=== PATIENT | male | born 1940 | race Caucasian/White ===

== ENCOUNTER 2016-11-04 01:34 | Inpatient (IN) | payer OTHER, MEDICARE ==
[~2016-11-04] VITALS: Ht 172.7 cm; Wt 110.6 kg
[2016-11-04] VITALS (39 sets, daily range): BP systolic 74–107; BP diastolic 52–71; PULSE 90–103; TEMP 36.4–37.1; O2SAT 92–97; Ht 172.7 cm; Wt 110.6 kg
[2016-11-04] MEDS ORDERED: ONDANSETRON INJ 2 MG/ML 2 ML VIAL IV STA (01:52)
[2016-11-04] MEDS ORDERED: MoRPHine SULFATE 4 MG/ML 1 ML CARP\\VIAL IV STA (01:52)
[2016-11-04] MEDS ORDERED: SODIUM CHLORIDE 0.9% 1000ML 1,000 ML IV STA ×2 (01:52→02:45)
--- NOTE | 2016-11-04 01:54 | EMERGENCY ROOM VISIT NOTE ---
History Report prepared by Rubensibvan: Av Grossman Under the Supervision of: Dr. Abdulaziz Darden D.O. First contact with patient: 01:46 Chief Complaint: FLANK PAIN Stated Complaint: VOMITING,CHILLS,FLANK PAIN History of Present Illness The patient is a 76 year old male who presents to the Emergency Room with complaints of persistent left flank pain since 1430 yesterday. The patient is also having pain in his middle lower back. His pain is severe. The patient also started to experience chills, nausea, and vomiting after he went to bed. He denies chest pain, abdominal pain, diarrhea, or urinary symptoms. The patient feels the urge to urinate but has not been able to go tonight. The patient only has one kidney. He has a history of lymphoma, pyelonephritis, and kidney stones. He and his recently moved here from [place]. He has yet to see a local Oncologist. Source of History: patient Onset: 0 yesterday Position: back (lower, left) Symptom Intensity: severe Timing: other (persistent) Associated Symptoms: + chills, + nausea, + vomiting, No abdominal pain, No chest pain, No diarrhea, No urinary symptoms Review of Systems See HPI for pertinent positives and negatives. A total of ten systems were reviewed and were otherwise negative. Past Medical & Surgical Medical Problems: (1) Kidney stone (2) Lymphoma (3) Pyelonephritis Family History No pertinent family history Social History Smoking Status: Former Smoker Marital Status: Current/Historical Medications Scheduled Glipizide (Glipizide Er), Unknown Dose PO DAILY Lisinopril (Zestril), Unknown Dose PO DAILY [Unknown Cholest Med], PO DAILY Allergies Coded Allergies: No Known Allergies (Unverified , 11/04/16) Physical Exam Vital Signs Date Time Temp Pulse Resp B/P Pulse Ox O2 Delivery O2 Flow Rate FiO2 11/04/16 04:15 140 31 128/91 98 Non-Rebreather 10.0 11/04/16 03:30 133 35 123/76 97 Non-Rebreather 12.0 11/04/16 02:56 39.5 153 40 116/60 97 Non-Rebreather 13.0 11/04/16 01:58 150 11/04/16 01:39 36.7 108 22 145/78 100 Room Air Physical Exam GENERAL: Diaphoretic, mottled, anxious appearing. HENT: Normocephalic, atraumatic. Oropharynx unremarkable. EYES: Normal conjunctiva. Sclera non-icteric. NECK: Supple. No nuchal rigidity. FROM. No JVD. RESPIRATORY: Clear to auscultation. CARDIAC: Tachycardic, normal rhythm. Extremities warm and well perfused. Pulses equal. ABDOMEN: Soft, non-distended. No tenderness to palpation. No rebound or guarding. No masses. RECTAL: Deferred. MUSCULOSKELETAL: Chest examination reveals no tenderness. The back is symmetrical on inspection without obvious abnormality. There is no CVA tenderness to palpation. No joint edema. LOWER EXTREMITIES: Calves are equal size bilaterally and non-tender. No edema. No discoloration. NEURO: Normal sensorium. No sensory or motor deficits noted. SKIN: No rash or jaundice noted. Diaphoretic. Medical Decision & Procedures ER Provider Diagnostic Interpretation: X ray results as stated below per my interpretation. Other radiology results as stated below per my review and radiologist interpretation Chest One View Portable: Slight cardiomegaly. Questionable left lower lobe infiltrate. CT ABDOMEN & PELVIS: There is moderate to severe left sided hydroureteronephrosis secondary to an obstructing 7 x 3 mm stone in the distal left ureter approximately 1.5 cm proximal to the left UVJ. There is moderate perinephric and periureteric stranding. There is hepatomegaly and steatosis. Splenomegaly measures 14.2 cm. The gallbladder and pancreas are unremarkable. There is thickening of the left adrenal gland suggesting hyperplasia. The right adrenal gland and right kidney are not visualized. No evidence of bowel obstruction. Normal visualized appendix. Left hemicolon diverticulosis without evidence of acute diverticulitis. Aortoiliac atherosclerosis without aneurysm. There are enlarged paraesophageal and mesenteric lymph nodes. Bilateral fat containing inguinal hernias with evidence of prior bilateral inguinal hernia repair. No evidence of acute osseous abnormality. 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 Radiologist: Susan Sahu MD. Laboratory Results 11/04/16 01:58 Red Blood Count 5.42, Mean Corpuscular Volume 82.5, Mean Corpuscular Hemoglobin 27.5, Mean Corpuscular Hemoglobin Concent 33.3, Mean Platelet Volume 9.3, Neutrophils (%) (Auto) 54.6, Lymphocytes (%) (Auto) 42.1, Monocytes (%) (Auto) 1.3, Eosinophils (%) (Auto) 1.3, Basophils (%) (Auto) 0.0, Neutrophils # (Auto) 0.83, Lymphocytes # (Auto) 0.64, Monocytes # (Auto) 0.02, Eosinophils # (Auto) 0.02, Basophils # (Auto) 0.00 11/04/16 01:58 Test 11/04/16 01:58 11/04/16 02:41 11/04/16 02:48 White Blood Count 1.52 K/uL (4.8-10.8) Red Blood Count 5.42 M/uL (4.7-6.1) Hemoglobin 14.9 g/dL (14.0-18.0) Hematocrit 44.7 % (42-52) Mean Corpuscular Volume 82.5 fL (80-100) Mean Corpuscular Hemoglobin 27.5 pg (25-34) Mean Corpuscular Hemoglobin Concent 33.3 g/dl (32-36) Platelet Count 119 K/uL (130-400) Mean Platelet Volume 9.3 fL (7.4-10.4) Neutrophils (%) (Auto) 54.6 % Lymphocytes (%) (Auto) 42.1 % Monocytes (%) (Auto) 1.3 % Eosinophils (%) (Auto) 1.3 % Basophils (%) (Auto) 0.0 % Neutrophils # (Auto) 0.83 K/uL (1.4-6.5) Lymphocytes # (Auto) 0.64 K/uL (1.2-3.4) Monocytes # (Auto) 0.02 K/uL (0.11-0.59) Eosinophils # (Auto) 0.02 K/uL (0-0.5) Basophils # (Auto) 0.00 K/uL (0-0.2) RDW Standard Deviation 46.8 fL (36.4-46.3) RDW Coefficient of Variation 15.5 % (11.5-14.5) Immature Granulocyte % (Auto) 0.7 % Immature Granulocyte # (Auto) 0.01 K/uL (0.00-0.02) Nucleated RBC Absolute Count (auto) 0.02 K/uL (0-0) Nucleated Red Blood Cells % 1.1 % Toxic Vacuolation 1+ Large Platelets 1+ Polychromasia 1+ Ovalocytes 2+ Anion Gap 12.0 mmol/L (3-11) Est Creatinine Clear Calc Drug Dose 30.2 ml/min Estimated GFR () 28.9 Estimated GFR (Non- 24.9 BUN/Creatinine Ratio 9.9 (10-20) Calcium Level 9.0 mg/dl (8.5-10.1) Total Bilirubin 0.8 mg/dl (0.2-1) Direct Bilirubin 0.2 mg/dl (0-0.2) Aspartate Amino Transf (AST/SGOT) 20 U/L (15-37) Alanine Aminotransferase (ALT/SGPT) 39 U/L (12-78) Alkaline Phosphatase 110 U/L (45-117) Total Protein 7.0 gm/dl (6.4-8.2) Albumin 3.8 gm/dl (3.4-5.0) Lipase 323 U/L (73-393) Bedside Lactic Acid Venous 6.51 mmol/L (0.90-1.70) Urine Color YELLOW Urine Appearance ERROR (CLEAR) Urine pH 5.5 (4.5-7.5) Urine Specific [place] 1.011 (1.000-1.030) Urine Protein TRACE (NEG) Urine Glucose (UA) NEG (NEG) Urine Ketones NEG (NEG) Urine Occult Blood 3+ (NEG) Urine Nitrite POS (NEG) Urine Bilirubin NEG (NEG) Urine Urobilinogen NEG (NEG) Urine Leukocyte Esterase LARGE (NEG) Urine WBC (Auto) >30 /hpf (0-5) Urine RBC (Auto) >30 /hpf (0-4) Urine Hyaline Casts (Auto) 1-5 /lpf (0-5) Urine Epithelial Cells (Auto) 5-10 /lpf (0-5) Urine Bacteria (Auto) 4+ (NEG) Urine Pathogenic Casts /lpf (0) Urine Mucus PRESENT (NONE PRSENT) Laboratory results reviewed by me Medications Administered Medications (Trade) Dose Ordered Sig/Ashvin Route Start Time Stop Time Status Last Admin Dose Admin Sodium Chloride (Nss 1000ml) 1,000 ml @ 999 mls/hr Q1H1M STAT IV 11/04/16 01:52 11/04/16 02:52 DC 11/04/16 01:58 999 MLS/HR Ondansetron HCl (Zofran Inj) 4 mg NOW STAT IV 11/04/16 01:52 11/04/16 01:54 DC 11/04/16 01:57 4 MG Morphine Sulfate (MoRPHine SULFATE INJ) 4 mg NOW STAT IV 11/04/16 01:52 11/04/16 01:54 DC 11/04/16 01:57 4 MG Hydromorphone HCl (Dilaudid Inj) 1 mg NOW STAT IV 11/04/16 02:12 11/04/16 02:13 DC 11/04/16 02:15 1 MG Piperacillin Sod/ Tazobactam Sod (Zosyn Iv) 4.5 gm NOW STAT IV 11/04/16 02:45 11/04/16 02:46 DC 11/04/16 03:06 4.5 GM Levofloxacin (Levaquin / D5W) 750 mg NOW STAT IV 11/04/16 02:45 11/04/16 02:46 DC 11/04/16 03:41 750 MG Acetaminophen 1000 mg 1,000 mg NOW STAT PO 11/04/16 02:45 11/04/16 02:46 DC 11/04/16 03:06 1,000 MG Sodium Chloride (Nss 1000ml) 1,000 ml @ 999 mls/hr Q1H1M STAT IV 11/04/16 02:45 11/04/16 03:45 DC 11/04/16 02:45 999 MLS/HR Hydromorphone HCl (Dilaudid Inj) 1 mg NOW STAT IV 11/04/16 03:33 11/04/16 03:34 DC 11/04/16 03:39 1 MG Miscellaneous Information 1 ea 1 ea ONE ONCE N/A 11/04/16 04:00 11/04/16 04:01 DC 11/04/16 03:53 1 EA Sodium Chloride (Nss 1000ml) 1,000 ml @ 999 mls/hr Q1H1M ONCE IV 11/04/16 04:00 11/04/16 05:00 11/04/16 04:00 999 MLS/HR ECG Indication: back/shoulder pain Rate (beats per minute): 146 Rhythm: sinus tachycardia Findings: nonspecific-ST abn, left axis deviation, other (left anterior hemiblock. poor baseline.) ED Course 0147: The patient was evaluated in room A10. A complete history and physical exam was performed. 0152: Morphine Sulfate 4 mg IV, Zofran 4 mg IV, NSS 1000 ml @ 999 mls/hr. 0212: Dilaudid 1 mg IV. 0234: Updated the patient and his . The patient vomited at CT scan. The patient was tachycardic, hypoxic, tachypneic and ill-appearing on reevaluation. 0245: NSS 1000 ml @ 999 mls/hr, Tylenol 1000 mg PO, Levofloxacin 750 mg IV, Zosyn 4.5 gm IV. 0300: Spoke with the patient and his . They state that he had cancer 25 years ago and was treated at [facility] in [place]. 0333: Dilaudid 1 mg IV. 0345: Daptomycin 642 mg / NSS 62.84 ml @ 100 mls/hr IV. 0352: Discussed the case with Dr. Bear, Urologist. The patient will eventually be seen in the OR. 0400: Discussed the case with Dr. Alonso, [facility]. The patient will be evaluated. 0420: Discussed the case with Dr. Schneider, [employer]. He is aware. 0430: The patient is being seen by the ICU's PA. Medical Decision Differential diagnosis includes sepsis, pyelonephritis, ureterolithiasis, UTI, AAA, pneumonia, SVT. Spoke with patient's family at bedside. Patient started on IV fluids patient given Tylenol patient given empiric triple antibiotic therapy. Patient appears to be septic however is not in septic shock at 4:14 AM patient has a neutropenic fever with lactic acidosis a urinary tract infection complicated by a ureteral stone on CT and potentially left lower lobe pneumonia. This case was discussed with Dr. Bear from urology will take the patient the operating room. This case was discussed with Dr. Alonso for admit at 400am Consults Time Called: 0340 Consulting Physician: Dr. Bear, Urologist. Returned Call: 0352 The patient will eventually be seen in the OR. Additional Consults: Time Called: 0353 Consulted Physician: Dr. Alonso, [facility] Returned Call: 0400 Additional Comments: The patient will be evaluated. Time Called: 0405 Consulted Physician: Dr. Schneider, [employer]. Returned Call: 0420 Additional Comments: He is aware. Impression Primary Impression: Left flank pain Additional Impressions: Urinary tract infection Pyelonephritis Sepsis Renal insufficiency Ureterolithiasis Critical Care I have personally spent greater than 45 minutes of critical care time in the direct management of this patient. This includes bedside care, interpretation of diagnostic studies, and testing, discussion with consultants, patient, and family members, and other required patient management activities. This 45 minutes is in excess of all separately billable procedures. Scribe Attestation The scribe's documentation has been prepared under my direction and personally reviewed by me in its entirety. I confirm that the note above accurately reflects all work, treatment, procedures, and medical decision making performed by me. Departure Information Dispostion Being Evaluated By Hospitalist Referrals Nicola Hannon MD (PCP) Patient Instructions My [facility] Problem Qualifiers Additional Impressions: Urinary tract infection Urinary tract infection type: site unspecified Sepsis Sepsis type: sepsis due to unspecified organism Qualified Codes: A41.9 - Sepsis, unspecified organism
[2016-11-04] MEDS ORDERED: HYDROmorphone INJ 1 MG/ML SYR IV STA (02:12)
[2016-11-04 02:28] LABS: HEMATOCRIT 44.7 % (42-52); MEAN CELL VOLUME 82.5 fL (80-100); MEAN CORPUSCULAR HEMOGLOBIN 27.5 pg (25-34); MEAN CORPUSCULAR HGB CONC 33.3 g/dl (32-36); MEAN PLATELET VOLUME 9.3 fL (7.4-10.4); PLATELET COUNT 119 K/uL (130-400); RED BLOOD COUNT 5.42 M/uL (4.7-6.1); WHITE BLOOD COUNT 1.52 K/uL (4.8-10.8)
[2016-11-04 02:37] LABS: BUN/CREATININE RATIO 9.9 (10-20); CREATININE 2.4 mg/dl (0.60-1.40); POTASSIUM 4.3 mmol/L (3.5-5.1)
[2016-11-04] MEDS ORDERED: LEVAQUIN 750MG / 150ML D5W IV STA (02:45)
[2016-11-04] MEDS ORDERED: ACETAMINOPHEN 500 MG TAB PO STA (02:45)
[2016-11-04] MEDS ORDERED: PIPERACILLIN/TAZOBACTAM 4.5 GM/100ML D5W IV STA (02:45)
[2016-11-04 03:03] LABS: URINE BILIRUBIN NEG (NEG); URINE COLOR YELLOW; URINE NITRITE POS (NEG); URINE PH 5.5 (4.5-7.5); URINE SPECIFIC GRAVITY 1.011 (1.000-1.030); UROBILINOGEN NEG (NEG); ZZURINE CULT IF INDIC CATH YES
[2016-11-04 03:04] LABS: MANUAL MICROSCOPIC REQUIRED? NO; REVIEW REQ? YES
[2016-11-04 03:13] LABS: COMPLETE YES; EOS % 1.3 %; IG% 0.7 %; LARGE PLATELETS 1+; LYMPH % 42.1 %; LYMPH ABS # 0.64 K/uL (1.2-3.4); MONO % 1.3 %; NEUT % 54.6 %; OVALOCYTES 2+; POLYCHROMASIA 1+; VACUOLIZATION 1+
[2016-11-04 03:17] LABS: URINE MUCUS PRESENT (NONE PRSENT)
[2016-11-04] MEDS ORDERED: HYDROmorphone INJ 0.5 MG/0.5 ML SYR IV STA (03:33)
[2016-11-04] MEDS ORDERED: LISI-461 PO (03:39)
[2016-11-04] MEDS ORDERED: GLIP2.5T11 PO (03:40)
[2016-11-04] MEDS ORDERED: [UNRECOGNIZED DRUG - REMARK] PO (03:41)
[2016-11-04] MEDS ORDERED: DAPTOMYCIN IV SCH (03:45)
[2016-11-04] MEDS ORDERED: SODIUM CHLORIDE 0.9% IV SCH (03:45)
[2016-11-04] MEDS ORDERED: SODIUM CHLORIDE 0.9% 1000ML 1,000 ML IV ONE (04:00)
[2016-11-04] MEDS ORDERED: NURSING VERBAL MED ORDER ONE ×2 (04:00→08:45)
--- NOTE | 2016-11-04 04:31 | History and Physical ---
History & Physical Date & Time of Service: Nov 04, 2016 at 04:22 Chief Complaint: Vomiting,Chills,Flank Pain Primary Care Physician: Nicola Hannon MD History of Present Illness Source: spouse 76 y/o M Hx DM 2, HTN, HPL, renal calculi, multiple Saravanan including renal CA leading to R nephrectomy. Pt had acute onset of L flank/back pain which progressed to severe, in addition to fevers following dinner on 11/03. A fever was confirmed on arrival to the ER and he was sent for an abdominal CT. This revealed severe L hydronephrosis with a 7mm obstructing calculus close to the UVJ. The urology service was contacted and the pt will be taken to the OR emergently. Initial labs are concerning for neutropenia, possible OSCAR and a markedly elevated lactic acid. The pt received multiple doses of narcotics in the ER and I was not able to obtain a history directly from him as a result. His was present and very knowledgeable regarding his past history. He recently relocated to [place] from [place] for longterm and we do not have any recent medical records or labs at the time of admission. Past Medical/Surgical History 1) Renal CA 1999 - R nephrectomy - no chemo or radiation 2) Prostate CA 2005 - prostatectomy - no chemo or radiation 3) Non Hodgkin's lymphoma 2011 - remission following 8 cycles chemotherapy 4) DM 2 5) HTN 6) HPL 7) Renal calculi - required surgical excision of a large renal calculus at age 24 Family History No pertinent family history Father at 96 - history of CVA Mother at 49 Brain CA Social History Smoking Status: Former Smoker Marital Status: Allergies Coded Allergies: No Known Allergies (Unverified , 11/04/16) Home Medications Scheduled Glipizide (Glipizide Er), Unknown Dose PO DAILY Lisinopril (Zestril), Unknown Dose PO DAILY [Unknown Cholest Med], PO DAILY Review of Systems Constitutional: + chills, + fever, + sweats Eyes: No eye pain, No worsening of vision ENT: No hearing loss, No nasal symptoms, No unusual epistaxis Respiratory: No cough, No sputum, No wheezing Cardiovascular: No PND, No chest pain, No orthopnea Abdomen: No nausea, No pain, No vomiting Musculoskeletal: + problem reported (severe L back pain), No joint pain Genitourinary - Male: + problem reported (severe L flank pain), + urinary urgency, No dysuria, No hematuria Neurologic: No memory loss, No paralysis, No weakness Psychiatric: No depression symptoms Endocrine: No fatigue Hematologic / Lymphatic: No abnormal bleeding/bruising Integumentary: No rash Allergic / Immunologic: No environmental allergies Physical Exam Vital Signs Date Time Temp Pulse Resp B/P Pulse Ox O2 Delivery O2 Flow Rate FiO2 11/04/16 03:30 133 35 123/76 97 Non-Rebreather 12.0 11/04/16 02:56 39.5 153 40 116/60 97 Non-Rebreather 13.0 11/04/16 01:58 150 11/04/16 01:39 36.7 108 22 145/78 100 Room Air General Appearance: + pertinent finding (Overweight elderly male - asleep/ snoring - tachypnic ) Head: normocephalic, atraumatic Eyes: normal inspection, EOMI ENT: normal ENT inspection Neck: supple, + pertinent finding (exam limited by habitus) Respiratory/Chest: chest non-tender, lungs clear, normal breath sounds, no respiratory distress, + pertinent finding (tachypnea) Cardiovascular: regular rate, rhythm, no edema, no gallop Abdomen/GI: normal bowel sounds, non tender, soft, + pertinent finding Genitourinary - Male: + pertinent finding (Avoided palpation of L flank in lite of diagnosis) Back: + pertinent finding (Avoided palpation of L flank in lite of diagnosis) Extremities/Musculoskelatal: normal inspection, no calf tenderness, normal capillary refill, no pedal edema Neurologic/Psych: pricing analyst II-XII nml as tested, no motor/sensory deficits, alert, oriented x 3 Skin: normal color, warm/dry, no rash Diagnostics Laboratory Results Results Past 24 Hours Test 11/04/16 01:58 11/04/16 02:41 11/04/16 02:48 Range/Units White Blood Count 1.52 4.8-10.8 K/uL Red Blood Count 5.42 4.7-6.1 M/uL Hemoglobin 14.9 14.0-18.0 g/dL Hematocrit 44.7 42-52 % Mean Corpuscular Volume 82.5 80-100 fL Mean Corpuscular Hemoglobin 27.5 25-34 pg Mean Corpuscular Hemoglobin Concent 33.3 32-36 g/dl Platelet Count 119 130-400 K/uL Mean Platelet Volume 9.3 7.4-10.4 fL Neutrophils (%) (Auto) 54.6 % Lymphocytes (%) (Auto) 42.1 % Monocytes (%) (Auto) 1.3 % Eosinophils (%) (Auto) 1.3 % Basophils (%) (Auto) 0.0 % Neutrophils # (Auto) 0.83 1.4-6.5 K/uL Lymphocytes # (Auto) 0.64 1.2-3.4 K/uL Monocytes # (Auto) 0.02 0.11-0.59 K/uL Eosinophils # (Auto) 0.02 0-0.5 K/uL Basophils # (Auto) 0.00 0-0.2 K/uL RDW Standard Deviation 46.8 36.4-46.3 fL RDW Coefficient of Variation 15.5 11.5-14.5 % Immature Granulocyte % (Auto) 0.7 % Immature Granulocyte # (Auto) 0.01 0.00-0.02 K/uL Nucleated RBC Absolute Count (auto) 0.02 0-0 K/uL Nucleated Red Blood Cells % 1.1 % Toxic Vacuolation 1+ Large Platelets 1+ Polychromasia 1+ Ovalocytes 2+ Sodium Level 141 136-145 mmol/L Potassium Level 4.3 3.5-5.1 mmol/L Chloride Level 102 98-107 mmol/L Carbon Dioxide Level 27 21-32 mmol/L Anion Gap 12.0 3-11 mmol/L Blood Urea Nitrogen 24 7-18 mg/dl Creatinine 2.40 0.60-1.40 mg/dl Est Creatinine Clear Calc Drug Dose 30.2 ml/min Estimated GFR () 28.9 Estimated GFR (Non- 24.9 BUN/Creatinine Ratio 9.9 10-20 Random Glucose 201 70-99 mg/dl Calcium Level 9.0 8.5-10.1 mg/dl Total Bilirubin 0.8 0.2-1 mg/dl Direct Bilirubin 0.2 0-0.2 mg/dl Aspartate Amino Transf (AST/SGOT) 20 15-37 U/L Alanine Aminotransferase (ALT/SGPT) 39 12-78 U/L Alkaline Phosphatase 110 45-117 U/L Total Protein 7.0 6.4-8.2 gm/dl Albumin 3.8 3.4-5.0 gm/dl Lipase 323 73-393 U/L Bedside Lactic Acid Venous 6.51 0.90-1.70 mmol/L Urine Color YELLOW Urine Appearance ERROR CLEAR Urine pH 5.5 4.5-7.5 Urine Specific [place] 1.011 1.000-1.030 Urine Protein TRACE NEG Urine Glucose (UA) NEG NEG Urine Ketones NEG NEG Urine Occult Blood 3+ NEG Urine Nitrite POS NEG Urine Bilirubin NEG NEG Urine Urobilinogen NEG NEG Urine Leukocyte Esterase LARGE NEG Urine WBC (Auto) >30 0-5 /hpf Urine RBC (Auto) >30 0-4 /hpf Urine Hyaline Casts (Auto) 1-5 0-5 /lpf Urine Epithelial Cells (Auto) 5-10 0-5 /lpf Urine Bacteria (Auto) 4+ NEG Urine Pathogenic Casts 0 /lpf Urine Mucus PRESENT NONE PRSENT Microbiology Results 11/04/16 Blood Culture, Received Pending 11/04/16 Blood Culture, Received Pending 11/04/16 Urine Culture, Received Pending Diagnostic Radiology CT abdomen: Severe L hydronephrosis with a 7mm obstructing calculus close to the UVJ. EKG Sinus tach - LAFB - no evidence of previous PR Impression Assessment and Plan 76 y/o M Hx DM 2, HTN, HPL, renal calculi, multiple Saravanan including renal CA leading to R nephrectomy. Pt had acute onset of L flank/back pain which progressed to severe, in addition to fevers following dinner on 11/03. A fever was confirmed on arrival to the ER and he was sent for an abdominal CT. This revealed severe L hydronephrosis with a 7mm obstructing calculus close to the UVJ. The urology service was contacted and the pt will be taken to the OR emergently. Initial labs are concerning for neutropenia, possible OSCAR and a markedly elevated lactic acid. The pt received multiple doses of narcotics in the ER and I was not able to obtain a history directly from him as a result. His was present and very knowledgeable regarding his past history. He recently relocated to [place] from [place] for longterm and we do not have any recent medical records or labs at the time of admission. 1) Pre-op risk - He has no history of heart disease He will require insulin treatment. His creatinine is above 2.0 and this may be acute. There is no evidence if previous PR on EKG - RCRI is 6.6% 2) Urosepsis - Pt placed on broad spectrum coverage - provided with Zosyn, Levaquin, Dapto in the ER - we have continued Zosyn and if there is no short- term improvement following surgery would consider redosing Dapto and Levaquin at 24hrs. Urology contacted and pt will proceed to OR emergently. 3) Neutropenia - may be due to acute infection however considering his history of multiple Saravanan he may require an oncology eval if his count does not recover 4) DM - placed on sliding scale 5) HTN - Lisinopril held for surgery and due to possible OSCAR 6) OSCAR - pt had a R nephrectomy in 1999 - we do not know his baseline creatinine - he is receiving aggressive IVF on route to OR and labs will be trended 7) HPL - he is likely on a Statin which should be reintroduced post-op Full code - SCDs pending surgery Total time for this admit including review of labs, meds, EKG, imaging - discussion with pts and ER attending - including critical care time 40 min Level of Care Critical Care Resuscitation Status FULL RESUSCITATION VTE Prophylaxis Given or contraindicated: SCD's
[2016-11-04] MEDS ORDERED: FLUMAZENIL 0.1 MG/1 ML 10 ML VIAL IV PRN (04:45)
[2016-11-04] MEDS ORDERED: NALOXONE HCL 0.4 MG/1 ML VIAL/CARP IV PRN (04:45)
[2016-11-04] MEDS ORDERED: FENTANYL CITRATE INJ 50 MCG/1 ML 2 ML VIAL IV PRN (04:45)
[2016-11-04] MEDS ORDERED: HYDROmorphone INJ 2 MG/ML SYR/VIAL IV PRN (04:45)
[2016-11-04] MEDS ORDERED: LABETALOL HCL IV 5 MG/ML 20ML IV PRN (04:45)
[2016-11-04] MEDS ORDERED: MEPERIDINE HCL 25 MG/ML CARP IV PRN (04:45)
[2016-11-04] MEDS ORDERED: PHENYLEPHRINE 100MCG/ML 5ML SYR IV PRN (04:45)
[2016-11-04] MEDS ORDERED: ATROPINE SULFATE 0.1 MG/ML 5ML SYR IV PRN (04:45)
[2016-11-04] MEDS ORDERED: ONDANSETRON INJ 2 MG/ML 2 ML VIAL IV PRN (04:45)
[2016-11-04] MEDS ORDERED: EpHEDrine SULFATE INJ 50 MG/ML AMP IV PRN (04:45)
[2016-11-04] MEDS ORDERED: CONRAY 30% 150ML BOTTLE ONE (04:49)
[2016-11-04] MEDS ORDERED: NovoLIN-R INSULIN PER UNIT CHARGE ONE (05:02)
--- NOTE | 2016-11-04 05:02 | Progress Note ---
Progress Note Date of Service Nov 04, 2016. Progress Note 76 yo male with L distal obstructing stone in solitary kidney, in renal failure , colic, septic and decompensating quickly. In duress. gives history. R nephrectomy for RCC RRP for CAP History of lymphoma s/p chemoRx Febrile, poorly oriented + respiratory distress L CVAT Tachycardia OR ready for stent placement Consent obtained from , patient unable to give Will proceed to OR for emergency decompression, will complete consultation after completion of case. Care d/w , anesthesia, ER and OR team.
[2016-11-04] MEDS ORDERED: FENTANYL CITRATE INJ 50 MCG/1 ML 2 ML VIAL ONE (05:12)
[2016-11-04] MEDS ORDERED: INSULIN HUMAN REGULAR IV ONE (05:15)
[2016-11-04] MEDS ORDERED: PROPOFOL IV EMULSION 10 MG/ML 20 ML VIAL IV ONE (05:36)
[2016-11-04] MEDS ORDERED: LIDOCAINE HCL 2% 2 ML VIAL (20MG/ML) ONE (05:36)
--- NOTE | 2016-11-04 05:45 | Critical Care Consultation ---
Critical Care Consultation Date of Consultation: Nov 04, 2016. Attending Physician: Dr. Wero Alonso Reason for Consultation: Post-Operative Observation and Sepsis History of Present Illness Attending: Dr. Nakul Schneider Doroteo Arteaga is a 52-bxal-lps-year-old man who presents to [facility] ED late last night for sudden onset left flank pain. Patient has a significant past medical history of multiple cancers including; prostate, kidney, lymphoma. He has received multiple rounds of chemotherapy. Is currently said to be in remission. Patient's also reports that he has had many kidney stones. History tonight is collected from the as the patient is rather sedated after multiple pain medications and is asleep in bed. She states that around 10 :30 last evening her suddenly started complaining of left flank pain. He was experiencing rigors and vomited twice. She states that she did look at the vomited and it was without blood. She states the first one was clear secretions and the second was that of food product. She states that he took a small amount of water and some Tylenol with no relief. Thus they came to the emergency department. At the emergency department the patient has received approximately 3 L of fluid, 4 mg of morphine, 4 mg Zofran, 21 mg Dilaudid doses. He is also received Tylenol and broad-spectrum antibiotics of Levaquin and Zosyn. said that the patient could not originally find a comfortable position but after the final dose of Dilaudid was able to turn to his side and fall asleep. Patient underwent a CT abdomen and pelvis that demonstrated moderate to severe left-sided hydrocele ureteral nephrosis secondary to an obstructing 7 x 3 mm stone in the distal left ureter approximately 1.5 cm of proximal to the left UVJ. There is moderate perinephritic and periureteric stranding. denies that pt complained of chest pain, trouble breathing, cough. Pt has been unable to urinate despite urge. Chery in place with concentrated urine. Pt on 13L non-breather. Past Medical/Surgical History Medical Problems: Kidney stone Lymphoma Pyelonephritis Renal Calculi Shoulder Fracture Bilateral Hernia Cataracts Diabetes Type II Renal Cell CA Prostate CA Lymphoma Surgical History: Cataract Repair Herniorrhaphy Nephrectomy Family History No pertinent family history Mother: @ 46 of Brain [place] Father: at 95, Known CVA 1 Daughter from [place] 1 Son 52 alive and well Social History Smoking Status: Former Smoker (Quit in 1984) Smokeless Tobacco Use: No Alcohol Use: occasionally ( reports once a month at most) Drug Use: none Marital Status: Housing Status: lives with significant other ([facility] 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) Allergies Coded Allergies: No Known Allergies (Unverified , 11/04/16) Home Medications Scheduled Glipizide (Glipizide Er), Unknown Dose PO DAILY Lisinopril (Zestril), Unknown Dose PO DAILY [Unknown Cholest Med], PO DAILY Current Inpatient Medications Current Inpatient Medications Medications (Trade) Dose Ordered Sig/Ashvin Route Start Time Stop Time Status Last Admin Dose Admin Daptomycin 642 mg/ Sodium Chloride 62.84 ml @ 100 mls/hr NOW IV 11/04/16 03:45 11/14/16 03:44 11/04/16 04:31 100 MLS/HR Sodium Chloride (Nss 1000ml) 1,000 ml @ 999 mls/hr Q1H1M ONCE IV 11/04/16 04:00 11/04/16 05:00 11/04/16 04:00 999 MLS/HR Insulin Aspart SLIDING SCALE G... Q6H SC 11/04/16 04:15 12/04/16 04:14 UNV Sodium Chloride 1,000 ml @ 150 mls/hr Q6H40M IV 11/04/16 04:15 12/04/16 04:14 UNV Piperacillin Sod/ Tazobactam Sod/ Dextrose (Zosyn Iv/D5 100ml) 115 ml @ 200 mls/hr Q6 IV 11/04/16 06:00 11/14/16 05:59 UNV Hydromorphone HCl (Dilaudid Inj) 1 mg Q3H PRN IV 11/04/16 04:45 11/18/16 04:44 UNV Hydromorphone HCl (Dilaudid Inj) 0.5 mg Q5M PRN IV 11/04/16 04:45 11/05/16 04:44 UNV Fentanyl Citrate (Fentanyl Inj) 25 mcg Q5M PRN IV 11/04/16 04:45 11/05/16 04:44 UNV Naloxone HCl (Narcan Inj) 0.2 mg Q2M PRN IV 11/04/16 04:45 11/05/16 04:44 UNV Meperidine HCl (Demerol Inj) 12.5 mg Q5M PRN IV 11/04/16 04:45 11/05/16 04:44 UNV Ondansetron HCl (Zofran Inj) 4 mg ONE PRN IV 11/04/16 04:45 UNV Flumazenil (Romazicon Inj) 0.2 mg Q2M PRN IV 11/04/16 04:45 11/05/16 04:44 UNV Labetalol HCl (Normodyne IV) 5 mg Q5M PRN IV 11/04/16 04:45 UNV Ephedrine Sulfate (EpHEDrine SULFATE INJ) 5 mg Q5M PRN IV 11/04/16 04:45 11/05/16 04:44 UNV Atropine Sulfate (Atropine Sulfate 0.1MG/Ml Inj) 0.5 mg Q1M PRN IV 11/04/16 04:45 11/05/16 04:44 UNV Phenylephrine HCl (Andre-Synephrine 500MCG/5ML Syr) 100 mcg Q5M PRN IV 11/04/16 04:45 11/05/16 04:44 UNV Review of Systems 12 systems reviewed and negative other than previously mentioned in the HPI. Physical Exam Date Time Temp Pulse Resp B/P Pulse Ox O2 Delivery O2 Flow Rate FiO2 11/04/16 04:34 135 34 104/59 97 Non-Rebreather 11/04/16 04:15 140 31 128/91 98 Non-Rebreather 10.0 11/04/16 03:30 133 35 123/76 97 Non-Rebreather 12.0 11/04/16 02:56 39.5 153 40 116/60 97 Non-Rebreather 13.0 11/04/16 01:58 150 11/04/16 01:39 36.7 108 22 145/78 100 Room Air Vital Signs - as noted Laboratory Data - as noted Physical Exam: General - Anxious appearing and Diaphoretic HENT: Normocephalic, atraumatic. Oropharynx unremarkable. EYES: Normal conjunctiva. Sclera non-icteric. Neck - Supple, trachea midline, no masses or lymphadenopathy, no JVD or bruits Lungs - No paradoxical chest wall movement, clear to auscultation bilaterally, increased breath sounds due to mouth breathing at times, breathing at 30bpm, no wheezes, rales, or rhonchi Heart - Sinus Tachycardia, No murmur, rubs, clicks, or gallops appreciated Abdomen - BS not noted, no bruits noted, tympanic to percussion, soft, nontender , nondistended, no organomegaly. Avoided CVA tenderness due to confirmed dx via CT scan. Extremities - No edema, pedal pulses intact Neuro - Alert & Oriented prior to pain meds/sleeping Strength extremities equal and appropriate bilaterally Reflexes: plantar reflex up going CN: No facial asymmetry Laboratory Results Last 24 Hours Test 11/04/16 01:58 11/04/16 02:41 11/04/16 02:48 11/04/16 04:35 White Blood Count 1.52 K/uL Red Blood Count 5.42 M/uL Hemoglobin 14.9 g/dL Hematocrit 44.7 % Mean Corpuscular Volume 82.5 fL Mean Corpuscular Hemoglobin 27.5 pg Mean Corpuscular Hemoglobin Concent 33.3 g/dl Platelet Count 119 K/uL Mean Platelet Volume 9.3 fL Neutrophils (%) (Auto) 54.6 % Lymphocytes (%) (Auto) 42.1 % Monocytes (%) (Auto) 1.3 % Eosinophils (%) (Auto) 1.3 % Basophils (%) (Auto) 0.0 % Neutrophils # (Auto) 0.83 K/uL Lymphocytes # (Auto) 0.64 K/uL Monocytes # (Auto) 0.02 K/uL Eosinophils # (Auto) 0.02 K/uL Basophils # (Auto) 0.00 K/uL RDW Standard Deviation 46.8 fL RDW Coefficient of Variation 15.5 % Immature Granulocyte % (Auto) 0.7 % Immature Granulocyte # (Auto) 0.01 K/uL Nucleated RBC Absolute Count (auto) 0.02 K/uL Nucleated Red Blood Cells % 1.1 % Toxic Vacuolation 1+ Large Platelets 1+ Polychromasia 1+ Ovalocytes 2+ Sodium Level 141 mmol/L Potassium Level 4.3 mmol/L Chloride Level 102 mmol/L Carbon Dioxide Level 27 mmol/L Anion Gap 12.0 mmol/L Blood Urea Nitrogen 24 mg/dl Creatinine 2.40 mg/dl Est Creatinine Clear Calc Drug Dose 30.2 ml/min Estimated GFR () 28.9 Estimated GFR (Non- 24.9 BUN/Creatinine Ratio 9.9 Random Glucose 201 mg/dl Calcium Level 9.0 mg/dl Total Bilirubin 0.8 mg/dl Direct Bilirubin 0.2 mg/dl Aspartate Amino Transf (AST/SGOT) 20 U/L Alanine Aminotransferase (ALT/SGPT) 39 U/L Alkaline Phosphatase 110 U/L Total Protein 7.0 gm/dl Albumin 3.8 gm/dl Lipase 323 U/L Bedside Lactic Acid Venous 6.51 mmol/L Urine Color YELLOW Urine Appearance ERROR Urine pH 5.5 Urine Specific [place] 1.011 Urine Protein TRACE Urine Glucose (UA) NEG Urine Ketones NEG Urine Occult Blood 3+ Urine Nitrite POS Urine Bilirubin NEG Urine Urobilinogen NEG Urine Leukocyte Esterase LARGE Urine WBC (Auto) >30 /hpf Urine RBC (Auto) >30 /hpf Urine Hyaline Casts (Auto) 1-5 /lpf Urine Epithelial Cells (Auto) 5-10 /lpf Urine Bacteria (Auto) 4+ Urine Pathogenic Casts /lpf Urine Mucus PRESENT Diagnostic Results CT abdomen and pelvis: 11/04/2016 [address] abdomen and pelvis that demonstrated moderate to severe left-sided hydrocele ureteral nephrosis secondary to an obstructing 7 x 3 mm stone in the distal left ureter approximately 1.5 cm of proximal to the left UVJ. There is moderate perinephritic and periureteric stranding. There is hepatomegaly and steatosis. Splenomegaly measures 14.2 cm. The gallbladder and pancreas are unremarkable. There is thickening of the left adrenal gland suggesting hyperplasia. The right adrenal gland and right kidney are not visualized. No evidence of bowel extraction. Normal visualized appendix. Left hemicolon diverticulosis without evidence of acute diverticulitis. Aortoiliac atherosclerosis without aneurysm. There are enlarged paraesophageal and mesenteric lymph nodes. Bilateral fat containing inguinal hernias with evidence of prior bilateral inguinal hernia repair. No evidence of acute osseous abnormality. 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 Radiologist: Susan Sahu M.D. CXR: 11/04/2016 0152 Formal read pending: Per my review: Study quality poor due to portable technique and limited inspiration. No sign of pneumothorax. Cardiomegaly. Increased vascular markings. No opacities favoring pneumonia. Assessment & Plan (1) Urinary tract infection (2) Ureterolithiasis (3) Renal insufficiency (4) Left flank pain (5) Sepsis (6) Lymphoma (7) Pyelonephritis (8) Kidney stone : * POD # 0 * Continue Fluid Resuscitation * Chery to gravity in place, Strict I&O's * Urology consulted: Post op care per recommendations * Likely OSCAR: Unknown Renal Function at this time, hx of right nephrectomy * Monitor in ICU I.D * Septic 2/2 impacted kidney stone * Pt started on broad spectrum abx * Levaquin & Zosyn * Trend Lactic Acid q6hrs: Currently 6.51 Endocrine: * SSI in place: Received Insulin pre-op for elevated glucose Cardiac: * Denies Cardiac history including hypertension * Pt SBP low 100's in ED; Continue Fluids * Monitor on telemetry Neuro: * Continue pain control with Dilaudid post-operatively Respiratory: * Currently in O.R. with plan for light sedation. * Provide additional O2 if needed * Surgery may be converted to intubation; Will plan to extubate once adequately recovered * Monitor on telemetry GI: * NPO currently; advance diet as tolerated once recovered * Monitor labs * GI Prophylaxis: Currently not indicated Heme: * Leukopenia noted * H&H stable, Plts stable * Monitor CBC * DVT Prophylaxis: held currently pending surgery. SCDs once in ICU Access: * [address]. Will examine need for central access/arterial line post- operatively CCT: 37 minutes; Not including any billable procedures. Thank you for including us in the care of this patient. Please review Dr. Nakul Schneider's addendum for further recommendations. I have personally evaluated and examined this patient. I agree with assessment and plan of Nia Maradiaga PA-C. Patient alert oriented, pleasant during my examination. Blood pressure still on the low side we will check a random cortisol as well as add vasopressin in the interim. Given leukopenia will check for influenza, continue antibiotics, discontinue Levaquin there is no role for double coverage of gram negatives and hospital and pyelogram reports ineffectiveness of Levaquin, continue daptomycin until blood cultures are urine cultures are positive given persistent hypotension, given 1 dose 100 mg hydrocortisone. I have personally spent 25 minutes of critical care time in the direct management of this patient. This is a life/limb threatening event. This includes time spent evaluating patient, direct bedside care, chart review, placing orders, interpretation of diagnostic studies, discussion with consultants, patient, and family members, as well as other required patient management activities. This time is exclusive of all separately billable procedures, and teaching time and separate from and in addition to any other critical care service time. Problem Qualifiers (1) Urinary tract infection: Urinary tract infection type: site unspecified (2) Sepsis: Sepsis type: sepsis due to unspecified organism Qualified Codes: A41.9 - Sepsis, unspecified organism
--- NOTE | 2016-11-04 05:58 | [facility] Post Operative Brief Note ---
Immediate Operative Summary Operative Date Nov 04, 2016. Pre-Operative Diagnosis Solitary Left Kidney with Ureteral Stone, Sepsis, Renal Failure Post-Operative Diagnosis Solitary Left Kidney with Ureteral Stone, Sepsis, Renal Failure Procedure(s) Performed Cystoscopy, Left Ureteral Stent Placement Surgeon Dr. Kelsey Bear Block Cutter Surgeon(s) none Estimated Blood Loss 0 cc Findings Good stent position on fluoro, purulent urine after drainage Specimens Micro #1 Urine Culture and Sensitivity Drains 6 fr multilength stent on left, 16 fr hutchins Anesthesia MAC Complication(s) None Disposition Recovery Room / PACU
--- NOTE | 2016-11-04 06:12 | Anesthesiology Progress Note ---
Anesthesia Post Op Note Date & Time Nov 04, 2016 at 06:08 Vital Signs Pain Intensity: 0 Vital Signs Past 12 Hours Date Time Temp Pulse Resp B/P Pulse Ox O2 Delivery O2 Flow Rate FiO2 11/04/16 05:55 108 18 109/69 94 Mask 5 11/04/16 05:45 38.5 110 18 109/69 93 Mask 10 11/04/16 04:34 135 34 104/59 97 Non-Rebreather 11/04/16 04:15 140 31 128/91 98 Non-Rebreather 10.0 11/04/16 03:30 133 35 123/76 97 Non-Rebreather 12.0 11/04/16 02:56 39.5 153 40 116/60 97 Non-Rebreather 13.0 11/04/16 01:58 150 11/04/16 01:39 36.7 108 22 145/78 100 Room Air Notes Mental Status: alert / awake / arousable, participated in evaluation, see Notes Pt Amnestic to Procedure: Yes Nausea / Vomiting: adequately controlled Pain: adequately controlled Airway Patency, RR, SpO2: stable & adequate, see Notes BP & HR: stable & adequate, see Notes Hydration State: stable & adequate Anesthetic Complications: no major complications apparent The patient underwent a cysto/stent under MAC. He is currently septic but appears more comfortable and relaxed compared to how he looked preoperatively. His color has improved as he no longer appears flushed. He remains tachypneic, tachycardic, and hypotensive. His BSG has improved after 3 units reg insulin preoperatively. I signed the patient out to the PA in the ICU.
--- NOTE | 2016-11-04 06:14 | Urology Consultation ---
History General Date of Service: Nov 04, 2016. Chief Complaint: L obstructing 7 mm distal ureteral stone, sepsis, solitary kidney Primary Care Physician: Nicola Hannon MD Pt seen a urologist before?: Yes If yes, why?: Numerous issues as noted below History of Present Illness 76 yo male, poor historian due to acute difficulties, brought to the ER for worsening L flank pain followed by fevers, chills and clinical evidence of sepsis. 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 He underwent a CT scan demonstrating a know left solitary kidney with obstructing distal left ureteral stone, hydro, inflammation. He was brought to the OR emergently for decompression seen the evidence of urosepsis and obstruction of a solitary kidney and has undergone successful stent placement. He is currently in ICU. He has moved to the area 8 months ago for prison and, while established with a primary care physician, has not established with his various relevant specialists as of yet. His urologic history is significant for a R renal cell CA s/p nephrectomy in 1999 at [facility], prostate cancer s/p RRP in 2005, both LAKSHMI per her report. He also has a history of lymphoma treated with chemotherapy. Urology consultation was requested for acute care as above. HPI - Stones Number: 1 Size: 7mm Location: left, ureter Pain: inguinal, left flank Patient has: + fever, + hydronephrosis ER Visits: number (1) Imaging Imaging: CT (images personally reviewed with ) Laboratory Last 24 Hours Test 11/04/16 01:58 11/04/16 02:41 11/04/16 02:48 11/04/16 04:35 White Blood Count 1.52 K/uL Red Blood Count 5.42 M/uL Hemoglobin 14.9 g/dL Hematocrit 44.7 % Mean Corpuscular Volume 82.5 fL Mean Corpuscular Hemoglobin 27.5 pg Mean Corpuscular Hemoglobin Concent 33.3 g/dl Platelet Count 119 K/uL Mean Platelet Volume 9.3 fL Neutrophils (%) (Auto) 54.6 % Lymphocytes (%) (Auto) 42.1 % Monocytes (%) (Auto) 1.3 % Eosinophils (%) (Auto) 1.3 % Basophils (%) (Auto) 0.0 % Neutrophils # (Auto) 0.83 K/uL Lymphocytes # (Auto) 0.64 K/uL Monocytes # (Auto) 0.02 K/uL Eosinophils # (Auto) 0.02 K/uL Basophils # (Auto) 0.00 K/uL RDW Standard Deviation 46.8 fL RDW Coefficient of Variation 15.5 % Immature Granulocyte % (Auto) 0.7 % Immature Granulocyte # (Auto) 0.01 K/uL Nucleated RBC Absolute Count (auto) 0.02 K/uL Nucleated Red Blood Cells % 1.1 % Toxic Vacuolation 1+ Large Platelets 1+ Polychromasia 1+ Ovalocytes 2+ Sodium Level 141 mmol/L Potassium Level 4.3 mmol/L Chloride Level 102 mmol/L Carbon Dioxide Level 27 mmol/L Anion Gap 12.0 mmol/L Blood Urea Nitrogen 24 mg/dl Creatinine 2.40 mg/dl Est Creatinine Clear Calc Drug Dose 30.2 ml/min Estimated GFR () 28.9 Estimated GFR (Non- 24.9 BUN/Creatinine Ratio 9.9 Random Glucose 201 mg/dl Calcium Level 9.0 mg/dl Total Bilirubin 0.8 mg/dl Direct Bilirubin 0.2 mg/dl Aspartate Amino Transf (AST/SGOT) 20 U/L Alanine Aminotransferase (ALT/SGPT) 39 U/L Alkaline Phosphatase 110 U/L Total Protein 7.0 gm/dl Albumin 3.8 gm/dl Lipase 323 U/L Bedside Lactic Acid Venous 6.51 mmol/L Urine Color YELLOW Urine Appearance ERROR Urine pH 5.5 Urine Specific [place] 1.011 Urine Protein TRACE Urine Glucose (UA) NEG Urine Ketones NEG Urine Occult Blood 3+ Urine Nitrite POS Urine Bilirubin NEG Urine Urobilinogen NEG Urine Leukocyte Esterase LARGE Urine WBC (Auto) >30 /hpf Urine RBC (Auto) >30 /hpf Urine Hyaline Casts (Auto) 1-5 /lpf Urine Epithelial Cells (Auto) 5-10 /lpf Urine Bacteria (Auto) 4+ Urine Pathogenic Casts /lpf Urine Mucus PRESENT Test 11/04/16 05:00 Bedside Glucose 210 mg/dl Problem List Medical Problems: (1) Left flank pain Status: Acute (2) Renal insufficiency Status: Acute (3) Sepsis Status: Acute (4) Ureterolithiasis Status: Acute (5) Urinary tract infection Status: Acute Past History cancer - prostate, diabetes, hypertension, kidney stones (in 20s), renal disease , other (renal cell CA, lymphoma, baseline incontinence 0-1 ppd) Past Surgical History: other (R nephrectomy, RRP, stone surgery ? 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) Allergies Coded Allergies: No Known Allergies (Unverified , 11/04/16) Medications Home Medications: Home Meds and Scripts Medications Dose Route/Sig Max Daily Dose Days Date Category [Unknown Cholest Med] PO DAILY 11/04/16 Reported Glipizide Er (Glipizide) Unknown Strength Tab Unknown Dose PO DAILY 11/04/16 Reported Zestril (Lisinopril) Unknown Strength Tab Unknown Dose PO DAILY 11/04/16 Reported Inpatient Medications: Current Inpatient Medications Medications (Trade) Dose Ordered Sig/Ashvin Route Start Time Stop Time Status Last Admin Dose Admin Daptomycin/Sodium Chloride (Cubicin IV/Nss 50ml) 62.84 ml @ 100 mls/hr NOW IV 11/04/16 03:45 11/14/16 03:44 11/04/16 04:31 100 MLS/HR Insulin Aspart SLIDING SCALE G... Q6H SC 11/04/16 04:15 12/04/16 04:14 UNV Sodium Chloride 1,000 ml @ 150 mls/hr Q6H40M IV 11/04/16 04:15 12/04/16 04:14 UNV Piperacillin Sod/ Tazobactam Sod/ Dextrose (Zosyn Iv/D5 100ml) 115 ml @ 200 mls/hr Q6 IV 11/04/16 06:00 11/14/16 05:59 UNV Hydromorphone HCl (Dilaudid Inj) 1 mg Q3H PRN IV 11/04/16 04:45 11/18/16 04:44 UNV Hydromorphone HCl (Dilaudid Inj) 0.5 mg Q5M PRN IV 11/04/16 04:45 11/04/16 11:00 Fentanyl Citrate (Fentanyl Inj) 25 mcg Q5M PRN IV 11/04/16 04:45 11/04/16 11:00 Naloxone HCl (Narcan Inj) 0.2 mg Q2M PRN IV 11/04/16 04:45 11/04/16 11:00 Meperidine HCl (Demerol Inj) 12.5 mg Q5M PRN IV 11/04/16 04:45 11/04/16 11:00 Flumazenil (Romazicon Inj) 0.2 mg Q2M PRN IV 11/04/16 04:45 11/04/16 11:00 Labetalol HCl (Normodyne IV) 5 mg Q5M PRN IV 11/04/16 04:45 11/04/16 11:00 Ephedrine Sulfate (EpHEDrine SULFATE INJ) 5 mg Q5M PRN IV 11/04/16 04:45 11/04/16 11:00 Atropine Sulfate (Atropine Sulfate 0.1MG/Ml Inj) 0.5 mg Q1M PRN IV 11/04/16 04:45 11/04/16 11:00 Phenylephrine HCl (Andre-Synephrine 500MCG/5ML Syr) 100 mcg Q5M PRN IV 11/04/16 04:45 11/04/16 11:00 Insulin Human Regular (novoLIN-R) 3 units ONE ONCE IV 11/04/16 05:15 11/04/16 05:16 UNV Review of Systems Review of Systems Constitutional: + chills, + fever Eyes: No blurred vision Neurological: + dizzy Endocrine: + too cold, + too hot Gastrointestinal: + abdominal pain, + nausea Cardiovascular: No irregular heartbeat Respiratory: + shortness of breath Skin: No boils, No dry skin Musculoskeletal: + back pain Blood / Lymphatic: No swollen glands Psychologic / Mental: + trouble remembering Male : + infections, + kidney stones, + leaking urine, + see HPI Physical Exam Vital Signs: Vital Signs Past 12 Hours Date Time Temp Pulse Resp B/P Pulse Ox O2 Delivery O2 Flow Rate FiO2 11/04/16 04:34 135 34 104/59 97 Non-Rebreather 11/04/16 04:15 140 31 128/91 98 Non-Rebreather 10.0 11/04/16 03:30 133 35 123/76 97 Non-Rebreather 12.0 11/04/16 02:56 39.5 153 40 116/60 97 Non-Rebreather 13.0 11/04/16 01:58 150 11/04/16 01:39 36.7 108 22 145/78 100 Room Air Physical Exam: General Appearance: + moderate distress (improved after stent placement), + obese ENT: normal ENT inspection, hearing grossly normal Neck: supple, no adenopathy Respiratory/Chest: + respiratory distress (improved) Cardiovascular: no JVD Gastrointestinal: Abdomen: normal abdomen Bladder: normal bladder Renal: normal renal (improved CVAT) Liver: normal liver Spleen: normal spleen Extremities: non-tender Neurologic/Psychiatric: + pertinent finding (somnolent, poorly oriented prior to OR) Lymphatic: no adenopathy Assessment & Plan Assessment & Plan Treatment Planned: cystoscopy w/ stent A/P 76 yo male with solitary kidney, urosepsis, obstructing stone s/p acute cysto, L stent. Currently in ICU seen condition. Broad spectrum antibiotics until cultures return. Supportive care. Will plan for definitive stone management as outpatient when he has stabilized. vocalizes good understanding of the treatment plan. Further management per medical services.
[2016-11-04 06:35] LABS: VEN BLD GAS O2 SATURATION 89.5 %; VEN BLOOD GAS BASE EXCESS -7.3 mmol/L
[2016-11-04] MEDS: INSULIN ASPART 100 UNITS/ML 3 ML PEN SC SCH ×4 (07:41→23:45)
--- NOTE | 2016-11-04 07:45 | DIAGNOSTIC IMAGING REPORT ---
ABDOMEN AND PELVIS CT WITHOUT CONTRAST CT DOSE: 1596.34 mGy.cm HISTORY: Left-sided flank pain. pain TECHNIQUE: Multiaxial CT images of the abdomen and pelvis were performed without contrast. COMPARISON STUDY: None. FINDINGS: Mild interstitial thickening seen at the base of the lower lobes. Motion artifact. Bilateral L5 spondylolysis with associated spondylolisthesis. No fractures within the visualized osseous structures. There is a 6 mm obstructing stone within the distal left ureter resulting in moderate to severe left-sided hydroureteronephrosis. There is associated left perinephric and periureteral fat stranding. A few hypodense lesions within the left kidney which are incompletely characterize on this noncontrast study. There is also focal cortical calcification within the left kidney. There is a 12 mm hypodense lesion within the liver. This is incompletely characterized on this noncontrast study. The unenhanced spleen, gallbladder, and pancreas appear unremarkable. The right kidney is absent. Thickening of the left adrenal gland. Enlarged mesenteric lymph nodes. Dominant lymph node measures 2.8 cm. There are also mildly enlarged periaortic lymph nodes adjacent to the distal thoracic aorta. These measure up to 1.3 cm. Bladder is unremarkable. The prostate gland is surgically absent. Moderate to large amount of stool within the distal colon and rectum. Colonic diverticula. Normal appendix. No evidence for bowel obstruction. IMPRESSION: 1. An obstructing 6 mm stone within the distal left ureter resulting in moderate severe left-sided hydronephrosis. There is associated left perinephric fat stranding. 2. Mesenteric and distal thoracic periaortic lymphadenopathy. This could represent a neoplastic process. 3. Absent right kidney. 4. Additional findings as described above. Electronically signed by: Skip Huber M.D. 11/04/2016 7:43 AM Dictated Date/Time: 11/04/2016 7:38 AM
--- NOTE | 2016-11-04 07:46 | DIAGNOSTIC IMAGING REPORT ---
LEFT KUB HISTORY: LEFT STENT PLACEMENT FLUOROSCOPY TIME: 33 seconds FINDINGS: 2 fluoroscopic spot images were submitted for review. Images demonstrate a left ureteral stent which appears to be in good position. Only the proximal portion was visualized. IMPRESSION: Fluoroscopy provided for left ureteral stent placement. Electronically signed by: Skip Huber M.D. 11/04/2016 7:44 AM Dictated Date/Time: 11/04/2016 7:44 AM
[2016-11-04] MEDS: PIPERACILL/TAZOBAC IV 3.375 GM in DEXTROSE 5% 100ML 100 ML IV SCH ×3 (08:37→23:39)
[2016-11-04] MEDS: SODIUM CHLORIDE 0.9% 1000ML 1,000 ML IV SCH ×2 (08:37→19:22)
--- NOTE | 2016-11-04 08:46 | DIAGNOSTIC IMAGING REPORT ---
CHEST ONE VIEW PORTABLE HISTORY: Left-sided pain COMPARISON: None. FINDINGS: The lungs are clear. Cardiac silhouette is normal in size. No pleural effusions. No pneumothorax. IMPRESSION: No acute process. Electronically signed by: Skip Huber M.D. 11/04/2016 8:45 AM Dictated Date/Time: 11/04/2016 8:44 AM
--- NOTE | 2016-11-04 09:02 | OPERATIVE REPORT ---
DATE OF OPERATION: 11/04/2016 PREOPERATIVE DIAGNOSES: Urosepsis with multisystem organ failure, solitary left kidney with obstructing 7 mm stone, renal failure. POSTOPERATIVE DIAGNOSIS: Same. PROCEDURE: Cystoscopy, left ureteral stent placement. SURGEON: Dr. Lionel Bear. ADMINISTRATIVE SERVICES DIRECTOR: None. ANESTHESIA: Monitored anesthesia care with sedation. COMPLICATIONS: None. DRAINS LEFT IN PLACE: Include a 6-Macedonian multilength left-sided ureteral stent, a 16 Macedonian catheter to gravity drainage. SPECIMENS SENT TO PATHOLOGY: Bladder urine for culture and sensitivity after drainage of kidney. ESTIMATED BLOOD LOSS: None. BRIEF HISTORY: Mr. Arteaga is a 76-year-old male who I have seen acutely in the Emergency Room for history of urinary sepsis and obstructing stone in a solitary kidney. Please see urgent consultation in the chart, full consultation to follow. History is obtained from the patient's . He is mononephric from a right-sided nephrectomy for renal cell carcinoma, has history of radical prostatectomy for prostate cancer and lymphoma as well. He has had a history of left-sided flank pain, fevers, chills, and rigors which have progressed rapidly since last evening. CT scan demonstrates an obstructing left-sided 7 mm distal stone with perirenal inflammation. He is here for urgent decompression as is suspected to be the source of his decompensation. He has been covered by the ER and medical services with numerous IV broad spectrum antibiotics including Zosyn, daptomycin and Levaquin. Consent obtained from the patient's today. SCDs used for DVT prophylaxis. PROCEDURE: The patient was properly identified and brought to the operative suite after identification and appropriate consent on the chart, monitored anesthesia care with sedation was initiated. The patient was prepped and draped in standard fashion for this procedure. motion and time study teacher-out procedure was followed. Chery catheter was removed and 22 Macedonian rigid cystoscope was passed into the bladder. A mild bladder neck contracture was appreciated, but the scope was able to bypass this without any significant dilation. Right-sided ureteral orifice was in normal anatomic location. Edematous mucosa within the bladder was appreciated without foreign bodies or tumors. Left-sided ureteral orifice was somewhat difficult to identify, but was able to be found. This was not easily able to be cannulated for any retrograde pyelography and seeing the patient's history of sepsis a angled sensor wire was able to be passed. Some J hooking of the ureter, possibly due to postsurgical changes or to the patient's impacted ureteral stone was appreciated. However, the wire was able to advance proximally to the left upper quadrant in the region of the kidney with drainage of purulent urine with slight manipulation. This was followed by a 6-Macedonian multilength ureteral stent. Hydronephrotic drip of purulent urine was present on that side. Good coil was present proximally in the stent and a full coil present within the bladder. Cystoscope was removed and a 16 Macedonian Chery catheter was placed with 10 mL of water in the balloon intraoperatively. Catheter was placed to gravity drainage and anesthesia was reversed. The patient was transferred to the intensive care unit in critical condition. FOLLOW-UP CARE: The patient will be admitted to the hospitalist service with intensive his consultation. Care is discussed with the . Will address the stone when the patient is stabilized as an outpatient. I attest to the content of the Intraoperative Record and any orders documented therein. Any exceptio ns are noted below.
[2016-11-04] MEDS ORDERED: VASOPRESSIN INJ 50 UNITS in SODIUM CHLORIDE 0.9% 500ML 500 ML IV SCH (09:15)
[2016-11-04] MEDS ORDERED: HYDROCORTISONE SOD SUCCINATE 100 MG/2 ML VIAL IV STA (09:34)
[2016-11-04] MEDS ORDERED: HYDROCORTISONE IV 100 MG in SYRINGE 0 ML IV ONE (10:00)
[2016-11-04 11:53] LABS: INFLUENZA A PCR Neg for Influ A (NEG); INFLUENZA B PCR Neg for Influ B (NEG)
[2016-11-04 13:43] LABS: INR 1.2 (0.9-1.1); PARTIAL THROMBOPLASTIN RATIO 1.2; PROTHROMBIN TIME (PATIENT) 12.7 SECONDS (9.0-12.0)
[2016-11-04] MEDS ORDERED: THIAMINE HCL INJ 200 MG in SODIUM CHLORIDE 0.9% 50ML 50 ML IV SCH (15:00)
[2016-11-04] MEDS ORDERED: PIPERACILL/TAZOBAC CONSULT ACTIVE PRN (15:45)
--- NOTE | 2016-11-04 22:30 | Progress Note ---
Progress Note Date of Service Nov 04, 2016. Progress Note Patient admitted after midnight. He was seen and examined by myself around 9: 30 this morning. I also discussed the case with Dr. Schneider, the wet trimmer. Patient feeling better now, however his systolic blood pressure is 76. He just returned from the operating room and had a left sided ureteral stent placed for 6-7 mm ureteral stone with hydronephrosis and renal failure. He is septic. He is on Zosyn, but did receive a dose of Levaquin and daptomycin in the ER. Also reviewed the findings of mesenteric and periaortic lymphadenopathy on the CT scan with the patient. He is leukopenic here, and mild thrombocytopenia, but hemoglobin is normal. He reports routine follow-up with an oncologist every year since his non-Hodgkin's lymphoma 12 years ago, but does not think he has had a CT scan in many years. Vitals reviewed Appears ill but is mentating well Regular rate and rhythm, no murmurs gallops rubs Clear to auscultation bilaterally, no wheezes crackles or rhonchi, breathing unlabored Abdomen positive bowel sounds soft, positive tenderness to palpation left lower quadrant without guarding or rebound Extremities no edema Skin no rashes 76-year-old male with a history of non-Hodgkin's lymphoma, right-sided nephrectomy for renal cell carcinoma, and prostatectomy for prostate cancer, here with left-sided ureterolithiasis and sepsis with UTI. Lactate was 7 on admission and with hypotension, he has severe sepsis. -Appreciate critical care medicine consultation -Start vasopressors likely soon and may need central line access -Continue Zosyn and daptomycin -Continue IV fluids -Appreciate urology management as well-will need definitive stone management in the future -Follow urine and blood cultures -Will need follow-up with oncology for his lymphoma and to see if old records show evidence of lymphadenopathy in the same regions to see if this is stable - DVT prophylaxis-avoid heparin for now given recent procedure, SCDs only
--- NOTE | 2016-11-04 22:47 | DIAGNOSTIC IMAGING REPORT ---
CHEST ONE VIEW PORTABLE HISTORY: Short of breath. COMPARISON: Chest 11/04/2016. FINDINGS: The heart is mildly enlarged. No pleural effusions. No pneumothorax. No evidence for pulmonary edema. No new focal lung consolidations to suggest pneumonia. IMPRESSION: Stable mild cardiomegaly. Electronically signed by: Skip Huber M.D. 11/04/2016 10:45 PM Dictated Date/Time: 11/04/2016 10:44 PM
[2016-11-04 23:53] LABS: VEN BLD GAS O2 SATURATION 72.5 %; VEN BLOOD GAS BASE EXCESS -8.3 mmol/L; VENOUS BLOOD GAS PCO2 36 mmHg (38.0-50.0); VENOUS BLOOD GAS PO2 42 mmHg
[2016-11-04 23:55] LABS: MEAN CELL VOLUME 80.8 fL (80-100); MEAN CORPUSCULAR HEMOGLOBIN 26.6 pg (25-34); RED BLOOD COUNT 4.58 M/uL (4.7-6.1); WHITE BLOOD COUNT 14.37 K/uL (4.8-10.8)
[2016-11-05] VITALS (23 sets, daily range): BP systolic 81–141; BP diastolic 53–97; PULSE 73–95; TEMP 36.4–37.3; O2SAT 92–99
[2016-11-05 00:03] LABS: MEAN PLATELET VOLUME 9.5 fL (7.4-10.4); PLATELET COUNT 75 K/uL (130-400)
[2016-11-05 00:17] LABS: CALCIUM 7.5 mg/dl (8.5-10.1); CREATININE 2.5 mg/dl (0.60-1.40); MAGNESIUM 1.2 mg/dl (1.8-2.4); POTASSIUM 4.6 mmol/L (3.5-5.1)
[2016-11-05 00:19] LABS: PHOSPHORUS 3.7 mg/dl (2.5-4.9)
[2016-11-05 00:41] LABS: BASO % 0.1 %; BASO ABS # 0.01 K/uL (0-0.2); COMPLETE YES; ECHINOCYTES 1+; EOS % 0.1 %; IG% 3.3 %; LYMPH % 3.5 %; LYMPH ABS # 0.51 K/uL (1.2-3.4); MONO % 7.7 %; NEUT % 85.3 %
[2016-11-05] MEDS: HYDROmorphone INJ 1 MG/ML SYR IV PRN ×3 (00:42→10:15)
[2016-11-05] MEDS: MAGNESIUM SULFATE 1GM / D5W 1 GM in PREMIXED IN D5W 100 ML IV SCH ×2 (01:51→02:57)
[2016-11-05] MEDS ORDERED: SODIUM CHLORIDE 0.9% IV SCH (03:00)
[2016-11-05] MEDS ORDERED: DAPTOMYCIN IV SCH (03:00)
[2016-11-05 05:50] LABS: HEMATOCRIT 36.7 % (42-52); MEAN CELL VOLUME 81.9 fL (80-100); RED BLOOD COUNT 4.48 M/uL (4.7-6.1); WHITE BLOOD COUNT 12.65 K/uL (4.8-10.8)
[2016-11-05 05:51] LABS: MEAN PLATELET VOLUME 10.6 fL (7.4-10.4); PLATELET COUNT 67 K/uL (130-400)
[2016-11-05] MEDS: INSULIN ASPART 100 UNITS/ML 3 ML PEN SC SCH ×4 (05:55→21:00)
[2016-11-05 06:12] LABS: COMPLETE YES; DOHLE BODIES 1+; ECHINOCYTES 1+; EOS % 0.1 %; IG% 6.6 %; LYMPH % 3.6 %; LYMPH ABS # 0.46 K/uL (1.2-3.4); MONO % 6.7 %
--- NOTE | 2016-11-05 06:21 | Medical Consult ---
Consultation Date of Consultation: Nov 04, 2016. Attending Physician: Bonnie Sweeney MD Reason for Consultation: empiric use of daptomycin for sepsis History of Present Illness She 76-year-old male with history of diabetes mellitus, renal cell carcinoma status post right nephrectomy, non-Hodgkin's lymphoma, as well as prostate cancer, who was admitted to the hospital with several days of progressively worsening left flank pain, ultimately rated 10/10 in intensity, associated with fever and shaking chills. He was brought to the emergency department where CT scan, read by me, showed left hydronephrosis with evidence of obstructing ureteral calculus as well as findings consistent with pyelonephritis. There was also the presence of adenopathy in the abdomen in thoracic area. He was started empirically on daptomycin and Zosyn. He has now undergone emergency left ureteral stent placement. Blood and urine cultures now growing gram- negative bacilli. patient was found to have significant neutropenia mild thrombocytopenia on admission CBC. Past Medical/Surgical History Medical Problems: (1) Left flank pain Status: Acute (2) Renal insufficiency Status: Acute (3) Sepsis Status: Acute (4) Ureterolithiasis Status: Acute (5) Urinary tract infection Status: Acute Medical Problems: (1) Kidney stone (2) Lymphoma (3) Pyelonephritis Family History No pertinent family history Social History Smoking Status: Former Smoker (Quit in 1984) Smokeless Tobacco Use: No Alcohol Use: occasionally ( reports once a month at most) Drug Use: none Marital Status: Housing Status: lives with significant other (Lives at [place] [facility]) 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 Q6 SC 11/04/16 07:00 12/04/16 06:59 11/05/16 05:55 2 UNITS Piperacillin Sod/ Tazobactam Sod/ Dextrose (Zosyn Iv/D5 100ml) 115 ml @ 28.75 mls/ hr Q8H IV 11/04/16 08:00 11/14/16 07:59 11/04/16 23:39 28.75 MLS/HR Hydromorphone HCl 1 mg 1 mg Q3H PRN IV 11/04/16 04:45 11/18/16 04:44 11/05/16 00:42 1 MG Vasopressin 50 units/Sodium Chloride 502.5 ml @ 0 mls/hr Q0M IV 11/04/16 09:15 12/04/16 09:14 11/04/16 09:38 6 MLS/HR Daptomycin/Sodium Chloride (Cubicin IV/Nss 50ml) 63.2 ml @ 100 mls/hr Q48H IV 11/05/16 03:00 11/07/16 02:59 Piperacillin Sod/ Tazobactam Sod (Consult) 1 ea UD PRN N/A 11/04/16 15:45 12/04/16 15:44 Physical Exam Date Time Temp Pulse Resp B/P Pulse Ox O2 Delivery O2 Flow Rate FiO2 11/05/16 06:00 87 25 109/67 97 11/05/16 05:53 82 21 103/70 97 11/05/16 05:29 83 18 103/70 98 11/05/16 05:00 80 19 96/64 97 11/05/16 04:10 96 Nasal Cannula 2.0 11/05/16 04:00 36.4 81 17 95/62 96 11/05/16 03:30 83 18 93/63 95 11/05/16 03:00 88 22 97/61 95 11/05/16 02:16 93 27 94/53 94 11/05/16 02:00 89 17 82/53 94 11/05/16 01:35 95 24 87/57 94 11/05/16 01:30 93 18 81/59 95 11/05/16 01:00 94 20 97/62 94 11/05/16 00:19 96 Nasal Cannula 2.0 11/05/16 00:00 37.3 95 25 96 11/04/16 23:59 100 26 104/66 95 11/04/16 23:29 95 28 97/66 97 11/04/16 23:00 101 25 94 11/04/16 22:12 100 23 91/57 94 11/04/16 22:00 98 25 94 11/04/16 21:59 101 30 87/59 95 11/04/16 21:29 102 36 105/71 93 11/04/16 21:00 100 20 95/63 92 11/04/16 20:30 95 24 106/70 95 11/04/16 20:00 36.7 102 26 107/68 96 11/04/16 20:00 96 Nasal Cannula 2.0 11/04/16 19:30 97 18 101/63 96 11/04/16 19:00 94 32 98/65 97 11/04/16 18:00 96 16 95/59 96 Nasal Cannula 2.0 11/04/16 16:00 Nasal Cannula 2.0 11/04/16 16:00 36.4 96 22 101/67 96 Nasal Cannula 2.0 11/04/16 14:00 90 20 84/58 96 Nasal Cannula 2.0 11/04/16 12:00 Nasal Cannula 2.0 11/04/16 12:00 36.4 92 20 74/52 94 Nasal Cannula 2.0 11/04/16 10:00 95 22 95 11/04/16 09:59 95 23 99/59 96 11/04/16 09:45 101 24 94 11/04/16 09:45 101 24 94 11/04/16 09:44 103 22 77/52 93 11/04/16 09:30 92 18 75/53 93 11/04/16 09:15 92 18 93 11/04/16 09:00 92 20 94 11/04/16 08:59 92 19 89/59 94 11/04/16 08:45 101 22 93 11/04/16 08:30 96 20 93 11/04/16 08:29 95 18 76/54 93 11/04/16 08:15 96 19 93 11/04/16 08:00 Nasal Cannula 2.0 11/04/16 08:00 98 18 92 11/04/16 07:59 97 17 74/54 92 11/04/16 07:45 100 18 92 11/04/16 07:43 36.6 98 20 84/62 93 Nasal Cannula 2.0 11/04/16 07:30 99 18 93 11/04/16 07:29 99 19 74/59 92 11/04/16 07:15 97 21 93 11/04/16 07:14 97 29 83/57 93 11/04/16 07:13 99 12 84/62 94 11/04/16 07:00 103 23 95/63 92 11/04/16 06:25 37.1 103 22 94/63 95 Mask 5.0 General Appearance: WD/WN, + mild distress, + pertinent finding ( Ill appearing) Head: normocephalic, atraumatic Eyes: normal inspection, sclerae normal ENT: normal ENT inspection, pharynx normal Neck: supple, no adenopathy, thyroid normal, trachea midline Respiratory/Chest: chest non-tender, lungs clear, normal breath sounds, no respiratory distress Cardiovascular: regular rate, rhythm, no gallop, no murmur Abdomen/GI: normal bowel sounds, non tender, soft, no organomegaly Back: normal inspection, + left CVA tenderness Extremities/Musculoskelatal: no calf tenderness, non-tender Neurologic/Psych: alert, oriented x 3 Skin: normal color, warm/dry, no rash Lymphatic: no adenopathy Laboratory Results RUN DATE: 11/04/16 [facility] LAB PAGE 1 RUN TIME: 1821 Specimen Inquiry PAT[id number] LOC: [facility] U # : [id number] AGE/SX: 76/M ROOM: E108 REG : 11/04/[address]: Bonnie Sweeney MD : 1940 BED: 1 DIS : STATUS: ADM IN TLOC: SPEC #: [id number] MARIBEL: 11/04/16 STATUS: RES REQ #: [id number] RECD: 11/04/[address]: Abdulaziz Darden DO SOURCE: BLOOD ENTR: 11/04/16-[address]: Nicola Hannon MD [facility]: ORDERED: BLOOD CULTURE Procedure Result Verified Site BLD CULT Preliminary 11/04/16-1821 Organism 1 GRAM NEGATIVE BACILLI SENS SENSITIVITY TO FOLLOW Phoned Positive Blood Culture Gram Stain Report to HUNTER PEREYRA on 11/04/16 At 1822 By SHERLY. Results were verbalized back to SHERLY. Last 24 Hours Test 11/04/16 06:20 11/04/16 09:40 11/04/16 09:58 11/04/16 11:29 Venous Blood pH 7.32 Venous Blood Partial Pressure CO2 35 mmHg Venous Blood Partial Pressure O2 66 mmHg Venous Blood HCO3 18 mmol/L Venous Blood Oxygen Saturation 89.5 % Venous Blood Base Excess -7.3 mmol/L Influenza Type A (RT-PCR) Neg for Influ A Influenza Type B (RT-PCR) Neg for Influ B Random Cortisol 69.76 mcg/dl Bedside Glucose 217 mg/dl Test 11/04/16 13:24 11/04/16 18:02 11/04/16 21:41 11/04/16 23:35 Absolute Reticulocyte Count 0.11 10^6/uL Percent Reticulocyte Count 2.3 % Prothrombin Time 12.7 SECONDS Prothromb Time International Ratio 1.2 Activated Partial Thromboplast Time 32.0 SECONDS Partial Thromboplastin Ratio 1.2 Lactic Acid Level 5.0 mmol/L HIV (1&2) Ab and P24 Ag, 4th Gener NEG Bedside Glucose 233 mg/dl 196 mg/dl Venous Blood pH 7.30 Venous Blood Partial Pressure CO2 36 mmHg Venous Blood Partial Pressure O2 42 mmHg Venous Blood HCO3 17 mmol/L Venous Blood Oxygen Saturation 72.5 % Venous Blood Base Excess -8.3 mmol/L Test 11/04/16 23:41 11/04/16 23:45 11/05/16 05:30 11/05/16 05:43 Bedside Glucose 173 mg/dl 235 mg/dl White Blood Count 14.37 K/uL 12.65 K/uL Red Blood Count 4.58 M/uL 4.48 M/uL Hemoglobin 12.2 g/dL 12.1 g/dL Hematocrit 37.0 % 36.7 % Mean Corpuscular Volume 80.8 fL 81.9 fL Mean Corpuscular Hemoglobin 26.6 pg 27.0 pg Mean Corpuscular Hemoglobin Concent 33.0 g/dl 33.0 g/dl Platelet Count 75 K/uL 67 K/uL Mean Platelet Volume 9.5 fL 10.6 fL Neutrophils (%) (Auto) 85.3 % Lymphocytes (%) (Auto) 3.5 % Monocytes (%) (Auto) 7.7 % Eosinophils (%) (Auto) 0.1 % Basophils (%) (Auto) 0.1 % Neutrophils # (Auto) 12.26 K/uL Lymphocytes # (Auto) 0.51 K/uL Monocytes # (Auto) 1.10 K/uL Eosinophils # (Auto) 0.01 K/uL Basophils # (Auto) 0.01 K/uL RDW Standard Deviation 46.9 fL 48.2 fL RDW Coefficient of Variation 15.8 % 16.0 % Immature Granulocyte % (Auto) 3.3 % Immature Granulocyte # (Auto) 0.48 K/uL Echinocytes 1+ Sodium Level 143 mmol/L Potassium Level 4.6 mmol/L Chloride Level 109 mmol/L Carbon Dioxide Level 20 mmol/L Anion Gap 14.0 mmol/L Blood Urea Nitrogen 35 mg/dl Creatinine 2.50 mg/dl Est Creatinine Clear Calc Drug Dose 29.3 ml/min Estimated GFR () 27.5 Estimated GFR (Non- 23.7 BUN/Creatinine Ratio 14.0 Random Glucose 192 mg/dl Lactic Acid Level 4.5 mmol/L 3.3 mmol/L Calcium Level 7.5 mg/dl Ionized Calcium 1.01 mmol/l Phosphorus Level 3.7 mg/dl Magnesium Level 1.2 mg/dl Total Bilirubin 1.0 mg/dl Aspartate Amino Transf (AST/SGOT) 22 U/L Alanine Aminotransferase (ALT/SGPT) 41 U/L Alkaline Phosphatase 43 U/L Total Protein 5.5 gm/dl Albumin 2.7 gm/dl Globulin 2.8 gm/dl Albumin/Globulin Ratio 1.0 Patient Name: DANYELL CARTER Unit Number: [id number] Dictated: 11/04/16737 Transcribed: 11/04/16737 SIRS-Lab Printed Date/Time: [~ rep prt dt]/[~ rep prt tm] [~ rep ct labl] - [~ rep ct ivnm] [facility] [place] [address] Dictated: 11/04/16737 Transcribed: 11/04/16737 Mimvi Printed Date/Time: [~ rep prt dt]/[~ rep prt tm] [~ rep ct labl] - [~ rep ct ivnm] ABDOMEN AND PELVIS CT WITHOUT CONTRAST CT DOSE: 1596.34 mGy.cm HISTORY: Left-sided flank pain. pain TECHNIQUE: Multiaxial CT images of the abdomen and pelvis were performed without contrast. COMPARISON STUDY: None. FINDINGS: Mild interstitial thickening seen at the base of the lower lobes. Motion artifact. Bilateral L5 spondylolysis with associated spondylolisthesis. No fractures within the visualized osseous structures. There is a 6 mm obstructing stone within the distal left ureter resulting in moderate to severe left-sided hydroureteronephrosis. There is associated left perinephric and periureteral fat stranding. A few hypodense lesions within the left kidney which are incompletely characterize on this noncontrast study. There is also focal cortical calcification within the left kidney. There is a 12 mm hypodense lesion within the liver. This is incompletely characterized on this noncontrast study. The unenhanced spleen, gallbladder, and pancreas appear unremarkable. The right kidney is absent. Thickening of the left adrenal gland. Enlarged mesenteric lymph nodes. Dominant lymph node measures 2.8 cm. There are also mildly enlarged periaortic lymph nodes adjacent to the distal thoracic aorta. These measure up to 1.3 cm. Bladder is unremarkable. The prostate gland is surgically absent. Moderate to large amount of stool within the distal colon and rectum. Colonic diverticula. Normal appendix. No evidence for bowel obstruction. IMPRESSION: 1. An obstructing 6 mm stone within the distal left ureter resulting in moderate severe left-sided hydronephrosis. There is associated left perinephric fat stranding. 2. Mesenteric and distal thoracic periaortic lymphadenopathy. This could represent a neoplastic process. 3. Absent right kidney. 4. Additional findings as described above. Electronically signed by: Skip Huber M.D. 11/04/2016 7:43 AM Dictated Date/Time: 11/04/2016 7:38 AM The status of this report is Signed. Draft = Not yet reviewed or approved by Radiologist. Signed = Reviewed and approved by Radiologist. <AttendingPhy>Wero Alonso MD</AttendingPhy> <FamilyPhy>Nicola Hannon MD</ FamilyPhy> <PrimaryPhy>Nicola Hannon MD</PrimaryPhy> <UnitNumber>[id number] </UnitNumber> <VisitNumber>[id number]</VisitNumber> <PatientName>DANYELL CARTER</PatientName> <DateOfBirth>1940</DateOfBirth> <Location>[facility]</ Location> <ServiceDate>11/04/16</ServiceDate> <MNE>ESINDI</MNE> <OrderingPhy> Abdulaziz Darden DO</OrderingPhy> <OrderingPhyMNE>f rep ord dr kyle</ OrderingPhyMNE> <DictatingPhyMNE>f rep dict dr kyle</DictatingPhyMNE> <CCListMNE> f rep ct mne</CCListMNE> <AdmittingPhyMNE>f pt admit dr kyle</AdmittingPhyMNE> < AttendingPhyMNE>f pt attend dr kyle</AttendingPhyMNE> <ConsultingPhyMNE>f pt consult dr kyle</ConsultingPhyMNE> <FamilyPhyMNE>f pt fam dr kyle</FamilyPhyMNE> <OtherPhyMNE>f pt other dr kyle</OtherPhyMNE> < PrimaryPhyMNE>f pt prim care dr kyle</PrimaryPhyMNE> <ReferringPhyMNE>f pt referring dr kyle</ReferringPhyMNE> Assessment & Plan 76-year-old male with gram-negative sepsis in the setting of obstructive uropathy from stone, now status post ureteral stent placement. Social should provide appropriate coverage pending final identification and sensitivities. CT scan concerning for recurrent neoplasm, and may need further intervention for diagnosis.I have discontinued daptomycin given positive blood cultures for gram-negative bacilli. We will follow.
[2016-11-05 06:26] LABS: BUN/CREATININE RATIO 16.7 (10-20); CALCIUM 7.3 mg/dl (8.5-10.1); CREATININE 2.3 mg/dl (0.60-1.40); MAGNESIUM 1.8 mg/dl (1.8-2.4); PHOSPHORUS 4.6 mg/dl (2.5-4.9); POTASSIUM 5.7 mmol/L (3.5-5.1)
[2016-11-05] MEDS ORDERED: FENTANYL CITRATE INJ 50 MCG/1 ML 2 ML VIAL ONE (07:34)
[2016-11-05] MEDS: PIPERACILL/TAZOBAC IV 3.375 GM in DEXTROSE 5% 100ML 100 ML IV SCH ×2 (07:39→15:53)
[2016-11-05] MEDS: SODIUM CHLORIDE 0.45% 1000ML 1,000 ML IV SCH ×2 (08:47→23:42)
[2016-11-05] MEDS ORDERED: CALCIUM GLUCONATE 10% 1,000 MG in SODIUM CHLORIDE 0.9% 50ML 50 ML IV ONE ×2 (09:00→18:00)
[2016-11-05] MEDS ORDERED: ONDANSETRON INJ 2 MG/ML 2 ML VIAL ONE (09:38)
[2016-11-05] MEDS ORDERED: NURSING VERBAL MED ORDER ONE ×2 (10:00→11:00)
[2016-11-05] MEDS ORDERED: HYDROmorphone INJ 0.5 MG/0.5 ML SYR ONE (11:04)
--- NOTE | 2016-11-05 11:50 | ECHOCARDIOGRAM REPORT ---
*NOTICE TO RECEIVING REPUBLICAN AGENCY This information is strictly Confidential and protected under [place] law. [place] law prohibits you from making any further disclosure of this information unless further disclosure is expressly permitted by the written consent of the person to whom it pertains or is authorized by law. A general authorization for the release of medical or other information is not sufficient for this purpose. Hospital accepts no responsibility if the information is made available to any other person, INCLUDING THE PATIENT. Interpretation Summary * Name: DANYELL CARTER Study Date: 11/05/2016 10:34 AM BP: 141/97 mmHg * Patient Location: E108 HR: 94 * : 1940 (M/d/yyyy) Gender: Male Height: 68 in * Age: 76 yrs Ethnicity: CA Weight: 243 lb * Ordering Physician: Wyatt * Referring Physician: WYATT * Performed By: Hao Hood RCS * * Reason For Study: Chest Pain * BSA: 2.2 m2 * -- Conclusions -- * Left ventricular systolic function is moderately reduced. * There is moderate global hypokinesis of the left ventricle. * Ejection Fraction = 30-35%. * There is borderline concentric left ventricular hypertrophy. * Grade I diastolic dysfunction, (abnormal relaxation pattern). * There is mild tricuspid regurgitation. Procedure Details * A complete two-dimensional transthoracic echocardiogram was performed (2D, M-mode, Doppler and color flow Doppler). * There were technical limitations due to patient'spoor positioning * A contrast injection of Definity was performed to improve assessment of LV function. * Contrast was injected into an intravenous site in the right arm. * One vial of Definity ultrasound contrast was diluted in normal saline to a total volume of 10 ml. A total of '2' ml of solution was administered during imaging. * Lot # [id number] of Definity utilized for procedure. * Expiration date 1APR18. * The attending nurse who injected the contrast agent was Stanley Suarez RN. Left Ventricle * The left ventricle is normal in size. * There is borderline concentric left ventricular hypertrophy. * Ejection Fraction = 30-35%. * Left ventricular systolic function is moderately reduced. * There is moderate global hypokinesis of the left ventricle. Right Ventricle * The right ventricle is not well visualized. * The right ventricular systolic function is normal as assessed by tricuspid annular plane systolic excursion (TAPSE) (normal >1.5 cm). Atria * The left atrium is mildly dilated. * Right atrium not well visualized. * There is no evidence of atrial septal defect, but resolution does not allow assessment for a patent foramen ovale. Mitral Valve * The mitral valve is grossly normal. * There is no mitral valve stenosis. * Significant mitral regurgitation is absent. Tricuspid Valve * The tricuspid valve is not well visualized, but is grossly normal. * There is mild tricuspid regurgitation. Aortic Valve * The aortic valve is not well visualized. * The aortic valve opens well. * Aortic valve sclerosis mild, without significant aortic valvular stenosis. * There is no significant aortic regurgitation. Pulmonic Valve * The pulmonary valve is not well seen, but the Doppler examination is normal without significant regurgitation or stenosis. Great Vessels * Mild aortic root dilatation. * Mildly dilated ascending aorta. * The pulmonary is not well visualized. Pericardium/Pleural * There is no pericardial effusion. Great Vessels * IVC not well visualized. Left Ventricular Diastolic Function * Grade I diastolic dysfunction, (abnormal relaxation pattern). MMode 2D Measurements and Calculations IVSd 1.2 cm IVSs 1.2 cm LVIDd 3.8 cm LVIDs 3.3 cm LVPWd 0.94 cm LVPWs 1.2 cm IVS/LVPW 1.2 FS 12.5 % EDV(Teich) 62.5 ml ESV(Teich) 45.4 ml EF(Teich) 27.4 % EDV(cubed) 55.5 ml ESV(cubed) 37.2 ml EF(cubed) 33.0 % % IVS thick 5.6 % % LVPW thick 25.8 % LV mass(C)d 126.4 grams LV mass(C)dI 56.9 grams/m\S\2 LV mass(C)s 127.4 grams LV mass(C)sI 57.4 grams/m\S\2 CO(Teich) 1.4 l/min CI(Teich) 0.62 l/min/m\S\2 SV(Teich) 17.1 ml SI(Teich) 7.7 ml/m\S\2 CO(cubed) 1.5 l/min CI(cubed) 0.67 l/min/m\S\2 SV(cubed) 18.3 ml SI(cubed) 8.2 ml/m\S\2 Ao root diam 4.2 cm Ao root area 14.1 cm\S\2 ACS 1.8 cm LA dimension 3.4 cm LA/Ao 0.80 LVAd ap4 42.7 cm\S\2 LVLd ap4 9.1 cm EDV(MOD-sp4) 162.0 ml LVAs ap4 31.3 cm\S\2 LVLs ap4 7.9 cm ESV(MOD-sp4) 101.0 ml EF(MOD-sp4) 37.7 % LVAd ap2 37.4 cm\S\2 LVLd ap2 8.6 cm EDV(MOD-sp2) 131.0 ml LVAs ap2 32.5 cm\S\2 LVLs ap2 8.4 cm ESV(MOD-sp2) 101.0 ml EF(MOD-sp2) 22.9 % CO(MOD-sp4) 4.9 l/min CI(MOD-sp4) 2.2 l/min/m\S\2 SV(MOD-sp4) 61.0 ml SI(MOD-sp4) 27.5 ml/m\S\2 CO(MOD-sp2) 2.4 l/min CI(MOD-sp2) 1.1 l/min/m\S\2 SV(MOD-sp2) 30.0 ml SI(MOD-sp2) 13.5 ml/m\S\2 Doppler Measurements and Calculations MV E max sriram 70.6 cm/sec MV A max sriram 101.2 cm/sec MV E/A 0.70 MV P1/2t max sriram 76.2 cm/sec MV P1/2t 84.1 msec MVA(P1/2t) 2.6 cm\S\2 MV dec slope 265.4 cm/sec\S\2 MV dec time 0.19 sec Ao V2 max 129.5 cm/sec Ao max PG 6.7 mmHg Ao max PG (full) 5.1 mmHg LV V1 max PG 1.6 mmHg LV V1 max 64.0 cm/sec PA V2 max 67.1 cm/sec PA max PG 1.8 mmHg
--- NOTE | 2016-11-05 12:53 | Progress Note ---
Subjective Date of Service: Nov 05, 2016. Subjective Pt evaluation today including: conversation w/ patient, physical exam, chart review, lab review, review of inpatient medication list Pain: Improved PO Intake: Some nausea and emesis Voiding: hutchins catheter in place (urine clear) 76 yo male POD#1 s/p acute L stent placement for solitary kidney, ureteral stone and urosepsis. His notes and findings since OR are reviewed. Mild decrease in WBC and Cr this AM, still with nausea, VSS improved. Has been afebrile. Cultures have returned showing pansensitive E. Coli in blood and urine. He is much better oriented today, does not recall the events of his admission. Problem List Medical Problems: (1) Left flank pain Status: Acute (2) Renal insufficiency Status: Acute (3) Sepsis Status: Acute (4) Ureterolithiasis Status: Acute (5) Urinary tract infection Status: Acute Review of Systems Constitutional: + sweats Eyes: No worsening of vision ENT: No hearing loss Respiratory: + shortness of breath Cardiac: No chest pain Abdomen: + nausea, + vomiting Male : + incontinence (baseline), + see HPI Neurologic: + memory loss Psychiatric: No depression symptoms Endo: + fatigue Skin: No new/changing skin lesions Objective Vital Signs Date Time Temp Pulse Resp B/P Pulse Ox O2 Delivery O2 Flow Rate FiO2 11/05/16 12:00 99 Nasal Cannula 2.0 11/05/16 12:00 36.5 82 14 91/64 94 Nasal Cannula 2.0 11/05/16 10:00 80 20 110/65 99 Nasal Cannula 2.0 11/05/16 08:00 36.6 94 18 141/97 92 Nasal Cannula 2.0 11/05/16 08:00 92 Nasal Cannula 2.0 11/05/16 06:00 87 25 109/67 97 11/05/16 05:53 82 21 103/70 97 11/05/16 05:29 83 18 103/70 98 11/05/16 05:00 80 19 96/64 97 11/05/16 04:10 96 Nasal Cannula 2.0 11/05/16 04:00 36.4 81 17 95/62 96 11/05/16 03:30 83 18 93/63 95 11/05/16 03:00 88 22 97/61 95 11/05/16 02:16 93 27 94/53 94 11/05/16 02:00 89 17 82/53 94 11/05/16 01:35 95 24 87/57 94 11/05/16 01:30 93 18 81/59 95 11/05/16 01:00 94 20 97/62 94 11/05/16 00:19 96 Nasal Cannula 2.0 11/05/16 00:00 37.3 95 25 96 11/04/16 23:59 100 26 104/66 95 11/04/16 23:29 95 28 97/66 97 11/04/16 23:00 101 25 94 11/04/16 22:12 100 23 91/57 94 11/04/16 22:00 98 25 94 11/04/16 21:59 101 30 87/59 95 11/04/16 21:29 102 36 105/71 93 11/04/16 21:00 100 20 95/63 92 11/04/16 20:30 95 24 106/70 95 11/04/16 20:00 36.7 102 26 107/68 96 11/04/16 20:00 96 Nasal Cannula 2.0 11/04/16 19:30 97 18 101/63 96 11/04/16 19:00 94 32 98/65 97 11/04/16 18:00 96 16 95/59 96 Nasal Cannula 2.0 11/04/16 16:00 Nasal Cannula 2.0 11/04/16 16:00 36.4 96 22 101/67 96 Nasal Cannula 2.0 11/04/16 14:00 90 20 84/58 96 Nasal Cannula 2.0 Physical Exam General Appearance: + mild distress, + obese ENT: hearing grossly normal Neck: supple, no adenopathy Respiratory/Chest: no respiratory distress, no accessory muscle use Cardiovascular: no JVD Abdomen: non tender, soft Extremities: non-tender Neurologic/Psychiatric: alert, oriented x 3 Laboratory Results Last 24 Hours Test 11/04/16 13:24 11/04/16 18:02 11/04/16 21:41 11/04/16 23:35 Absolute Reticulocyte Count 0.11 10^6/uL Percent Reticulocyte Count 2.3 % Prothrombin Time 12.7 SECONDS Prothromb Time International Ratio 1.2 Activated Partial Thromboplast Time 32.0 SECONDS Partial Thromboplastin Ratio 1.2 Lactic Acid Level 5.0 mmol/L HIV (1&2) Ab and P24 Ag, 4th Gener NEG Bedside Glucose 233 mg/dl 196 mg/dl Venous Blood pH 7.30 Venous Blood Partial Pressure CO2 36 mmHg Venous Blood Partial Pressure O2 42 mmHg Venous Blood HCO3 17 mmol/L Venous Blood Oxygen Saturation 72.5 % Venous Blood Base Excess -8.3 mmol/L Test 11/04/16 23:41 11/04/16 23:45 11/05/16 05:30 11/05/16 05:43 Bedside Glucose 173 mg/dl 235 mg/dl White Blood Count 14.37 K/uL 12.65 K/uL Red Blood Count 4.58 M/uL 4.48 M/uL Hemoglobin 12.2 g/dL 12.1 g/dL Hematocrit 37.0 % 36.7 % Mean Corpuscular Volume 80.8 fL 81.9 fL Mean Corpuscular Hemoglobin 26.6 pg 27.0 pg Mean Corpuscular Hemoglobin Concent 33.0 g/dl 33.0 g/dl Platelet Count 75 K/uL 67 K/uL Mean Platelet Volume 9.5 fL 10.6 fL Neutrophils (%) (Auto) 85.3 % 83.0 % Lymphocytes (%) (Auto) 3.5 % 3.6 % Monocytes (%) (Auto) 7.7 % 6.7 % Eosinophils (%) (Auto) 0.1 % 0.1 % Basophils (%) (Auto) 0.1 % 0.0 % Neutrophils # (Auto) 12.26 K/uL 10.49 K/uL Lymphocytes # (Auto) 0.51 K/uL 0.46 K/uL Monocytes # (Auto) 1.10 K/uL 0.85 K/uL Eosinophils # (Auto) 0.01 K/uL 0.01 K/uL Basophils # (Auto) 0.01 K/uL 0.00 K/uL RDW Standard Deviation 46.9 fL 48.2 fL RDW Coefficient of Variation 15.8 % 16.0 % Immature Granulocyte % (Auto) 3.3 % 6.6 % Immature Granulocyte # (Auto) 0.48 K/uL 0.84 K/uL Echinocytes 1+ 1+ Sodium Level 143 mmol/L 140 mmol/L Potassium Level 4.6 mmol/L 5.7 mmol/L Chloride Level 109 mmol/L 108 mmol/L Carbon Dioxide Level 20 mmol/L 21 mmol/L Anion Gap 14.0 mmol/L 11.0 mmol/L Blood Urea Nitrogen 35 mg/dl 38 mg/dl Creatinine 2.50 mg/dl 2.30 mg/dl Est Creatinine Clear Calc Drug Dose 29.3 ml/min 31.9 ml/min Estimated GFR () 27.5 30.4 Estimated GFR (Non- 23.7 26.2 BUN/Creatinine Ratio 14.0 16.7 Random Glucose 192 mg/dl 245 mg/dl Lactic Acid Level 4.5 mmol/L 3.3 mmol/L Calcium Level 7.5 mg/dl 7.3 mg/dl Ionized Calcium 1.01 mmol/l Phosphorus Level 3.7 mg/dl 4.6 mg/dl Magnesium Level 1.2 mg/dl 1.8 mg/dl Total Bilirubin 1.0 mg/dl Aspartate Amino Transf (AST/SGOT) 22 U/L Alanine Aminotransferase (ALT/SGPT) 41 U/L Alkaline Phosphatase 43 U/L Total Protein 5.5 gm/dl Albumin 2.7 gm/dl Globulin 2.8 gm/dl Albumin/Globulin Ratio 1.0 Dohle Bodies 1+ Test 11/05/16 07:59 11/05/16 09:17 11/05/16 11:42 Potassium Level 4.8 mmol/L Troponin I 0.818 ng/ml Pro-B-Type Natriuretic Peptide 8630 pg/ml Bedside Glucose 236 mg/dl Assessment and Plan A/P 76 yo male with urosepsis s/p acute L stent placement in solitary kidney for obstructing stone. Continue supportive care and antibiotics. Continue fluids for renal function, hutchins until Cr improved then TOV. Pansensitive E. Coli - should be amenable to outpatient oral therapy once stabilized eg. Janene. Will plan on definitive stone management once he has recovered from his septic episode. Improving from admission.
[2016-11-05] MEDS: ONDANSETRON INJ 2 MG/ML 2 ML VIAL IV PRN ×2 (13:02→17:39)
[2016-11-05] MEDS: HYDROmorphone INJ 0.5 MG/0.5 ML SYR IV PRN ×4 (14:20→23:42)
--- NOTE | 2016-11-05 14:33 | CARDIOLOGY CONSULTATION ---
DATE OF CONSULTATION: 11/05/2016 PERTINENT HISTORY: Mr. Arteaga is a 76-year-old white male admitted on the 04 of November with gram-negative sepsis from an obstructing ureteral stone and resultant pyelonephritis. The patient has been hypotensive, requiring pressors and is now complaining of scapular and low back pain and has a positive troponin level. This consultation was ordered to assist in his cardiac management. The patient was in his usual state of health until the evening of presentation. He developed severe left flank pain, fever, and mental status changes. He was brought to the Emergency Room and a CAT scan revealed severe left-sided hydronephrosis with an obstructing distal left ureteral calculus. He was taken emergently to the operating room by Dr. Bear and a left ureteral stent was placed. Pyuria was noted when the obstruction was relieved. The patient has required pressors for blood pressure support. This morning, he began complaining of significant scapular discomfort and low back pain. EKG was performed, which showed some new anterior T-wave changes and his troponin was elevated at 0.818. At no time has the patient experienced anterior chest discomfort. He explains that the scapular low back pain is a chronic finding for him. The patient has never experienced exertional angina pectoris. He has noted dyspnea when climbing several flights of stairs. He has never experienced syncope, presyncope, PND, orthopnea, palpitations, lower extremity edema, or claudication. The patient explains that he had a normal nuclear stress test performed approximately 1 year ago while living in [place]. He has relocated to this area as of January 2016. The patient has never known of a cardiac event. He has never had a cardiac catheterization. Currently, the patient is resting quietly in bed. Has some minor subscapular discomfort and low back pain but this is relatively well controlled with intravenous Dilaudid. PAST MEDICAL HISTORY: 1. Hypertension. 2. Hypercholesterolemia. 3. Non-Hodgkin lymphoma -- 2011 -- in remission. 4. Renal cell carcinoma -- 1999. 5. Right nephrectomy -- 1999. 6. History of prostate carcinoma -- 2005. 7. Prostatectomy -- 2005. 8. Diabetes mellitus. 9. History of recurrent renal calculi. MEDICATIONS: 1. Intravenous vasopressin. 2. Piperacillin and tazobactam 3.375 g IV q. 8 hours. 3. Sliding scale insulin. ALLERGIES: None. SOCIAL HISTORY: The patient is and lives with his at the [facility] [place]. 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 Stopped tobacco use in 1984. Alcohol use is occasional. FAMILY HISTORY: 1. Father at age 96 from a cerebrovascular accident. 2. Mother at age 49 from a brain cancer. He has 1 brother who is healthy. No early coronary artery disease. REVIEW OF SYSTEMS: A 10-point review of systems is negative except for that described above. PHYSICAL EXAMINATION: GENERAL: This is a mildly obese white male, seated in bed with minor complaints of scapular and low back discomfort. VITAL SIGNS: Blood pressure is 100/60 with a regular pulse of 82. Respiratory rate is 18. The patient is afebrile at 36.5 degrees Celsius. Saturation 94% on 2 liters nasal cannula. HEENT: Negative. NECK: Supple with full carotid upstrokes. There are no carotid bruits. Jugular venous pressure is flat at 90 degrees. There is no thyromegaly. CARDIOVASCULAR: Reveals a regular rhythm with a normal S1 and S2. Heart sounds are distant. No obvious murmurs. LUNGS: Clear without rales, rhonchi, or wheezes. ABDOMEN: Obese without bruits. EXTREMITIES: Reveal intact radial artery pulses bilaterally. There is no peripheral edema. DATA: CBC notes hemoglobin 12.1, hematocrit 36.7, white count 12.6, platelet count 67,000. Electrolytes note a sodium of 140, potassium 5.7, chloride 108, bicarb 21, BUN 38, creatinine 2.3, glucose 245. Magnesium level is normal at 1.8. Troponin I level is 0.818. Chest x-ray notes cardiomegaly. EKG on presentation noted sinus tachycardia with left anterior hemiblock and a nonspecific ST abnormality. EKG this morning noted sinus rhythm with an intraventricular conduction delay, left axis deviation and anterior T-wave inversion which is minor. IMPRESSION: Mr. Arteaga is currently on pressor support due to his sepsis syndrome from a gram-negative bacillus. His echocardiogram notes global hypokinesis with an ejection fraction of approximately 30%. There is no evidence of an isolated wall motion abnormality. This suggests the possibility of left ventricular dysfunction related to the sepsis syndrome. However, myocardial ischemia cannot be fully excluded. We will continue to trend his troponin, isoenzymes. He will likely require further cardiac testing, however this will be determined depending on his clinical course. PLAN: 1. Agree with pressors to support blood pressure. 2. Trend troponin I level as you are. 3. Further recommendations depending on his clinical course.
[2016-11-05] MEDS ORDERED: ACETAMINOPHEN 325 MG TAB PO PRN (17:45)
--- NOTE | 2016-11-05 18:01 | Critical Care Progress Note ---
Critical Care Progress Note Date of Service Nov 05, 2016. ICU Day ICU Day Number: [address] Schneider Current SOFA Score SOFA Score Response (Comments) Value Platelets (x10) < 100 2 Level of Hypotension MAP less than 70 1 Creatinine (mg/dL) 2.0 - 3.4 2 Total 5 Assessment & Plan (1) Urinary tract infection (2) Ureterolithiasis (3) Renal insufficiency (4) Left flank pain (5) Sepsis (6) Lymphoma (7) Pyelonephritis (8) Kidney stone Neuro: * Continue pain control with Dilaudid post-operatively Cardiac: * Mild elevation in his troponins, likely secondary to myocardial dysfunction secondary to sepsis * Elevated BNP * Continue vasopressin for now * Reviewed echocardiogram EF 30-35% * Limit fluids if possible * EKG: QTC 471 Respiratory: Oxygen via nasal cannula wean as tolerated GI: * Low-sodium diet with mild fluid restriction at 2000 mL : * POD # 1 * Chery to gravity in place, Strict I&O's * Urology consulted: Notes reviewed * Avoid nephrotoxins, not diuresing at this time I.D: Septic shock, gram-negative bacteremia * Septic 2/2 impacted kidney stone * ID notes reviewed * Repeat blood cultures ordered * Daptomycin discontinued by ID * Pansensitive Escherichia coli * Decreased antibiotics spectrum to Cipro * Stopped date at this point set for 14 days of therapy Endocrine: * SSI in place: * Will need to increase glycemic coverage as the blood sugars are running out of range Heme: * Leukopenia resolved * Thrombocytopenia: No heparin exposure during this hospitalization at this time * DVT Prophylaxis: SCDs and Lovenox 30 mg subcutaneous once daily which is renally adjusted Access: * [address]. Will examine need for central access/arterial line post- operatively I have personally spent 50 minutes of critical care time in the direct management of this patient. This is a life/limb threatening event. This includes time spent evaluating patient, direct bedside care, chart review, placing orders, interpretation of diagnostic studies, discussion with consultants, patient, and family members, as well as other required patient management activities. This time is exclusive of all separately billable procedures, and teaching time and separate from and in addition to any other critical care service time. Consults & Procedures Consultants: Cardiology Infectious disease Urology Procedures: Left ureteral stents with urology 11/04/2016 Data Medications: Current Inpatient Medications Medications (Trade) Dose Ordered Sig/Ashvin Route Start Time Stop Time Status Last Admin Dose Admin Insulin Aspart SLIDING SCALE G... Q6 SC 11/04/16 07:00 12/04/16 06:59 11/05/16 05:55 2 UNITS Piperacillin Sod/ Tazobactam Sod/ Dextrose (Zosyn Iv/D5 100ml) 115 ml @ 28.75 mls/ hr Q8H IV 11/04/16 08:00 11/14/16 07:59 11/05/16 07:39 28.75 MLS/HR Hydromorphone HCl 1 mg 1 mg Q3H PRN IV 11/04/16 04:45 11/18/16 04:44 11/05/16 06:50 1 MG Vasopressin/ Sodium Chloride (Pitressin Synthetic Inj/Nss 500ml) 502.5 ml @ 0 mls/hr Q0M IV 11/04/16 09:15 12/04/16 09:14 11/04/16 09:38 6 MLS/HR Piperacillin Sod/ Tazobactam Sod (Consult) 1 ea UD PRN N/A 11/04/16 15:45 12/04/16 15:44 I & O: 24-Hour Column 11/05/16 07:59 Intake Total 2245 ml Output Total 950 ml Balance 1295 ml Vital Signs: Date Time Temp Pulse Resp B/P Pulse Ox O2 Delivery O2 Flow Rate FiO2 11/05/16 06:00 87 25 109/67 97 11/05/16 05:53 82 21 103/70 97 11/05/16 05:29 83 18 103/70 98 11/05/16 05:00 80 19 96/64 97 11/05/16 04:10 96 Nasal Cannula 2.0 11/05/16 04:00 36.4 81 17 95/62 96 11/05/16 03:30 83 18 93/63 95 11/05/16 03:00 88 22 97/61 95 11/05/16 02:16 93 27 94/53 94 11/05/16 02:00 89 17 82/53 94 11/05/16 01:35 95 24 87/57 94 11/05/16 01:30 93 18 81/59 95 11/05/16 01:00 94 20 97/62 94 11/05/16 00:19 96 Nasal Cannula 2.0 11/05/16 00:00 37.3 95 25 96 11/04/16 23:59 100 26 104/66 95 11/04/16 23:29 95 28 97/66 97 11/04/16 23:00 101 25 94 11/04/16 22:12 100 23 91/57 94 11/04/16 22:00 98 25 94 11/04/16 21:59 101 30 87/59 95 11/04/16 21:29 102 36 105/71 93 11/04/16 21:00 100 20 95/63 92 11/04/16 20:30 95 24 106/70 95 11/04/16 20:00 36.7 102 26 107/68 96 11/04/16 20:00 96 Nasal Cannula 2.0 11/04/16 19:30 97 18 101/63 96 11/04/16 19:00 94 32 98/65 97 11/04/16 18:00 96 16 95/59 96 Nasal Cannula 2.0 11/04/16 16:00 Nasal Cannula 2.0 11/04/16 16:00 36.4 96 22 101/67 96 Nasal Cannula 2.0 11/04/16 14:00 90 20 84/58 96 Nasal Cannula 2.0 11/04/16 12:00 Nasal Cannula 2.0 11/04/16 12:00 36.4 92 20 74/52 94 Nasal Cannula 2.0 11/04/16 10:00 95 22 95 11/04/16 09:59 95 23 99/59 96 11/04/16 09:45 101 24 94 11/04/16 09:45 101 24 94 11/04/16 09:44 103 22 77/52 93 11/04/16 09:30 92 18 75/53 93 11/04/16 09:15 92 18 93 11/04/16 09:00 92 20 94 11/04/16 08:59 92 19 89/59 94 11/04/16 08:45 101 22 93 11/04/16 08:30 96 20 93 11/04/16 08:29 95 18 76/54 93 11/04/16 08:15 96 19 93 11/04/16 08:00 Nasal Cannula 2.0 11/04/16 08:00 98 18 92 11/04/16 07:59 97 17 74/54 92 Laboratory Results: Last 24 Hours Test 11/04/16 09:40 11/04/16 09:58 11/04/16 11:29 11/04/16 13:24 Influenza Type A (RT-PCR) Neg for Influ A Influenza Type B (RT-PCR) Neg for Influ B Random Cortisol 69.76 mcg/dl Bedside Glucose 217 mg/dl Absolute Reticulocyte Count 0.11 10^6/uL Percent Reticulocyte Count 2.3 % Prothrombin Time 12.7 SECONDS Prothromb Time International Ratio 1.2 Activated Partial Thromboplast Time 32.0 SECONDS Partial Thromboplastin Ratio 1.2 Lactic Acid Level 5.0 mmol/L HIV (1&2) Ab and P24 Ag, 4th Gener NEG Test 11/04/16 18:02 11/04/16 21:41 11/04/16 23:35 11/04/16 23:41 Bedside Glucose 233 mg/dl 196 mg/dl 173 mg/dl Venous Blood pH 7.30 Venous Blood Partial Pressure CO2 36 mmHg Venous Blood Partial Pressure O2 42 mmHg Venous Blood HCO3 17 mmol/L Venous Blood Oxygen Saturation 72.5 % Venous Blood Base Excess -8.3 mmol/L Test 11/04/16 23:45 11/05/16 05:30 11/05/16 05:43 11/05/16 06:59 White Blood Count 14.37 K/uL 12.65 K/uL Red Blood Count 4.58 M/uL 4.48 M/uL Hemoglobin 12.2 g/dL 12.1 g/dL Hematocrit 37.0 % 36.7 % Mean Corpuscular Volume 80.8 fL 81.9 fL Mean Corpuscular Hemoglobin 26.6 pg 27.0 pg Mean Corpuscular Hemoglobin Concent 33.0 g/dl 33.0 g/dl Platelet Count 75 K/uL 67 K/uL Mean Platelet Volume 9.5 fL 10.6 fL Neutrophils (%) (Auto) 85.3 % 83.0 % Lymphocytes (%) (Auto) 3.5 % 3.6 % Monocytes (%) (Auto) 7.7 % 6.7 % Eosinophils (%) (Auto) 0.1 % 0.1 % Basophils (%) (Auto) 0.1 % 0.0 % Neutrophils # (Auto) 12.26 K/uL 10.49 K/uL Lymphocytes # (Auto) 0.51 K/uL 0.46 K/uL Monocytes # (Auto) 1.10 K/uL 0.85 K/uL Eosinophils # (Auto) 0.01 K/uL 0.01 K/uL Basophils # (Auto) 0.01 K/uL 0.00 K/uL RDW Standard Deviation 46.9 fL 48.2 fL RDW Coefficient of Variation 15.8 % 16.0 % Immature Granulocyte % (Auto) 3.3 % 6.6 % Immature Granulocyte # (Auto) 0.48 K/uL 0.84 K/uL Echinocytes 1+ 1+ Sodium Level 143 mmol/L 140 mmol/L Potassium Level 4.6 mmol/L 5.7 mmol/L Chloride Level 109 mmol/L 108 mmol/L Carbon Dioxide Level 20 mmol/L 21 mmol/L Anion Gap 14.0 mmol/L 11.0 mmol/L Blood Urea Nitrogen 35 mg/dl 38 mg/dl Creatinine 2.50 mg/dl 2.30 mg/dl Est Creatinine Clear Calc Drug Dose 29.3 ml/min 31.9 ml/min Estimated GFR () 27.5 30.4 Estimated GFR (Non- 23.7 26.2 BUN/Creatinine Ratio 14.0 16.7 Random Glucose 192 mg/dl 245 mg/dl Lactic Acid Level 4.5 mmol/L 3.3 mmol/L Calcium Level 7.5 mg/dl 7.3 mg/dl Ionized Calcium 1.01 mmol/l Phosphorus Level 3.7 mg/dl 4.6 mg/dl Magnesium Level 1.2 mg/dl 1.8 mg/dl Total Bilirubin 1.0 mg/dl Aspartate Amino Transf (AST/SGOT) 22 U/L Alanine Aminotransferase (ALT/SGPT) 41 U/L Alkaline Phosphatase 43 U/L Total Protein 5.5 gm/dl Albumin 2.7 gm/dl Globulin 2.8 gm/dl Albumin/Globulin Ratio 1.0 Dohle Bodies 1+ Bedside Glucose 235 mg/dl Problem Qualifiers (1) Urinary tract infection: Urinary tract infection type: site unspecified (2) Sepsis: Sepsis type: sepsis due to unspecified organism Qualified Codes: A41.9 - Sepsis, unspecified organism
[2016-11-05] MEDS ORDERED: PHARMACY GLYCEMIC MGMT CONSULT PRN (18:54)
[2016-11-05] MEDS: CIPROFLOXACIN / D5W 400 MG in PREMIXED IN D5W 200 ML IV SCH (19:49)
--- NOTE | 2016-11-05 20:52 | Pharmacy Progress Note ---
Glycemic: Assessment & Plan Date of Service Nov 05, 2016. Assessment & Plan Item Value Date Time Bedside Glucose 162 mg/dl H 11/05/16 1803 Bedside Glucose 236 mg/dl H 11/05/16 1142 Bedside Glucose 235 mg/dl H 11/05/16 0543 Random Glucose 245 mg/dl H 11/05/16 0530 Random Glucose 192 mg/dl H 11/04/16 2345 Bedside Glucose 173 mg/dl H 11/04/16 2341 Bedside Glucose 196 mg/dl H 11/04/16 2141 Bedside Glucose 233 mg/dl H 11/04/16 1802 Home Diabetes Regimen: * Glipizide ER unknown dose/frequency PLAN: Pt POD #1, received hydrocortisone 100mg IV x 1 yesterday, recently titrated off vasopressin, continues Cipro-IV. Will "tighten" ordered CF and add CR now that ordered diet. * Basal insulin: Not needed at this time * Correctional Insulin: Novolog Correction per scale ACHS Goal Range: Low 140 mg/dL - High 180 mg/dL Correction Factor: 25 mg/dL/unit * Prandial insulin: Per carb ratio of 1 unit per 10 grams CHO consumed Pharmacy will continue to monitor patient daily and write orders per [facility] inpatient glycemic control protocol. Thanks. * Please note that the plan above was derived based on current level of insulin resistance and hospital stress. These recommendations are appropriate for inpatient admission only. Plan of care upon discharge will need to be reassessed to avoid potential outpatient hypo/hyperglycemia.
[2016-11-05] MEDS ORDERED: ENOXAPARIN 30 MG/0.3 ML SYR SQ SCH (21:00)
--- NOTE | 2016-11-05 21:33 | Hospitalist Progress Note ---
Hospitalist Progress Note Date of Service Nov 05, 2016. Subjective Pt evaluation today including: conversation w/ patient, conversation w/ webmethods consultant (critical care medicine, cardiology) Voiding: hutchins catheter in place Patient complaining of bilateral shoulder blade pain today that comes and goes. He has had this before and relates it to being in the hospital bed. He denies chest pain and reports he had a normal nuclear stress test a year ago. At the time I saw him, he was remaining on vasopressin due to hypotension. He is growing out Escherichia coli in his blood and urine Constitutional: No fever Respiratory: No shortness of breath Cardiovascular: No chest pain Abdomen: + pain (left lower quadrant) Musculoskeletal: + problem reported (upper shoulder blade pain bilaterally) Male : No problem reported Skin: No rash All Other Systems: Reviewed and Negative Objective Vital Signs Date Time Temp Pulse Resp B/P Pulse Ox O2 Delivery O2 Flow Rate FiO2 11/05/16 18:00 36.5 81 23 109/65 97 Nasal Cannula 2.0 11/05/16 16:00 99 Nasal Cannula 2.0 11/05/16 16:00 36.5 83 22 103/62 96 Nasal Cannula 2.0 11/05/16 13:54 36.7 73 16 103/62 97 Nasal Cannula 2.0 11/05/16 12:00 99 Nasal Cannula 2.0 11/05/16 12:00 36.5 82 14 91/64 94 Nasal Cannula 2.0 11/05/16 10:00 80 20 110/65 99 Nasal Cannula 2.0 11/05/16 08:00 36.6 94 18 141/97 92 Nasal Cannula 2.0 11/05/16 08:00 92 Nasal Cannula 2.0 11/05/16 06:00 87 25 109/67 97 11/05/16 05:53 82 21 103/70 97 11/05/16 05:29 83 18 103/70 98 11/05/16 05:00 80 19 96/64 97 11/05/16 04:10 96 Nasal Cannula 2.0 11/05/16 04:00 36.4 81 17 95/62 96 11/05/16 03:30 83 18 93/63 95 11/05/16 03:00 88 22 97/61 95 11/05/16 02:16 93 27 94/53 94 11/05/16 02:00 89 17 82/53 94 11/05/16 01:35 95 24 87/57 94 11/05/16 01:30 93 18 81/59 95 11/05/16 01:00 94 20 97/62 94 11/05/16 00:19 96 Nasal Cannula 2.0 11/05/16 00:00 37.3 95 25 96 11/04/16 23:59 100 26 104/66 95 11/04/16 23:29 95 28 97/66 97 11/04/16 23:00 101 25 94 11/04/16 22:12 100 23 91/57 94 11/04/16 22:00 98 25 94 11/04/16 21:59 101 30 87/59 95 11/04/16 21:29 102 36 105/71 93 11/04/16 21:00 100 20 95/63 92 11/04/16 20:30 95 24 106/70 95 Physical Exam General Appearance: WD/WN, + mild distress (appears mildly diaphoretic) Eyes: normal inspection, sclerae normal Neck: trachea midline Respiratory/Chest: no respiratory distress, no accessory muscle use, + crackles (mild bibasilar) Cardiovascular: regular rate, rhythm, no edema, no murmur Abdomen: normal bowel sounds, soft, + tenderness (mild in the left lower quadrant without guarding or rebound) Extremities: normal inspection, no calf tenderness Neurologic/Psychiatric: alert, normal mood/affect, oriented x 3 Skin: normal color, warm/dry, no rash Laboratory Results Last 24 Hours Test 11/04/16 21:41 11/04/16 23:35 11/04/16 23:41 11/04/16 23:45 Bedside Glucose 196 mg/dl 173 mg/dl Venous Blood pH 7.30 Venous Blood Partial Pressure CO2 36 mmHg Venous Blood Partial Pressure O2 42 mmHg Venous Blood HCO3 17 mmol/L Venous Blood Oxygen Saturation 72.5 % Venous Blood Base Excess -8.3 mmol/L White Blood Count 14.37 K/uL Red Blood Count 4.58 M/uL Hemoglobin 12.2 g/dL Hematocrit 37.0 % Mean Corpuscular Volume 80.8 fL Mean Corpuscular Hemoglobin 26.6 pg Mean Corpuscular Hemoglobin Concent 33.0 g/dl Platelet Count 75 K/uL Mean Platelet Volume 9.5 fL Neutrophils (%) (Auto) 85.3 % Lymphocytes (%) (Auto) 3.5 % Monocytes (%) (Auto) 7.7 % Eosinophils (%) (Auto) 0.1 % Basophils (%) (Auto) 0.1 % Neutrophils # (Auto) 12.26 K/uL Lymphocytes # (Auto) 0.51 K/uL Monocytes # (Auto) 1.10 K/uL Eosinophils # (Auto) 0.01 K/uL Basophils # (Auto) 0.01 K/uL RDW Standard Deviation 46.9 fL RDW Coefficient of Variation 15.8 % Immature Granulocyte % (Auto) 3.3 % Immature Granulocyte # (Auto) 0.48 K/uL Echinocytes 1+ Sodium Level 143 mmol/L Potassium Level 4.6 mmol/L Chloride Level 109 mmol/L Carbon Dioxide Level 20 mmol/L Anion Gap 14.0 mmol/L Blood Urea Nitrogen 35 mg/dl Creatinine 2.50 mg/dl Est Creatinine Clear Calc Drug Dose 29.3 ml/min Estimated GFR () 27.5 Estimated GFR (Non- 23.7 BUN/Creatinine Ratio 14.0 Random Glucose 192 mg/dl Lactic Acid Level 4.5 mmol/L Calcium Level 7.5 mg/dl Ionized Calcium 1.01 mmol/l Phosphorus Level 3.7 mg/dl Magnesium Level 1.2 mg/dl Total Bilirubin 1.0 mg/dl Aspartate Amino Transf (AST/SGOT) 22 U/L Alanine Aminotransferase (ALT/SGPT) 41 U/L Alkaline Phosphatase 43 U/L Total Protein 5.5 gm/dl Albumin 2.7 gm/dl Globulin 2.8 gm/dl Albumin/Globulin Ratio 1.0 Test 11/05/16 05:30 11/05/16 05:43 11/05/16 07:59 11/05/16 09:17 White Blood Count 12.65 K/uL Red Blood Count 4.48 M/uL Hemoglobin 12.1 g/dL Hematocrit 36.7 % Mean Corpuscular Volume 81.9 fL Mean Corpuscular Hemoglobin 27.0 pg Mean Corpuscular Hemoglobin Concent 33.0 g/dl Platelet Count 67 K/uL Mean Platelet Volume 10.6 fL Neutrophils (%) (Auto) 83.0 % Lymphocytes (%) (Auto) 3.6 % Monocytes (%) (Auto) 6.7 % Eosinophils (%) (Auto) 0.1 % Basophils (%) (Auto) 0.0 % Neutrophils # (Auto) 10.49 K/uL Lymphocytes # (Auto) 0.46 K/uL Monocytes # (Auto) 0.85 K/uL Eosinophils # (Auto) 0.01 K/uL Basophils # (Auto) 0.00 K/uL RDW Standard Deviation 48.2 fL RDW Coefficient of Variation 16.0 % Immature Granulocyte % (Auto) 6.6 % Immature Granulocyte # (Auto) 0.84 K/uL Dohle Bodies 1+ Echinocytes 1+ Sodium Level 140 mmol/L Potassium Level 5.7 mmol/L 4.8 mmol/L Chloride Level 108 mmol/L Carbon Dioxide Level 21 mmol/L Anion Gap 11.0 mmol/L Blood Urea Nitrogen 38 mg/dl Creatinine 2.30 mg/dl Est Creatinine Clear Calc Drug Dose 31.9 ml/min Estimated GFR () 30.4 Estimated GFR (Non- 26.2 BUN/Creatinine Ratio 16.7 Random Glucose 245 mg/dl Lactic Acid Level 3.3 mmol/L Calcium Level 7.3 mg/dl Phosphorus Level 4.6 mg/dl Magnesium Level 1.8 mg/dl Bedside Glucose 235 mg/dl Troponin I 0.818 ng/ml Pro-B-Type Natriuretic Peptide 8630 pg/ml Test 11/05/16 11:42 11/05/16 13:45 11/05/16 16:30 11/05/16 18:03 Bedside Glucose 236 mg/dl 162 mg/dl Troponin I 0.670 ng/ml Diagnostic Results Echocardiogram: * Left ventricular systolic function is moderately reduced. * There is moderate global hypokinesis of the left ventricle. * Ejection Fraction = 30-35%. * There is borderline concentric left ventricular hypertrophy. * Grade I diastolic dysfunction, (abnormal relaxation pattern). * There is mild tricuspid regurgitation. Chest x-ray image personally reviewed by me and I agree with the radiology report of mild cardiomegaly but otherwise clear Assessment and Plan 76-year-old male with a history of non-Hodgkin's lymphoma, right-sided nephrectomy for renal cell carcinoma, and prostatectomy for prostate cancer, hypertension, and diabetes mellitus type 2, here with left-sided ureterolithiasis and sepsis with UTI. Lactate was 7 on admission and with hypotension, he has severe sepsis which was requiring vasopressors to include vasopressin and IV hydrocortisone. Severe Sepsis, left ureterolithiasis, E coli UTI, solitary kidney, gram- negative bacteremia-blood pressure improving and will titrate off vasopressin when able to. Appreciate critical care medicine consultation. Received Zosyn and daptomycin but now with blood and urine cultures with pansensitive Escherichia coli, will narrow down antibiotic coverage. Status post left ureteral stent and appreciate urology management. -Discontinue IV fluids for systolic CHF -Start Cipro 40 mg IV every 12 and will continue total antibiotic course for 14 days for bacteremia -Appreciate urology management as well-will need definitive stone management in the future -Follow repeat blood cultures and ensure no growth Acute kidney injury, hyperkalemia-patient reports he had normal renal function prior to this admission as he was told by his doctors. Creatinine on admission peaked at 2.5, now down to 2.3. Potassium elevated at 5.7 and given calcium gluconate with repeat at 4.8. Received IV fluids. Renal failure likely secondary to ATN and hypotension as well as post obstructive secondary to ureterolithiasis. Now with ureteral stent placed. -Avoid nephrotoxins and renally dose all meds -Maintaining Hutchins catheter -Follow PRP daily Upper back pain, elevated troponin secondary to demand ischemia, new onset acute systolic CHF with EF 30-35%. Troponin peaked at 0.8 and stabilized. ECG with T-wave inversions in the anterior leads. Normal nuclear stress test in 2016 as per patient report. This could be sepsis induced LV dysfunction. There are no segmental wall motion abnormalities. Echocardiogram: * Left ventricular systolic function is moderately reduced. * There is moderate global hypokinesis of the left ventricle. * Ejection Fraction = 30-35%. * There is borderline concentric left ventricular hypertrophy. * Grade I diastolic dysfunction, (abnormal relaxation pattern). * There is mild tricuspid regurgitation. -Watch for fluid overload, chest x-ray from yesterday is negative for pulmonary edema -Eventually will need to be on beta theodora, AKIRA inhibitor, and possible diuretics -Will need repeat echo and possible stress testing in the future after he recovers from his acute illness History of renal cell carcinoma status post right nephrectomy, prostate cancer status post prostatectomy-stable, no issues History of non-Hodgkin's lymphoma-in remission for 12 years as per patient, treated previously with chemotherapy. CT abdomen and pelvis shows mesenteric lymphadenopathy-unclear if stable from previous scans -Needs to establish with oncologist now that he is living in [place] -Will need follow-up with oncology for his lymphoma and to see if old records show evidence of lymphadenopathy in the same regions Hypertension-has been hypotensive here -Hold lisinopril Diabetes mellitus II-glucose not well controlled here -Insulin sliding scale with carb coverage with a 1-10 ratio and correction factor of 25 -Holding home glimepiride -Check hemoglobin A1c in the morning - DVT prophylaxis start heparin heparin, SCDs Disposition-DO NOT RESUSCITATE
[2016-11-06] VITALS (13 sets, daily range): BP systolic 107–127; BP diastolic 60–74; PULSE 85–101; TEMP 36.6–37.1; O2SAT 92–97
[2016-11-06] MEDS ORDERED: PIPERACILL/TAZOBAC IV 4.5 GM in DEXTROSE 5% 100ML IV SCH ×2
[2016-11-06] MEDS: HYDROmorphone INJ 0.5 MG/0.5 ML SYR IV PRN ×2 (02:05→07:43)
[2016-11-06] MEDS ORDERED: ALBUT/IPRATROP 3MG/0.5MG NEB 3 ML VIAL INH ONE (03:30)
[2016-11-06 06:14] LABS: HEMATOCRIT 33.9 % (42-52); MEAN CELL VOLUME 81.1 fL (80-100); MEAN CORPUSCULAR HEMOGLOBIN 26.3 pg (25-34); MEAN CORPUSCULAR HGB CONC 32.4 g/dl (32-36); RED BLOOD COUNT 4.18 M/uL (4.7-6.1); WHITE BLOOD COUNT 8.14 K/uL (4.8-10.8)
[2016-11-06 06:15] LABS: PLATELET COUNT 62 K/uL (130-400)
[2016-11-06 06:36] LABS: BUN/CREATININE RATIO 21.6 (10-20); CALCIUM 8.1 mg/dl (8.5-10.1); CREATININE 1.6 mg/dl (0.60-1.40); MAGNESIUM 1.9 mg/dl (1.8-2.4); PHOSPHORUS 2.7 mg/dl (2.5-4.9); POTASSIUM 3.8 mmol/L (3.5-5.1)
[2016-11-06 06:45] LABS: ESTIMATED AVERAGE GLUCOSE 137 mg/dl; HA1C FLAG Normal (Normal)
[2016-11-06] MEDS: INSULIN ASPART 100 UNITS/ML 3 ML PEN SC SCH ×4 (06:45→20:09)
[2016-11-06 06:57] LABS: COMPLETE YES; DOHLE BODIES 1+; ECHINOCYTES 2+; EOSINOPHIL % 1.7 %; LYMPH ABS # 0.35 K/uL (1.2-3.4); LYMPHOCYTE % 4.3 %; META ABS # 0.21 K/uL (0-0); METAMYELOCYTE % 2.6 %; NEUTROPHILS % 89.7 %
[2016-11-06] MEDS: ONDANSETRON INJ 2 MG/ML 2 ML VIAL IV PRN (07:44)
[2016-11-06] MEDS: CIPROFLOXACIN / D5W 400 MG in PREMIXED IN D5W 200 ML IV SCH ×2 (07:44→18:21)
[2016-11-06] MEDS ORDERED: MoRPHine SULFATE 2 MG/ML CARP IV STA (08:36)
[2016-11-06] MEDS ORDERED: MoRPHine SULFATE 2 MG/ML CARP IV PRN (09:30)
--- NOTE | 2016-11-06 09:44 | Infectious Disease Progress Nt ---
Progress Note Date of Service November 06, 2016. Subjective Pt evaluation today including: conversation w/ patient, conversation w/ family , physical exam, chart review, lab review, review of studies, conversation w/ service delivery consultant, review of inpatient medication list Evants reviewed. Patient feeling much better this AM. Had severe back pain, now better after analgesics. No fever. Hemodynamically stable overnight. All Other Systems: Reviewed and Negative Medications Current Inpatient Medications Medications (Trade) Dose Ordered Sig/Ashvin Route Start Time Stop Time Status Last Admin Dose Admin Ondansetron HCl (Zofran Inj) 4 mg Q6H PRN IV 11/05/16 10:30 12/05/16 10:29 11/06/16 07:44 4 MG Acetaminophen 650 mg 650 mg Q4H PRN PO 11/05/16 17:45 12/05/16 17:44 Ciprofloxacin/ Dextrose/Prmx (Cipro / D5w/ Premixed D5W) 200 ml @ 100 mls/hr Q12H IV 11/05/16 19:00 11/18/16 08:59 11/06/16 07:44 100 MLS/HR Miscellaneous Information (Consult Glycemic Management Pharmacy) 1 ea UD PRN N/A 11/05/16 18:54 12/05/16 18:53 Insulin Aspart (novoLOG ASPART) SLIDING SCALE G... ACHS SC 11/05/16 21:00 12/05/16 20:59 Enteral Nutritional Formula (Boost Glucose Control) 1 can TIDM PO 11/06/16 11:30 12/06/16 11:29 UNV Morphine Sulfate (MoRPHine SULFATE INJ) 2 mg Q2H PRN IV 11/06/16 09:30 11/20/16 09:29 UNV Objective Vital Signs Date Time Temp Pulse Resp B/P Pulse Ox O2 Delivery O2 Flow Rate FiO2 11/06/16 06:00 86 20 120/74 97 Nasal Cannula 2.0 11/06/16 04:00 Nasal Cannula 2.0 11/06/16 04:00 36.6 88 15 110/64 93 Nasal Cannula 2.0 11/06/16 03:46 88 18 95 Nasal Cannula 2.0 11/06/16 02:00 87 14 107/71 93 Nasal Cannula 2.0 11/06/16 00:01 36.8 85 16 109/65 97 Nasal Cannula 2.0 11/05/16 23:59 Nasal Cannula 2.0 11/05/16 22:00 80 14 112/63 99 Nasal Cannula 2.0 11/05/16 20:00 36.7 81 14 111/70 99 Nasal Cannula 2.0 11/05/16 20:00 Nasal Cannula 2.0 11/05/16 18:00 36.5 81 23 109/65 97 Nasal Cannula 2.0 11/05/16 16:00 99 Nasal Cannula 2.0 11/05/16 16:00 36.5 83 22 103/62 96 Nasal Cannula 2.0 11/05/16 13:54 36.7 73 16 103/62 97 Nasal Cannula 2.0 11/05/16 12:00 99 Nasal Cannula 2.0 11/05/16 12:00 36.5 82 14 91/64 94 Nasal Cannula 2.0 11/05/16 10:00 80 20 110/65 99 Nasal Cannula 2.0 Physical Exam General Appearance: WD/WN, no apparent distress Eyes: normal inspection, EOMI, sclerae normal ENT: normal ENT inspection, hearing grossly normal, pharynx normal Neck: supple, no adenopathy, trachea midline Respiratory/Chest: chest non-tender, lungs clear, normal breath sounds, no respiratory distress Cardiovascular: regular rate, rhythm, no gallop, no murmur Abdomen: normal bowel sounds, non tender, soft, no organomegaly Extremities: non-tender, no calf tenderness Neurologic/Psychiatric: alert, oriented x 3 Skin: normal color, warm/dry, no rash Lymphatic: no adenopathy Laboratory Results RUN DATE: 11/06/16 [facility] LAB PAGE 1 RUN TIME: 901 Specimen Inquiry [facility]: [id number] LOC: KRYSTEN # : [id number] AGE/SX: 76/M ROOM: E108 REG : 11/04/[address]: Ashish Avina D.O : 1940 BED: 1 DIS : STATUS: ADM IN TLOC: SPEC #: [id number] MARIBEL: 11/04/16 STATUS: COMP REQ #: [id number] RECD: 11/04/[address]: Abdulaziz Darden DO SOURCE: BLOOD ENTR: 11/04/[address] [facility] [address]: Nicola Hannon MD [facility]: ORDERED: BLOOD CULTURE Procedure Result Verified Site BLD CULT Final 11/06/16-901 Organism 1 ESCHERICHIA COLI SENS SENSITIVITY TO FOLLOW Phoned Positive Blood Culture Gram Stain Report to HUNTER PEREYRA on 11/04/16 At 1822 By SHERLY. Results were verbalized back to SHERLY. 1. ESCHERICHIA COLI Target Route Dose RX AB Cost M.I.C. IQ ------ ----- ------ -- ------ -------- - ------ TRIMET/SULFA S <=2/38 AMPICILLIN S <=8 AMPICILLIN/SUL S <=8/4 CEFAZOLIN S <=8 CEFOTAXIME S <=2 CEFTRIAXONE S <=1 CEFEPIME S <=4 CEFUROXIME S <=4 IMIPENEM S <=1 GENTAMICIN S <=4 TOBRAMYCIN S <=4 AMIKACIN S <=16 CIPROFLOXACIN S <=1 LEVOFLOXACIN S <=2 ERTAPENEM S <=1 PIP/TAZO S <=16 S = SENSITIVE I = INTERMEDIATE R = RESISTANT END OF REPORT Last 24 Hours Test 11/05/16 11:42 11/05/16 13:45 11/05/16 16:30 11/05/16 18:03 Bedside Glucose 236 mg/dl 162 mg/dl Troponin I 0.670 ng/ml Test 11/05/16 21:16 11/06/16 00:29 11/06/16 06:02 Bedside Glucose 123 mg/dl Troponin I 0.405 ng/ml White Blood Count 8.14 K/uL Red Blood Count 4.18 M/uL Hemoglobin 11.0 g/dL Hematocrit 33.9 % Mean Corpuscular Volume 81.1 fL Mean Corpuscular Hemoglobin 26.3 pg Mean Corpuscular Hemoglobin Concent 32.4 g/dl Platelet Count 62 K/uL Mean Platelet Volume 10.0 fL RDW Standard Deviation 47.0 fL RDW Coefficient of Variation 16.0 % Neutrophils % (Manual) 89.7 % Lymphocytes % (Manual) 4.3 % Monocytes % (Manual) 1.7 % Eosinophils % (Manual) 1.7 % Metamyelocytes % 2.6 % Neutrophils # (Manual) 7.30 K/uL Total Absolute Neutrophils 7.30 K/uL Lymphocytes # (Manual) 0.35 K/uL Total Absolute Lymphocytes 0.35 K/uL Monocytes # (Manual) 0.14 K/uL Eosinophils # (Manual) 0.14 K/uL Metamyelocytes # 0.21 K/uL Dohle Bodies 1+ Echinocytes 2+ Sodium Level 141 mmol/L Potassium Level 3.8 mmol/L Chloride Level 106 mmol/L Carbon Dioxide Level 23 mmol/L Anion Gap 12.0 mmol/L Blood Urea Nitrogen 35 mg/dl Creatinine 1.60 mg/dl Est Creatinine Clear Calc Drug Dose 45.9 ml/min Estimated GFR () 47.1 Estimated GFR (Non- 40.7 BUN/Creatinine Ratio 21.6 Random Glucose 109 mg/dl Estimated Average Glucose 137 mg/dl Hemoglobin A1c 6.4 % Calcium Level 8.1 mg/dl Phosphorus Level 2.7 mg/dl Magnesium Level 1.9 mg/dl Procalcitonin 151.93 ng/ml Assessment and Plan 76-year-old male with E. coli sepsis in the setting of obstructive uropathy from stone, now status post ureteral stent placement. Isolate is guerrero-sensitive so ciprofloxacin appropriate therapy as can be given orally and so should not require outpatient IV antibiotics. Will follow.
--- NOTE | 2016-11-06 09:55 | DIAGNOSTIC IMAGING REPORT ---
CHEST ONE VIEW PORTABLE CLINICAL HISTORY: hypoxia, back pain COMPARISON STUDY: 11/04/2016 FINDINGS: The heart remains enlarged. There is no failure. There is no focal pulmonary consolidation. There are no significant pleural effusions.[ IMPRESSION: Stable cardiomegaly. No evidence of acute parenchymal consolidation. Electronically signed by: Rob Pruett M.D. 11/06/2016 9:53 AM Dictated Date/Time: 11/06/2016 9:53 AM
--- NOTE | 2016-11-06 10:29 | CRITICAL CARE PROGRESS NOTE ---
DATE: 11/06/2016 HISTORY OF PRESENT ILLNESS: This is a 76-year-old gentleman admitted to the hospital through the Emergency Department on November 04, where he presented with acute onset of left flank and back pain. He was found to have severe left hydronephrosis with a 7-mm obstructing stone. He underwent ureteral stent placement and was found to have E. coli in his blood and in his urine. He was hypotensive and required vasopressors. They have been weaned off. He also has a history of non-Hodgkin's lymphoma as well as renal cell carcinoma, status post right nephrectomy. His care was discussed in detail on multidisciplinary rounds today. His biggest complaint was back pain in the middle of his shoulders. When I talked to him, he tells me that he has a similar pain at home if he lays on his back for too long. He has been receiving Dilaudid for this, which may have made him nauseated. Overall, he feels relatively well and is quite talkative today. He denies shortness of breath or abdominal pain. He is having bowel movements and has not been taking much p.o. secondary to some nausea. He reports his incentive spirometer and water make him nauseated, but he was drinking well when I was in his room. PHYSICAL EXAMINATION: VITAL SIGNS: Maximum temperature 36.8, heart rate 80s, respiratory rate 14-20, blood pressure 109-120/60s-70s, and oxygen saturation 97% on 2 liters nasal cannula. 24-hour fluid balance positive 757 mL. GENERAL: He is awake, alert and very talkative. He easily carries on a conversation. NEUROLOGIC: He moves all 4 extremities and there is no facial droop. LUNGS: Have bibasilar rales. No rhonchi or wheezes. HEART: Regular rate and rhythm. No murmurs. ABDOMEN: Round, firm, mildly distended, and nontender. Active bowel sounds. EXTREMITIES: With trace edema. They are warm. LABORATORY DATA: Sodium 141, potassium 3.8, chloride 106, CO2 of 23, BUN 35, creatinine 1.6, and blood sugar 109. Procalcitonin 151.93. Peak troponin 0.818. White blood cell count 8.14, hemoglobin 11, hematocrit 33.9, and platelets 62. Followup blood cultures 11/05 are pending. MEDICATIONS AND INFUSIONS: Acetaminophen, ciprofloxacin day #2, Dilaudid, Lovenox, insulin sliding scale, Zofran, and normal saline 50 mL per hour. IMPRESSION: 1. Septic shock secondary to obstructive uropathy, urinary tract infection and Escherichia coli bacteremia, improving. He is off vasopressors. 2. Acute kidney injury secondary to #1 and acute tubular necrosis. Improving. 3. Mildly elevated troponin secondary to demand ischemia. Echocardiogram with ejection fraction around 30-35%, but no wall motion abnormalities. This may be secondary to sepsis. 4. Thrombocytopenia. He was pancytopenic on admission and has some lymphadenopathy noted on his CT done this admission. It is mesenteric and distal thoracic periaortic lymphadenopathy. It is unclear whether or not this is a new finding. He has not established with an oncologist up to this point since relocating here. The thrombocytopenia may be related to sepsis. 5. History of hypertension. 6. Diabetes mellitus type 2. PLAN: NEUROLOGIC: Discontinue Dilaudid and try morphine as needed. I think getting him out of bed with some physical therapy may also be helpful. CARDIOVASCULAR: Continue to hold lisinopril secondary to elevated creatinine. Stop IV fluids and watch fluid balance carefully. PULMONARY: Continue to encourage incentive spirometry. Followup chest x-ray was ordered today. He may require some diuretics eventually. INFECTIOUS DISEASE: Continue ciprofloxacin and he should have a 14-day course of antibiotics. Continue to follow the blood cultures done yesterday for clearing. RENAL: Avoid nephrotoxins and appropriately dose medications. Many thanks to the urology service for their assistance in his care. HEMATOLOGY/ONCOLOGY: Hold Lovenox due to low platelets. Use SCDs and consider hematology/oncology consultation if his counts do not begin to improve. He certainly needs to establish with an oncologist as an outpatient secondary to his history of non-Hodgkin's lymphoma. GASTROINTESTINAL: Advance diet and add nutritional supplements. ENDOCRINE: Glycemic consult has been ordered. I suspect he will be ready for transfer to [facility] this afternoon. Please call me with any questions or concerns. [facility]ENTER[facility]ep[facility]
--- NOTE | 2016-11-06 10:48 | CARDIOLOGY PROGRESS NOTE ---
DATE: 11/06/2016 SUBJECTIVE: Mr. Arteaga is resting comfortably in bed without complaints of chest pain, dyspnea, back pain, or scapular pain. Results of his downward-trending troponin discussed in detail. OBJECTIVE: VITAL SIGNS: Blood pressure 120/74 with a regular pulse of 86. Respiratory rate is 20. The patient is afebrile at 36.6 degrees Celsius. Saturations 97% on 2 liters nasal cannula. NECK: Supple with full carotid upstrokes. No carotid bruits. Jugular venous pressure is flat at 90 degrees. There is no thyromegaly. CARDIOVASCULAR: Reveals a regular rhythm with normal S1 and S2. Heart sounds are distant. No obvious murmurs. No S3. LUNGS: Clear without rales, rhonchi, or wheezes. ABDOMEN: Obese without bruits. EXTREMITIES: Reveal intact radial artery pulses bilaterally. There is no peripheral edema. DATA: CBC notes hemoglobin 11.0, hematocrit 33.9, white count 8.1, and platelet count 62,000. Electrolytes note a sodium of 141, potassium 3.8, [id number], bicarbonate 23, BUN 35, creatinine 1.6, glucose 109. Troponin peaked at 0.818 with followup values of 0.67, and 0.405. EKG done last evening notes sinus rhythm with a leftward axis and a nonspecific intraventricular conduction delay. Anterior T-wave abnormality resolved. IMPRESSION AND PLAN: 1. Hypotension - the patient now stable off pressors. Most likely secondary to gram-negative sepsis. 2. Cardiomyopathy - ejection fraction noted to be 30% on echocardiogram. Suspect this may be related to the sepsis syndrome. Will likely recheck, an echocardiogram, or stress echocardiogram, after he recovers fully. 3. Hypercholesterolemia. 4. History of non-Hodgkin lymphoma. 5. Pyelonephritis - per Dr. Sevilla. [facility]
--- NOTE | 2016-11-06 10:59 | Clinical Documentation Query ---
CLINICAL DOCUMENTATION QUERY Dr. COREY, In your clinical opinion is this patient being managed for: (X ) Type II PR (NSTEMI) ( ) Other explanation of clinical findings (Please Explain) ( ) Unable to determine (Please Define) ( ) Need to Discuss ( ) Not Agree The medical record reflects the following clinical findings, treatment, and risk factors. Clinical Indicators: 76 yo male presenting with severe sepsis with septic shock. On the day following admission, pt complained of scapular and low back pain with trop levels of 0.818/0.670/0.405. EKG showed nonspecific change in ST segment and nonspecific T wave abnormality compared to prior. Treatment: ICU, cardiology consult, ECHO, O2 support, Risk Factors:sepsis/septic shock, acute systolic CHF, OSCAR/ATN, Type 2: PR related to ischemia associated with increased O2 demand or decreased supply Please clarify and document your clinical opinion in the progress notes and discharge summary. Terms such as "probable", "suspected", "likely", "questionable", "possible", or "still to be ruled out" are acceptable. IF IN AGREEMENT, YOU MUST DOCUMENT ABOVE DIAGNOSTIC STATEMENT IN DAILY PROGRESS NOTES AND DISCHARGE SUMMARY. This document is not part of the patient's record. Thank You, Nilda Sanz RN [phone]
[2016-11-06] MEDS: BOOST GLUCOSE CONTROL PO SCH ×2 (11:30→17:22)
--- NOTE | 2016-11-06 12:43 | Progress Note ---
Subjective Date of Service: November 06, 2016. Subjective Pt evaluation today including: conversation w/ patient, conversation w/ family , physical exam, chart review, lab review, review of inpatient medication list Pain: Chronic back pain PO Intake: Kenneth reg diet Voiding: hutchins catheter in place (urine clear) 76 yo male POD#2 s/p acute stent in solitary L kidney, urosepsis. He remains in ICU but is recovering nicely, feeling better from yesterday. Interval notes reviewed, pansensitive E. Coli in urine. No new complaints, + BM, + OOBTC. Problem List Medical Problems: (1) Left flank pain Status: Acute (2) Renal insufficiency Status: Acute (3) Sepsis Status: Acute (4) Ureterolithiasis Status: Acute (5) Urinary tract infection Status: Acute Review of Systems Constitutional: No chills, No fever (resolved) Eyes: No eye pain, No worsening of vision ENT: No hearing loss, No unusual epistaxis Respiratory: No sputum Cardiac: No chest pain Abdomen: No nausea, No pain, No vomiting Musculoskeletal: + problem reported (chronic back pain) Male : + see HPI Neurologic: No memory loss, No paralysis Psychiatric: No depression symptoms Endo: + fatigue Skin: No new/changing skin lesions Objective Vital Signs Date Time Temp Pulse Resp B/P Pulse Ox O2 Delivery O2 Flow Rate FiO2 11/06/16 06:00 86 20 120/74 97 Nasal Cannula 2.0 11/06/16 04:00 Nasal Cannula 2.0 11/06/16 04:00 36.6 88 15 110/64 93 Nasal Cannula 2.0 11/06/16 03:46 88 18 95 Nasal Cannula 2.0 11/06/16 02:00 87 14 107/71 93 Nasal Cannula 2.0 11/06/16 00:01 36.8 85 16 109/65 97 Nasal Cannula 2.0 11/05/16 23:59 Nasal Cannula 2.0 11/05/16 22:00 80 14 112/63 99 Nasal Cannula 2.0 11/05/16 20:00 36.7 81 14 111/70 99 Nasal Cannula 2.0 11/05/16 20:00 Nasal Cannula 2.0 11/05/16 18:00 36.5 81 23 109/65 97 Nasal Cannula 2.0 11/05/16 16:00 99 Nasal Cannula 2.0 11/05/16 16:00 36.5 83 22 103/62 96 Nasal Cannula 2.0 11/05/16 13:54 36.7 73 16 103/62 97 Nasal Cannula 2.0 Physical Exam General Appearance: no apparent distress, + obese Eyes: normal inspection ENT: normal ENT inspection, hearing grossly normal Neck: supple, no adenopathy Respiratory/Chest: no respiratory distress, no accessory muscle use Cardiovascular: no JVD Abdomen: non tender, soft Extremities: non-tender Neurologic/Psychiatric: alert, oriented x 3 Skin: normal color Laboratory Results Last 24 Hours Test 11/05/16 13:45 11/05/16 16:30 11/05/16 18:03 11/05/16 21:16 Troponin I 0.670 ng/ml Bedside Glucose 162 mg/dl 123 mg/dl Test 11/06/16 00:29 11/06/16 06:02 Troponin I 0.405 ng/ml White Blood Count 8.14 K/uL Red Blood Count 4.18 M/uL Hemoglobin 11.0 g/dL Hematocrit 33.9 % Mean Corpuscular Volume 81.1 fL Mean Corpuscular Hemoglobin 26.3 pg Mean Corpuscular Hemoglobin Concent 32.4 g/dl Platelet Count 62 K/uL Mean Platelet Volume 10.0 fL RDW Standard Deviation 47.0 fL RDW Coefficient of Variation 16.0 % Neutrophils % (Manual) 89.7 % Lymphocytes % (Manual) 4.3 % Monocytes % (Manual) 1.7 % Eosinophils % (Manual) 1.7 % Metamyelocytes % 2.6 % Neutrophils # (Manual) 7.30 K/uL Total Absolute Neutrophils 7.30 K/uL Lymphocytes # (Manual) 0.35 K/uL Total Absolute Lymphocytes 0.35 K/uL Monocytes # (Manual) 0.14 K/uL Eosinophils # (Manual) 0.14 K/uL Metamyelocytes # 0.21 K/uL Dohle Bodies 1+ Echinocytes 2+ Sodium Level 141 mmol/L Potassium Level 3.8 mmol/L Chloride Level 106 mmol/L Carbon Dioxide Level 23 mmol/L Anion Gap 12.0 mmol/L Blood Urea Nitrogen 35 mg/dl Creatinine 1.60 mg/dl Est Creatinine Clear Calc Drug Dose 45.9 ml/min Estimated GFR () 47.1 Estimated GFR (Non- 40.7 BUN/Creatinine Ratio 21.6 Random Glucose 109 mg/dl Estimated Average Glucose 137 mg/dl Hemoglobin A1c 6.4 % Calcium Level 8.1 mg/dl Phosphorus Level 2.7 mg/dl Magnesium Level 1.9 mg/dl Procalcitonin 151.93 ng/ml Assessment and Plan A/P 76 yo male with urosepsis s/p acute L stent placement in solitary kidney for obstructing stone, POD#2. Trial of void prior to DC home. Recovering nicely on antibiotics. Will plan on definitive stone management once he has recovered from his septic episode. Will schedule outpatient follow-up. No further acute surgical intervention. Continue medical management. Will sign off, please recall PRN new questions or concerns. Office will contact with appointment.
--- NOTE | 2016-11-06 16:53 | Progress Note ---
Subjective Date of Service: November 06, 2016. Subjective Pt evaluation today including: conversation w/ patient, conversation w/ family , physical exam, chart review, lab review, review of studies, review of inpatient medication list Problem List Medical Problems: (1) Left flank pain Status: Acute (2) Renal insufficiency Status: Acute (3) Sepsis Status: Acute (4) Ureterolithiasis Status: Acute (5) Urinary tract infection Status: Acute Review of Systems Constitutional: No chills, No fever Respiratory: No cough, No dyspnea on exertion, No shortness of breath, No sputum, No wheezing Cardiac: No chest pain, No orthopnea Abdomen: No nausea, No pain, No vomiting Musculoskeletal: No joint pain, No muscle pain Male : No dysuria, No urinary frequency Objective Vital Signs Date Time Temp Pulse Resp B/P Pulse Ox O2 Delivery O2 Flow Rate FiO2 11/06/16 15:50 96 Room Air 11/06/16 15:28 36.7 92 16 127/73 96 Room Air 11/06/16 12:00 36.6 92 26 118/67 97 Room Air 11/06/16 12:00 Nasal Cannula 2.0 11/06/16 10:00 88 24 120/60 96 Room Air 11/06/16 08:00 Nasal Cannula 11/06/16 08:00 36.8 90 24 124/68 96 2.0 11/06/16 08:00 Nasal Cannula 2.0 11/06/16 06:00 86 20 120/74 97 Nasal Cannula 2.0 11/06/16 04:00 Nasal Cannula 2.0 11/06/16 04:00 36.6 88 15 110/64 93 Nasal Cannula 2.0 11/06/16 03:46 88 18 95 Nasal Cannula 2.0 11/06/16 02:00 87 14 107/71 93 Nasal Cannula 2.0 11/06/16 00:01 36.8 85 16 109/65 97 Nasal Cannula 2.0 11/05/16 23:59 Nasal Cannula 2.0 11/05/16 22:00 80 14 112/63 99 Nasal Cannula 2.0 11/05/16 20:00 36.7 81 14 111/70 99 Nasal Cannula 2.0 11/05/16 20:00 Nasal Cannula 2.0 11/05/16 18:00 36.5 81 23 109/65 97 Nasal Cannula 2.0 Physical Exam General Appearance: WD/WN, no apparent distress Neck: supple, no adenopathy Respiratory/Chest: chest non-tender, lungs clear, normal breath sounds Cardiovascular: regular rate, rhythm, no edema, no gallop Abdomen: non tender, soft Neurologic/Psychiatric: alert, oriented x 3 Laboratory Results Last 24 Hours Test 11/05/16 18:03 11/05/16 21:16 11/06/16 00:29 11/06/16 06:02 Bedside Glucose 162 mg/dl 123 mg/dl Troponin I 0.405 ng/ml White Blood Count 8.14 K/uL Red Blood Count 4.18 M/uL Hemoglobin 11.0 g/dL Hematocrit 33.9 % Mean Corpuscular Volume 81.1 fL Mean Corpuscular Hemoglobin 26.3 pg Mean Corpuscular Hemoglobin Concent 32.4 g/dl Platelet Count 62 K/uL Mean Platelet Volume 10.0 fL RDW Standard Deviation 47.0 fL RDW Coefficient of Variation 16.0 % Neutrophils % (Manual) 89.7 % Lymphocytes % (Manual) 4.3 % Monocytes % (Manual) 1.7 % Eosinophils % (Manual) 1.7 % Metamyelocytes % 2.6 % Neutrophils # (Manual) 7.30 K/uL Total Absolute Neutrophils 7.30 K/uL Lymphocytes # (Manual) 0.35 K/uL Total Absolute Lymphocytes 0.35 K/uL Monocytes # (Manual) 0.14 K/uL Eosinophils # (Manual) 0.14 K/uL Metamyelocytes # 0.21 K/uL Dohle Bodies 1+ Echinocytes 2+ Sodium Level 141 mmol/L Potassium Level 3.8 mmol/L Chloride Level 106 mmol/L Carbon Dioxide Level 23 mmol/L Anion Gap 12.0 mmol/L Blood Urea Nitrogen 35 mg/dl Creatinine 1.60 mg/dl Est Creatinine Clear Calc Drug Dose 45.9 ml/min Estimated GFR () 47.1 Estimated GFR (Non- 40.7 BUN/Creatinine Ratio 21.6 Random Glucose 109 mg/dl Estimated Average Glucose 137 mg/dl Hemoglobin A1c 6.4 % Calcium Level 8.1 mg/dl Phosphorus Level 2.7 mg/dl Magnesium Level 1.9 mg/dl Procalcitonin 151.93 ng/ml Assessment and Plan 76-year-old male with a history of non-Hodgkin's lymphoma, right-sided nephrectomy for renal cell carcinoma, and prostatectomy for prostate cancer, hypertension, and diabetes mellitus type 2, here with left-sided ureterolithiasis and sepsis with UTI. Lactate was 7 on admission and with hypotension, he has severe sepsis which was requiring vasopressors to include vasopressin and IV hydrocortisone. Severe Sepsis, left ureterolithiasis, E coli UTI, solitary kidney, gram- negative bacteremia-blood pressure improving and will titrate off vasopressin when able to. Appreciate critical care medicine consultation. Received Zosyn and daptomycin but now with blood and urine cultures with pansensitive Escherichia coli, will narrow down antibiotic coverage. Status post left ureteral stent and appreciate urology management. -Discontinue IV fluids for systolic CHF -Start Cipro 40 mg IV every 12 and will continue total antibiotic course for 14 days for bacteremia -Appreciate urology management as well-will need definitive stone management in the future -Follow repeat blood cultures Acute kidney injury, hyperkalemia-patient reports he had normal renal function prior to this admission as he was told by his doctors. Creatinine on admission peaked at 2.5, now down to 2.3. Potassium elevated at 5.7 and given calcium gluconate with repeat at 4.8. Received IV fluids. Renal failure likely secondary to ATN and hypotension as well as post obstructive secondary to ureterolithiasis. Now with ureteral stent placed. -Avoid nephrotoxins and renally dose all meds -Maintaining Chery catheter -Follow PRP daily Upper back pain, elevated troponin secondary to demand ischemia, new onset acute systolic CHF with EF 30-35%. Troponin peaked at 0.8 and stabilized. ECG with T-wave inversions in the anterior leads. Normal nuclear stress test in 2016 as per patient report. This could be sepsis induced LV dysfunction. There are no segmental wall motion abnormalities. Echocardiogram: * Left ventricular systolic function is moderately reduced. * There is moderate global hypokinesis of the left ventricle. * Ejection Fraction = 30-35%. * There is borderline concentric left ventricular hypertrophy. * Grade I diastolic dysfunction, (abnormal relaxation pattern). * There is mild tricuspid regurgitation. -Watch for fluid overload, chest x-ray from yesterday is negative for pulmonary edema -Eventually will need to be on beta theodora, AKIRA inhibitor, and possible diuretics -Will need repeat echo and possible stress testing in the future after he recovers from his acute illness History of renal cell carcinoma status post right nephrectomy, prostate cancer status post prostatectomy-stable, no issues History of non-Hodgkin's lymphoma-in remission for 12 years as per patient, treated previously with chemotherapy. CT abdomen and pelvis shows mesenteric lymphadenopathy-unclear if stable from previous scans -Needs to establish with oncologist now that he is living in [place] -Will need follow-up with oncology for his lymphoma and to see if old records show evidence of lymphadenopathy in the same regions Hypertension-has been hypotensive here -Hold lisinopril Diabetes mellitus II-glucose not well controlled here -Insulin sliding scale with carb coverage with a 1-10 ratio and correction factor of 25 -Holding home glimepiride -Check hemoglobin A1c in the morning - DVT prophylaxis start heparin heparin, SCDs
[2016-11-07] VITALS (8 sets, daily range): BP systolic 113–128; BP diastolic 69–77; PULSE 77–92; TEMP 36.4–37; O2SAT 92–97
[2016-11-07 06:16] LABS: BASO % 0.1 %; BASO ABS # 0.01 K/uL (0-0.2); COMPLETE YES; EOS % 1.3 %; HEMATOCRIT 33.9 % (42-52); IG% 0.3 %; LYMPH % 9.1 %; LYMPH ABS # 0.64 K/uL (1.2-3.4); MEAN CELL VOLUME 80.1 fL (80-100); MEAN CORPUSCULAR HGB CONC 33.6 g/dl (32-36); MEAN PLATELET VOLUME 10.7 fL (7.4-10.4); MONO % 5.8 %; NEUT % 83.4 %; PLATELET COUNT 68 K/uL (130-400); RED BLOOD COUNT 4.23 M/uL (4.7-6.1); WHITE BLOOD COUNT 7.03 K/uL (4.8-10.8)
[2016-11-07 06:54] LABS: BUN/CREATININE RATIO 21.4 (10-20); CALCIUM 8.5 mg/dl (8.5-10.1); CREATININE 1.3 mg/dl (0.60-1.40)
[2016-11-07 07:13] LABS: PHOSPHORUS 1.5 mg/dl (2.5-4.9)
[2016-11-07] MEDS ORDERED: POTASSIUM PHOS 3 MMOL/1 ML INFUSION IV STA (07:31)
[2016-11-07] MEDS: BOOST GLUCOSE CONTROL PO SCH ×3 (08:06→17:00)
[2016-11-07] MEDS: INSULIN ASPART 100 UNITS/ML 3 ML PEN SC SCH ×4 (08:09→22:10)
[2016-11-07] MEDS: CIPROFLOXACIN / D5W 400 MG in PREMIXED IN D5W 200 ML IV SCH (09:04)
[2016-11-07] MEDS ORDERED: POTASSIUM PHOSPHATE INJ 24 MMOL in SODIUM CHLORIDE 0.9% 500ML 500 ML IV SCH (09:30)
--- NOTE | 2016-11-07 10:19 | Infectious Disease Progress Nt ---
Progress Note Date of Service November 07, 2016. Subjective Pt evaluation today including: conversation w/ patient, conversation w/ family , physical exam, chart review, lab review, review of studies, conversation w/ big machine consultant, review of inpatient medication list Pt. feeling much better today. Pain resolved. No fever. Tolerating Abx. Follow- up blood cultures negative. All Other Systems: Reviewed and Negative Medications Current Inpatient Medications Medications (Trade) Dose Ordered Sig/Ashvin Route Start Time Stop Time Status Last Admin Dose Admin Ondansetron HCl (Zofran Inj) 4 mg Q6H PRN IV 11/05/16 10:30 12/05/16 10:29 11/06/16 07:44 4 MG Acetaminophen 650 mg 650 mg Q4H PRN PO 11/05/16 17:45 12/05/16 17:44 Ciprofloxacin/ Dextrose/Prmx (Cipro / D5w/ Premixed D5W) 200 ml @ 100 mls/hr Q12H IV 11/05/16 19:00 11/18/16 08:59 11/07/16 09:04 100 MLS/HR Miscellaneous Information (Consult Glycemic Management Pharmacy) 1 ea UD PRN N/A 11/05/16 18:54 12/05/16 18:53 Insulin Aspart (novoLOG ASPART) SLIDING SCALE G... ACHS SC 11/05/16 21:00 12/05/16 20:59 11/07/16 08:09 3 UNITS Enteral Nutritional Formula (Boost Glucose Control) 1 can TIDM PO 11/06/16 11:30 12/06/16 11:29 11/07/16 08:06 1 CAN Morphine Sulfate 2 mg 2 mg Q2H PRN IV 11/06/16 09:30 11/20/16 09:29 Potassium Phosphate/Sodium Chloride (Potassium Phosphate Inj/Nss 500ml) 508 ml @ 88 mls/hr TODAY@0930 IV 11/07/16 09:30 11/07/16 15:17 11/07/16 10:11 88 MLS/HR Objective Vital Signs Date Time Temp Pulse Resp B/P Pulse Ox O2 Delivery O2 Flow Rate FiO2 11/07/16 08:00 Room Air 11/07/16 07:10 37.0 77 20 124/72 92 Room Air 11/07/16 04:00 94 Room Air 11/07/16 03:08 36.6 92 19 113/69 94 Room Air 11/07/16 00:01 92 Room Air 11/06/16 23:04 36.9 98 19 122/74 92 Room Air 11/06/16 20:00 94 Room Air 11/06/16 19:10 37.1 101 18 107/64 94 Room Air 11/06/16 15:50 96 Room Air 11/06/16 15:28 36.7 92 16 127/73 96 Room Air 11/06/16 12:00 36.6 92 26 118/67 97 Room Air 11/06/16 12:00 Nasal Cannula 2.0 Physical Exam General Appearance: WD/WN, no apparent distress Eyes: normal inspection, EOMI, sclerae normal ENT: normal ENT inspection, pharynx normal Neck: supple, no adenopathy, thyroid normal, trachea midline Respiratory/Chest: chest non-tender, lungs clear, normal breath sounds, no respiratory distress Cardiovascular: regular rate, rhythm, no gallop, no murmur Abdomen: normal bowel sounds, non tender, soft, no organomegaly Extremities: non-tender, no calf tenderness Neurologic/Psychiatric: alert, oriented x 3 Skin: normal color, warm/dry, no rash Lymphatic: no adenopathy Laboratory Results RUN DATE: 11/07/16 [facility] LAB PAGE 1 RUN TIME: 0752 Specimen Inquiry PATIENT: DANYELL CARTER LOC: [place] # : [id number] AGE/SX: 76/M ROOM: 29 REG : 11/04/[address]: Ashish Avina D.O : 1940 BED: 2 DIS : STATUS: ADM IN TLOC: SPEC #: [id number] MARIBEL: 11/05/16 STATUS: RES REQ #: [id number] RECD: 11/05/16 [facility] DR: Nakul Schneider , D.OSpencer SOURCE: BLOOD ENTR: 11/05/16 [facility] DR: Nicola Hannon MD SPDESC: Javed Sevilla MD, Roy ., Lionel Santacruz MD, Urology Bonnie Sweeney MD ORDERED: BLOOD CULTURE COMMENTS: Drawn below IV site per protocol with SODIUM CHLORIDE infusing.6 CCDC/JABCJE Procedure Result Verified Site BLD CULT Preliminary 11/07/16 NO GROWTH TO DATE. Last 24 Hours Test 11/06/16 20:06 11/07/16 05:10 11/07/16 06:32 Bedside Glucose 176 mg/dl 139 mg/dl White Blood Count 7.03 K/uL Red Blood Count 4.23 M/uL Hemoglobin 11.4 g/dL Hematocrit 33.9 % Mean Corpuscular Volume 80.1 fL Mean Corpuscular Hemoglobin 27.0 pg Mean Corpuscular Hemoglobin Concent 33.6 g/dl Platelet Count 68 K/uL Mean Platelet Volume 10.7 fL Neutrophils (%) (Auto) 83.4 % Lymphocytes (%) (Auto) 9.1 % Monocytes (%) (Auto) 5.8 % Eosinophils (%) (Auto) 1.3 % Basophils (%) (Auto) 0.1 % Neutrophils # (Auto) 5.86 K/uL Lymphocytes # (Auto) 0.64 K/uL Monocytes # (Auto) 0.41 K/uL Eosinophils # (Auto) 0.09 K/uL Basophils # (Auto) 0.01 K/uL RDW Standard Deviation 46.2 fL RDW Coefficient of Variation 15.8 % Immature Granulocyte % (Auto) 0.3 % Immature Granulocyte # (Auto) 0.02 K/uL Sodium Level 141 mmol/L Potassium Level 4.0 mmol/L Chloride Level 109 mmol/L Carbon Dioxide Level 24 mmol/L Anion Gap 8.0 mmol/L Blood Urea Nitrogen 28 mg/dl Creatinine 1.30 mg/dl Est Creatinine Clear Calc Drug Dose 56.5 ml/min Estimated GFR () 60.6 Estimated GFR (Non- 52.3 BUN/Creatinine Ratio 21.4 Random Glucose 146 mg/dl Calcium Level 8.5 mg/dl Phosphorus Level 1.5 mg/dl Magnesium Level 2.0 mg/dl Patient Name: DANYELL CARTER Unit Number: [id number] Dictated: 11/06/16952 Transcribed: 11/06/16952 ARG Printed Date/Time: [~ rep prt dt]/[~ rep prt tm] [~ rep ct labl] - [~ rep ct ivnm] [facility] [place] [address] Dictated: 11/06/16952 Transcribed: 11/06/1653 ARG Printed Date/Time: [~ rep prt dt]/[~ rep prt tm] [~ rep ct labl] - [~ rep ct ivnm] [~ rep ct add3]] CHEST ONE VIEW PORTABLE CLINICAL HISTORY: hypoxia, back pain COMPARISON STUDY: 11/04/2016 FINDINGS: The heart remains enlarged. There is no failure. There is no focal pulmonary consolidation. There are no significant pleural effusions.[ IMPRESSION: Stable cardiomegaly. No evidence of acute parenchymal consolidation. Electronically signed by: Rob Pruett M.D. 11/06/2016 9:53 AM Dictated Date/Time: 11/06/2016 9:53 AM The status of this report is Signed. Draft = Not yet reviewed or approved by Radiologist. Signed = Reviewed and approved by Radiologist. <AttendingPhy>Ashish Avina D.OSpencer</AttendingPhy> <FamilyPhy>Nicola Hannon MD</FamilyPhy> <PrimaryPhy>Nicola Hannon MD</PrimaryPhy> <UnitNumber> [id number]</UnitNumber> <VisitNumber>[id number]</VisitNumber> <PatientName> DANYELL CARTER</PatientName> <DateOfBirth>1940</DateOfBirth> < Location>C.MSICU</Location> <ServiceDate>11/04/16</ServiceDate> <MNE>ESINDI</MNE > <OrderingPhy>Casi Parker MD</OrderingPhy> <OrderingPhyMNE>f rep ord dr kyle</ OrderingPhyMNE> <DictatingPhyMNE>f rep dict dr kyle</DictatingPhyMNE> <CCListMNE> f rep ct edise</CCListMNE> <AdmittingPhyMNE>f pt admit dr kyle</AdmittingPhyMNE> < AttendingPhyMNE>f pt attend dr kyle</AttendingPhyMNE> <ConsultingPhyMNE>f pt consult dr kyle</ConsultingPhyMNE> <FamilyPhyMNE>f pt fam dr kyle</FamilyPhyMNE> <OtherPhyMNE>f pt other dr kyle</OtherPhyMNE> < PrimaryPhyMNE>f pt prim care dr kyle</PrimaryPhyMNE> <ReferringPhyMNE>f pt referring dr kyle</ReferringPhyMNE> Assessment and Plan (1) Urinary tract infection Status: Acute (2) Ureterolithiasis Status: Acute (3) Renal insufficiency Status: Acute (4) Left flank pain Status: Acute (5) Sepsis Status: Acute (6) Lymphoma Status: Resolved (7) Pyelonephritis Status: Resolved (8) Kidney stone Status: Resolved 76-year-old male with E. coli sepsis in the setting of obstructive uropathy from stone, now status post ureteral stent placement. Patient significantly improved. Isolate is guerrero-sensitive so ciprofloxacin appropriate therapy as can be given orally and so should not require outpatient IV antibiotics. Will follow.
--- NOTE | 2016-11-07 11:55 | Pharmacy Progress Note ---
Glycemic Control: Progress Nt Date of Service November 07, 2016. Scope Glycemic Pharmacist consulted for glycemic control and to write orders per [facility] inpatient glycemic control protocol. Objective Accuchecks BSG (last 24hrs): Test 11/06/16 20:06 11/07/16 05:10 11/07/16 06:32 11/07/16 11:28 Bedside Glucose 176 mg/dl (70-99) 139 mg/dl (70-99) 205 mg/dl (70-99) Random Glucose 146 mg/dl (70-99) Laboratory Data (last 24hrs) Test 11/07/16 05:10 Anion Gap 8.0 mmol/L BUN/Creatinine Ratio 21.4 Blood Urea Nitrogen 28 mg/dl Creatinine 1.30 mg/dl Potassium Level 4.0 mmol/L Sodium Level 141 mmol/L White Blood Count 7.03 K/uL Red Blood Count 4.23 M/uL Hemoglobin 11.4 g/dL Hematocrit 33.9 % Mean Corpuscular Volume 80.1 fL Mean Corpuscular Hemoglobin 27.0 pg Mean Corpuscular Hemoglobin Concent 33.6 g/dl Platelet Count 68 K/uL Mean Platelet Volume 10.7 fL Neutrophils (%) (Auto) 83.4 % Lymphocytes (%) (Auto) 9.1 % Monocytes (%) (Auto) 5.8 % Eosinophils (%) (Auto) 1.3 % Basophils (%) (Auto) 0.1 % Neutrophils # (Auto) 5.86 K/uL Lymphocytes # (Auto) 0.64 K/uL Monocytes # (Auto) 0.41 K/uL Eosinophils # (Auto) 0.09 K/uL Basophils # (Auto) 0.01 K/uL HbA1c: Test 11/06/16 06:02 Hemoglobin A1c 6.4 % (4.5-5.6) H Recent Pertinent Medications Outpatient Anti-diabetic Regimen: * Glipizide ER (unknown dose) daily * A1c = 6.4 % on 11/06/16 The patient is currently receiving: * Basal insulin: None * Correctional Insulin: Novolog Correction per scale ACHS Goal Range: Low 140 mg/dL - High 180 mg/dL Correction Factor: 25 mg/dL/unit * Prandial insulin: Per carb ratio of 1 unit per 10 grams CHO consumed * Oral Agents: On hold Risk Factors for Insulin Resistance: * Infection: pyelonephritis, on ciprofloxacin * Surgery: POD 3 s/p cystoscopy / ureteral stent placement * Diet: T2DM/low Na Assessment & Plan ASSESSMENT: * ADA & AACE recommend a goal blood sugar range 140-180 mg/dl for the majority of critically ill & non-critically ill patients. However, more stringent targets may be selected in individual cases. 11/07/16 * 76 yo M with good outpatient control on oral agent alone per HbA1c * Transferred from ICU to 2S yesterday, and transferred from 2S to 4W today * Patient with increased po intake, now with BSG's increasing. BSG's ranging 106-205 mg/dL over the last 24 hours. * Will decrease goal range 2nd no longer ICU status * Will tighten CHO ratio as post-prandial BSG's are elevated * AM fasting BSG 139 mg/dL - does not require Lantus at this time PLAN FOR INPATIENT GLYCEMIC CONTROL: * Hold glipizide (as least until day of discharge) * Correctional Insulin with NOVOLOG per scale ACHS or Q6hrs while NPO * Decrease Goal Range: Low 110 mg/dL - High 140 mg/dL * Correction Factor: 25 mg/dL/unit * Tighten Nutritional / Prandial insulin per carb ratio of 1 unit per 9 grams CHO consumed RECOMMENDATIONS FOR DISCHARGE * No change to outpatient regimen required * Please note that the plan above was derived based on current level of insulin resistance and hospital stress. These recommendations are appropriate for inpatient admission only. Plan of care upon discharge will need to be reassessed to avoid potential outpatient hypo/hyperglycemia. Thank you.
--- NOTE | 2016-11-07 12:28 | Progress Note ---
Subjective Date of Service: November 07, 2016. Subjective Pt evaluation today including: conversation w/ patient, physical exam, chart review, lab review, review of studies, review of inpatient medication list Resting comfortably in bed Chery in place No dysuria, fevers or chills Problem List Medical Problems: (1) Left flank pain Status: Acute (2) Renal insufficiency Status: Acute (3) Sepsis Status: Acute (4) Ureterolithiasis Status: Acute (5) Urinary tract infection Status: Acute Review of Systems Constitutional: No chills, No fever Respiratory: No cough, No dyspnea on exertion, No shortness of breath, No sputum, No wheezing Cardiac: No chest pain, No orthopnea Abdomen: No constipation, No diarrhea, No nausea, No pain, No vomiting Musculoskeletal: No joint pain, No muscle pain Male : No dysuria, No urinary frequency Objective Vital Signs Date Time Temp Pulse Resp B/P Pulse Ox O2 Delivery O2 Flow Rate FiO2 11/07/16 11:47 97 Room Air 11/07/16 11:10 36.4 77 18 128/76 97 Room Air 11/07/16 10:51 37.0 77 20 92 2.0 11/07/16 08:00 Room Air 11/07/16 07:10 37.0 77 20 124/72 92 Room Air 11/07/16 04:00 94 Room Air 11/07/16 03:08 36.6 92 19 113/69 94 Room Air 11/07/16 00:01 92 Room Air 11/06/16 23:04 36.9 98 19 122/74 92 Room Air 11/06/16 20:00 94 Room Air 11/06/16 19:10 37.1 101 18 107/64 94 Room Air 11/06/16 15:50 96 Room Air 11/06/16 15:28 36.7 92 16 127/73 96 Room Air Physical Exam General Appearance: WD/WN, no apparent distress Neck: supple, no adenopathy Respiratory/Chest: lungs clear, normal breath sounds Cardiovascular: no edema, no gallop, no JVD Abdomen: non tender, soft Neurologic/Psychiatric: alert, oriented x 3 Laboratory Results Last 24 Hours Test 11/06/16 20:06 11/07/16 05:10 11/07/16 06:32 11/07/16 11:28 Bedside Glucose 176 mg/dl 139 mg/dl 205 mg/dl White Blood Count 7.03 K/uL Red Blood Count 4.23 M/uL Hemoglobin 11.4 g/dL Hematocrit 33.9 % Mean Corpuscular Volume 80.1 fL Mean Corpuscular Hemoglobin 27.0 pg Mean Corpuscular Hemoglobin Concent 33.6 g/dl Platelet Count 68 K/uL Mean Platelet Volume 10.7 fL Neutrophils (%) (Auto) 83.4 % Lymphocytes (%) (Auto) 9.1 % Monocytes (%) (Auto) 5.8 % Eosinophils (%) (Auto) 1.3 % Basophils (%) (Auto) 0.1 % Neutrophils # (Auto) 5.86 K/uL Lymphocytes # (Auto) 0.64 K/uL Monocytes # (Auto) 0.41 K/uL Eosinophils # (Auto) 0.09 K/uL Basophils # (Auto) 0.01 K/uL RDW Standard Deviation 46.2 fL RDW Coefficient of Variation 15.8 % Immature Granulocyte % (Auto) 0.3 % Immature Granulocyte # (Auto) 0.02 K/uL Sodium Level 141 mmol/L Potassium Level 4.0 mmol/L Chloride Level 109 mmol/L Carbon Dioxide Level 24 mmol/L Anion Gap 8.0 mmol/L Blood Urea Nitrogen 28 mg/dl Creatinine 1.30 mg/dl Est Creatinine Clear Calc Drug Dose 56.5 ml/min Estimated GFR () 60.6 Estimated GFR (Non- 52.3 BUN/Creatinine Ratio 21.4 Random Glucose 146 mg/dl Calcium Level 8.5 mg/dl Phosphorus Level 1.5 mg/dl Magnesium Level 2.0 mg/dl Assessment and Plan 76-year-old male with a history of non-Hodgkin's lymphoma, right-sided nephrectomy for renal cell carcinoma, and prostatectomy for prostate cancer, hypertension, and diabetes mellitus type 2, here with left-sided ureterolithiasis and sepsis with UTI. Lactate was 7 on admission and with hypotension, he has severe sepsis which was requiring vasopressors to include vasopressin and IV hydrocortisone. Severe Sepsis, left ureterolithiasis, E coli UTI, solitary kidney, gram- negative bacteremia-blood pressure improving and will titrate off vasopressin when able to. Appreciate critical care medicine consultation. Received Zosyn and daptomycin but now with blood and urine cultures with pansensitive Escherichia coli, will narrow down antibiotic coverage. Status post left ureteral stent and appreciate urology management. -Discontinue IV fluids for systolic CHF -Start Cipro 40 mg IV every 12 and will continue total antibiotic course for 14 days for bacteremia -Appreciate urology management as well-will need definitive stone management in the future once sepsis resolved -Follow repeat blood cultures pending Acute kidney injury, hyperkalemia-patient reports he had normal renal function prior to this admission as he was told by his doctors. Creatinine on admission peaked at 2.5, now down to 2.3. Potassium elevated at 5.7 and given calcium gluconate with repeat at 4.8. Received IV fluids. Renal failure likely secondary to ATN and hypotension as well as post obstructive secondary to ureterolithiasis. Now with ureteral stent placed. -Avoid nephrotoxins and renally dose all meds -Maintaining Chery catheter -Follow PRP daily Upper back pain, elevated troponin secondary to demand ischemia, new onset acute systolic CHF with EF 30-35%. Troponin peaked at 0.8 and stabilized. ECG with T-wave inversions in the anterior leads. Normal nuclear stress test in 2016 as per patient report. This could be sepsis induced LV dysfunction. There are no segmental wall motion abnormalities. Echocardiogram: * Left ventricular systolic function is moderately reduced. * There is moderate global hypokinesis of the left ventricle. * Ejection Fraction = 30-35%. * There is borderline concentric left ventricular hypertrophy. * Grade I diastolic dysfunction, (abnormal relaxation pattern). * There is mild tricuspid regurgitation. -Watch for fluid overload, chest x-ray from yesterday is negative for pulmonary edema -Eventually will need to be on beta theodora, AKIRA inhibitor, and possible diuretics -Will need repeat echo and possible stress testing in the future after he recovers from his acute illness Type 2 NSTEMI History of renal cell carcinoma status post right nephrectomy, prostate cancer status post prostatectomy-stable, no issues History of non-Hodgkin's lymphoma-in remission for 12 years as per patient, treated previously with chemotherapy. CT abdomen and pelvis shows mesenteric lymphadenopathy-unclear if stable from previous scans -Needs to establish with oncologist now that he is living in [place] -Will need follow-up with oncology for his lymphoma and to see if old records show evidence of lymphadenopathy in the same regions Hypertension-has been hypotensive here -Hold lisinopril Diabetes mellitus II-glucose not well controlled here -Insulin sliding scale with carb coverage with a 1-10 ratio and correction factor of 25 -Holding home glimepiride -HgA1c 6.4 - DVT prophylaxis start heparin heparin, SCDs
--- NOTE | 2016-11-07 12:57 | CARDIOLOGY PROGRESS NOTE ---
DATE: 11/07/2016 SUBJECTIVE: Mr. Arteaga is resting comfortably in the bedside chair without complaints of chest pain or dyspnea. OBJECTIVE: VITAL SIGNS: Blood pressure 120/76 with a regular pulse of 77. Respiratory rate is 18. The patient is afebrile at 36.4 degree Celsius. NECK: Supple with full carotid upstrokes. There are no carotid bruits. Jugular venous pressure is flat at 90 degrees. There is no thyromegaly. CARDIOVASCULAR: Reveals a regular rhythm with a normal S1 and S2. Heart sounds are distant. No obvious murmurs. LUNGS: Clear without rales, rhonchi, or wheezes. ABDOMEN: Obese without bruits. EXTREMITIES: Reveal intact radial artery pulses bilaterally. There is no peripheral edema. DATA: CBC notes a hemoglobin of 11.4, hematocrit 33.9, white count 7.0, platelet count 68,000. 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 IMPRESSION AND PLAN: 1. Hypotension - now resolved. It was part of the sepsis syndrome. 2. Cardiomyopathy - ejection fraction noted to be 30%. Suspect this also related to the sepsis syndrome. We will plan on a repeat study as an outpatient. This will likely be a stress echocardiogram. 3. Hypercholesterolemia. 4. Pyelonephritis - per Dr. Sevilla. 5. History of non-Hodgkin lymphoma.
[2016-11-07 18:11] LABS: ALBUMIN 2.9 G/DL (3.8-4.8); GAMMA GLOBULIN 0.6 G/DL (0.8-1.7)
[2016-11-07] MEDS: CIPROFLOXACIN 500 MG TAB PO SCH (20:15)
[2016-11-08 00:06] VITALS: BP 185/87; PULSE 53; TEMP 36.6; O2SAT 98
[2016-11-08 00:29] VITALS: BP 118/70; PULSE 80
[2016-11-08 06:58] VITALS: BP 131/82; PULSE 73; TEMP 36.3; O2SAT 94
[2016-11-08 07:23] LABS: ALBUMIN % 36.25 %; ALPHA-2-GLOBULIN % 11.17 %; BETA GLOBULIN % 21.34 %; CREATININE UR 158 MG/DL (20-370)
[2016-11-08 07:34] LABS: MEAN CELL VOLUME 80.5 fL (80-100); MEAN CORPUSCULAR HEMOGLOBIN 26.9 pg (25-34); MEAN CORPUSCULAR HGB CONC 33.4 g/dl (32-36); RED BLOOD COUNT 4.35 M/uL (4.7-6.1); WHITE BLOOD COUNT 4.72 K/uL (4.8-10.8)
[2016-11-08 07:57] LABS: BASO % 0.4 %; BASO ABS # 0.02 K/uL (0-0.2); COMPLETE YES; EOS % 2.5 %; IG% 0.6 %; LYMPH % 16.9 %; MEAN PLATELET VOLUME 9.7 fL (7.4-10.4); MONO % 5.9 %; NEUT % 73.7 %; PLATELET COUNT 66 K/uL (130-400)
[2016-11-08] MEDS: BOOST GLUCOSE CONTROL PO SCH ×2 (08:00→12:23)
[2016-11-08 08:06] LABS: BUN/CREATININE RATIO 19.4 (10-20); CALCIUM 8.6 mg/dl (8.5-10.1); CREATININE 1.2 mg/dl (0.60-1.40); MAGNESIUM 1.7 mg/dl (1.8-2.4); POTASSIUM 4.1 mmol/L (3.5-5.1)
[2016-11-08 08:07] LABS: PHOSPHORUS 2.2 mg/dl (2.5-4.9)
[2016-11-08] MEDS: CIPROFLOXACIN 500 MG TAB PO SCH (08:57)
[2016-11-08] MEDS: INSULIN ASPART 100 UNITS/ML 3 ML PEN SC SCH ×2 (08:58→13:22)
[2016-11-08] MEDS ORDERED: POTASSIUM PHOS 3 MMOL/1 ML INFUSION IV STA (09:41)
[2016-11-08] MEDS ORDERED: MAGNESIUM OXIDE 400 MG TAB PO ONE (10:30)
[2016-11-08] MEDS ORDERED: POTASSIUM PHOSPHATE INJ 15 MMOL in SODIUM CHLORIDE 0.9% 250ML 250 ML IV ONE (10:30)
--- NOTE | 2016-11-08 11:45 | CARDIOLOGY PROGRESS NOTE ---
DATE: 11/08/2016 SUBJECTIVE: Mr. Arteaga is resting comfortably at the bedside without complaints of chest pain or dyspnea. He is anxious for hospital discharge. OBJECTIVE: VITAL SIGNS: Blood pressure is 130/80 with a regular pulse of 75. Respiratory rate is 20. The patient is afebrile at 36.3 degrees Celsius. Saturation is 94% on room air. NECK: Supple with full carotid upstrokes. There are no carotid bruits. Jugular venous pressure is flat at 90 degrees. There is no thyromegaly. CARDIOVASCULAR: Reveals a regular rhythm with a normal S1 and S2. Heart sounds are distant. No obvious murmurs. LUNGS: Clear without rales, rhonchi or wheezes. ABDOMEN: Obese without bruits. EXTREMITIES: Reveal intact radial artery pulses bilaterally. There is no peripheral edema. DATA: CBC notes hemoglobin 11.7, hematocrit 35.0, white count 4.7, platelet count 66,000. Electrolytes note sodium of 140, potassium 4.1, chloride 109, bicarb 24, BUN 23, creatinine 1.2, glucose 219. IMPRESSION AND PLAN: 1. Hypotension -- resolved. 2. Cardiomyopathy -- ejection fraction of 30%. Suspect this is secondary to sepsis syndrome at the time of presentation. We will plan on repeat study as an outpatient. Could consider stress echocardiogram. 3. Hypercholesterolemia. 4. Pyelonephritis - per Dr. Sevilla. 5. History of non-Hodgkin's lymphoma.
[2016-11-08] MEDS ORDERED: HYDR-3983 PO (12:40)
[2016-11-08] MEDS ORDERED: CPR500 PO (12:40)
--- NOTE | 2016-11-08 12:44 | Discharge Instructions ---
Discharge Instructions Date of Service November 08, 2016. Admission Reason for Admission: Pyelonephritis, Sepsis Discharge Discharge Diagnosis / Problem: Sepsis, UTI, nephrolithiasis Discharge Goals Goal(s): Decrease discomfort, Improve function, Increase independence, Improve disease control, Diagnostic testing, Therapeutic intervention Activity Recommendations Activity Limitations: resume your previous activity Exercise/Sports Limitations: none Shower/Bathe: no limitations . Instructions / Follow-Up Instructions / Follow-Up Patient to be discharged home Please continue to take antibiotic cipro 500 mg tablet twice a day for 7 more days Please take norco tablet for pain every 4 hrs only as needed If worsening fevers, abdominal pain please report to ER Please follow up with Dr Bear in 1-2 weeks Please follow with Dr Nicola Hannon in 1-2 weeks Current Hospital Diet Patient's current hospital diet: Low Sodium Diet (2gm Na), Diabetes Type 2 Diet Discharge Diet Recommended Diet: Low Sodium Diet (2gm Na), Diabetes Type 2 Diet Procedures Procedures Performed: Cystoscopy, Left Ureteral Stent Placement Pending Studies Studies pending at discharge: no Laboratory Results Hemoglobin A1c Test 11/06/16 06:02 Range/Units Estimated Average Glucose 137 mg/dl Hemoglobin A1c 6.4 H 4.5-5.6 % Medical Emergencies . Who to Call and When: Medical Emergencies: If at any time you feel your situation is an emergency, please call 911 immediately. . Non-Emergent Contact Non-Emergency issues call your: Primary Care Provider Call Non-Emergent contact if: you have a fever, your pain is worsening . . "Provider Documentation" section prepared by Ashish Avina. . VTE Core Measure Inpt VTE Proph given/why not?: SCD's
--- NOTE | 2016-11-08 13:05 | Infectious Disease Progress Nt ---
Progress Note Date of Service November 08, 2016. Subjective Pt evaluation today including: conversation w/ patient, physical exam, chart review, lab review, review of studies, conversation w/ [employer] consultant, review of inpatient medication list No new complaints. Feels well. Remains afebrile. Tolerating ciprofloxacin. All Other Systems: Reviewed and Negative Medications Current Inpatient Medications Medications (Trade) Dose Ordered Sig/Ashvin Route Start Time Stop Time Status Last Admin Dose Admin Ondansetron HCl (Zofran Inj) 4 mg Q6H PRN IV 11/05/16 10:30 12/05/16 10:29 11/06/16 07:44 4 MG Acetaminophen (Tylenol Tab) 650 mg Q4H PRN PO 11/05/16 17:45 12/05/16 17:44 Miscellaneous Information (Consult Glycemic Management Pharmacy) 1 ea UD PRN N/A 11/05/16 18:54 12/05/16 18:53 Insulin Aspart (novoLOG ASPART) SLIDING SCALE G... ACHS SC 11/05/16 21:00 12/05/16 20:59 11/08/16 08:58 4 UNITS Enteral Nutritional Formula (Boost Glucose Control) 1 can TIDM PO 11/06/16 11:30 12/06/16 11:29 11/08/16 12:23 1 CAN Morphine Sulfate (MoRPHine SULFATE INJ) 2 mg Q2H PRN IV 11/06/16 09:30 11/20/16 09:29 11/07/16 17:27 2 MG Ciprofloxacin (Cipro Tab) 500 mg BID PO 11/07/16 20:00 11/18/16 08:59 11/08/16 08:57 500 MG Magnesium Oxide (Mag-Ox Tab) 400 mg BID PO 11/08/16 20:00 12/08/16 19:59 Objective Vital Signs Date Time Temp Pulse Resp B/P Pulse Ox O2 Delivery O2 Flow Rate FiO2 11/08/16 07:44 Room Air 11/08/16 06:58 36.3 73 20 131/82 94 Room Air 11/08/16 00:29 80 118/70 11/08/16 00:06 36.6 53 20 185/87 98 Room Air 11/08/16 00:00 Room Air 11/07/16 20:00 Room Air 11/07/16 15:24 36.8 79 20 125/77 96 Room Air Physical Exam General Appearance: WD/WN, no apparent distress Eyes: normal inspection, sclerae normal ENT: normal ENT inspection, pharynx normal Neck: supple, no adenopathy, trachea midline Respiratory/Chest: chest non-tender, lungs clear, normal breath sounds, no respiratory distress Cardiovascular: regular rate, rhythm, no gallop, no murmur Abdomen: normal bowel sounds, non tender, soft, no organomegaly Extremities: non-tender, no calf tenderness Neurologic/Psychiatric: alert, oriented x 3 Skin: normal color, no rash Lymphatic: no adenopathy Laboratory Results Last 24 Hours Test 11/07/16 16:31 11/07/16 20:04 11/08/16 07:10 11/08/16 07:37 Bedside Glucose 142 mg/dl 188 mg/dl 213 mg/dl White Blood Count 4.72 K/uL Red Blood Count 4.35 M/uL Hemoglobin 11.7 g/dL Hematocrit 35.0 % Mean Corpuscular Volume 80.5 fL Mean Corpuscular Hemoglobin 26.9 pg Mean Corpuscular Hemoglobin Concent 33.4 g/dl Platelet Count 66 K/uL Mean Platelet Volume 9.7 fL Neutrophils (%) (Auto) 73.7 % Lymphocytes (%) (Auto) 16.9 % Monocytes (%) (Auto) 5.9 % Eosinophils (%) (Auto) 2.5 % Basophils (%) (Auto) 0.4 % Neutrophils # (Auto) 3.47 K/uL Lymphocytes # (Auto) 0.80 K/uL Monocytes # (Auto) 0.28 K/uL Eosinophils # (Auto) 0.12 K/uL Basophils # (Auto) 0.02 K/uL RDW Standard Deviation 46.4 fL RDW Coefficient of Variation 15.7 % Immature Granulocyte % (Auto) 0.6 % Immature Granulocyte # (Auto) 0.03 K/uL Sodium Level 140 mmol/L Potassium Level 4.1 mmol/L Chloride Level 109 mmol/L Carbon Dioxide Level 24 mmol/L Anion Gap 7.0 mmol/L Blood Urea Nitrogen 23 mg/dl Creatinine 1.20 mg/dl Est Creatinine Clear Calc Drug Dose 61.2 ml/min Estimated GFR () 66.7 Estimated GFR (Non- 57.6 BUN/Creatinine Ratio 19.4 Random Glucose 219 mg/dl Calcium Level 8.6 mg/dl Phosphorus Level 2.2 mg/dl Magnesium Level 1.7 mg/dl Assessment and Plan (1) Urinary tract infection Status: Acute (2) Ureterolithiasis Status: Acute (3) Renal insufficiency Status: Acute (4) Left flank pain Status: Acute (5) Sepsis Status: Acute (6) Lymphoma Status: Resolved (7) Pyelonephritis Status: Resolved (8) Kidney stone Status: Resolved 76-year-old male with E. coli sepsis in the setting of obstructive uropathy from stone, now status post ureteral stent placement. Patient significantly improved. Isolate is guerrero-sensitive so ciprofloxacin appropriate therapy as can be given orally and so should not require outpatient IV antibiotics. Will follow.
[2016-11-08] MEDS ORDERED: LANTUS PER UNIT CHARGE SQ ONE (13:45)
[2016-11-08 13:56] VITALS: BP 131/82; PULSE 73; TEMP 36.3; O2SAT 94
--- NOTE | 2016-11-08 15:05 | Discharge Summary ---
Discharge Summary Date of Service November 08, 2016. Discharge Summary Admission Date: Nov 04, 2016 at 04:35 Discharge Date: November 08, 2016 Discharge Disposition: Home Principal Diagnosis: Sepsis, UTI, Ureterolithiasis Consultations: Urology Cardiology ID Medication Reconciliation New Medications: Hydrocodone/Acetaminophen 7.5MG/325MG ([place] 7.5MG/325MG) Tab 1 TAB PO Q4 PRN for Pain, #30 TAB Ciprofloxacin (Ciprofloxacin HCl) 500 Mg Tab 500 MG PO BID for 7 Days, #14 TAB Continued Medications: Glipizide (Glipizide Er) Unknown Strength Tab Unknown Dose PO DAILY, TAB Lisinopril (Zestril) Unknown Strength Tab Unknown Dose PO DAILY, TAB [Unknown Cholest Med] () PO DAILY Discharge Exam Review of Systems: Constitutional: No chills, No fever Respiratory: No cough, No sputum Cardiovascular: No chest pain, No orthopnea Abdomen: No diarrhea, No nausea, No pain, No vomiting Musculoskeletal: No joint pain, No muscle pain Genitourinary - Male: No dysuria, No hematuria, No urinary frequency Physical Exam: General Appearance: WD/WN, no apparent distress Neck: supple, no adenopathy Respiratory/Chest: chest non-tender, lungs clear, normal breath sounds Cardiovascular: no edema, no gallop Abdomen / GI: non tender, soft Neurologic/Psychiatric: alert, oriented x 3 Hospital Course 76-year-old male with a history of non-Hodgkin's lymphoma, right-sided nephrectomy for renal cell carcinoma, and prostatectomy for prostate cancer, hypertension, and diabetes mellitus type 2, here with left-sided ureterolithiasis and sepsis with UTI. Lactate was 7 on admission and with hypotension, he has severe sepsis which was requiring vasopressors to include vasopressin and IV hydrocortisone. Severe Sepsis, left ureterolithiasis, E coli UTI, solitary kidney, gram- negative bacteremia-blood pressure improving and will titrate off vasopressin when able to. Appreciate critical care medicine consultation. Received Zosyn and daptomycin but now with blood and urine cultures with pansensitive Escherichia coli, will narrow down antibiotic coverage. Status post left ureteral stent and appreciate urology management. -Discontinue IV fluids for systolic CHF -Start Cipro 40 mg IV every 12 and will continue total antibiotic course for 14 days for bacteremia -Appreciate urology management as well-will need definitive stone management in the future once sepsis resolved -Follow repeat blood cultures neg Acute kidney injury, hyperkalemia-patient reports he had normal renal function prior to this admission as he was told by his doctors. Creatinine on admission peaked at 2.5, now down to 2.3. Potassium elevated at 5.7 and given calcium gluconate with repeat at 4.8. Received IV fluids. Renal failure likely secondary to ATN and hypotension as well as post obstructive secondary to ureterolithiasis. Now with ureteral stent placed. -Avoid nephrotoxins and renally dose all meds -Maintaining Chery catheter -Follow PRP daily Upper back pain, elevated troponin secondary to demand ischemia, new onset acute systolic CHF with EF 30-35%. Troponin peaked at 0.8 and stabilized. ECG with T-wave inversions in the anterior leads. Normal nuclear stress test in 2016 as per patient report. This could be sepsis induced LV dysfunction. There are no segmental wall motion abnormalities. Echocardiogram: * Left ventricular systolic function is moderately reduced. * There is moderate global hypokinesis of the left ventricle. * Ejection Fraction = 30-35%. * There is borderline concentric left ventricular hypertrophy. * Grade I diastolic dysfunction, (abnormal relaxation pattern). * There is mild tricuspid regurgitation. -Watch for fluid overload, chest x-ray from yesterday is negative for pulmonary edema -Eventually will need to be on beta theodora, AKIRA inhibitor, and possible diuretics -Will need repeat echo and possible stress testing in the future after he recovers from his acute illness Type 2 NSTEMI History of renal cell carcinoma status post right nephrectomy, prostate cancer status post prostatectomy-stable, no issues History of non-Hodgkin's lymphoma-in remission for 12 years as per patient, treated previously with chemotherapy. CT abdomen and pelvis shows mesenteric lymphadenopathy-unclear if stable from previous scans -Needs to establish with oncologist now that he is living in [place] -Will need follow-up with oncology for his lymphoma and to see if old records show evidence of lymphadenopathy in the same regions Hypertension-has been hypotensive here -Hold lisinopril Diabetes mellitus II-glucose not well controlled here -Insulin sliding scale with carb coverage with a 1-10 ratio and correction factor of 25 -Holding home glimepiride -HgA1c 6.4 - DVT prophylaxis start heparin heparin, SCDs Total Time Spent: Greater than 30 minutes This includes examination of the patient, discharge planning, medication reconciliation, and communication with other providers. Discharge Instructions Please refer to the electronic Patient Visit Report (Discharge Instructions) for additional information. Additional Copies To Nicola Hannon MD
[2016-11-08] MEDS ORDERED: MAGNESIUM OXIDE 400 MG TAB PO SCH (20:00)
[2016-12-14] MEDS ORDERED: CIPR-255 PO (13:38)
[2016-12-14] MEDS ORDERED: PHEN-939 PO (13:40)
[2016-12-14] MEDS ORDERED: OXYC-57 PO (13:40)
== END 2016-11-08 14:45 | disposition home or self-care (01) | DRG 871 ==
LOC: ENRESERVDT → ENRESERVTM → C.EDB 01:35 → C.MSICU 04:35 → C.2T 11-06 14:47 → C.MS4W 11-07 11:03
PROVIDERS: ADMIT Internal Medicine; ATTEND Hospitalist
PROC: 0T778DZ Dilation of Left Ureter with Intraluminal Device, Via Natural or Artificial Opening Endoscopic (ICD-10-PCS; principal; 2016-11-04 05:00)
DX: A41.51 Sepsis due to Escherichia coli [E. coli] (principal); N12 Tubulo-interstitial nephritis, not specified as acute or chronic; N17.0 Acute kidney failure with tubular necrosis; N13.2 Hydronephrosis with renal and ureteral calculous obstruction; I42.9 Cardiomyopathy, unspecified; I24.8 Other forms of acute ischemic heart disease; I10 Essential (primary) hypertension; E87.5 Hyperkalemia; E78.5 Hyperlipidemia, unspecified; E11.9 Type 2 diabetes mellitus without complications; R65.20 Severe sepsis without septic shock; Z90.5 Acquired absence of kidney; Z85.72 Personal history of non-Hodgkin lymphomas; Z85.46 Personal history of malignant neoplasm of prostate; Z87.440 Personal history of urinary (tract) infections; Z87.442 Personal history of urinary calculi; Z87.891 Personal history of nicotine dependence; Z85.528 Personal history of other malignant neoplasm of kidney

== ENCOUNTER 2016-11-20 20:08 | Emergency (ER) | payer OTHER, MEDICARE ==
[~2016-11-20] VITALS: Ht 172.7 cm; Wt 94.0 kg
[~2016-11-20 20:08] MED LIST: CPR500 PO; GLIP2.5T11 PO; HYDR-3983 PO; LISI-461 PO; [UNRECOGNIZED DRUG - REMARK] PO
[2016-11-20 20:18] VITALS: Ht 172.7 cm; Wt 94.0 kg
[2016-11-20 20:46] VITALS: O2SAT 95
--- NOTE | 2016-11-20 20:51 | EMERGENCY ROOM VISIT NOTE ---
History Report prepared by Victor Manuel: Nola Sahni Under the Supervision of: Dr. Obed Du M.D. First contact with patient: 20:22 Chief Complaint: URINARY SYMPTOMS Stated Complaint: BLOOD IN URINE, FREQUENCY,PAIN History of Present Illness The patient is a 76 year old male who presents to the Emergency Room with complaints of persistent, dull left flank and left lower abdominal pain that began just prior to arrival. He currently rates his discomfort as a 4.5/10 in severity. The patient states that a few weeks ago he was evaluated in the hospital after finding a kidney stone and finding that he was septic. He states that he has not passed the kidney stone. The patient states that recently he has noticed urinary frequency. He states that today he noticed hematuria twice while urinating. The patient states that this evening he was watching a movie when he developed a dull pain in his left flank and left lower abdomen. He denies his pain feeling similar to the pain he experienced with his kidney stone. The patient's notes that the patient took a Dragoon tab around 1000 today. Source of History: patient, spouse/significant other () Onset: just prior to arrival Position: abdomen (LLQ), other (left flank) Symptom Intensity: 4.5/10 Quality: dull Timing: other (persistent) Associated Symptoms: + urinary symptoms (urinary frequency, hematuria) Review of Systems See HPI for pertinent positives & negatives. A total of 10 systems reviewed and were otherwise negative. Past Medical & Surgical Medical Problems: (1) Kidney stone (2) Lymphoma (3) Pyelonephritis Family History No pertinent family history Social History Smoking Status: Never Smoker Drug Use: none Marital Status: Housing Status: lives with significant other Occupation Status: retired Current/Historical Medications Scheduled Aspirin (Aspirin Ec), 81 MG PO DAILY Atorvastatin (Lipitor), Unknown Dose PO DAILY Ciprofloxacin Hcl (Cipro), 1 TAB PO BID Glipizide (Glipizide Er), 10 MG PO BID Latanoprost (Xalatan 0.005% Oph Lori), 1 DROPS OP HS Lisinopril (Zestril), Unknown Dose PO DAILY Metformin Hcl (Glucophage), 1,000 MG PO BID Sitagliptin Phosphate (Januvia), Unknown Dose PO DAILY Allergies Coded Allergies: No Known Allergies (Unverified , 11/04/16) Physical Exam Vital Signs Date Time Temp Pulse Resp B/P Pulse Ox O2 Delivery O2 Flow Rate FiO2 11/20/16 23:10 36.7 85 15 124/91 97 11/20/16 22:19 85 15 124/91 97 Room Air 11/20/16 20:59 98 11/20/16 20:46 95 Room Air 11/20/16 20:18 36.7 104 22 110/74 95 Room Air Physical Exam GENERAL: Patient is a healthy-appearing well-nourished HEAD: Normocephalic atraumatic EYES: Ocular movements intact pupils equal and react to light OROPHARYNX mucous membranes are moist no exudates present no erythema or edema present NECK: Supple no nuchal rigidity CHEST: Good equal expansion LUNGS: Clear and equal to auscultation CARDIAC: Normal S1 and S2 ABDOMEN: Soft nontender no guarding BACK: No CVA tenderness EXTREMITIES: No pain upon palpation normal muscle strength in all groups no clubbing cyanosis or edema NEURO: Patient is following commands is answering questions appropriately. Alert and oriented x3 Cranial Nerves 2-12 grossly intact Medical Decision & Procedures ER Provider Diagnostic Interpretation: Radiology results as stated below per my review and radiologist interpretation: ULTRASOUND KIDNEYS AND BLADDER CLINICAL HISTORY: Left flank pain. Hematuria. COMPARISON STUDY: Abdominal CT dated 11/04/2016. TECHNIQUE: Real-time, grayscale, and color flow sonography of the kidneys and bladder is performed. Images are reviewed in the transverse and longitudinal planes. FINDINGS: Kidneys: The right kidney is not identified and reported surgically absent. The left kidney demonstrates cortical atrophy and is without hydronephrosis. The left kidney measures 13.8 x 7.2 x 7.6 cm. A left ureteral stent is in place. A 1.3 cm shadowing calculus is seen in the left lower pole. There is no sonographic evidence of contour deforming renal mass lesion. Small left renal cysts measure up to 2 cm. No perinephric fluid is identified. Bladder: The bladder is partially decompressed and grossly unremarkable. A left ureteral jet was not seen. The end of the O stent is noted. IMPRESSION: 1. The right kidney is surgically absent. 2. The left kidney demonstrate cortical atrophy and is without hydronephrosis. 3. A left ureteral stent is in place. 4. A Nonobstructing calculus is seen in the left lower pole. 5. The bladder is partially decompressed and grossly unremarkable. Electronically signed by: Aldo Hernandez M.D. 11/20/2016 10:20 PM Dictated Date/Time: 11/20/2016 10:17 PM KUB CLINICAL HISTORY: Hematuria. FINDINGS: An AP supine abdominal radiograph is correlated with abdominal CT dated 11/04/2016. A left ureteral stent is new from previous. No calcifications are identified along the course of the stent. No renal calculi are seen on today's study. Numerous surgical clips are present in the pelvis. There is a nonobstructed abdominal bowel gas pattern. The bony structures appear intact. IMPRESSION: 1. A left ureteral stent is new from previous. No stones are identified along the course of the stent. 2. No renal calculi are seen on today's examination. Electronically signed by: Aldo Hernandez M.D. 11/20/2016 10:17 PM Dictated Date/Time: 11/20/2016 10:16 PM Laboratory Results 11/20/16 20:50 Red Blood Count 5.38, Mean Corpuscular Volume 79.6, Mean Corpuscular Hemoglobin 25.8, Mean Corpuscular Hemoglobin Concent 32.5, Mean Platelet Volume 9.0 11/20/16 20:50 Test 11/20/16 00:00 11/20/16 20:50 Urine Color ORANGE Urine Appearance CLOUDY (CLEAR) Urine pH 5.0 (4.5-7.5) Urine Specific [place] 1.021 (1.000-1.030) Urine Protein 2+ (NEG) Urine Glucose (UA) NEG (NEG) Urine Ketones NEG (NEG) Urine Occult Blood 3+ (NEG) Urine Nitrite NEG (NEG) Urine Bilirubin NEG (NEG) Urine Urobilinogen NEG (NEG) Urine Leukocyte Esterase SMALL (NEG) Urine WBC (Auto) 5-10 /hpf (0-5) Urine RBC (Auto) >30 /hpf (0-4) Urine Hyaline Casts (Auto) 1-5 /lpf (0-5) Urine Epithelial Cells (Auto) >30 /lpf (0-5) Urine Bacteria (Auto) NEG (NEG) Urine Renal Epithelial Cells 5-10 /lpf (0-5) White Blood Count 6.70 K/uL (4.8-10.8) Red Blood Count 5.38 M/uL (4.7-6.1) Hemoglobin 13.9 g/dL (14.0-18.0) Hematocrit 42.8 % (42-52) Mean Corpuscular Volume 79.6 fL (80-100) Mean Corpuscular Hemoglobin 25.8 pg (25-34) Mean Corpuscular Hemoglobin Concent 32.5 g/dl (32-36) Platelet Count 334 K/uL (130-400) Mean Platelet Volume 9.0 fL (7.4-10.4) RDW Standard Deviation 44.0 fL (36.4-46.3) RDW Coefficient of Variation 15.2 % (11.5-14.5) Neutrophils % (Manual) 71.7 % Lymphocytes % (Manual) 6.2 % Variant Lymphocytes % (manual) 15.9 % Monocytes % (Manual) 4.4 % Eosinophils % (Manual) 1.8 % Neutrophils # (Manual) 4.80 K/uL (1.4-6.5) Total Absolute Neutrophils 4.80 K/uL (1.4-6.5) Lymphocytes # (Manual) 0.42 K/uL (1.2-3.4) Absolute Variant Lymphocytes 1.07 K/uL Total Absolute Lymphocytes 1.48 K/uL (1.2-3.4) Monocytes # (Manual) 0.29 K/uL (0.11-0.59) Eosinophils # (Manual) 0.12 K/uL (0-0.5) Anion Gap 11.0 mmol/L (3-11) Est Creatinine Clear Calc Drug Dose 45.1 ml/min Estimated GFR () 51.0 Estimated GFR (Non- 44.0 BUN/Creatinine Ratio 15.5 (10-20) Calcium Level 9.6 mg/dl (8.5-10.1) Total Bilirubin 0.5 mg/dl (0.2-1) Direct Bilirubin 0.1 mg/dl (0-0.2) Aspartate Amino Transf (AST/SGOT) 14 U/L (15-37) Alanine Aminotransferase (ALT/SGPT) 32 U/L (12-78) Alkaline Phosphatase 98 U/L (45-117) Total Protein 6.9 gm/dl (6.4-8.2) Albumin 3.4 gm/dl (3.4-5.0) Labs reviewed by ED physician. Medications Administered Medications (Trade) Dose Ordered Sig/Ashvin Route Start Time Stop Time Status Last Admin Dose Admin Sodium Chloride (Nss 1000ml) 1,000 ml @ 999 mls/hr Q1H1M STAT IV 11/20/16 21:39 11/20/16 22:39 DC 11/20/16 22:19 999 MLS/HR Ciprofloxacin (Cipro Tab) 500 mg NOW STAT PO 11/20/16 21:39 11/20/16 21:40 DC 11/20/16 22:19 500 MG ED Course 2026: Past medical records reviewed. The patient was evaluated in room C6. A complete history and physical examination was performed. 2138: Ordered Cipro Tab 500 mg PO, Sodium Chloride 1000 ml @ 999 mls/hr IV. 2239: I reevaluated the patient and he is resting comfortably. I discussed the exam findings with him and I discussed the treatment plan. He verbalized complete understanding and agreement. He is ready to go home. Medical Decision Differential diagnosis: Etiologies such as appendicitis, diverticulitis, PUD, biliary pathology, UTI, pancreatitis, obstruction, mesenteric ischemia, aortic pathology, infections, inflammatory bowel disease, renal colic, as well as others were entertained. This is a 76-year-old male who had a recent ICU stay due to an infected kidney stone that presents emergency Department with blood in his urine. The patient denies any fevers and only has one kidney. Today his creatinine is bumped up to 1.5 he admits to not drinking anything but ice to the. I cautioned him on drinking iced tea as this is what probably led to his kidney stone. In the emergency department blood cultures were obtained however the patient has no evidence of infection and he does not have an elevation in his white blood count cell count. The patient really has no complaints and I feel he can probably be safely discharged home. The patient is going to follow-up with urology I will place him on Cipro pending urine culture results. He was given normal saline bolus in the emergency department. Patient and are in agreement with the treatment plan. Impression Primary Impression: Hematuria Scribe Attestation The scribe's documentation has been prepared under my direction and personally reviewed by me in its entirety. I confirm that the note above accurately reflects all work, treatment, procedures, and medical decision making performed by me. Departure Information Dispostion Home / Self-Care Prescriptions Ciprofloxacin Hcl (CIPRO) 500 Mg Tab 1 TAB PO BID for 10 Days, #20 TAB Prov: Obed Du MD 11/20/16 Referrals Nicola Hannon MD (PCP) Lionel Bear MD, Urology Forms HOME CARE DOCUMENTATION FORM, IMPORTANT VISIT INFORMATION, School Instructions, Work Instructions Patient Instructions Hematuria Poss Causes, My [facility] Additional Instructions Follow up with DR Bear's office Increase fluid intake next 48 hours Return if you develop fevers Culture results are usually available in approx 48 hours You have been examined and treated today on an emergency basis only. This is not a substitute for, or an effort to provide, complete comprehensive medical care. It is impossible to recognize and treat all injuries or illnesses in a single emergency department visit. It is therefore important that you follow up closely with DR Hannon. Call as soon as possible for an appointment. Thank you for your time and consideration. I look forward to speaking with you again soon. Please don't hesitate to call us if you have any questions.
[2016-11-20 20:57] LABS: URINE APPEARANCE CLOUDY (CLEAR); URINE BILIRUBIN NEG (NEG); URINE COLOR ORANGE; URINE EPITHELIAL CELL AUTO >30 /lpf (0-5); URINE NITRITE NEG (NEG); URINE SPECIFIC GRAVITY 1.021 (1.000-1.030); UROBILINOGEN NEG (NEG)
[2016-11-20 20:58] LABS: MANUAL MICROSCOPIC REQUIRED? NO; REVIEW REQ? YES
[2016-11-20 21:17] LABS: HEMATOCRIT 42.8 % (42-52); MEAN CELL VOLUME 79.6 fL (80-100); MEAN CORPUSCULAR HEMOGLOBIN 25.8 pg (25-34); MEAN CORPUSCULAR HGB CONC 32.5 g/dl (32-36); PLATELET COUNT 334 K/uL (130-400); RED BLOOD COUNT 5.38 M/uL (4.7-6.1)
[2016-11-20] MEDS ORDERED: ATOR10TA82 PO (21:24)
[2016-11-20] MEDS ORDERED: METF-384 PO (21:26)
[2016-11-20] MEDS ORDERED: ASPI81TA28 PO (21:26)
[2016-11-20] MEDS ORDERED: SITA100T3 PO (21:27)
[2016-11-20] MEDS ORDERED: LATA0.5S OP (21:28)
[2016-11-20] MEDS ORDERED: GLIP-199 PO (21:29)
[2016-11-20 21:35] LABS: BUN/CREATININE RATIO 15.5 (10-20); CREATININE 1.5 mg/dl (0.60-1.40); POTASSIUM 4.5 mmol/L (3.5-5.1)
[2016-11-20] MEDS ORDERED: CIPROFLOXACIN 500 MG TAB PO STA (21:39)
[2016-11-20] MEDS ORDERED: SODIUM CHLORIDE 0.9% 1000ML 1,000 ML IV STA (21:39)
[2016-11-20 21:43] LABS: COMPLETE YES; EOSINOPHIL % 1.8 %; LYMPH ABS # 0.42 K/uL (1.2-3.4); LYMPHOCYTE % 6.2 %; NEUTROPHILS % 71.7 %; VARIANT LYM ABS # 1.07 K/uL; VARIANT LYMPHOCYTE % 15.9 %
[2016-11-20 21:58] LABS: CALCIUM 9.6 mg/dl (8.5-10.1)
--- NOTE | 2016-11-20 22:18 | DIAGNOSTIC IMAGING REPORT ---
KUB CLINICAL HISTORY: Hematuria. FINDINGS: An AP supine abdominal radiograph is correlated with abdominal CT dated 11/04/2016. A left ureteral stent is new from previous. No calcifications are identified along the course of the stent. No renal calculi are seen on today's study. Numerous surgical clips are present in the pelvis. There is a nonobstructed abdominal bowel gas pattern. The bony structures appear intact. IMPRESSION: 1. A left ureteral stent is new from previous. No stones are identified along the course of the stent. 2. No renal calculi are seen on today's examination. Electronically signed by: Aldo Hernandez M.D. 11/20/2016 10:17 PM Dictated Date/Time: 11/20/2016 10:16 PM
--- NOTE | 2016-11-20 22:21 | DIAGNOSTIC IMAGING REPORT ---
ULTRASOUND KIDNEYS AND BLADDER CLINICAL HISTORY: Left flank pain. Hematuria. COMPARISON STUDY: Abdominal CT dated 11/04/2016. TECHNIQUE: Real-time, grayscale, and color flow sonography of the kidneys and bladder is performed. Images are reviewed in the transverse and longitudinal planes. FINDINGS: Kidneys: The right kidney is not identified and reported surgically absent. The left kidney demonstrates cortical atrophy and is without hydronephrosis. The left kidney measures 13.8 x 7.2 x 7.6 cm. A left ureteral stent is in place. A 1.3 cm shadowing calculus is seen in the left lower pole. There is no sonographic evidence of contour deforming renal mass lesion. Small left renal cysts measure up to 2 cm. No perinephric fluid is identified. Bladder: The bladder is partially decompressed and grossly unremarkable. A left ureteral jet was not seen. The end of the O stent is noted. IMPRESSION: 1. The right kidney is surgically absent. 2. The left kidney demonstrate cortical atrophy and is without hydronephrosis. 3. A left ureteral stent is in place. 4. A Nonobstructing calculus is seen in the left lower pole. 5. The bladder is partially decompressed and grossly unremarkable. Electronically signed by: Aldo Hernandez M.D. 11/20/2016 10:20 PM Dictated Date/Time: 11/20/2016 10:17 PM
[2016-11-20] MEDS ORDERED: CIPR-255 PO (22:49)
[2016-11-20 23:10] VITALS: BP 124/91; PULSE 85; TEMP 36.7; O2SAT 97
[2016-12-14] MEDS ORDERED: CIPR-255 PO (13:38)
[2016-12-14] MEDS ORDERED: PHEN-939 PO (13:40)
[2016-12-14] MEDS ORDERED: OXYC-57 PO (13:40)
== END 2016-11-20 23:20 | disposition home or self-care (01) ==
LOC: C.EDB 20:09 → C.EDC 23:20
DX: R31.9 Hematuria, unspecified (principal); Z87.442 Personal history of urinary calculi; Z85.72 Personal history of non-Hodgkin lymphomas; Z79.82 Long term (current) use of aspirin; Z79.899 Other long term (current) drug therapy

== ENCOUNTER → 2016-11-22 | Outpatient (CLI) | payer OTHER, MEDICARE ==
[~2016-11-22] MED LIST changes: +ASPI81TA28 PO; +ATOR10TA82 PO; +CIPR-255 PO; -CPR500 PO; +GLIP-199 PO; -GLIP2.5T11 PO; -HYDR-3983 PO; +LATA0.5S OP; +METF-384 PO; +OXYC-57 PO; +PHEN-939 PO; +SITA100T3 PO; -[UNRECOGNIZED DRUG - REMARK] PO
== END | disposition home or self-care (01) ==
LOC: C.LABSPEC 17:07
PROVIDERS: ATTEND Nurse Practitioner Adult Health
DX: N20.1 Calculus of ureter (principal)

== ENCOUNTER → 2016-12-26 | Outpatient (CLI) | payer OTHER, MEDICARE ==
[~2016-12-26] MED LIST changes: -PHEN-939 PO
--- NOTE | 2016-12-26 08:10 | DIAGNOSTIC IMAGING REPORT ---
KUB CLINICAL HISTORY: Nephrolithiasis. FINDINGS: 2 AP supine abdominal radiograph are compared to study dated 11/20/2016 and correlated with abdominal CT dated 11/04/2016. A left ureteral stent is unchanged in position. No calcifications are seen along the course of the stent. No calcifications are identified projecting over the left kidney. The right kidney is surgically absent as shown by CT. Numerous surgical clips are noted in the pelvis. There is a nonobstructed abdominal bowel gas pattern. The skeletal structures are osteopenic. Lumbosacral spondylosis is observed. IMPRESSION: A left ureteral stent is unchanged in position. No renal calculi are identified. Electronically signed by: Aldo Hernandez M.D. 12/26/2016 8:08 AM Dictated Date/Time: 12/26/2016 8:06 AM
== END | disposition home or self-care (01) ==
LOC: C.RAD 07:38
PROVIDERS: ATTEND Urology
DX: N20.0 Calculus of kidney (principal)

== ENCOUNTER → 2017-01-22 | Outpatient (CLI) | payer OTHER, MEDICARE ==
[~2017-01-22] MED LIST changes: -ATOR10TA82 PO; +ATOR10TA88 PO
--- NOTE | 2017-01-22 10:08 | DIAGNOSTIC IMAGING REPORT ---
ABD/PELVIS NO IV OR ORAL CONT CLINICAL HISTORY: 76 years-old Male presenting with nephrolithiasis, left ureteral stone, one kidney due to kidney cancer.. TECHNIQUE: Multidetector CT of the abdomen and pelvis was performed without the use of intravenous contrast. IV contrast: None. COMPARISON: 11/04/2016. CT DOSE: The estimated cumulative dose is 1264.44 mGy.cm. 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 Lung bases: Minimal subpleural reticulation noted in the paramediastinal lung bases. 5 mm solid pulmonary nodule in the right lower lobe (series 2 image 5). Normal heart size. Aortic valve and coronary artery calcification. No pericardial or pleural effusion. 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 Hepatic steatosis. Previously noted 12 13 mm lesion in segment 4A is unchanged from prior and indeterminate but likely hepatic cyst or hamartoma. Additional similar-appearing 13 mm lesion in segment 7. Biliary: No intrahepatic or extrahepatic biliary ductal dilatation. Normal gallbladder. Pancreas: Mild parenchymal atrophy. Spleen: Mildly enlarged measuring 13.7 cm in maximal sagittal dimension. Adrenal glands: Nodular thickening of the left adrenal gland. Right adrenal gland likely surgically absent. Kidneys and ureters: Right kidney surgically absent. Left kidney with slight interval decrease in hydronephrosis and perinephric fat stranding. Multifocal hypodensities in the kidney, indeterminate. Round calcified lesion posteriorly in the interpolar region, possibly calcified cyst and incompletely characterized. The previously noted obstructing distal left ureteral calculus is no longer present, consistent with passage. Persistent urothelial thickening and periureteral infiltration along the proximal left ureter. No hydroureter. Gastrointestinal tract: Diverticulosis of the junction of the descending and sigmoid colon few diverticula elsewhere. Normal appendix. Inspissated material in the small bowel may indicate delayed transit. Mild prominence of small bowel mesenteric vessels. Peritoneal cavity: Multifocal masslike infiltration of the mesentery the upper abdomen. These sites are low-density. No free fluid. Bladder: Incompletely evaluated secondary to underdistention. No bladder calculus. Pelvic organs: Postsurgical changes of prostatectomy. Soft tissue along the right pelvic surgical nodes may represent residual seminal vesicle or exuberant granulation tissue (series 2 image 79). This is unchanged in appearance from prior exam from October. Vasculature: Atherosclerosis of the normal caliber abdominal aorta. Lymph nodes: Apart from possible low-density mesenteric lymph nodes, no other sites of significant lymphadenopathy. Abdominal wall: Normal. Musculoskeletal: Bilateral pars defects of L5. Grade 1 anterolisthesis of L5 on S1. IMPRESSION: 1. Interval passage of the distal left ureteral calculus. Decreased left hydronephrosis and perinephric/periureteral inflammatory change. 2. Indeterminate hypodensities in the left kidney, incompletely characterized without contrast. If the patient's GFR is greater than 30, contrast-enhanced MR of the kidneys could be obtained as gadolinium is not nephrotoxic. Alternatively, ultrasound could be considered. 3. Postsurgical changes of right nephrectomy and adrenalectomy. No suspicious soft tissue in the operative bed. 4. Postsurgical changes of prostatectomy. Soft tissue along the right pelvic sidewall may represent residual seminal vesicle or exuberant granulation tissue. 5. Low-density mesenteric lymph nodes. This is nonspecific and can be seen in the setting of Whipple's disease, celiac disease, and evolving lymphadenopathy. Attention on follow-up. Presence of concomitant mild splenomegaly may raise concern for a neoplastic process, such as lymphoma. 6. Hepatic steatosis. 7. 5 mm solid pulmonary nodule in the right lower lobe. Follow-up recommended per Fleischner Society 2017 alignment below. Please refer to below summary of Fleischner criteria recommendations for follow-up of incidental CT nodules (Kelsey Damico, Guidelines for management of small pulmonary nodules detected on CT scans: A statement from the Fleischner Society, Radiology 237: [phone].) SOLID NODULES Solitary nodule size: <6 mm * Low risk patients: no follow-up needed * high risk patients: optional CT at 12 months Solitary nodule size: 6-8 mm * Low risk patients: follow-up at 6-12 months, then consider further follow-up at 18-24 months * high risk patients: initial follow-up CT at 6-12 months and then at 18-24 months if no change Solitary nodule size: >8 mm * either low or high risk patients - consider follow-up CT at 3 months, and/or CT-PET, and/or biopsy Multiple nodules size: <6 mm * Low risk patients: no routine follow-up * high risk patients: optional CT at 12 months Multiple nodules size: 6-8 mm * Low risk patients: follow-up at 3-6 months, then consider further follow-up at 18-24 months * high risk patients: follow-up at 3-6 months, then at 18-24 months if no change Multiple nodules size: >8 mm * Low risk patients: follow-up at 3-6 months, then consider further follow-up at 18-24 months * high risk patients: follow-up at 3-6 months, then at 18-24 months if no change Note: newly detected indeterminate nodule in persons 35 years of age or older. * Low risk patients: minimal or absent history of smoking and/or other known risk factors * high risk patients: history of smoking or of other known risk factors (e.g. first degree relative with lung cancer, or exposure to asbestos, radon, uranium) * if a nodule up to 8 mm is partly solid or is ground glass further follow-up is required after 24 months to exclude possible slow growing adenocarcinoma (DIA) SUBSOLID NODULES Solitary pure ground-glass nodule * nodule size <6 mm - no CT follow-up required * nodule size >=6 mm - follow-up CT at 6-12 months, then every 2 years until 5 years Solitary part-solid nodule * nodule size <6 mm - no CT follow-up required * nodule size >=6 mm - follow-up CT at 3-6 months. If unchanged, and solid component remains <6 mm, then annual follow-up for 5 years Multiple subsolid nodules * nodule size <6 mm - follow-up CT at 3-6 months, consider further follow-up at 2 and 4 years if stable * nodule size >=6 mm - follow-up CT at 3-6 months, subsequent management based on the most suspicious nodule(s) Electronically signed by: Gregory Epstein M.D. 01/22/2017 10:07 AM Dictated Date/Time: 01/22/2017 9:48 AM
[2017-01-22 10:09] LABS: BLOOD UREA NITROGEN 15 mg/dl (7-18); BUN/CREATININE RATIO 11.8 (10-20)
[2017-01-22 10:14] LABS: PROSTATE SPECIFIC ANTIGEN < 0.010 ng/ml (0.000-4.000)
--- NOTE | 2017-01-26 13:26 | CODING QUERY MEDICAL NECESSITY ---
SUPPORTING DIAGNOSIS NEEDED A supporting diagnosis is required for the test/procedure performed on this patient in order for us to be reimbursed by the patient's insurance. Please provide a supporting diagnosis for the following test/procedure listed below next to the test name along with your signature. *If there is no additional diagnosis for this patient that would support the following test/procedure please document that below next to the test/procedure. Test(s)/Procedure(s) that require a supporting diagnosis: * PSA DIAGNOSIS: Provider Signature: Date: Thank you Courtney Ely Tip or Skip Information Management Once completed, please kindly fax back to [phone] For questions please call [phone]
== END | disposition home or self-care (01) ==
LOC: C.CTS 09:06
PROVIDERS: ATTEND Urology
DX: Q60.0 Renal agenesis, unilateral (principal); N20.0 Calculus of kidney; N20.1 Calculus of ureter; R91.1 Solitary pulmonary nodule; K76.0 Fatty (change of) liver, not elsewhere classified; C61 Malignant neoplasm of prostate

== ENCOUNTER → 2017-07-11 | Outpatient (CLI) | payer OTHER, MEDICARE ==
[~2017-07-11] MED LIST changes: +ATOR10TA82 PO; -ATOR10TA88 PO; -OXYC-57 PO
--- NOTE | 2017-07-11 09:36 | DIAGNOSTIC IMAGING REPORT ---
EXAMINATION: RENAL ULTRASOUND CLINICAL HISTORY: C85.90 Lymphoma in [id number] COMPARISON STUDY: 11/20/2016 FINDINGS: The right kidney is presumed absent. The left kidney measures 13.8 cm. There is mild left-sided hydronephrosis. Several renal cortical cysts are visualized measuring up to 2 cm in diameter. In addition there is a 8 mm cortical calcification A left ureteral jet was visualized. No bladder masses were demonstrated IMPRESSION : 1. Surgically absent right kidney 2. Mild left-sided hydronephrosis. 3. Left renal cortical cysts. 8 mm left renal cortical calcification Electronically signed by: Rob Pruett M.D. 07/11/2017 9:34 AM Dictated Date/Time: 07/11/2017 9:31 AM
== END | disposition home or self-care (01) ==
LOC: C.ULTR 08:53
PROVIDERS: ATTEND Urology
DX: C85.90 Non-Hodgkin lymphoma, unspecified, unspecified site (principal); Z90.5 Acquired absence of kidney; N28.1 Cyst of kidney, acquired

== ENCOUNTER → 2018-01-28 | Outpatient (CLI) | payer OTHER, MEDICARE ==
--- NOTE | 2018-01-28 08:35 | DIAGNOSTIC IMAGING REPORT ---
KUB CLINICAL HISTORY: R32 Urinary incontinence COMPARISON STUDY: 12/26/2016 FINDINGS: There are multiple surgical clips in the pelvis, likely secondary to a prior lymph node dissection. There is no pathologic bowel dilatation. The left-sided nephroureteral stent has been removed. There is a 1 cm eggshell calcification projected over the lower pole the left kidney. This likely represents a calcified left renal nodule. No renal calculi are visualized on conventional radiographic imaging. IMPRESSION: 1. Interval removal of the left-sided nephroureteral stent 2. No renal calculi are visualized on conventional radiographic imaging Electronically signed by: Rob Pruett M.D. 01/28/2018 8:34 AM Dictated Date/Time: 01/28/2018 8:28 AM
[2018-01-28 10:04] LABS: BLOOD UREA NITROGEN 22 mg/dl (7-18); CREATININE 1.54 mg/dl (0.60-1.40)
== END | disposition home or self-care (01) ==
LOC: C.RAD 07:44
PROVIDERS: ATTEND Urology
DX: R32 Unspecified urinary incontinence (principal)

== ENCOUNTER 2021-04-02 11:32 | Inpatient (IN) ==
[2021-04-02] MEDS ORDERED: AMIODARONE / D5W 360 MG/200 ML BAG IV ONE ×2 (11:48→15:08)
[2021-04-02] MEDS ORDERED: 0.2 MICRON FILTER SET 1 EA IV ONE ×2 (11:48→17:47)
[2021-04-02] MEDS ORDERED: SODIUM CHLORIDE 0.9% 500 ML IV ONE ×2 (11:52→12:25)
--- NOTE | 2021-04-02 12:02 | Emergency Department Note ---
Impression & Plan Ventricular tachycardia, Elevated troponin, CKD (chronic kidney disease) ED Provider Note NAME: DANYELL CARTER AGE: 80 SEX: M ARRIVES VIA: Ambulance INFORMANT: Patient, ED PROVIDER(S): Tom Guadarrama MD CHIEF COMPLAINT: Chest pain, unstable V-tach PLAN: Disposition: Admit MEDICAL DECISION MAKING: The patient is a pleasant 80-year-old gentleman who presents emerge department via EMS after he was found to appear well at the [email or web address] [place] game by a passing by medic who then found the patient to be in wide-complex tachycardia that was unstable with hypotension with systolic blood pressure in the 60s and the patient was diaphoretic he subsequently was cardioverted into sinus rhythm with improved blood pressure. He was given 150 mg bolus of amiodarone and transferred via ALS. 324 ASA also given. Patient reports he was feeling chest pain/indigestion on the way to the stadium at 10 AM and began to worsen as he went into the stadium and had to sit down. Prior today denies feeling ill denies fevers, chills, cough, congestion, GI or symptoms. On arrival the patient is fatigued appearing with residual what cool skin from his prior diaphoresis but denies any chest pain at this time. Blood pressure is normal and heart rate in the 70s. Vital signs otherwise stable. On exam the patient does appear clinically dry. EKG in the emergency department shows no acute ST elevation. Appears similar to prior EKG in October 2016. I did review the case with [facility] cardiology on-call Dr. Santamaria. We agreed that given the patient is currently not symptomatic with no ST elevation on EKG no indication for emergent catheterization at thi time. However we also agreed given the compelling story that is reasonable to initiate heparin at this time in the event catheterization will be required. Amiodarone gtt initiated as well Otherwise, WBC, H/H, platelets wnl. Bicarbonate 17 with Agap 13. Cr 1.76 approximate to prior range of values. Electrolytes unremarkable. LFTs without significant abnormality. Initial Troponin 0.089. Covid-19 PCR negative. Patient and his at bedside agree with plan for admission. Case was discussed with Dr. Garcia, [facility] hospitalist, who will evaluate the patient for admission. Triage Nursing notes reviewed and agree them. Prior medical records reviewed Vital Signs: reviewed and remarkable for no significant abnormalities Differential diagnosis: Cardiac ischemia, aortic dissection, pulmonary embolism, pneumothorax, pneumonia, pericarditis, myocarditis, esophageal rupture, GERD, cholecystitis, p ancreatitis, musculoskeletal, as well as other pathologies. ER treatment provided: See below. Diagnostics interpreted by me: ECG: Sinus rhythm with occasional PVCs, 84 bpm, nonspecific intraventricular block, no overt ST elevation or depression, QTC 519, QRS 126. Cardiac Monitoring: An order for continuous cardiac monitoring was placed and demonstrated sinus rhythm with occasional PVCs, 84 bpm. Laboratory studies: See below Imaging studies: See below Consultation(s): Dr. Delgado, [place] cardiology on-call. Dr. Garcia, [facility] hospitalist. HPI: The patient is a pleasant 80-year-old gentleman who presents emerge department via EMS after he was found to appear well at the [email or web address] football game by a passing by medic who then found the patient to be in wide-complex tachycardia that was unstable with hypotension with systolic blood pressure in the 60s and the patient was diaphoretic he subsequently was cardioverted into sinus rhythm with improved blood pressure. He was given 150 mg bolus of amiodarone and transferred via ALS. Patient reports he was feeling chest pain/indigestion on the way to the stadium at 10 AM and began to worsen as he went into the stadium and had to sit down. Prior today denies feeling ill denies fevers, chills, cough, congestion, GI or symptoms. ROS: See above HPI for pertinent positives & negatives. A total of 10 systems reviewed and were otherwise negative. PAST MEDICAL HISTORY:See Below PAST SURGICAL HISTORY:See Below FAMILY HISTORY:See Below SOCIAL HISTORY:See Below HOME MEDICATIONS:See Below ALLERGIES:See Below VITALS:See Below PHYSICAL EXAMINATION: GENERAL: Awake, alert, fatigued-appearing, in no distress HENT: Normocephalic, atraumatic. Oropharynx with dry mucous membranes and otherwise unremarkable. EYES: Normal conjunctiva. Sclera non-icteric. NECK: Supple. No nuchal rigidity. FROM. No JVD. RESPIRATORY: Clear to auscultation. CARDIAC: Regular rate, normal rhythm. Extremities warm and well perfused. Pulses equal. ABDOMEN: Soft, non-distended. No tenderness to palpation. No rebound or g uarding. No masses. RECTAL: Deferred. MUSCULOSKELETAL: Chest examination reveals no tenderness. The back is symmetrical on inspection without obvious abnormality. There is no CVA tenderness to palpation. No joint edema. LOWER EXTREMITIES: Calves are equal size bilaterally and non-tender. No edema. N o discoloration. NEURO: Normal sensorium. No sensory or motor deficits noted. SKIN: Cool and moist. No rash or jaundice noted. ED COURSE: Critical Care: I have personally spent greater than 65 minutes of critical care time in the direct management of this patient. This includes bedside care, interpretation of diagnostic studies, and testing, discussion with consultants, patient, and family members, and other required patient management activities. This 65 minutes is in excess of all separately billable procedures. Tom Guadarrama MD Past Med/Surg History Medical History (Updated 04/03/21 @ 00:18 by Tom Guadarrama MD) Cardiomyopathy Cataract CKD (chronic kidney disease) Diabetes Diastolic dysfunction Hernia Hypercholesterolemia Hypertension Kidney carcinoma Lymphoma Prostate CA Surgical History H/O prostatectomy History of kidney surgery Family History Father Cardiac disorder Mother Brain cancer Social History Smoking Status: Unknown if ever smoked Tobacco Type: Cigarettes Hx Alcohol Use: No Hx Substance Use: No Preferred Language: Hungarian Communication Ability: Effective Senior Financial Consultant Required: No Beliefs That Will Affect Care: None marital status: Current Living Situation: Spouse current occupational status: retired Other Information That Helps Us Care for You: No Feels Safe at Home: Yes Safety Concerns: Feels Safe At This Time Assistive Devices: None Allergies Allergies Allergy/AdvReac Type Severity Reaction Status Date / Time pollen extracts Allergy Mild Sneezing Unverified 04/02/21 13:10 No Known Drug Allergies Allergy Verified 04/02/21 13:08 Home Meds Home Medications Medication Instructions Recorded Confirmed atorvastatin 40 mg tablet 40 mg PO PM #30 tab 04/08/19 04/02/21 glipizide 5 mg tablet 5 mg PO BID tab 04/08/19 04/02/21 latanoprost 0.005 % eye drops 1 drops OP HS ml 04/08/19 04/02/21 lisinopril 5 mg tablet 5 mg PO QAM #30 tab 04/08/19 04/02/21 metformin 500 mg tablet 500 - 1,000 mg PO BID tab 07/07/19 04/02/21 empagliflozin 10 mg tablet 10 mg PO QAM 04/02/21 04/02/21 (Jardiance) Results & Data (ED) Vital Signs Vital Signs - 24 hr 04/02/21 11:32 04/02/21 11:37 04/02/21 11:45 Temperature 36.5 C Temperature Source Oral Pulse Rate 79 79 82 Pulse Rate from SpO2 Sensor 78 70 Pulse Rhythm Regular Pulse Strength Normal Respiratory Rate 24 24 Respiratory Effort / Characteristics Non-Labored Spontaneous Respiratory Depth Normal Respiratory Pattern Regular Blood Pressure 109/68 109/68 111/65 Blood Pressure Mean 81 81 80 Blood Pressure Position Lying Pulse Oximetry 95 95 96 Oxygen Delivery Method Room Air Sepsis Recent Fever Within 48 Hours No Sepsis New/Unexplained Change in Mental Status N/A Sepsis Action Taken by Nursing No Action Required Oxygen Flow Rate - Titration 2 Pulse Oximetry Post Tiitration 96 04/02/21 12:00 04/02/21 12:15 04/02/21 12:30 Temperature Temperature Source Pulse Rate 85 85 76 Pulse Rate from SpO2 Sensor 73 83 76 Pulse Rhythm Regular Pulse Strength Respiratory Rate 24 20 Respiratory Effort / Characteristics Respiratory Depth Respiratory Pattern Blood Pressure 98/64 L 99/67 L 107/68 Blood Pressure Mean 75 77 81 Blood Pressure Position Pulse Oximetry 98 98 96 Oxygen Delivery Method Room Air Sepsis Recent Fever Within 48 Hours Sepsis New/Unexplained Change in Mental Status Sepsis Action Taken by Nursing Oxygen Flow Rate - Titration Pulse Oximetry Post Tiitration 04/02/21 12:45 04/02/21 13:00 04/02/21 13:15 Temperature Temperature Source Pulse Rate 73 69 63 Pulse Rate from SpO2 Sensor 71 64 63 Pulse Rhythm Pulse Strength Respiratory Rate 18 Respiratory Effort / Characteristics Respiratory Depth Respiratory Pattern Blood Pressure 117/68 109/71 124/65 Blood Pressure Mean 84 83 84 Blood Pressure Position Pulse Oximetry 100 100 100 Oxygen Delivery Method Sepsis Recent Fever Within 48 Hours Sepsis New/Unexplained Change in Mental Status Sepsis Action Taken by Nursing Oxygen Flow Rate - Titration Pulse Oximetry Post Tiitration Laboratory Data Result diagrams: 04/02/21 11:47 04/02/21 11:47 Lab Results 04/02/21 04/02/21 04/02/21 Range/Units 11:47 11:47 11:47 WBC 6.32 (4.8-10.8) K/uL RBC 5.47 (4.7-6.1) M/uL Hgb 15.3 (14.0-18.0) g/dL Hct 46.7 (42-52) % MCV 85.4 (80-100) fL MCH 28.0 (25-34) pg MCHC 32.8 (32-36) g/dL RDW Std Deviation 49.4 H (36.4-46.3) fL RDW Coeff of Marcello 15.8 H (11.5-14.5) % Plt Count 162 (130-400) K/uL MPV 10.1 (7.4-10.4) fL Immature Gran % (Auto) 0.2 % Neut % (Auto) 68.5 % Lymph % (Auto) 22.3 % [place] % (Auto) 7.1 % Eos % (Auto) 1.7 % Baso % (Auto) 0.2 % Neut # (Auto) 4.33 (1.4-6.5) K/uL Lymph # (Auto) 1.41 (1.2-3.4) K/uL [place] # (Auto) 0.45 (0.11-0.59) K/uL Eos # (Auto) 0.11 (0-0.5) K/uL Baso # (Auto) 0.01 (0-0.2) K/uL Immature Gran # (Auto) 0.01 (0.00-0.02) K/uL APTT 24.0 (21.0-31.0) Seconds PTT Ratio 0.9 Sodium 138 (136-145) mmol/L Potassium 4.1 (3.5-5.1) mmol/L Chloride 108 H (98-107) mmol/L Carbon Dioxide 17 L (21-32) mmol/L Anion Gap 13.0 H (3-11) BUN 22 H (7-18) mg/dl Creatinine 1.76 H (0.6-1.4) mg/dl Est Cr Clr Drug Dosing 37.8 ml/min Est GFR ( Amer) 40.8 ml/min Est GFR (Non-Af Amer) 35.2 ml/min BUN/Creatinine Ratio 12.6 (10-20) Glucose 244 H (70-99) mg/dl Calcium 9.0 (8.5-10.1) mg/dl Phosphorus 3.2 (2.5-4.9) mg/dl Magnesium 1.8 (1.8-2.4) mg/dl Total Bilirubin 0.8 (0.2-1) mg/dl AST 35 (15-37) U/L ALT 49 (12-78) U/L Alkaline Phosphatase 89 (45-117) U/L Troponin I 0.089 H* (0-0.045) ng/ml NT-Pro-B Natriuret Pep 1620 (0-1800) pg/ml Total Protein 6.6 (6.4-8.2) gm/dl Albumin 3.6 (3.4-5.0) gm/dl Globulin 3.0 (2.5-4.0) gm/dl Albumin/Globulin Ratio 1.2 (0.9-2) Lipase 176 (73-393) U/L Specimen Hemolysis Administered Medications Amiodarone HCl/Dextrose (Nexterone / D5w) 360 mg in 200 mls @ 16.667 mls/hr IV .Q12H [facility] Stop: 05/02/21 17:46 Last Admin: 04/02/21 18:41 Dose: 0.5 mg/min, 16.7 mls/hr Documented by: [id number] Cosigned by: [id number] Insulin Aspart (Insulin Aspart 100 Units/Ml 3 Ml Pen) 0 units SC ACHS [facility] Stop: 05/02/21 16:29 Last Admin: 04/02/21 21:16 Dose: Not Given Documented by: [id number] Admin: 04/02/21 18:38 Dose: Not Given Documented by: [id number] Metoprolol Tartrate (Metoprolol Tartrate 25 Mg Tab) 25 mg PO BID [facility] Stop: 05/02/21 20:59 Last Admin: 04/02/21 21:23 Dose: 25 mg Documented by: [id number] Admin: 04/02/21 21:18 Dose: 25 mg Documented by: [id number] Nitroglycerin (Nitroglycerin Sl 0.4 Mg/Tab Tab) 0.4 mg SL PRN PRN PRN Reason: Chest Pain Stop: 05/02/21 16:40 Last Admin: 04/02/21 16:35 Dose: 0.4 mg Documented by: [id number] Discontinued Medications Aspirin (Aspirin Chew 324 Mg) 324 mg PO NOW STA Stop: 04/02/21 13:25 Last Admin: 04/02/21 13:39 Dose: Not Given Documented by: [id number] Clopidogrel Bisulfate (Clopidogrel Bisulfate 300 Mg Tab) Confirm Administered Dose 600 mg .ROUTE .STK-MED ONE Stop: 04/02/21 19:01 Last Admin: 04/02/21 21:23 Dose: Not Given Documented by: [id number] Fentanyl Citrate (Fentanyl Citrate 100 Mcg/2 Ml Vial) Confirm Administered Dose 100 mcg .ROUTE .STK-MED ONE Stop: 04/02/21 17:08 Last Admin: 04/02/21 18:53 Dose: 100 mcg Documented by: [id number] Heparin Sodium (Porcine) (Heparin Sod (Porcine) 1000 Unit/Ml) 4,000 units IV NOW ONE Stop: 04/02/21 12:31 Last Admin: 04/02/21 12:25 Dose: 4,000 units Documented by: [id number] Cosigned by: [id number] Heparin Sodium (Porcine) (Heparin (Porcine) 1000 Unit/Ml 10 Ml (Director Of Marketing Operations Use Only)) Confirm Administered Dose 10,000 units .ROUTE .STK-MED ONE Stop: 04/02/21 17:08 Last Admin: 04/02/21 18:53 Dose: 10,000 units Documented by: [id number] Heparin Sodium (Porcine) (Heparin (Porcine) 1000 Unit/Ml 10 Ml (Director Of Marketing Operations Use Only)) Confirm Administered Dose 10,000 units .ROUTE .STK-MED ONE Stop: 04/02/21 18:38 Last Admin: 04/02/21 18:54 Dose: 2,000 units Documented by: [id number] Heparin Sodium/Dextrose (Heparin Iv Adult Wt-Based Low-Dose With Bolus Protocol) 1 ea N/A NOW STA; Protocol Stop: 04/02/21 12:07 Last Admin: 04/02/21 12:27 Dose: Not Given Documented by: [id number] Amiodarone HCl/Dextrose (Nexterone / D5w) 360 mg in 200 mls @ 33.333 mls/hr IV ONE ONE; Protocol Stop: 04/02/21 17:47 Last Infusion: 04/02/21 18:42 Dose: 0 mg/min, 0 mls/hr Documented by: [id number] Cosigned by: [id number] Admin: 04/02/21 12:08 Dose: 1 mg/min, 33.3 mls/hr Documented by: [id number] Cosigned by: [id number] Sodium Chloride (Nss) 500 mls @ 999 mls/hr IV .Q31M ONE Stop: 04/02/21 12:22 Last Infusion: 04/02/21 12:38 Dose: 0 mls/hr Documented by: [id number] Admin: 04/02/21 12:07 Dose: 999 mls/hr Documented by: [id number] Heparin Sodium/Dextrose (Heparin Sodium/Dextrose) 25,000 units in 500 mls @ 20 mls/hr IV .Q24H SAM; Protocol Stop: 05/02/21 12:29 Last Titration: 04/02/21 17:15 Dose: 0 units/hr, 0 mls/hr Documented by: [id number] Cosigned by: [id number] Admin: 04/02/21 12:24 Dose: 1,000 units/hr, 20 mls/hr Documented by: [id number] Cosigned by: [id number] Sodium Chloride (Nss) 500 mls @ 999 mls/hr IV .Q31M ONE Stop: 04/02/21 12:55 Last Infusion: 04/02/21 13:10 Dose: 0 mls/hr Documented by: [id number] Admin: 04/02/21 12:39 Dose: 999 mls/hr Documented by: [id number] Magnesium Sulfate/Dextrose (Magnesium Sulfate / D5w) 1 gm in 100 mls @ 50 mls/hr IV Q2H SAM Stop: 04/02/21 16:59 Last Infusion: 04/02/21 18:42 Dose: 0 mls/hr Documented by: [id number] Admin: 04/02/21 16:31 Dose: 50 mls/hr Documented by: [id number] Infusion: 04/02/21 15:28 Dose: 0 mls/hr Documented by: [id number] Admin: 04/02/21 12:52 Dose: 50 mls/hr Documented by: [id number] Midazolam HCl (Midazolam Hcl 1 Mg/Ml 2ml Vial) Confirm Administered Dose 2 mg .ROUTE .STK-MED ONE Stop: 04/02/21 17:08 Last Admin: 04/02/21 18:54 Dose: 2 mg Documented by: [id number] Midazolam HCl (Midazolam Hcl 1 Mg/Ml 2ml Vial) Confirm Administered Dose 2 mg .ROUTE .STK-MED ONE Stop: 04/02/21 18:09 Last Admin: 04/02/21 18:54 Dose: 1 mg Documented by: [id number] Nicardipine HCl (Nicardipine Hcl Inj 2.5 Mg/Ml 10 Ml Amp) Confirm Administered Dose 25 mg .ROUTE .STK-MED ONE Stop: 04/02/21 17:08 Last Admin: 04/02/21 18:54 Dose: 25 mg Documented by: [id number] Nitroglycerin (Nitroglycerin Sl 0.4 Mg/Tab Tab) Confirm Administered Dose 0.4 mg .ROUTE .STK-MED ONE Stop: 04/02/21 16:30 Last Admin: 04/02/21 16:30 Dose: 0.4 mg Documented by: [id number] Nitroglycerin/Dextrose (Nitroglycerin/D5w 100mcg/Ml 20ml Syr) Confirm Adminis tered Dose 2,000 mcg .ROUTE .ST[employer]ets-MED ONE Stop: 04/02/21 17:08 Last Admin: 04/02/21 18:55 Dose: 2,000 mcg Documented by: [id number] Imaging Data Radiologist's Impression: Chest X-Ray 04/02/21 11:47 XR chest 1V portable HISTORY: 80 years-old Male Chest Pain acute atypical chest pain COMPARISON: Chest radiograph 11/06/2016, 12/19/2017 TECHNIQUE: Portable AP view of the chest FINDINGS: Cardiac silhouette is enlarged. Mild blunting of the costophrenic angles without large pleural effusion. No pneumothorax. Mild bibasilar densities. Hypoinflation with mediastinal widening. Degenerative changes of the shoulders and spine. IMPRESSION: 1. Cardiomegaly without pulmonary edema. 2. Mild bibasilar atelectasis. ACT 112: Negative or not required by law. The above report was generated using voice recognition software. It may contain grammatical, syntax or spelling errors. Electronically signed by: Cruz Lebron M.D. 04/02/2021 12:09 PM Discharge Plan Visit Data Chief Complaint: Cardiac Assessment ED Provider: Tom Guadarrama Discharge Problem: Ventricular tachycardia, Elevated troponin, CKD (chronic kidney disease) Patient Disposition: Admitted As Inpatient Discharge Instructions Interventions: ED Discharge Assessment Last Done: 04/02/21 14:45 Discharge Problem: CKD (chronic kidney disease) Qualifiers: Chronic kidney disease stage: unspecified stage Qualified Code(s): N18.9 - Chronic kidney disease, unspecified
[2021-04-02] MEDS ORDERED: Heparin IV Adult Wt-Based Low-Dose WITH Bolus Protocol STA (12:06)
--- NOTE | 2021-04-02 12:10 | XRay Report ---
XR chest 1V portable HISTORY: 80 years-old Male Chest Pain acute atypical chest pain COMPARISON: Chest radiograph 11/06/2016, 12/19/2017 TECHNIQUE: Portable AP view of the chest FINDINGS: Cardiac silhouette is enlarged. Mild blunting of the costophrenic angles without large pleural effusi on. No pneumothorax. Mild bibasilar densities. Hypoinflation with mediastinal widening. Degenerative changes of the shoulders and spine. IMPRESSION: 1. Cardiomegaly without pulmonary edema. 2. Mild bibasilar atelectasis. ACT 112: Negative or not required by law. The above report was generated using voice recognition software. It may contain grammatical, syntax o r spelling errors. Electronically signed by: Cruz Lebron M.D. 04/02/2021 12:09 PM
[2021-04-02] MEDS ORDERED: HEPARIN SOD (PORCINE) 1000 UNIT/ML IV ONE ×2 (12:21→12:30)
[2021-04-02 12:23] LABS: Basophils # (auto) 0.01 K/uL (0-0.2); Basophils % (auto) 0.2 %; Eosinophils # (auto) 0.11 K/uL (0-0.5); Eosinophils % (auto) 1.7 %; Hematocrit (blood only) 46.7 % (42-52); Hemoglobin 15.3 g/dL (14.0-18.0); Immature Granulocytes # (auto) 0.01 K/uL (0.00-0.02); Immature Granulocytes % (auto) 0.2 %; Lymphocytes # (auto) 1.41 K/uL (1.2-3.4); Lymphocytes % (auto) 22.3 %; Mean Corpuscular Hgb Conc 32.8 g/dL (32-36); Mean Corpuscular Volume 85.4 fL (80-100); Mean Platelet Volume 10.1 fL (7.4-10.4); Monocytes # (auto) 0.45 K/uL (0.11-0.59); Monocytes % (auto) 7.1 %; Neutrophils # (auto) 4.33 K/uL (1.4-6.5); Neutrophils % (auto) 68.5 %; Platelet Count 162 K/uL (130-400); RDW Coefficient of Variation 15.8 % (11.5-14.5); RDW Standard Deviation 49.4 fL (36.4-46.3); Red Blood Count 5.47 M/uL (4.7-6.1); White Blood Count 6.32 K/uL (4.8-10.8)
[2021-04-02] MEDS ORDERED: HEPARIN SODIUM/DEXTROSE 25,000 UNITS/500 ML BAG IV SCH (12:30)
[2021-04-02 12:31] LABS: Albumin Level 3.6 gm/dl (3.4-5.0); BUN Creatinine Ratio 12.6 (10-20); Creatinine Clr Calc Pharmacy 37.8 ml/min; Est GFR (African American) 40.8 ml/min; Est GFR (Non-African American) 35.2 ml/min; Magnesium 1.8 mg/dl (1.8-2.4); Potassium 4.1 mmol/L (3.5-5.1)
[2021-04-02 12:38] LABS: Partial Thromboplastin Ratio 0.9
[2021-04-02 12:39] LABS: Albumin Globulin Ratio 1.2 (0.9-2); Bilirubin,Total 0.8 mg/dl (0.2-1); Phosphorus 3.2 mg/dl (2.5-4.9); Total Protein 6.6 gm/dl (6.4-8.2); Troponin I 0.089 ng/ml (0-0.045)
[2021-04-02] MEDS: MAGNESIUM SULFATE / D5W 1 GM/100 ML BAG IV SCH ×2 (12:52→16:31)
--- NOTE | 2021-04-02 13:07 | History & Physical Report ---
Date of Service April 02, 2021 Assessment & Plan (1) Ventricular tachycardia: Plan: Episode of ventricular tachycardia converted in the field by paramedics. Patient continues on amiodarone drip. Will be continued on IV heparin. We will trend troponins although likely expect him to be high given cardioversion. Reportedly the patient did not have CPR. Echocardiogram and cardiology consultation will be undertaken (2) Hypertension: Plan: Patient typically is on lisinopril for likely hypertension renal protective effects of diabetes. Blood pressure slightly low at this time. Discussion of institution of beta-blockers has been prevented by blood pressure. Left to decide what is the better agent whether AKIRA inhibitor for his diabetic nephropathy prevention versus beta-theodora would be beneficial in this patient. (3) Diabetes: Plan: Patient typically on Metformin, glipizide and Jardiance. Metformin Jardiance glipizide are held at this time given the consideration if catheterization will be required with diet contrast influence of the Metformin. Will employ basal bolus insulin until we have better understanding of his clinical course (4) Prostate CA: Plan: Treatment recovered from history of prostate carcinoma currently without lower urinary tract symptoms (5) Hypercholesterolemia: Plan: Patient remains on atorvastatin 40 (6) Sleep apnea: Plan: presents. Fairly convincing course of sleep apnea. Once his V. tach issues are settled nocturnal oximetry and referral for outpatient polysomnograph y testing will be undertaken (7) DVT prophylaxis: Plan: Heparin drip is consider DVT prevention at this time Patient is a full code History of Present Illness Primary Care Provider: [facility] 80-year-old male who has a history of heart failure preserved ejection fraction follows Dr. Irene who was in his normal state of health when he was going to the [employer] he began feeling indigestion. Reportedly he felt in the just the beginning at 10 AM. The patient felt poorly and when walking into the game he happened to ask a laborer hoisting for some Tums. The laborer hoisting looked at him he had looked unusual to her she asked if he could be evaluated. When he was evaluated he was found to have low blood pressure and eventually found to have V. tach although he was awake. He was cardioverted to sinus rhythm and brought to our facility. In our facility consultation with cardiology recommended heparin drip amiodarone drip admission for further evaluation. Discussion for acute catheterization was had and felt not to be needed in this situation. Being to the patient is significant signs and symptoms of sleep apnea she says she is counted up to 20 seconds where he has a repeat night. He snores colton te a bit. And he has significant diaphoresis at night. Despite that he has had no change in exercise tolerance chest pain doing his normal activities of daily living increasing weight or edema orthopnea. Currently patient is in sinus rhythm his EKG does have some subtle changes with regards to T wave inversions and his other QRS complex has slightly different morphology than his baseline that we see from October. Allergies Allergy/AdvReac Type Severity Reaction Status Date / Time No Known Drug Allergies Allergy Verified 07/15/20 10:04 Home Medications Medication Instructions Recorded Confirmed Type atorvastatin 40 mg tablet 40 mg PO DAILY #30 tab 04/08/19 07/15/20 History glipizide 5 mg tablet 5 mg PO BID tab 04/08/19 07/15/20 History latanoprost 0.005 % eye drops 1 drops OP DAILY PRN ml 04/08/19 07/15/20 History lisinopril 5 mg tablet 5 mg PO DAILY #30 tab 04/08/19 07/15/20 History metformin 500 mg tablet 1,000 mg PO .COMPLEX tab 07/07/19 07/15/20 History canagliflozin 100 mg tablet 100 mg PO DAILY 07/15/20 07/15/20 History sulfamethoxazole 400 1 tab PO BID 7 Days #14 tab 12/13/20 Rx mg-trimethoprim 80 mg tablet (Bactrim) Past Med/Surg History Medical History (Updated 04/02/21 @ 13:07 by Geoffrey Garcia MD) Cardiomyopathy Cataract Diabetes Diastolic dysfunction Hernia Hypercholesterolemia Hypertension Surgical History H/O prostatectomy History of kidney surgery Family History Father Cardiac disorder Mother Brain cancer Social History Smoking Status: Former smoker Tobacco Type: Cigarettes Hx Alcohol Use: Yes Preferred Language: Czech marital status: current occupational status: retired Feels Safe at Home: Yes Review of Systems Review of Systems: No current distress today had indigestion diaphoresis and fatigue while walking into the stadium no headache, no visual changes no speech or swallowing issues no chest pain, pressure or sensation of palpitations when he was in V. tach Resolution of previous shortness of breath, has had no cough or wheezes no abdominal pain, nausea or vomiting, diarrhea or constipation no dysuria, hematuria or frequency no focal joint pain or swelling no back pain, CVA tenderness or radicular pain no bruising, bleeding or rashes no focal signs of weakness or numbness or altered sensation no complaints of anxiety or depression.. Physical Exam Physical Exam: The patient appeared well nourished and normally developed. Vital signs as documented. Head exam is normocephalic atraumatic Neck is without JVD, thyromegaly, or carotid bruits. Lungs are clear to auscultation, no focal loss of breath sounds Cardiac exam, Rhythm is regular.. No murmurs, rubs or gallops. Abdominal exam reveals normal bowel sounds, soft non tender, no masses Extremities are trace bilateral ankle edema and both pedal pulses are present Neurologic exam is alert and oriented, no focal loss of strength or sensation Skin is without bruises or rashes Psychologically is without concerns for anxiety or depression Results & Data Results & Data ([facility]) Vital Signs (Past 12 Hours) Vital Signs Temp Pulse Resp BP Pulse Ox 04/02/21 12:45 73 18 117/68 100 04/02/21 12:30 76 20 107/68 96 04/02/21 12:15 85 99/67 L 98 04/02/21 12:00 85 24 98/64 L 98 04/02/21 11:45 82 111/65 96 04/02/21 11:37 79 24 109/68 95 04/02/21 11:32 97.7 F 79 24 109/68 95 Diagnostic Findings Chest x-ray 04/02/2021 shows cardiomegaly without pulmonary edema ECG Additional Comments: EKG shows sinus rhythm with T wave inversions perhaps some slight ST depression but not clinically diagnostic PG Care Time/CCT Total # of Minutes Spent Total Time Spent with Patient: Total time spent is greater than 50% in coordination of care (as documented) at patient's floor/unit and/or counseling patient: Coding Level of Care Code 34174 Initial Inpt Care Lvl 3 Diagnoses Ventricular tachycardia I47.2 Hypertension I10 Diabetes E11.9 Prostate CA C61 Hypercholesterolemia E78.00 Sleep apnea G47.30 DVT prophylaxis Z29.9
[2021-04-02] MEDS ORDERED: ASPIRIN CHEW 324 MG PO STA (13:24)
--- NOTE | 2021-04-02 13:37 | Critical Care Consultation ---
Date of Consultation April 02, 2021 Assessment & Plan (1) Ventricular tachycardia: Reason Critically Ill: 80-year-old male with ventricular tachycardia status post cardioversion PLAN: CV: Ventricular tachycardia -Continue amiodarone -Elevated troponins -Continue heparin Fluids/Renal: History of kidney stone Renal insufficiency -Elevated serum creatinine DVT prophylaxis: Heparin infusion Endocrine: ICU hyperglycemia protocol -Elevated blood sugar nonfasting Vascular access: Peripheral IVs Code Status: Full code Disposition: ICU (2) Cardiomyopathy: History of Present Illness Reason for Consultation: Ventricular tachycardia Requesting Physician: Pradip Garcia MD Attending Physician: Pradip Garcia MD History of Present Illness Patient is an 80-year-old male with significant past medical history of left ventricular hypertrophy, cardiomyopathy heart failure with preserved ejection fraction, diastolic dysfunction, kidney stone who presented after being at the [employer] game today. He felt like he had indigestion on his walk to the stadium sat down asked paramedics for Tums and then the next thing he remembers being wheeled into an ambulance. It was reported to him that he was shocked by paramedics. In report the patient had an episode of ventricular tachycardia and hypotension was considered unstable and was proceeded with cardioversion. He has been started on heparin and amiodarone and is being sent to the ICU for further evaluation and management. Allergies Allergy/AdvReac Type Severity Reaction Status Date / Time pollen extracts Allergy Mild Sneezing Unverified 04/02/21 13:10 No Known Drug Allergies Allergy Verified 04/02/21 13:08 Home Medications Medication Instructions Recorded Confirmed Type atorvastatin 40 mg tablet 40 mg PO PM #30 tab 04/08/19 04/02/21 History glipizide 5 mg tablet 5 mg PO BID tab 04/08/19 04/02/21 History latanoprost 0.005 % eye drops 1 drops OP HS ml 04/08/19 04/02/21 History lisinopril 5 mg tablet 5 mg PO QAM #30 tab 04/08/19 04/02/21 History metformin 500 mg tablet 500 - 1,000 mg PO BID tab 07/07/19 04/02/21 History empagliflozin 10 mg tablet 10 mg PO QAM 04/02/21 04/02/21 History (Jardiance) Patient History Medical History Cardiomyopathy Cataract Diabetes Diastolic dysfunction Hernia Hypercholesterolemia Hypertension Surgical History H/O prostatectomy History of kidney surgery Family History Father Cardiac disorder Mother Brain cancer Social History Smoking Status: Former smoker Tobacco Type: Cigarettes Hx Alcohol Use: Yes Preferred Language: Uzbek marital status: current occupational status: retired Feels Safe at Home: Yes Review of Systems Review of Systems: Feels back to baseline, denies chest pain or shortness of breath. Physical Exam Physical Exam: General: Alert. nontoxic. Skin: Warm, dry, Head: Atraumatic Ears, nose, mouth and throat: airway patent Cardiovascular: Normal peripheral perfusion Respiratory: no respiratory distress Gastrointestinal: Non distended Musculoskeletal: No deformity Results & Data Results & Data ([facility]) Vital Signs (Past 12 Hours) Vital Signs Temp Pulse Resp BP Pulse Ox 04/02/21 12:45 73 18 117/68 100 04/02/21 12:30 76 20 107/68 96 04/02/21 12:15 85 99/67 L 98 04/02/21 12:00 85 24 98/64 L 98 04/02/21 11:45 82 111/65 96 04/02/21 11:37 79 24 109/68 95 04/02/21 11:32 36.5 C 79 24 109/68 95 Laboratory Results 04/02/21 04/02/21 04/02/21 Range/Units Unknown Unknown 11:47 WBC (4.8-10.8) K/uL RBC (4.7-6.1) M/uL Hgb (14.0-18.0) g/dL Hct (42-52) % MCV (80-100) fL MCH (25-34) pg MCHC (32-36) g/dL RDW Std Deviation (36.4-46.3) fL RDW Coeff of Marcello (11.5-14.5) % Plt Count (130-400) K/uL MPV (7.4-10.4) fL Immature Gran % (Auto) % Neut % (Auto) % Lymph % (Auto) % [place] % (Auto) % Eos % (Auto) % Baso % (Auto) % Neut # (Auto) (1.4-6.5) K/uL Lymph # (Auto) (1.2-3.4) K/uL [place] # (Auto) (0.11-0.59) K/uL Eos # (Auto) (0-0.5) K/uL Baso # (Auto) (0-0.2) K/uL Immature Gran # (Auto) (0.00-0.02) K/uL APTT (21.0-31.0) Seconds PTT Ratio Sodium 138 (136-145) mmol/L Potassium 4.1 (3.5-5.1) mmol/L Chloride 108 H (98-107) mmol/L Carbon Dioxide 17 L (21-32) mmol/L Anion Gap 13.0 H (3-11) BUN 22 H (7-18) mg/dl Creatinine 1.76 H (0.6-1.4) mg/dl Est Cr Clr Drug Dosing 37.8 ml/min Est GFR ( Amer) 40.8 ml/min Est GFR (Non-Af Amer) 35.2 ml/min BUN/Creatinine Ratio 12.6 (10-20) Glucose 244 H (70-99) mg/dl Calcium 9.0 (8.5-10.1) mg/dl Phosphorus 3.2 (2.5-4.9) mg/dl Magnesium 1.8 (1.8-2.4) mg/dl Total Bilirubin 0.8 (0.2-1) mg/dl AST 35 (15-37) U/L ALT 49 (12-78) U/L Alkaline Phosphatase 89 (45-117) U/L Troponin I 0.089 H* (0-0.045) ng/ml NT-Pro-B Natriuret Pep 1620 (0-1800) pg/ml Total Protein 6.6 (6.4-8.2) gm/dl Albumin 3.6 (3.4-5.0) gm/dl Globulin 3.0 (2.5-4.0) gm/dl Albumin/Globulin Ratio 1.2 (0.9-2) Lipase 176 (73-393) U/L Specimen Hemolysis COVID-19 Eval Order Covid19 at [facility] SARS-CoV-2 (PCR) NEGATIVE (Negative) 04/02/21 04/02/21 Range/Units 11:47 11:47 WBC 6.32 (4.8-10.8) K/uL RBC 5.47 (4.7-6.1) M/uL Hgb 15.3 (14.0-18.0) g/dL Hct 46.7 (42-52) % MCV 85.4 (80-100) fL MCH 28.0 (25-34) pg MCHC 32.8 (32-36) g/dL RDW Std Deviation 49.4 H (36.4-46.3) fL RDW Coeff of Marcello 15.8 H (11.5-14.5) % Plt Count 162 (130-400) K/uL MPV 10.1 (7.4-10.4) fL Immature Gran % (Auto) 0.2 % Neut % (Auto) 68.5 % Lymph % (Auto) 22.3 % [place] % (Auto) 7.1 % Eos % (Auto) 1.7 % Baso % (Auto) 0.2 % Neut # (Auto) 4.33 (1.4-6.5) K/uL Lymph # (Auto) 1.41 (1.2-3.4) K/uL [place] # (Auto) 0.45 (0.11-0.59) K/uL Eos # (Auto) 0.11 (0-0.5) K/uL Baso # (Auto) 0.01 (0-0.2) K/uL Immature Gran # (Auto) 0.01 (0.00-0.02) K/uL APTT 24.0 (21.0-31.0) Seconds PTT Ratio 0.9 Sodium (136-145) mmol/L Potassium (3.5-5.1) mmol/L Chloride (98-107) mmol/L Carbon Dioxide (21-32) mmol/L Anion Gap (3-11) BUN (7-18) mg/dl Creatinine (0.6-1.4) mg/dl Est Cr Clr Drug Dosing ml/min Est GFR ( Amer) ml/min Est GFR (Non-Af Amer) ml/min BUN/Creatinine Ratio (10-20) Glucose (70-99) mg/dl Calcium (8.5-10.1) mg/dl Phosphorus (2.5-4.9) mg/dl Magnesium (1.8-2.4) mg/dl Total Bilirubin (0.2-1) mg/dl AST (15-37) U/L ALT (12-78) U/L Alkaline Phosphatase (45-117) U/L Troponin I (0-0.045) ng/ml NT-Pro-B Natriuret Pep (0-1800) pg/ml Total Protein (6.4-8.2) gm/dl Albumin (3.4-5.0) gm/dl Globulin (2.5-4.0) gm/dl Albumin/Globulin Ratio (0.9-2) Lipase (73-393) U/L Specimen Hemolysis COVID-19 Eval Order SARS-CoV-2 (PCR) (Negative) Coding Level of Care Code 79944 Inpt Consult Level 4 Diagnoses Ventricular tachycardia I47.2 Cardiomyopathy I42.9
[2021-04-02] MEDS ORDERED: ICU PROTOCOL FOR HYPERGLYCEMIA PRN (15:08)
[2021-04-02] MEDS ORDERED: PHARMACY GLYCEMIC MGMT CONSULT PRN (15:08)
[2021-04-02] MEDS ORDERED: CARBOHYDRATES FOR HYPOGLYCEMIA PO PRN (15:08)
[2021-04-02] MEDS ORDERED: GLUCOSE 40% GEL 15 GM TUBE PO PRN (15:08)
[2021-04-02] MEDS ORDERED: DEXTROSE 50% 50 ML SYRINGE IV PRN (15:08)
[2021-04-02] MEDS ORDERED: LATANOPROST 0.005% OP SOLN 2.5 ML BTL OP PRN (15:08)
[2021-04-02] MEDS ORDERED: GLUCOSE 10 TABS/TUBE PO PRN (15:08)
[2021-04-02] MEDS ORDERED: GLUCAGON FOR INJ 1 MG VIAL SQ PRN (15:08)
--- NOTE | 2021-04-02 16:14 | Cardiology Consultation ---
Date of Consultation April 02, 2021 Assessment & Plan (1) Wide-complex tachycardia: (2) Non-ST elevation (NSTEMI) myocardial infarction: (3) Cardiomyopathy: (4) Hypertension: (5) Hypercholesterolemia: ASSESSMENT/PLAN: 1. NSTEMI: Presentation concerning for acute coronary syndrome/NSTEMI as the cause of his arrhythmia and symptoms. We discussed cardiac catheterization but it was not urgently indicated as he was chest pain-free and back to baseline when seen in the emergency department. Risks and benefits of the cardiac catheterization were discussed with him in detail. We discussed if symptoms should return, urgent cardiac catheterization may be warranted. Continue as pirin 81 mg daily. Continue heparin drip. recommend beta-theodora. Can continue lisinopril. High-intensity statin therapy. 2. Wide complex tachycardia: May represent ventricular tachycardia versus SVT with aberrancy. Was in sinus rhythm in the emergency department. Although this could cause his anginal symptoms, concerned that ischemia caused the arrhythmia. Can continue amiodarone drip for now. Initiate beta-theodora. 3. Cardiomyopathy: Chronic issue. LV systolic function appears moderately to severely reduced on current echo. He did not appear to be significantly hypervolemic. Has edema which apparently is chronic and stable per his . Consider Entresto in place of lisinopril. Recommend metoprolol succinate. Consideration for ICD at some point. 4. Hypertension: Blood pressure well controlled. Plan as above. 5. Dyslipidemia: High-intensity statin therapy. Disposition: Plan of care communicated with Dr. Garcia and Dr. calderon of the hospitalist service and emergency department. Cardiology will continue to follow. Recommended ICU care. Addendum: Was notified by nursing staff that he had recurrent chest discomfort, similar to presentation. He remained in sinus rhythm but was having PVCs per nursing report. ECG was transmitted and reviewed. T-wave inversions anteriorly. No diagnostic ST elevation. Nitroglycerin was recommended with only slight improvement but continued pain. A second nitroglycerin dose was recommended. Contacted Dr. Sanz of interventional Cardiology given recurrent symptoms, in the setting of elevated troponins, and presenting with wide complex tachycardia. Recommended urgent cardiac catheterization. He was agreeable. Heart alert called to notify the appropriate team members. Dr. Garcia was contacted and updated plan was communicated with him. Patient's was contacted via telephone to make her aware of urgent cardiac catheterization. 65 minutes of critical care time spent, including counseling patient and his , coordinating care, discussing with multiple providers, and managing his recurrent symptoms. Thank you for allowing me to participate in the care of your patient. Please call for any other questions or concerns. Sincerely, Ike Santamaria M.D. History of Present Illness Reason for Consultation: wide complex tachycardia Requesting Physician: Dr. Calderon in ED and Dr. Garcia of admitting team Attending Physician: Geoffrey Garcia MD History of Present Illness Mr. Arteaga is a pleasant 80-year-old gentleman with a history significant for cardiomyopathy, type 2 diabetes, dyslipidemia, hypertension, prostate cancer, renal cancer s/p right nephrectomy, CKD, and lymphoma s/p chemotherapy. Primary planning consultant is Dr. Irene. He presented to the emergency department this morning on 04/02/2021 after presenting with wide complex tachycardia to paramedics at the [facility]. While driving to the stadium, at approximately 9:45 a.m., he felt indigestion and a soreness in the substernal chest area. He was diaphoretic and his stated that he was mouth breathing. He denies actual shortness of breath however. He believes it to be indigestion and while walking to the stadium, asked via retail merchandiser technician for times. The retail merchandiser technician recognize that he did not look well and eventually found him to be in a wide complex tachycardia. He was cardioverted by paramedics pre hospital and started on an amiodarone drip after 150 mg bolus. He also received aspirin. His believes that he was shocked twice however per report from emergency department, he was cardioverted once. While in wide complex tachycardia, he was hypotensive with systolic blood pressure in the 60s. When he arrived to the emergency department, he no longer had chest discomfort. When I presented to the bedside, he continued to feel well and stated that he was back to baseline. He acknowledges that he had similar chest discomfort approximately 2 months ago while in bed but it eventually resolved after taking Tums in 30-60 minutes. He has chronic lower extremity swelling, with the left being larger than the right. His believes he is at his baseline. He denies shortness of breath in general and currently. He denies syncope, near-syncope, palpitations, melena, hematochezia, hematuria, or other bleeding. He was nauseated while in the ambulance but did not vomit. He rides a recumbent bicycle occasionally, the last being 1 week ago for 1 mi and had no exertional symptoms. He exercised for 20 minutes. When contacted by Dr. Calderon of the emergency department, it was recommended that he be placed on a heparin drip if no contraindication for concern of acute coronary syndrome. It was also recommended that he continue amiodarone drip. Review of systems: As above. Review of systems otherwise negative/unremarkable. Family history: Father had CHF. Both grandfathers had CAD. Social history: Quit smoking in 1984. Rare alcohol. Lives at home with his . They have 1 son in [place]. Grandchildren. He worked in [employer]. His was present at the bedside in the emergency department. Allergies Allergy/AdvReac Type Severity Reaction Status Date / Time pollen extracts Allergy Mild Sneezing Unverified 04/02/21 13:10 No Known Drug Allergies Allergy Verified 04/02/21 13:08 Home Medications Medication Instructions Recorded Confirmed Type atorvastatin 40 mg tablet 40 mg PO PM #30 tab 04/08/19 04/02/21 History glipizide 5 mg tablet 5 mg PO BID tab 04/08/19 04/02/21 History latanoprost 0.005 % eye drops 1 drops OP HS ml 04/08/19 04/02/21 History lisinopril 5 mg tablet 5 mg PO QAM #30 tab 04/08/19 04/02/21 History metformin 500 mg tablet 500 - 1,000 mg PO BID tab 07/07/19 04/02/21 History empagliflozin 10 mg tablet 10 mg PO QAM 04/02/21 04/02/21 History (Jardiance) Patient History Medical History (Updated 04/02/21 @ 17:42 by Huey Santamaria MD) Cardiomyopathy Cataract CKD (chronic kidney disease) Diabetes Diastolic dysfunction Hernia Hypercholesterolemia Hypertension Kidney carcinoma Lymphoma Prostate CA Surgical History H/O prostatectomy History of kidney surgery Family History Father Cardiac disorder Mother Brain cancer Social History Smoking Status: Former smoker Tobacco Type: Cigarettes Hx Alcohol Use: Yes Preferred Language: Divehi marital status: current occupational status: retired Feels Safe at Home: Yes Physical Exam Physical Exam: Gen.: No acute distress. Alert and oriented. HEENT: Anicteric sclera. Neck: No Appreciable JVD. No bruits. Normal carotid upstrokes bilaterally. Cardiac: PMI was nonpalpable . No ventricular heave. Regular. Normal S1-S2. No murmurs, rubs, or gallops. Pulmonary: Clear to auscultation bilaterally without wheezes, rales, or rhonchi. Abdomen: Soft, nontender, nondistended, with normoactive bowel sounds. No bruits noted. Extremities: 2+ radial pulses bilaterally. 2+ posterior tibialis pulses bilaterally. Left lower extremity larger than the right (apparently chronic). 1 to 2+ left lower extremity edema. 1+ right lower extremity edema. No cyanosis. Psychiatric: Affect appears appropriate. Results & Data ([facility]) Vital Signs (Past 12 Hours) Vital Signs Temp Pulse Resp BP Pulse Ox 04/02/21 14:45 36.8 C 70 19 127/74 98 04/02/21 14:30 70 19 127/74 98 04/02/21 14:15 76 18 124/68 99 04/02/21 14:00 70 20 127/70 100 04/02/21 13:45 63 18 132/71 100 04/02/21 13:30 68 122/68 99 04/02/21 13:15 63 124/65 100 04/02/21 13:00 69 109/71 100 04/02/21 12:45 73 18 117/68 100 04/02/21 12:30 76 20 107/68 96 04/02/21 12:15 85 99/67 L 98 04/02/21 12:00 85 24 98/64 L 98 04/02/21 11:45 82 111/65 96 04/02/21 11:37 79 24 109/68 95 04/02/21 11:32 36.5 C 79 24 109/68 95 Laboratory Results Laboratory Results - last 24 hr 04/02/21 04/02/21 04/02/21 11:47 11:47 11:47 WBC 6.32 RBC 5.47 Hgb 15.3 Hct 46.7 MCV 85.4 MCH 28.0 MCHC 32.8 RDW Std Deviation 49.4 H RDW Coeff of Marcello 15.8 H Plt Count 162 MPV 10.1 Immature Gran % (Auto) 0.2 Neut % (Auto) 68.5 Lymph % (Auto) 22.3 Clarke % (Auto) 7.1 Eos % (Auto) 1.7 Baso % (Auto) 0.2 Neut # (Auto) 4.33 Lymph # (Auto) 1.41 Clarke # (Auto) 0.45 Eos # (Auto) 0.11 Baso # (Auto) 0.01 Immature Gran # (Auto) 0.01 APTT 24.0 PTT Ratio 0.9 Sodium 138 Potassium 4.1 Chloride 108 H Carbon Dioxide 17 L Anion Gap 13.0 H BUN 22 H Creatinine 1.76 H Est Cr Clr Drug Dosing 37.8 Est GFR ( Amer) 40.8 Est GFR (Non-Af Amer) 35.2 BUN/Creatinine Ratio 12.6 Glucose 244 H Calcium 9.0 Phosphorus 3.2 Magnesium 1.8 Total Bilirubin 0.8 AST 35 ALT 49 Alkaline Phosphatase 89 Troponin I 0.089 H* NT-Pro-B Natriuret Pep 1620 Total Protein 6.6 Albumin 3.6 Globulin 3.0 Albumin/Globulin Ratio 1.2 Lipase 176 Specimen Hemolysis COVID-19 Eval Order SARS-CoV-2 (PCR) 04/02/21 04/02/21 04/02/21 15:26 Unknown Unknown WBC RBC Hgb Hct MCV MCH MCHC RDW Std Deviation RDW Coeff of Marcello Plt Count MPV Immature Gran % (Auto) Neut % (Auto) Lymph % (Auto) Clarke % (Auto) Eos % (Auto) Baso % (Auto) Neut # (Auto) Lymph # (Auto) Clarke # (Auto) Eos # (Auto) Baso # (Auto) Immature Gran # (Auto) APTT PTT Ratio Sodium Potassium Chloride Carbon Dioxide Anion Gap BUN Creatinine Est Cr Clr Drug Dosing Est GFR ( Amer) Est GFR (Non-Af Amer) BUN/Creatinine Ratio Glucose Calcium Phosphorus Magnesium Total Bilirubin AST ALT Alkaline Phosphatase Troponin I Pending NT-Pro-B Natriuret Pep Total Protein Albumin Globulin Albumin/Globulin Ratio Lipase Specimen Hemolysis COVID-19 Eval Order Covid19 at [facility] SARS-CoV-2 (PCR) NEGATIVE Diagnostic Findings ECG personally reviewed 04/02/2021 at 11:30 a.m.: Sinus rhythm with PVC. IVCB. Anteroseptal T-wave inversion. Pre-hospital ECG: Wide complex tachycardia 195 bpm. Possible VT versus SVT with aberrancy. Echo 04/02/2021: LV EF 30-35%. Global hypokinesis with dyskinetic apex. No significant valvular abnormalities. RVSP 27. Chest x-ray 04/02/2021: No pulmonary edema. Mild bibasilar atelectasis per Radiology. Medications Administered Current Inpatient Medications Aspirin (Aspirin 81 Mg Ectab) 81 mg PO DAILY SAM Stop: 05/03/21 08:59 Atorvastatin Calcium (Atorvastatin 40 Mg Tab) 40 mg PO DAILY SAM Stop: 05/03/21 08:59 Dextrose (Dextrose 50% 50 Ml Syringe) 25 - 50 ml IV UD PRN; Protocol PRN Reason: Hypoglycemia Protocol Stop: 05/02/21 15:07 Glucagon (Glucagon For Inj 1 Mg Vial) 1 mg SQ UD PRN; Protocol PRN Reason: Hypoglycemia Protocol Stop: 05/02/21 15:07 Glucose (Glucose 10 Tabs/Tube) 4 - 8 tabs PO UD PRN; Protocol PRN Reason: Hypoglycemia Protocol Stop: 05/02/21 15:07 Glucose (Glucose 40% Gel 15 Gm Tube) 15 - 30 gm PO UD PRN; Protocol PRN Reason: Hypoglycemia Protocol Stop: 05/02/21 15:07 Amiodarone HCl/Dextrose (Nexterone / D5w) 360 mg in 200 mls @ 33.333 mls/hr IV ONE ONE; Protocol Stop: 04/02/21 17:47 Last Admin: 04/02/21 12:08 Dose: 1 mg/min, 33.3 mls/hr Documented by: Heparin Sodium/Dextrose (Heparin Sodium/Dextrose) 25,000 units in 500 mls @ 20 mls/hr IV .Q24H SAM; Protocol Stop: 05/02/21 12:29 Last Admin: 04/02/21 12:24 Dose: 1,000 units/hr, 20 mls/hr Documented by: Magnesium Sulfate/Dextrose (Magnesium Sulfate / D5w) 1 gm in 100 mls @ 50 mls/hr IV Q2H SAM Stop: 04/02/21 16:59 Last Infusion: 04/02/21 15:28 Dose: Infused Documented by: N/A (0.2 Micron Filter Set 17" W/Clave,Non-Dehp) 0 mls @ 1 mls/hr IV ONE ONE Stop: 04/02/21 17:48 Amiodarone HCl/Dextrose (Nexterone / D5w) 360 mg in 200 mls @ 16.667 mls/hr IV .Q12H SAM Stop: 05/02/21 17:46 Insulin Aspart (Insulin Aspart 100 Units/Ml 3 Ml Pen) 0 units SC ACHS SAM Stop: 05/02/21 16:29 Latanoprost (Latanoprost 0.005% Op Soln 2.5 Ml Btl) 1 drops OP DAILY PRN PRN Reason: dry eyes Stop: 05/02/21 15:07 Lisinopril (Lisinopril 5 Mg Tab) 5 mg PO DAILY SAM Stop: 05/03/21 08:59 Miscellaneous (Carbohydrates For Hypoglycemia ) 15 - 30 gm PO UD PRN PRN Reason: Hypoglycemia Protocol Stop: 05/02/21 15:07 Miscellaneous Information (Pharmacy Glycemic Mgmt Consult) 1 ea N/A UD PRN; Protocol PRN Reason: Consult Stop: 05/02/21 15:07 PG Care Time/CCT Total # of Minutes Spent Total Time Spent with Patient: Total time spent is greater than 50% in coordination of care (as documented) at patient's floor/unit and/or counseling patient: Critical Care Time: Yes Total Critical Care Time: 65 Coding Level of Care Code None Diagnoses Wide-complex tachycardia I47.2 Non-ST elevation (NSTEMI) myocardial infarction I21.4 Cardiomyopathy I42.9 Hypertension I10 Hypercholesterolemia E78.00 Additional Codes Critical Care Time - Critical Care Time: Yes ([id number]) Time Spent (min) 65 Comment Critical Care Time - Critical Care Time: Yes ([id number])
[2021-04-02] MEDS ORDERED: NITROGLYCERIN SL 0.4 MG/TAB TAB ONE (16:29)
[2021-04-02] MEDS ORDERED: NITROGLYCERIN SL 0.4 MG/TAB TAB SL PRN (16:41)
[2021-04-02] MEDS ORDERED: niCARdipine HCL INJ 2.5 MG/ML 10 ML AMP ONE (17:07)
[2021-04-02] MEDS ORDERED: fentaNYL citrate 100 MCG/2 ML VIAL ONE (17:07)
[2021-04-02] MEDS ORDERED: HEPARIN (PORCINE) 1000 UNIT/ML 10 ML (CATH LAB USE ONLY) ONE ×2 (17:07→18:37)
[2021-04-02] MEDS ORDERED: MIDAZOLAM HCL 1 MG/ML 2ML VIAL ONE ×2 (17:07→18:08)
[2021-04-02] MEDS ORDERED: NITROGLYCERIN/D5W 100MCG/ML 20ML SYR ONE (17:07)
--- NOTE | 2021-04-02 17:21 | Pre Anesthesia Assessment ---
Date of Service April 02, 2021 Pre Sedation Assessment Vital Signs Temp Pulse Resp BP Pulse Ox 04/02/21 16:34 67 19 115/71 96 04/02/21 15:30 69 25 H 99 04/02/21 15:04 71 18 04/02/21 14:45 98.2 F 70 19 127/74 98 04/02/21 14:30 70 19 127/74 98 04/02/21 14:15 76 18 124/68 99 04/02/21 14:00 70 20 127/70 100 04/02/21 13:45 63 18 132/71 100 04/02/21 13:30 68 122/68 99 04/02/21 13:15 63 124/65 100 04/02/21 13:00 69 109/71 100 04/02/21 12:45 73 18 117/68 100 04/02/21 12:30 76 20 107/68 96 04/02/21 12:15 85 99/67 L 98 04/02/21 12:00 85 24 98/64 L 98 04/02/21 11:45 82 111/65 96 04/02/21 11:37 79 24 109/68 95 04/02/21 11:32 97.7 F 79 24 109/68 95 Cardiovascular RRR, no murmur, no edema Respiratory normal respiratory effort, lungs clear to auscultation Pre-Sedation Airway Assessment Smoking Status: Former smoker Hx Sleep Apnea: No Hx Difficult Intubation: No Short, Thick Neck: No Thyromental Distance: > or= 3.5 Finger Breadths Oral Cavity: + WNL Mallampati Class: III ASA: ASA4 Procedure Planning Contraindications for Sedation: none Current Medications Reviewed: Yes Notes The planned sedation has been discussed with the patient. Informed Consent was obtained. I have identified the patient, determined the appropriateness of sedation and have assessed the patient immediately prior to the procedure. All medicine(s) and interventions are by my order.
--- NOTE | 2021-04-02 17:30 | XCELERA ---
[id number]
[2021-04-02] MEDS: SODIUM CHLORIDE 0.9% 1000ML 1,000 ML IV SCH (18:00)
[2021-04-02] MEDS: INSULIN ASPART 100 UNITS/ML 3 ML PEN SC SCH ×2 (18:38→21:16)
[2021-04-02] MEDS: AMIODARONE / D5W 360 MG/200 ML BAG IV SCH (18:41)
[2021-04-02] MEDS ORDERED: CLOPIDOGREL BISULFATE 300 MG TAB ONE (19:00)
--- NOTE | 2021-04-02 19:08 | Post Anesthesia Assessment ---
Date of Service April 02, 2021 Post Sedation Assessment Vital Signs Temp Pulse Resp BP Pulse Ox 04/02/21 17:09 62 18 111/89 100 04/02/21 16:34 67 19 115/71 96 04/02/21 15:30 69 25 H 99 04/02/21 15:04 71 18 04/02/21 14:45 98.2 F 70 19 127/74 98 04/02/21 14:30 70 19 127/74 98 04/02/21 14:15 76 18 124/68 99 04/02/21 14:00 70 20 127/70 100 04/02/21 13:45 63 18 132/71 100 04/02/21 13:30 68 122/68 99 04/02/21 13:15 63 124/65 100 04/02/21 13:00 69 109/71 100 04/02/21 12:45 73 18 117/68 100 04/02/21 12:30 76 20 107/68 96 04/02/21 12:15 85 99/67 L 98 04/02/21 12:00 85 24 98/64 L 98 04/02/21 11:45 82 111/65 96 04/02/21 11:37 79 24 109/68 95 04/02/21 11:32 97.7 F 79 24 109/68 95 Recovery Score Activity: Moves 4 extremities Respiration: Deep Breath/Cough Circulation: +/-20% PreAnes Value Consciousness: Fully Awake Oxygen Saturation: O2 needed for >90% Discharge Sedation Level of Care: Fast Track Phase II Post Sedation Plan On clinical assessment, the patient appears to have tolerated the sedation without complications. Patient is recovering as anticipated. Patient will continue to be monitored by nursing and may be discharged when sedation discharge criteria are met per below protocol. Upon Completions of procedure up to 15 minutes continue every 5 minute vital signs and the P.A.R. score; then discharge to a Phase I or Fast Track to Phase II per the following guidelines: * Discharge Patient to appropriate Phase II area if PAR is 8 or greater or return to pre- procedure baseline. The post - procedure orders will be as directed. * If PAR score is less than 8 or not return to pre-procedure baseline then patient will follow Phase I monitoring till PAR is reached for Phase II. The Phase I may be done in procedure room or may call to secure a Phase I area. * If naloxone or flumazenil are used for reversal, hold in Phase I for continued monitoring from when last reversal dose was given for a minimum of 60 minutes or longer pending the nurse and/or physician discretion of patient condition before discharge to Phase II. Please call the Sedation Physician to re-evaluate and complete post-note for discharge to Phase II area. Do NOT discharge from procedure sedation or Phase 1 until post- sedation evaluation note is complete by procedure /sedation MD Sedation Discharge Instructions to be given to the patient at discharge to home.
--- NOTE | 2021-04-02 19:11 | Post Operative Brief Note ---
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 Mid/distal LAD mild diffuse disease -Calcified, distal LM 30-40% -Large circumflex without significant disease -dominant RCA 50-60% proximal, 50% distal. Successful PCI of ostial LAD with single MILKA (2.5 x 12 Xience; post-dilated with 3.0 NC). Drains Other Anesthesia Type RN Sedation Complications none Disposition Accompanied Patient To Recovery: No Disposition: Surgical ICU Overlapping Procedure I was present for: the critical portions of procedure. I was immediately available: during the entire case. Back up surgeon: was not required during procedure.
[2021-04-02 20:28] LABS: Partial Thromboplastin Ratio 4.7
[2021-04-02 20:53] LABS: Partial Thromboplastin Time 122.8 Seconds (21.0-31.0)
[2021-04-02] MEDS: METOPROLOL TARTRATE 25 MG TAB PO SCH ×2 (21:18→21:23)
--- NOTE | 2021-04-02 21:53 | Cardiac Catheterization ---
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 Cardiac Status Clinical evaluation leading to the procedure CAD Presenation: Non STEMI Anginal Classification: CCS IV Heart Failure: No Cardiogenic Shock within 24 Hours: No Cardiac Arrest within 24 Hours: No Imaging Studies Past 6 Months: Yes Stress Studies Past 6 Months: No Diagnostic Physicians Name: Yohan Sanz MD Status: Urgent Closure Device Percutaneous Entry Location: Radial Closure Device: Radial Band Recommendations: PCI without planned CABG PCI Indication: PCI for high risk Non-YEFRI Lesion Segment Name: ostial LAD Culprit Artery: Yes Stenosis Prior to Rx (%): 98 Chronic Total Occlusion: No IVUS: Yes FFR: No Pre-Procedure MARISELA Flow: 2 Previously Treated Lesion: No Lesion Complexity: High/C Lesion Length (mm): 10 Thrombus Present: Yes Bifurcation Lesion: Yes Guidewire Across Lesion: Stenosis Post-Procedure (%): 0 Post-Procedure MARISELA Flow: 3 Devices(s) Deployed: Yes Yes Intraprocedure Events Significant Disection: No Perforation: No Cardiac Cath Procedure Full Procedure Date April 02, 2021 Pre-Procedure Diagnosis Pre-Procedure Diagnosis: Non STEMI and Arrhythmia AUC Score AUC Score: 8 Post-Procedure Diagnosis Post-Procedure Diagnosis: Severe CAD and Successful PCI Procedure(s) Performed Procedure(s) Performed: Coronary Angiography, Drug Eluting Stent and IVUS Electrical Line Splicer Yohan Sanz MD Enamel Applier(s) Basim Estimated Blood Loss Estimated Blood Loss: 15 Medication(s) Medication(s): Clopidogrel, Fentanyl, Heparin, Lidocaine 1%, Nicardipine, Nitroglycerin and Versed Summary of Findings Indication: High risk NTEMI. Wide-complex tachycardia. New LV dysfunction. Access: 6Fr right radial artery Catheters: [place], JR4, JL3.5, EBU 3.5 guide Findings: LM - Calcified, 40% distal stenosis (MLA 8.5 by IVUS LAD - Calcified, 98% ostial stenosis, diffuse mild disease in remainder of vessel which wraps around apex. Large D1 with mild diffuse disease. Circumflex - Large caliber vessel, calcified/eccentric ostial stenosis (40% by IVUS), remainder of vessel without significant disease. RCA - Dominant, calcified, 50-60% proximal stenosis, 50% distal stenosis prior to take-off of PDA. -- PCI -- Antithrombotic therapy: Heparin, Clopidogrel Procedure: Left main cannulated with EBU 3.5 guide Prowater wire placed into distal circumflex Paraffiner 50 wire passed across ostial LAD lesion into distal vessel Ostial LAD lesion predilated with 2.5 compliant balloon [place] IVUS catheter placed into mid circumflex. Pullback revealed eccentric calcified plaque at ostium. IVUS from ostial LAD revealed heavily calcified stenosis at LAD with moderate LM stenosis at bifurcation (MLA 8.5 mm2). Dilated LAD lesion stented with 2.5 x 12 mm Xience Erica MILKA Stent post-dilated with 3.0 noncompliant balloon Repeat IVUS revealed well-apposed stent, underexpanded proximally. Attempted to re-post dilated with 3.25 NC but unable to pass IC vasodilators administered for spasm Post procedure MARISELA 3 flow, stent well expanded with minimal residual stenosis angiographically and no apparent cardiac complications. Arterial Closure: TR Band Summary: 1. Severe, 98% ostial LAD stenosis (acute culprit). 2. Moderate to severe non-culprit multivessel disease. - 40% distal left main. - 50-60% proximal RCA, 50% distal RCA 3. Successful PCI of ostial LAD with single drug-eluting stents (2.5 x 12 mm Xience; post-dilated 3.0 NC). Recommendations: To ICU for continued monitoring Loaded with Clopidogrel 600mg in cardiac cath lab technologist Continue dual-antiplatelet therapy for at least 1 year Continue amiodarone overnight IV fluids for MARCE prophylaxis Consult cardiac Rehab Hemodynamics Rest Ao:: 108/63/83 Final Ao: 104/61/78 LV: -- Recommendations Recommendations: PCI without planned CABG Specimens Specimens: None Radiation Exposure (mGy) 4939 Contrast (mls) 120 Fluids (cc crystalloids) Fluids (cc crystalloids): 240 Drains Drains: none Anesthesia moderate [id number] Procedural Complication(s) None Disposition ICU I attest to the content of the Intraoperative Record and any orders documented therein. Any exceptions are noted below. AwesomeHighlighter Card Cath Procedure Codes Cardiac Catheterization Procedure 1: Cardiovascular Cath Procedures: 79069 Coronaries Therapeutic Services & Ancillary Proc Procedure 1: Cardiovascular Tx and Anc Procedures: 06486 IV Ultrasound (Coronary or Graft) Moderate Sedation Procedure 1: Sedation/Anesthesia: 44635 Mod Sedation by the same physician;Init15 Min Child Age 5 & Up Procedure 2: Sedation/Anesthesia: 78465 Mod Sedation by the same physician; Ea [id number] Minutes Stenting Procedure 1: Cardiovascular Stent Procedures: 04837 Perc transcatheter placement of intracoronary stent(s), with ang PG Care Time/CCT Total # of Minutes Spent Total Time Spent with Patient: Total time spent is greater than 50% in coordination of care (as documented) at patient's floor/unit and/or counseling patient:
[2021-04-03] MEDS: AMIODARONE / D5W 360 MG/200 ML BAG IV SCH (05:06)
[2021-04-03] MEDS: SODIUM CHLORIDE 0.9% 1000ML 1,000 ML IV SCH (05:10)
[2021-04-03 05:43] LABS: Hematocrit (blood only) 40.4 % (42-52); Hemoglobin 13.4 g/dL (14.0-18.0); Mean Corpuscular Hemoglobin 27.3 pg (25-34); Mean Corpuscular Hgb Conc 33.2 g/dL (32-36); Mean Corpuscular Volume 82.3 fL (80-100); Mean Platelet Volume 9.4 fL (7.4-10.4); Platelet Count 115 K/uL (130-400); RDW Coefficient of Variation 15.9 % (11.5-14.5); RDW Standard Deviation 47.8 fL (36.4-46.3); Red Blood Count 4.91 M/uL (4.7-6.1); White Blood Count 6.03 K/uL (4.8-10.8)
[2021-04-03 06:16] LABS: BUN Creatinine Ratio 14.2 (10-20); Calcium 8.3 mg/dl (8.5-10.1); Creatinine Clr Calc Pharmacy 51.2 ml/min; Est GFR (African American) 58.9 ml/min; Est GFR (Non-African American) 50.8 ml/min; Magnesium 2.1 mg/dl (1.8-2.4); Potassium 4.3 mmol/L (3.5-5.1)
[2021-04-03 06:22] LABS: Phosphorus 2.8 mg/dl (2.5-4.9); Troponin I 3.57 ng/ml (0-0.045)
--- NOTE | 2021-04-03 07:22 | Electrocardiogram Report ---
Test Reason : Blood Pressure : / mmHG Vent. Rate : 084 BPM Atrial Rate : 084 BPM P-R Int : 172 ms QRS Dur : 126 ms QT Int : 440 ms P-R-T Axes : 039 -53 095 degrees QTc Int : 519 ms Sinus rhythm with occasional Premature ventricular complexes Left axis deviation Non-specific intra-ventricular conduction block Nonspecific T wave abnormality Prolonged QT Abnormal ECG When compared with ECG of 05-NOV-2016 18:07, Premature ventricular complexes are now Present QT has lengthened Confirmed by Huey Santamaria ([id number]) on 04/03/2021 7:22:02 AM Referred By: REFERRED SELF Confirmed By:Huey Santamaria
[2021-04-03] MEDS: ATORVASTATIN 40 MG TAB PO SCH (08:10)
[2021-04-03] MEDS: lisinopril 5 MG TAB PO SCH (08:10)
[2021-04-03] MEDS: ASPIRIN 81 MG ECTAB PO SCH (08:10)
[2021-04-03] MEDS: CLOPIDOGREL BISULFATE 75 MG TAB PO SCH (08:10)
[2021-04-03] MEDS: INSULIN ASPART 100 UNITS/ML 3 ML PEN SC SCH ×4 (08:12→21:00)
[2021-04-03] MEDS: INSULIN GLARGINE SOLOSTAR 100 UNITS/ML 3 ML PEN SC SCH ×2 (09:53→21:00)
--- NOTE | 2021-04-03 09:59 | Critical Care Progress Note ---
Date of Service April 03, 2021 Assessment & Plan (1) Ventricular tachycardia: Plan: Reason Critically Ill: 80-year-old male with ventricular tachycardia status post cardioversion PLAN: CV: Ventricular tachycardia -Defer decision on amiodarone administration to cardiology -Elevated troponins -Likely discontinue heparin after 24 hours Fluids/Renal: History of kidney stone Renal insufficiency -Elevated serum creatinine: Improved DVT prophylaxis: Heparin infusion, once discontinued patient will need ambulatory criteria to not require chemical prophylaxis Endocrine: ICU hyperglycemia protocol -Elevated blood sugar nonfasting -LUANN globin A1c pending Vascular access: Peripheral IVs Code Status: Full code Disposition: Stable for downgrade out of ICU (2) Cardiomyopathy: Admission and Anticipated Discharge Date Admission Date: April 02, 2021 Subjective Feels well, desires to ambulate around ICU. Denies chest pain or shortness of breath Physical Exam Physical Exam: General: Alert. nontoxic. Ambulating in room Skin: Warm, dry, Head: Atraumatic Ears, nose, mouth and throat: airway patent Cardiovascular: Normal peripheral perfusion Respiratory: no respiratory distress Gastrointestinal: Non distended Musculoskeletal: No deformity Results & Data Results & Data ([facility]) Vital Signs (Past 12 Hours) Vital Signs Temp Pulse Resp BP Pulse Ox 04/03/21 00:24 62 15 118/71 94 04/03/21 00:00 62 04/02/21 23:24 65 20 136/78 95 04/02/21 22:47 37.3 C 04/02/21 22:24 62 16 146/74 H 94 Laboratory Results 04/03/21 04/03/21 04/03/21 Range/Units 07:36 05:32 05:32 WBC (4.8-10.8) K/uL RBC (4.7-6.1) M/uL Hgb (14.0-18.0) g/dL Hct (42-52) % MCV (80-100) fL MCH (25-34) pg MCHC (32-36) g/dL RDW Std Deviation (36.4-46.3) fL RDW Coeff of Marcello (11.5-14.5) % Plt Count (130-400) K/uL MPV (7.4-10.4) fL Immature Gran % (Auto) % Neut % (Auto) % Lymph % (Auto) % [facility] [place] % (Auto) % Eos % (Auto) % Baso % (Auto) % Neut # (Auto) (1.4-6.5) K/uL Lymph # (Auto) (1.2-3.4) K/uL [facility] [place] [facility] # (Auto) (0.11-0.59) K/uL Eos # (Auto) (0-0.5) K/uL Baso # (Auto) (0-0.2) K/uL Immature Gran # (Auto) (0.00-0.02) K/uL APTT (21.0-31.0) Seconds PTT Ratio Activ Coag Time Kaolin (94-140) SECONDS Sodium 139 (136-145) mmol/L Potassium 4.3 (3.5-5.1) mmol/L Chloride 110 H (98-107) mmol/L Carbon Dioxide 21 (21-32) mmol/L Anion Gap 8.0 (3-11) BUN 18 (7-18) mg/dl Creatinine 1.30 D (0.6-1.4) mg/dl Est Cr Clr Drug Dosing 51.2 ml/min Est GFR ( Amer) 58.9 ml/min Est GFR (Non-Af Amer) 50.8 ml/min BUN/Creatinine Ratio 14.2 (10-20) Glucose 153 H (70-99) mg/dl POC Glucose 155 H (70-99) mg/dl Estimat Average Glucose Pending Hemoglobin A1c Pending Calcium 8.3 L (8.5-10.1) mg/dl Phosphorus 2.8 (2.5-4.9) mg/dl Magnesium 2.1 (1.8-2.4) mg/dl Total Bilirubin (0.2-1) mg/dl AST (15-37) U/L ALT (12-78) U/L Alkaline Phosphatase (45-117) U/L Troponin I 3.570 H* (0-0.045) ng/ml NT-Pro-B Natriuret Pep (0-1800) pg/ml Total Protein (6.4-8.2) gm/dl Albumin (3.4-5.0) gm/dl Globulin (2.5-4.0) gm/dl Albumin/Globulin Ratio (0.9-2) Lipase (73-393) U/L Specimen Hemolysis Nasal Screen MRSA (PCR) (Negative) COVID-19 Eval Order SARS-CoV-2 (PCR) (Negative) 04/03/21 04/02/21 04/02/21 Range/Units 05:32 Unknown Unknown WBC 6.03 (4.8-10.8) K/uL RBC 4.91 (4.7-6.1) M/uL Hgb 13.4 L (14.0-18.0) g/dL Hct 40.4 L (42-52) % MCV 82.3 (80-100) fL MCH 27.3 (25-34) pg MCHC 33.2 (32-36) g/dL RDW Std Deviation 47.8 H (36.4-46.3) fL RDW Coeff of Marcello 15.9 H (11.5-14.5) % Plt Count 115 L (130-400) K/uL MPV 9.4 (7.4-10.4) fL Immature Gran % (Auto) % Neut % (Auto) % Lymph % (Auto) % [facility] [place] [facility] % (Auto) % Eos % (Auto) % Baso % (Auto) % Neut # (Auto) (1.4-6.5) K/uL Lymph # (Auto) (1.2-3.4) K/uL [facility] # (Auto) (0.11-0.59) K/uL Eos # (Auto) (0-0.5) K/uL Baso # (Auto) (0-0.2) K/uL Immature Gran # (Auto) (0.00-0.02) K/uL APTT (21.0-31.0) Seconds PTT Ratio Activ Coag Time Kaolin (94-140) SECONDS Sodium (136-145) mmol/L Potassium (3.5-5.1) mmol/L Chloride (98-107) mmol/L Carbon Dioxide (21-32) mmol/L Anion Gap (3-11) BUN (7-18) mg/dl Creatinine (0.6-1.4) mg/dl Est Cr Clr Drug Dosing ml/min Est GFR ( Amer) ml/min Est GFR (Non-Af Amer) ml/min BUN/Creatinine Ratio (10-20) Glucose (70-99) mg/dl POC Glucose (70-99) mg/dl Estimat Average Glucose Hemoglobin A1c Calcium (8.5-10.1) mg/dl Phosphorus (2.5-4.9) mg/dl Magnesium (1.8-2.4) mg/dl Total Bilirubin (0.2-1) mg/dl AST (15-37) U/L ALT (12-78) U/L Alkaline Phosphatase (45-117) U/L Troponin I (0-0.045) ng/ml NT-Pro-B Natriuret Pep (0-1800) pg/ml Total Protein (6.4-8.2) gm/dl Albumin (3.4-5.0) gm/dl Globulin (2.5-4.0) gm/dl Albumin/Globulin Ratio (0.9-2) Lipase (73-393) U/L Specimen Hemolysis Nasal Screen MRSA (PCR) (Negative) COVID-19 Eval Order Covid19 at [facility] SARS-CoV-2 (PCR) NEGATIVE (Negative) 04/02/21 04/02/21 04/02/21 Range/Units 23:11 21:15 19:56 WBC (4.8-10.8) K/uL RBC (4.7-6.1) M/uL Hgb (14.0-18.0) g/dL Hct (42-52) % MCV (80-100) fL MCH (25-34) pg MCHC (32-36) g/dL RDW Std Deviation (36.4-46.3) fL RDW Coeff of Marcello (11.5-14.5) % Plt Count (130-400) K/uL MPV (7.4-10.4) fL Immature Gran % (Auto) % Neut % (Auto) % Lymph % (Auto) % [facility] [place] [facility] % (Auto) % Eos % (Auto) % Baso % (Auto) % Neut # (Auto) (1.4-6.5) K/uL Lymph # (Auto) (1.2-3.4) K/uL [facility] # (Auto) (0.11-0.59) K/uL Eos # (Auto) (0-0.5) K/uL Baso # (Auto) (0-0.2) K/uL Immature Gran # (Auto) (0.00-0.02) K/uL APTT 122.8 H* (21.0-31.0) Seconds PTT Ratio 4.7 Activ Coag Time Kaolin (94-140) SECONDS Sodium (136-145) mmol/L Potassium (3.5-5.1) mmol/L Chloride (98-107) mmol/L Carbon Dioxide (21-32) mmol/L Anion Gap (3-11) BUN (7-18) mg/dl Creatinine (0.6-1.4) mg/dl Est Cr Clr Drug Dosing ml/min Est GFR ( Amer) ml/min Est GFR (Non-Af Amer) ml/min BUN/Creatinine Ratio (10-20) Glucose (70-99) mg/dl POC Glucose 137 H (70-99) mg/dl Estimat Average Glucose Hemoglobin A1c Calcium (8.5-10.1) mg/dl Phosphorus (2.5-4.9) mg/dl Magnesium (1.8-2.4) mg/dl Total Bilirubin (0.2-1) mg/dl AST (15-37) U/L ALT (12-78) U/L Alkaline Phosphatase (45-117) U/L Troponin I 5.480 H* (0-0.045) ng/ml NT-Pro-B Natriuret Pep (0-1800) pg/ml Total Protein (6.4-8.2) gm/dl Albumin (3.4-5.0) gm/dl Globulin (2.5-4.0) gm/dl Albumin/Globulin Ratio (0.9-2) Lipase (73-393) U/L Specimen Hemolysis Nasal Screen MRSA (PCR) (Negative) COVID-19 Eval Order SARS-CoV-2 (PCR) (Negative) 04/02/21 04/02/21 04/02/21 Range/Units 18:34 18:19 17:00 WBC (4.8-10.8) K/uL RBC (4.7-6.1) M/uL Hgb (14.0-18.0) g/dL Hct (42-52) % MCV (80-100) fL MCH (25-34) pg MCHC (32-36) g/dL RDW Std Deviation (36.4-46.3) fL RDW Coeff of Marcello (11.5-14.5) % Plt Count (130-400) K/uL MPV (7.4-10.4) fL Immature Gran % (Auto) % Neut % (Auto) % Lymph % (Auto) % [facility] % (Auto) % Eos % (Auto) % Baso % (Auto) % Neut # (Auto) (1.4-6.5) K/uL Lymph # (Auto) (1.2-3.4) K/uL [facility] # (Auto) (0.11-0.59) K/uL Eos # (Auto) (0-0.5) K/uL Baso # (Auto) (0-0.2) K/uL Immature Gran # (Auto) (0.00-0.02) K/uL APTT (21.0-31.0) Seconds PTT Ratio Activ Coag Time Kaolin 230 H 208 H (94-140) SECONDS Sodium (136-145) mmol/L Potassium (3.5-5.1) mmol/L Chloride (98-107) mmol/L Carbon Dioxide (21-32) mmol/L Anion Gap (3-11) BUN (7-18) mg/dl Creatinine (0.6-1.4) mg/dl Est Cr Clr Drug Dosing ml/min Est GFR ( Amer) ml/min Est GFR (Non-Af Amer) ml/min BUN/Creatinine Ratio (10-20) Glucose (70-99) mg/dl POC Glucose (70-99) mg/dl Estimat Average Glucose Hemoglobin A1c Calcium (8.5-10.1) mg/dl Phosphorus (2.5-4.9) mg/dl Magnesium (1.8-2.4) mg/dl Total Bilirubin (0.2-1) mg/dl AST (15-37) U/L ALT (12-78) U/L Alkaline Phosphatase (45-117) U/L Troponin I (0-0.045) ng/ml NT-Pro-B Natriuret Pep (0-1800) pg/ml Total Protein (6.4-8.2) gm/dl Albumin (3.4-5.0) gm/dl Globulin (2.5-4.0) gm/dl Albumin/Globulin Ratio (0.9-2) Lipase (73-393) U/L Specimen Hemolysis Nasal Screen MRSA (PCR) Negative (Negative) COVID-19 Eval Order SARS-CoV-2 (PCR) (Negative) 04/02/21 04/02/21 04/02/21 Range/Units 16:53 15:26 11:47 WBC (4.8-10.8) K/uL RBC (4.7-6.1) M/uL Hgb (14.0-18.0) g/dL Hct (42-52) % MCV (80-100) fL MCH (25-34) pg MCHC (32-36) g/dL RDW Std Deviation (36.4-46.3) fL RDW Coeff of Marcello (11.5-14.5) % Plt Count (130-400) K/uL MPV (7.4-10.4) fL Immature Gran % (Auto) % Neut % (Auto) % Lymph % (Auto) % [facility] % (Auto) % Eos % (Auto) % Baso % (Auto) % Neut # (Auto) (1.4-6.5) K/uL Lymph # (Auto) (1.2-3.4) K/uL [facility] # (Auto) (0.11-0.59) K/uL Eos # (Auto) (0-0.5) K/uL Baso # (Auto) (0-0.2) K/uL Immature Gran # (Auto) (0.00-0.02) K/uL APTT (21.0-31.0) Seconds PTT Ratio Activ Coag Time Kaolin (94-140) SECONDS Sodium 138 (136-145) mmol/L Potassium 4.1 (3.5-5.1) mmol/L Chloride 108 H (98-107) mmol/L Carbon Dioxide 17 L (21-32) mmol/L Anion Gap 13.0 H (3-11) BUN 22 H (7-18) mg/dl Creatinine 1.76 H (0.6-1.4) mg/dl Est Cr Clr Drug Dosing 37.8 ml/min Est GFR ( Amer) 40.8 ml/min Est GFR (Non-Af Amer) 35.2 ml/min BUN/Creatinine Ratio 12.6 (10-20) Glucose 244 H (70-99) mg/dl POC Glucose 171 H (70-99) mg/dl Estimat Average Glucose Hemoglobin A1c Calcium 9.0 (8.5-10.1) mg/dl Phosphorus 3.2 (2.5-4.9) mg/dl Magnesium 1.8 (1.8-2.4) mg/dl Total Bilirubin 0.8 (0.2-1) mg/dl AST 35 (15-37) U/L ALT 49 (12-78) U/L Alkaline Phosphatase 89 (45-117) U/L Troponin I 2.410 H* 0.089 H* (0-0.045) ng/ml NT-Pro-B Natriuret Pep 1620 (0-1800) pg/ml Total Protein 6.6 (6.4-8.2) gm/dl Albumin 3.6 (3.4-5.0) gm/dl Globulin 3.0 (2.5-4.0) gm/dl Albumin/Globulin Ratio 1.2 (0.9-2) Lipase 176 (73-393) U/L Specimen Hemolysis Nasal Screen MRSA (PCR) (Negative) COVID-19 Eval Order SARS-CoV-2 (PCR) (Negative) 04/02/21 04/02/21 Range/Units 11:47 11:47 WBC 6.32 (4.8-10.8) K/uL RBC 5.47 (4.7-6.1) M/uL Hgb 15.3 (14.0-18.0) g/dL Hct 46.7 (42-52) % MCV 85.4 (80-100) fL MCH 28.0 (25-34) pg MCHC 32.8 (32-36) g/dL RDW Std Deviation 49.4 H (36.4-46.3) fL RDW Coeff of Marcello 15.8 H (11.5-14.5) % Plt Count 162 (130-400) K/uL MPV 10.1 (7.4-10.4) fL Immature Gran % (Auto) 0.2 % Neut % (Auto) 68.5 % Lymph % (Auto) 22.3 % [facility] % (Auto) 7.1 % Eos % (Auto) 1.7 % Baso % (Auto) 0.2 % Neut # (Auto) 4.33 (1.4-6.5) K/uL Lymph # (Auto) 1.41 (1.2-3.4) K/uL [facility] # (Auto) 0.45 (0.11-0.59) K/uL Eos # (Auto) 0.11 (0-0.5) K/uL Baso # (Auto) 0.01 (0-0.2) K/uL Immature Gran # (Auto) 0.01 (0.00-0.02) K/uL APTT 24.0 (21.0-31.0) Seconds PTT Ratio 0.9 Activ Coag Time Kaolin (94-140) SECONDS Sodium (136-145) mmol/L Potassium (3.5-5.1) mmol/L Chloride (98-107) mmol/L Carbon Dioxide (21-32) mmol/L Anion Gap (3-11) BUN (7-18) mg/dl Creatinine (0.6-1.4) mg/dl Est Cr Clr Drug Dosing ml/min Est GFR ( Amer) ml/min Est GFR (Non-Af Amer) ml/min BUN/Creatinine Ratio (10-20) Glucose (70-99) mg/dl POC Glucose (70-99) mg/dl Estimat Average Glucose Hemoglobin A1c Calcium (8.5-10.1) mg/dl Phosphorus (2.5-4.9) mg/dl Magnesium (1.8-2.4) mg/dl Total Bilirubin (0.2-1) mg/dl AST (15-37) U/L ALT (12-78) U/L Alkaline Phosphatase (45-117) U/L Troponin I (0-0.045) ng/ml NT-Pro-B Natriuret Pep (0-1800) pg/ml Total Protein (6.4-8.2) gm/dl Albumin (3.4-5.0) gm/dl Globulin (2.5-4.0) gm/dl Albumin/Globulin Ratio (0.9-2) Lipase (73-393) U/L Specimen Hemolysis Nasal Screen MRSA (PCR) (Negative) COVID-19 Eval Order SARS-CoV-2 (PCR) (Negative) Coding Level of Care Code 66007 Subseq Hosp Care Lvl 2 Diagnoses Ventricular tachycardia I47.2 Cardiomyopathy I42.9
--- NOTE | 2021-04-03 11:02 | Cardiology Progress Note ---
Date of Service April 03, 2021 Assessment & Plan (1) Wide-complex tachycardia: (2) Non-ST elevation (NSTEMI) myocardial infarction: (3) Cardiomyopathy: (4) Hypertension: (5) Hypercholesterolemia: Plan: ASSESSMENT/PLAN: 1. NSTEMI: Underwent ostial LAD PCI on 04/02/2021. No further angina. Continue aspirin 81 mg daily indefinitely. Continue Plavix 75 mg daily for at least 1 year. Continue high-intensity statin therapy, beta-theodora, AKIRA- inhibitor. Recommend cardiac rehab on discharge, which was discussed with him today. 2. Wide complex tachycardia/ventricular tachycardia: Wide complex tachycardia pre-hospital the underwent cardioversion. Had 6 beat run of nonsustained ventricular tachycardia yesterday. Can DC amiodarone drip as his arrhythmia was likely due to ischemic heart disease. Continue to monitor. He has been initiated on beta-theodora therapy. 3. Cardiomyopathy: Chronic issue. LV systolic function appears moderately to severely reduced on current echo. He did not appear to be significantly hypervolemic. Edema improved. Consider Entresto in place of lisinopril, if affordable. Metoprolol succinate ordered to replace metoprolol tartrate tomorrow. Titrate over time. Consideration for ICD, if no improvement on medi misti therapy. 4. Hypertension: Blood pressure well controlled. Plan as above. 5. Dyslipidemia: High-intensity statin therapy. Disposition: Cardiology will continue to follow. Dr. Irene, his primary wood router hand, will resume his care tomorrow. Okay for transfer to PCU from a cardiology standpoint. Patient care communicated with primary hospitalist, Dr. Monge. Admission and Anticipated Discharge Date Admission Date: April 02, 2021 Subjective He has not had any further angina. He underwent PCI of his ostial LAD with Dr. Sanz on 04/02/2021 which was severely stenotic. Feels much better overall. Denies shortness of breath, syncope, near-syncope, palpitations, edema, or bleeding. He was alone in his hospital room. Review of systems: As above. Physical Exam Physical Exam: Gen.: No acute distress. Alert and oriented. HEENT: Anicteric sclera. Neck: No JVD. Cardiac: PMI was nonpalpable. No ventricular heave. Regular. Normal S1-S2. No murmurs, rubs, or gallops. Pulmonary: Clear to auscultation bilaterally without wheezes, rales, or rhonchi. Abdomen: Soft, nontender, nondistended, with normoactive bowel sounds. No bruits noted. Extremities: 2+ radial pulses bilaterally. Right radial cath site was clean, dry, and intact without erythema or discharge. 2+ posterior tibialis pulses bilaterally. Trace bilateral lower extremity edema, L > R. No cyanosis. Psychiatric: Affect appears appropriate. Results & Data ([facility]) Vital Signs (Past 12 Hours) Vital Signs Pulse Resp BP Pulse Ox 04/03/21 00:24 62 15 118/71 94 04/03/21 00:00 62 04/02/21 23:24 65 20 136/78 95 Laboratory Results Laboratory Results - last 24 hr 04/02/21 04/02/21 04/02/21 11:47 11:47 11:47 WBC 6.32 RBC 5.47 Hgb 15.3 Hct 46.7 MCV 85.4 MCH 28.0 MCHC 32.8 RDW Std Deviation 49.4 H RDW Coeff of Marcello 15.8 H Plt Count 162 MPV 10.1 Immature Gran % (Auto) 0.2 Neut % (Auto) 68.5 Lymph % (Auto) 22.3 [place] % (Auto) 7.1 Eos % (Auto) 1.7 Baso % (Auto) 0.2 Neut # (Auto) 4.33 Lymph # (Auto) 1.41 [place] # (Auto) 0.45 Eos # (Auto) 0.11 Baso # (Auto) 0.01 Immature Gran # (Auto) 0.01 APTT 24.0 PTT Ratio 0.9 Activ Coag Time Kaolin Sodium 138 Potassium 4.1 Chloride 108 H Carbon Dioxide 17 L Anion Gap 13.0 H BUN 22 H Creatinine 1.76 H Est Cr Clr Drug Dosing 37.8 Est GFR ( Amer) 40.8 Est GFR (Non-Af Amer) 35.2 BUN/Creatinine Ratio 12.6 Glucose 244 H POC Glucose Estimat Average Glucose Hemoglobin A1c Calcium 9.0 Phosphorus 3.2 Magnesium 1.8 Total Bilirubin 0.8 AST 35 ALT 49 Alkaline Phosphatase 89 Troponin I 0.089 H* NT-Pro-B Natriuret Pep 1620 Total Protein 6.6 Albumin 3.6 Globulin 3.0 Albumin/Globulin Ratio 1.2 Lipase 176 Specimen Hemolysis Nasal Screen MRSA (PCR) COVID-19 Eval Order SARS-CoV-2 (PCR) 04/02/21 04/02/21 04/02/21 15:26 16:53 17:00 WBC RBC Hgb Hct MCV MCH MCHC RDW Std Deviation RDW Coeff of Marcello Plt Count MPV Immature Gran % (Auto) Neut % (Auto) Lymph % (Auto) [place] % (Auto) Eos % (Auto) Baso % (Auto) Neut # (Auto) Lymph # (Auto) [place] # (Auto) Eos # (Auto) Baso # (Auto) Immature Gran # (Auto) APTT PTT Ratio Activ Coag Time Kaolin Sodium Potassium Chloride Carbon Dioxide Anion Gap BUN Creatinine Est Cr Clr Drug Dosing Est GFR ( Amer) Est GFR (Non-Af Amer) BUN/Creatinine Ratio Glucose POC Glucose 171 H Estimat Average Glucose Hemoglobin A1c Calcium Phosphorus Magnesium Total Bilirubin AST ALT Alkaline Phosphatase Troponin I 2.410 H* NT-Pro-B Natriuret Pep Total Protein Albumin Globulin Albumin/Globulin Ratio Lipase Specimen Hemolysis Nasal Screen MRSA (PCR) Negative COVID- Eval Order SARS-CoV-2 (PCR) 04/02/21 04/02/21 04/02/21 18:19 18:34 19:56 WBC RBC Hgb Hct MCV MCH MCHC RDW Std Deviation RDW Coeff of Marcello Plt Count MPV Immature Gran % (Auto) Neut % (Auto) Lymph % (Auto) [place] % (Auto) Eos % (Auto) Baso % (Auto) Neut # (Auto) Lymph # (Auto) [place] # (Auto) Eos # (Auto) Baso # (Auto) Immature Gran # (Auto) APTT 122.8 H* PTT Ratio 4.7 Activ Coag Time Kaolin 208 H 230 H Sodium Potassium Chloride Carbon Dioxide Anion Gap BUN Creatinine Est Cr Clr Drug Dosing Est GFR ( Amer) Est GFR (Non-Af Amer) BUN/Creatinine Ratio Glucose POC Glucose Estimat Average Glucose Hemoglobin A1c Calcium Phosphorus Magnesium Total Bilirubin AST ALT Alkaline Phosphatase Troponin I NT-Pro-B Natriuret Pep Total Protein Albumin Globulin Albumin/Globulin Ratio Lipase Specimen Hemolysis Nasal Screen MRSA (PCR) COVID-19 Eval Order SARS-CoV-2 (PCR) 04/02/21 04/02/21 04/02/21 21:15 23:11 Unknown WBC RBC Hgb Hct MCV MCH MCHC RDW Std Deviation RDW Coeff of Marcello Plt Count MPV Immature Gran % (Auto) Neut % (Auto) Lymph % (Auto) [place] % (Auto) Eos % (Auto) Baso % (Auto) Neut # (Auto) Lymph # (Auto) [place] # (Auto) Eos # (Auto) Baso # (Auto) Immature Gran # (Auto) APTT PTT Ratio Activ Coag Time Kaolin Sodium Potassium Chloride Carbon Dioxide Anion Gap BUN Creatinine Est Cr Clr Drug Dosing Est GFR ( Amer) Est GFR (Non-Af Amer) BUN/Creatinine Ratio Glucose POC Glucose 137 H Estimat Average Glucose Hemoglobin A1c Calcium Phosphorus Magnesium Total Bilirubin AST ALT Alkaline Phosphatase Troponin I 5.480 H* NT-Pro-B Natriuret Pep Total Protein Albumin Globulin Albumin/Globulin Ratio Lipase Specimen Hemolysis Nasal Screen MRSA (PCR) COVID-19 Eval Order Covid19 at [facility] SARS-CoV-2 (PCR) 04/02/21 04/03/21 04/03/21 Unknown 05:32 05:32 WBC 6.03 RBC 4.91 Hgb 13.4 L Hct 40.4 L MCV 82.3 MCH 27.3 MCHC 33.2 RDW Std Deviation 47.8 H RDW Coeff of Marcello 15.9 H Plt Count 115 L MPV 9.4 Immature Gran % (Auto) Neut % (Auto) Lymph % (Auto) [place] % (Auto) Eos % (Auto) Baso % (Auto) Neut # (Auto) Lymph # (Auto) [place] # (Auto) Eos # (Auto) Baso # (Auto) Immature Gran # (Auto) APTT PTT Ratio Activ Coag Time Kaolin Sodium 139 Potassium 4.3 Chloride 110 H Carbon Dioxide 21 Anion Gap 8.0 BUN 18 Creatinine 1.30 D Est Cr Clr Drug Dosing 51.2 Est GFR ( Amer) 58.9 Est GFR (Non-Af Amer) 50.8 BUN/Creatinine Ratio 14.2 Glucose 153 H POC Glucose Estimat Average Glucose Hemoglobin A1c Calcium 8.3 L Phosphorus 2.8 Magnesium 2.1 Total Bilirubin AST ALT Alkaline Phosphatase Troponin I 3.570 H* NT-Pro-B Natriuret Pep Total Protein Albumin Globulin Albumin/Globulin Ratio Lipase Specimen Hemolysis Nasal Screen MRSA (PCR) COVID-19 Eval Order SARS-CoV-2 (PCR) NEGATIVE 04/03/21 04/03/21 05:32 07:36 WBC RBC Hgb Hct MCV MCH MCHC RDW Std Deviation RDW Coeff of Marcello Plt Count MPV Immature Gran % (Auto) Neut % (Auto) Lymph % (Auto) [place] % (Auto) Eos % (Auto) Baso % (Auto) Neut # (Auto) Lymph # (Auto) [place] # (Auto) Eos # (Auto) Baso # (Auto) Immature Gran # (Auto) APTT PTT Ratio Activ Coag Time Kaolin Sodium Potassium Chloride Carbon Dioxide Anion Gap BUN Creatinine Est Cr Clr Drug Dosing Est GFR ( Amer) Est GFR (Non-Af Amer) BUN/Creatinine Ratio Glucose POC Glucose 155 H Estimat Average Glucose Pending Hemoglobin A1c Pending Calcium Phosphorus Magnesium Total Bilirubin AST ALT Alkaline Phosphatase Troponin I NT-Pro-B Natriuret Pep Total Protein Albumin Globulin Albumin/Globulin Ratio Lipase Specimen Hemolysis Nasal Screen MRSA (PCR) COVID-19 Eval Order SARS-CoV-2 (PCR) Diagnostic Findings Telemetry personally reviewed: Predominantly sinus rhythm. Six beat run of ventricular tachycardia on 04/02/2021. ECG personally reviewed 04/03/2021 at 6:24 a.m.: Sinus rhythm 70 beats per minute. Anterior T-wave inversion. Cardiac catheterization 04/02/2021: LM - Calcified, 40% distal stenosis (MLA 8.5 by IVUS LAD - Calcified, 98% ostial stenosis, diffuse mild disease in remainder of vessel which wraps around apex. Large D1 with mild diffuse disease. Circumflex - Large caliber vessel, calcified/eccentric ostial stenosis (40% by IVUS), remainder of vessel without significant disease. RCA - Dominant, calcified, 50-60% proximal stenosis, 50% distal stenosis prior to take-off of PDA. -- PCI -- Antithrombotic therapy: Heparin, Clopidogrel Procedure: Left main cannulated with EBU 3.5 guide [place] wire placed into distal circumflex Dietary Cook 50 wire passed across ostial LAD lesion into distal vessel Ostial LAD lesion predilated with 2.5 compliant balloon [place] IVUS catheter placed into mid circumflex. Pullback revealed eccentric calcified plaque at ostium. IVUS from ostial LAD revealed heavily calcified stenosis at LAD with moderate LM stenosis at bifurcation (MLA 8.5 mm2). LAD lesion stented with 2.5 x 12 mm Xience Erica MILKA Stent post-dilated with 3.0 noncompliant balloon Repeat IVUS revealed well-apposed stent, underexpanded proximally. Attempted to re-post dilated with 3.25 NC but unable to pass IC vasodilators administered for spasm Post procedure MARISELA 3 flow, stent well expanded with minimal residual stenosis angiographically and no apparent cardiac complications. Arterial Closure: TR Band Summary: 1. Severe, 98% ostial LAD stenosis (acute culprit). 2. Moderate to severe non-culprit multivessel disease. - 40% distal left main. - 50-60% proximal RCA, 50% distal RCA 3. Successful PCI of ostial LAD with single drug-eluting stents (2.5 x 12 mm Xience; post-dilated 3.0 NC). Medications Administered Current Inpatient Medications Aspirin (Aspirin 81 Mg Ectab) 81 mg PO DAILY SAM Stop: 05/03/21 08:59 Last Admin: 04/03/21 08:10 Dose: 81 mg Documented by: Atorvastatin Calcium (Atorvastatin 40 Mg Tab) 40 mg PO DAILY SAM Stop: 05/03/21 08:59 Last Admin: 04/03/21 08:10 Dose: 40 mg Documented by: Clopidogrel Bisulfate (Clopidogrel Bisulfate 75 Mg Tab) 75 mg PO QAM SAM Stop: 05/03/21 08:59 Last Admin: 04/03/21 08:10 Dose: 75 mg Documented by: Dextrose (Dextrose 50% 50 Ml Syringe) 25 - 50 ml IV UD PRN; Protocol PRN Reason: Hypoglycemia Protocol Stop: 05/02/21 15:07 Glucagon (Glucagon For Inj 1 Mg Vial) 1 mg SQ UD PRN; Protocol PRN Reason: Hypoglycemia Protocol Stop: 05/02/21 15:07 Glucose (Glucose 10 Tabs/Tube) 4 - 8 tabs PO UD PRN; Protocol PRN Reason: Hypoglycemia Protocol Stop: 05/02/21 15:07 Glucose (Glucose 40% Gel 15 Gm Tube) 15 - 30 gm PO UD PRN; Protocol PRN Reason: Hypoglycemia Protocol Stop: 05/02/21 15:07 Sodium Chloride (Nss 1000ml) 1,000 mls @ 100 mls/hr IV .Q10H [facility] Last Admin: 04/03/21 05:10 Dose: 100 mls/hr Documented by: Insulin Aspart (Insulin Aspart 100 Units/Ml 3 Ml Pen) 0 units SC ACHS SAM Stop: 05/02/21 16:29 Last Admin: 04/03/21 08:12 Dose: 8 units Documented by: Insulin Glargine (Insulin Glargine Solostar 100 Units/Ml 3 Ml Pen) 0 units SC BID [facility]; Protocol Stop: 05/03/21 08:59 Last Admin: 04/03/21 09:53 Dose: 8 units Documented by: Latanoprost (Latanoprost 0.005% Op Soln 2.5 Ml Btl) 1 drops OP DAILY PRN PRN Reason: dry eyes Stop: 05/02/21 15:07 Lisinopril (Lisinopril 5 Mg Tab) 5 mg PO DAILY [facility] Stop: 05/03/21 08:59 Last Admin: 04/03/21 08:10 Dose: 5 mg Documented by: Metoprolol Succinate (Metoprolol Succ 50mg Ext Rel Tab) 50 mg PO QAM [facility] Stop: 05/04/21 08:59 Metoprolol Tartrate (Metoprolol Tartrate 25 Mg Tab) 25 mg PO BID [facility] Stop: 04/03/21 23:00 Last Admin: 04/02/21 21:23 Dose: 25 mg Documented by: Miscellaneous (Carbohydrates For Hypoglycemia ) 15 - 30 gm PO UD PRN PRN Reason: Hypoglycemia Protocol Stop: 05/02/21 15:07 Miscellaneous Information (Pharmacy Glycemic Mgmt Consult) 1 ea N/A UD PRN; Protocol PRN Reason: Consult Stop: 05/02/21 15:07 Nitroglycerin (Nitroglycerin Sl 0.4 Mg/Tab Tab) 0.4 mg SL PRN PRN PRN Reason: Chest Pain Stop: 05/02/21 16:40 Last Admin: 04/02/21 16:35 Dose: 0.4 mg Documented by: PG Care Time/CCT Total # of Minutes Spent Total Time Spent with Patient: Total time spent is greater than 50% in coordination of care (as documented) at patient's floor/unit and/or counseling patient: Coding Level of Care Code 49802 Subseq Hosp Care Lvl 3 Diagnoses Wide-complex tachycardia I47.2 Non-ST elevation (NSTEMI) myocardial infarction I21.4 Cardiomyopathy I42.9 Hypertension I10 Hypercholesterolemia E78.00
--- NOTE | 2021-04-03 15:14 | Pharmacy Report ---
Pharmacy Glycemic Short Note 2 - Date of Service April 03, 2021 - Glycemic Short BSG Results (Last 24 hours): 04/02/21 04/02/21 04/03/21 16:53 21:15 05:32 Glucose 153 H POC Glucose 171 H 137 H 04/03/21 04/03/21 07:36 11:24 Glucose POC Glucose 155 H 160 H OUTPATIENT ANTIDIABETIC REGIMEN: * Jardiance + glipizide + metformin * A1c = 6.4% (11/25/20) ASSESSMENT: * Doroteo is a 80 yo T2DM with ventricular tachycardia status post cardioversion. He is maintained on oral anti-diabetic agents as an outpatient. * He has demonstrated adequate glycemic control on weight based SQ basal + bolus regimen. Will continue to titrate to goal. PLAN FOR INPATIENT GLYCEMIC CONTROL: * Hold outpatient oral diabetes medications * Basal insulin * Lantus per scale SQ BID: 0 units for BSG < 140 mg/dL, 8 units for BSG 140 mg/dL or more * Bolus insulin * NovoLog per scale ACHS or Q6hrs while NPO * Goal Range: Low 110 mg/dL - High 140 mg/dL * Correction Factor: 20 mg/dL/unit * Nutritional / Prandial insulin per carb ratio of 1 unit per 7 grams CHO consumed PLAN FOR DISCHARGE: * A1c of 6.4% indicates excellent control * It seems reasonable to continue home regimen assuming renal function is appropriate and patient denies frequent hypoglycemia at home
[2021-04-03] MEDS: METOPROLOL TARTRATE 25 MG TAB PO SCH (21:01)
--- NOTE | 2021-04-03 21:49 | Hospitalist Progress Note ---
Date of Service April 03, 2021 Assessment & Plan (1) Ventricular tachycardia: Plan: Developed VT (vs SVT with aberrancy) while attending the [employer] football game yesterday. s/p cardioversion in the field by EMS. Also given amiodarone bolus by EMS. Upon ER presentation placed on amiodarone infusion. This was continued until this am and was d/c by cardiology. No further wide-complex tachycardia. His wide-complex tachycardia was 2nd to ischemia. Continue beta theodora. (2) Non-ST elevation (NSTEMI) myocardial infarction: Plan: 2nd to occluded ostial. s/p MILKA by Dr Sanz. Peak troponin 5.4. Cont asa, plavix, BB, AKIRA, statin. Check lipids in am. Check a1c and TSH in am. appreciate cardiology assistance. (3) Ischemic cardiomyopathy: Plan: EF 30-35%. Cont BB - will be changed to metoprolol succinate in am. Cont AKIRA - consider Entresto in nikki of AKIRA in the near-future. Had b/l basilar rales on exam - consider a small dose of IV lasix. IVF have been d/c. (4) CAD (coronary artery disease): Plan: Culprit lesion was a nearly 100% occluded ostial artery. Other findings on cath - LM - Calcified, 40% distal stenosis LAD - Calcified, 98% ostial stenosis, diffuse mild disease in remainder of vessel which wraps around apex. Large D1 with mild diffuse disease. Circumflex - Large caliber vessel, calcified/eccentric ostial stenosis (40% by IVUS), remainder of vessel without significant disease. RCA - Dominant, calcified, 50-60% proximal stenosis, 50% distal stenosis prior to take-off of PDA. Asa, plavix, BB, AKIRA, statin. Check lipids in am. s/p MILKA to ostial stenosis by Dr Sanz on 04/02. (5) Hypercholesterolemia: Plan: cont lipitor 40mg daily lipid profile in am (6) Hypertension: Plan: controlled with BB and AKIRA (7) Diabetes: Plan: a1c pending BSGs acceptable at this time holding oral agents cont lantus-novolog (8) Chronic kidney disease, stage 3a: Plan: baseline CrCl 40s/50s bmp in am for stability (9) Glaucoma: Plan: cont eye drops Plan: transfer to PCU from ICU Admission and Anticipated Discharge Date Admission Date: April 02, 2021 Subjective patient tired this afternoon - states he barely slept last night no chest pain or dyspnea took several laps in the hallway and reports no MICHEL no orthopnea tele with no VT while in ICU retrospectively he remembers having a chest pain episode several months ago that was similar to what he felt yesterday going into the [employer] football game he also remembers having mild dyspnea with walking up an incline recently Review of Systems Review of Systems: gen - no fevers, no anorexia; fatigue CV - no recurrent chest pain pulm - no cough or dyspnea GI - no MARITZA, nausea, emesis, pain Physical Exam Physical Exam: gen - obese, NAD, lying nearly flat in bed comfortably neck - no obvious JVD mouth - MMM heart - RRR, s1 s2, 1/6 systolic murmer LLSB lungs - mild bibasilar rales, no wheeze abd - soft, NT, ND, BS+ ext - no edema, pulses 2+ b/l vasc - right radial artery puncture site clean, no hematoma Results & Data Results & Data ([facility]) Vital Signs (Past 12 Hours) Vital Signs Pulse Resp BP Pulse Ox 04/03/21 17:00 72 26 H 04/03/21 16:30 62 21 04/03/21 16:00 63 13 113/70 04/03/21 15:47 67 04/03/21 15:30 68 28 H 04/03/21 15:02 66 13 04/03/21 14:30 66 20 04/03/21 14:00 67 23 04/03/21 13:30 71 22 04/03/21 13:00 83 18 04/03/21 12:30 70 23 04/03/21 12:26 60 19 04/03/21 11:24 75 18 101/66 04/03/21 10:24 68 22 116/63 95 Laboratory Results Laboratory Results - last 24 hr 04/02/21 04/03/21 04/03/21 23:11 05:32 05:32 WBC 6.03 RBC 4.91 Hgb 13.4 L Hct 40.4 L MCV 82.3 MCH 27.3 MCHC 33.2 RDW Std Deviation 47.8 H RDW Coeff of Marcello 15.9 H Plt Count 115 L MPV 9.4 Sodium 139 Potassium 4.3 Chloride 110 H Carbon Dioxide 21 Anion Gap 8.0 BUN 18 Creatinine 1.30 D Est Cr Clr Drug Dosing 51.2 Est GFR ( Amer) 58.9 Est GFR (Non-Af Amer) 50.8 BUN/Creatinine Ratio 14.2 Glucose 153 H POC Glucose Estimat Average Glucose Hemoglobin A1c Calcium 8.3 L Phosphorus 2.8 Magnesium 2.1 Troponin I 5.480 H* 3.570 H* 04/03/21 04/03/21 04/03/21 05:32 07:36 11:24 WBC RBC Hgb Hct MCV MCH MCHC RDW Std Deviation RDW Coeff of Marcello Plt Count MPV Sodium Potassium Chloride Carbon Dioxide Anion Gap BUN Creatinine Est Cr Clr Drug Dosing Est GFR ( Amer) Est GFR (Non-Af Amer) BUN/Creatinine Ratio Glucose POC Glucose 155 H 160 H Estimat Average Glucose Pending Hemoglobin A1c Pending Calcium Phosphorus Magnesium Troponin I 04/03/21 04/03/21 17:01 20:56 WBC RBC Hgb Hct MCV MCH MCHC RDW Std Deviation RDW Coeff of Marcello Plt Count MPV Sodium Potassium Chloride Carbon Dioxide Anion Gap BUN Creatinine Est Cr Clr Drug Dosing Est GFR ( Amer) Est GFR (Non-Af Amer) BUN/Creatinine Ratio Glucose POC Glucose 153 H 122 H Estimat Average Glucose Hemoglobin A1c Calcium Phosphorus Magnesium Troponin I Diagnostic Findings echo - EF 30-35%, global hypokinesis with dyskinetic apex PG Care Time/CCT Total # of Minutes Spent Total Time Spent with Patient: Total time spent is greater than 50% in coordination of care (as documented) at patient's floor/unit and/or counseling patient: Coding Level of Care Code 03181 Subseq Hosp Care Lvl 2 Diagnoses Ventricular tachycardia I47.2 Non-ST elevation (NSTEMI) myocardial infarction I21.4 Ischemic cardiomyopathy I25.5 CAD (coronary artery disease) I25.10 Hypercholesterolemia E78.00 Hypertension I10 Diabetes E11.9 Chronic kidney disease, stage 3a N18.31 Glaucoma H40.9
[2021-04-04 04:59] LABS: Hematocrit (blood only) 38.7 % (42-52); Hemoglobin 12.8 g/dL (14.0-18.0); Mean Corpuscular Hemoglobin 27.4 pg (25-34); Mean Corpuscular Hgb Conc 33.1 g/dL (32-36); Mean Corpuscular Volume 82.9 fL (80-100); Red Blood Count 4.67 M/uL (4.7-6.1)
[2021-04-04 05:21] LABS: Mean Platelet Volume 9.6 fL (7.4-10.4); Platelet Count 98 K/uL (130-400)
[2021-04-04 05:22] LABS: Platelet Estimate Decreased (Normal)
[2021-04-04 05:30] LABS: BUN Creatinine Ratio 12.6 (10-20); Calcium 8.4 mg/dl (8.5-10.1); Creatinine Clr Calc Pharmacy 42.4 ml/min; Est GFR (African American) 46.9 ml/min; Est GFR (Non-African American) 40.4 ml/min; Potassium 4.1 mmol/L (3.5-5.1)
[2021-04-04 05:39] LABS: Thyroid Stimulating Hormone 1.38 uIu/ml (0.300-4.500)
--- NOTE | 2021-04-04 05:49 | Electrocardiogram Report ---
Test Reason : Blood Pressure : / mmHG Vent. Rate : 065 BPM Atrial Rate : 065 BPM P-R Int : 188 ms QRS Dur : 124 ms QT Int : 422 ms P-R-T Axes : 025 -38 057 degrees QTc Int : 438 ms Normal sinus rhythm Left axis deviation Non-specific intra-ventricular conduction delay T wave abnormality, consider anterior ischemia Abnormal ECG When compared with ECG of 02-APR-2021 11:38, Premature ventricular complexes are no longer Present T wave inversion more evident in Anterior leads QT has shortened Confirmed by Huey Santamaria ([id number]) on 04/04/2021 5:49:22 AM Referred By: REFERRED SELF Confirmed By:Huey Santamaria
--- NOTE | 2021-04-04 06:18 | Electrocardiogram Report ---
Test Reason : Blood Pressure : / mmHG Vent. Rate : 070 BPM Atrial Rate : 070 BPM P-R Int : 186 ms QRS Dur : 112 ms QT Int : 418 ms P-R-T Axes : 034 -34 077 degrees QTc Int : 451 ms Normal sinus rhythm Left axis deviation Abnormal ECG When compared with ECG of 02-APR-2021 16:19, No significant change was found Confirmed by Huey Santamaria ([id number] on 04/04/2021 6:17:57 AM Referred By: REFERRED SELF Confirmed By:Huey Santamaria
[2021-04-04 07:57] LABS: Estimated Average Glucose 166 mg/dl; Hemoglobin A1C 7.4 % (4.5-5.6)
[2021-04-04] MEDS: INSULIN ASPART 100 UNITS/ML 3 ML PEN SC SCH (08:17)
[2021-04-04] MEDS: INSULIN GLARGINE SOLOSTAR 100 UNITS/ML 3 ML PEN SC SCH (08:19)
[2021-04-04] MEDS: ASPIRIN 81 MG ECTAB PO SCH (08:19)
[2021-04-04] MEDS: CLOPIDOGREL BISULFATE 75 MG TAB PO SCH (08:19)
[2021-04-04] MEDS: ATORVASTATIN 40 MG TAB PO SCH (08:19)
[2021-04-04] MEDS: lisinopril 5 MG TAB PO SCH (08:19)
[2021-04-04] MEDS ORDERED: METOPROLOL SUCC 50MG EXT REL TAB PO SCH (09:00)
--- NOTE | 2021-04-04 12:52 | Cardiology Progress Note ---
Date of Service April 04, 2021 Assessment & Plan (1) Wide-complex tachycardia: Plan: -likely secondary to his ischemic event at presentation. -continue medical management of coronary disease. -no need for a life vest currently. (2) Non-ST elevation (NSTEMI) myocardial infarction: Plan: -MILKA placed to the proximal LAD. -continue dual platelet therapy for least 1 year. (3) Cardiomyopathy: Plan: -ejection fraction currently 30 35% with an apical wall motion abnormality. -repeat echocardiogram as an outpatient in several months. -continue medical management. (4) Hypertension: Plan: -adequate control on current regimen. (5) Hypercholesterolemia: Plan: -continue atorvastatin. Admission and Anticipated Discharge Date Admission Date: April 02, 2021 Subjective The patient is resting comfortably in bedside chair without complaints of chest pain or dyspnea. He is anxious for hospital discharge. Physical Exam Physical Exam: In general this is an obese white male in no acute distress. HEENT exam is negative. Neck is supple with full carotid upstrokes. There are no carotid bruits. No jugular venous distension. There is no thyromegaly. Cardiovascular exam reveals a regular rhythm with a normal S1 and S2. No S3, S4, or murmurs are noted. Lungs are clear without rales, rhonchi, or wheezes. Abdomen is soft and nontender without bruits. Extremities reveal intact radial artery and posterior tibial pulses bilaterally. There is no peripheral edema. Results & Data ([facility]) Vital Signs (Past 12 Hours) Vital Signs Temp Pulse Pulse Resp BP BP Pulse Ox 04/04/21 11:48 36.5 C 70 20 128/75 96 04/04/21 11:03 36.5 C 70 20 128/75 96 04/04/21 05:16 36.7 C 04/04/21 05:15 63 23 112/62 04/04/21 01:37 36.7 C 04/04/21 01:17 69 19 120/61 Diagnostic Findings supervisor of instruction notes sinus rhythm with occasional PVCs. PG Care Time/CCT Total # of Minutes Spent Total Time Spent with Patient: Total time spent is greater than 50% in coordination of care (as documented) at patient's floor/unit and/or counseling patient: Coding Level of Care Code 46748 Subseq Hosp Care Lvl 3 Diagnoses Wide-complex tachycardia I47.2 Non-ST elevation (NSTEMI) myocardial infarction I21.4 Cardiomyopathy I42.9 Hypertension I10 Hypercholesterolemia E78.00
--- NOTE | 2021-04-04 14:38 | Discharge Summary ---
Date of Service April 04, 2021 Admission HPI Per Admitting Provider 80-year-old male who has a history of heart failure preserved ejection fraction follows Dr. Irene who was in his normal state of health when he was going to the [employer] he began feeling indigestion. Reportedly he felt in the just the beginning at 10 AM. The patient felt poorly and when walking into the game he happened to ask a artillery officer for some Tums. The artillery officer looked at him he had looked unusual to her she asked if he could be evaluated. When he was evaluated he was found to have low blood pressure and eventually found to have V. tach although he was awake. He was cardioverted to sinus rhythm and brought to our facility. In our facility consultation with cardiology recommended heparin drip amiodarone drip admission for further evaluation. Discussion for acute catheterization was had and felt not to be needed in this situation. Being to the patient is significant signs and symptoms of sleep apnea she says she is counted up to 20 seconds where he has a repeat night. He snores quite a bit. And he has significant diaphoresis at night. Despite that he has had no change in exercise tolerance chest pain doing his normal activities of daily living increasing weight or edema orthopnea. Currently patient is in sinus rhythm his EKG does have some subtle changes with regards to T wave inversions and his other QRS complex has slightly different morphology than his baseline that we see from October. Principal Diagnosis NSTEMI causing ventricular tachycardia Discharge Exam Constitutional WD/WN, vitals as above Eyes EOM intact bilaterally; no conjunctival abnormality ENMT external ear and nose normal, oropharynx normal Neck trachea midline, no thyromegaly normal visual inspection Respiratory normal respiratory effort, lungs clear to auscultation no respiratory distress Cardiovascular RRR, no murmur, no edema Gastrointestinal (Abdomen) Inspection/Auscultation: abdomen normal to inspection; abdomen not distended Musculoskeletal no cyanosis or clubbing, extremities motor strength 5/5 Skin no rashes, warm and dry Neurologic moves all extremities and awake Psychiatric Orientation: alert, oriented to person and cooperative Discharge Data Allergies Allergy/AdvReac Type Severity Reaction Status Date / Time pollen extracts Allergy Mild Sneezing Unverified 04/02/21 13:10 No Known Drug Allergies Allergy Verified 04/02/21 13:08 Consultations 04/02/21 12:34 ED Decision to Admit Stat 04/02/21 15:08 Consult Cardiology Routine Consult Spiritual Care Coordinator Routine 04/02/21 15:18 Consult Spiritual Care Coordinator Stat Procedures Performed Operation Date: 04/02/21 17:05 Actual Procedures p Aspiration/PCI w/MILKA for Stemi - Mateusz Sanz MD p Cath, Coronaries ONLY (no LV) - Mateusz Sanz MD s IVUS Coronary each ADDL Vessel - MD susan Hirsch IVUS Coronary Single Vessel - Mateusz Sanz MD s Cineradiography w/Routine Exam - Mateusz Sanz MD Ordered Studies 04/02/21 17:10 CL Cath Imgs for PACS use only Stat 04/02/21 19:13 CL IVUS Coronary Single Vessel Routine Hospital Course (1) Non-ST elevation (NSTEMI) myocardial infarction: 2nd to occluded ostial. s/p MILKA by Dr Sanz. Peak troponin 5.4. -> Cont ASA, Plavix, BB, AKIRA, statin. - Seen by Dr. Irene on 04/04 with approval for discharge. Will follow up in 1-2 weeks to be sure he's doing well. (2) Ventricular tachycardia: Developed VT (vs SVT with aberrancy) while attending the [employer] football game. S/p cardioversion in the field by EMS. Also given amiodarone bolus by EMS. - Upon ER presentation placed on amiodarone infusion. This was continued until 04/03 and was d/c by cardiology. - No further wide-complex tachycardia, though he had 6 beat run of NSVT on 04/02. - His wide-complex tachycardia was 2nd to ischemia. -> Discussed with cardiology. Given the cause of the arrhythmia was his acute RI, no need for Live Vest on discharge. (3) Ischemic cardiomyopathy: EF 30-35% on echo on 04/02. - Cont Toprol XL - Cont ACEi - consider Entresto in lieu of AKIRA in the near-future. He received his ACEi on the morning of discharge, and given you need to have a wash-out period, I discharged him on the ACEi. Entresto can be started as outpatient. (4) CAD (coronary artery disease): Culprit lesion was a nearly 100% occluded ostial artery. Other findings on cath - LM - Calcified, 40% distal stenosis LAD - Calcified, 98% ostial stenosis, diffuse mild disease in remainder of vessel which wraps around apex. Large D1 with mild diffuse disease. Circumflex - Large caliber vessel, calcified/eccentric ostial stenosis (40% by IVUS), remainder of vessel without significant disease. RCA - Dominant, calcified, 50-60% proximal stenosis, 50% distal stenosis prior to take-off of PDA. S/p MILKA to ostial stenosis by Dr Sanz on 04/02. - Meds as above. (5) Hypercholesterolemia: - Cont Lipitor 40mg daily (6) Hypertension: controlled with BB and AKIRA (7) Diabetes: A1c was 7.4% this admission. BSGs acceptable at this time -> Cont lantus-novolog - Should work with PCP to lower A1c < 7%. (8) Chronic kidney disease, stage 3a: baseline CrCl 40s/50s - Cr stable while in the hospital. (9) Glaucoma: - Cont eye drops Total Time Total Time Spent Total Time Spent (In Minutes): 35 Discharge Plan Discharge Items Patient Disposition: Home - Self-Care Reason For Visit: VENTRICULAR TACHYCARDIA S/P CADIOVERSION Discharge Diagnosis: Mild heart attack which caused an abnormal heart rhythm Activity: Resume your previous activity Non-emergency contact: Primary Care Provider and [employer] Pumper Call non-emergency contact if: your symptoms worsen and your pain is worsening Follow-up/Referrals: Jason Irene MD [Physician] - (Please see Dr. Irene in 1-2 weeks for a post-hospital follow-up.) [facility] [Primary Care Provider] - Diet: Heart Healthy Add Attending Provider Instructions: Mr. Arteaga, You were admitted to the hospital with a mild heart attack. The lack of oxygen to your heart muscles caused you to have an abnormal hearth rhythm which is why you needed to have the cardioversion (heart shock). Luckily, this has stayed away after your stent was put in by Dr. Sanz. Due to the heart issues, we have started/adjusted some of your cardiac medications. We also found that your heart is not squeezing as well as we would hope. This is very likely due to the heart attack. With the right medication, we hope that y our heart will heal and be squeezing normally again before too long. You will need a repeat echocardiogram (ultrasound of the heart) in about 3 months to see if your heart is squeezing better. Please see Dr. Irene in his office in 1-2 weeks to be sure you are doing well at home. Pending Studies at Discharge: No Stand-Alone Forms: My [facility], Smoking Cessation Medications and DC Order Prescriptions: New clopidogrel 75 mg Tablet 75 mg PO QAM Qty: 30 RF: 0 metoprolol succinate 50 mg Tablet Extended Release 24 Hr 50 mg PO QAM Qty: 30 RF: 0 nitroglycerin [Nitrostat] 0.4 mg Tablet, Sublingual 0.4 mg sublingual PRN PRN (Reason: chest pain) Qty: 30 RF: 0 aspirin 81 mg Tablet,Delayed Release (Dr/Ec) 81 mg PO DAILY Qty: 0 RF: 0 Continued glipizide 5 mg tablet 5 mg PO BID RF: 0 lisinopril 5 mg tablet 5 mg PO QAM Qty: 30 RF: 0 atorvastatin 40 mg tablet 40 mg PO PM Qty: 30 RF: 0 latanoprost 0.005 % drops 1 drops OP HS RF: 0 metformin 500 mg tablet 500 - 1,000 mg PO BID RF: 0 Jardiance 10 mg tablet 10 mg PO QAM RF: 0 Discharge Orders: Discharge Order (Routine); Ordered 04/04/21 Ordered By: Cecilio Barrera/Other Patient Handouts: A1C, Managing Type 2 Diabetes Admission Data Admit Date/Time: 04/02/21 13:19 Attending Provider: Cecilio Bear Admit Provider: Geoffrey Garcia Primary Care Provider: [facility] Other Providers: Huey Santamaria ; Nakul Alcantar ; Nakul Schneider ; Cecilio Bear Other Interventions: Discharge Summary Assessment (RN) Last Done: 04/04/21 11:48 Coding Level of Care Code D/C DAY MANAGEMENT >30 MINS Diagnoses Ventricular tachycardia I47.2 Non-ST elevation (NSTEMI) myocardial infarction I21.4 Ischemic cardiomyopathy I25.5 CAD (coronary artery disease) I25.10 Hypercholesterolemia E78.00 Hypertension I10 Diabetes E11.9 Chronic kidney disease, stage 3a N18.31 Glaucoma H40.9
--- NOTE | 2021-04-04 15:31 | Electrocardiogram Report ---
Test Reason : Blood Pressure : / mmHG Vent. Rate : 063 BPM Atrial Rate : 063 BPM P-R Int : 198 ms QRS Dur : 118 ms QT Int : 472 ms P-R-T Axes : 029 -34 080 degrees QTc Int : 483 ms Normal sinus rhythm Left axis deviation Cannot rule out Anterior infarct , age undetermined Abnormal ECG When compared with ECG of 03-APR-2021 06:24, No significant change was found Confirmed by Huey Santamaria ([id number]) on 04/04/2021 3:31:27 PM Referred By: REFERRED SELF Confirmed By:Huey Santamaria
--- NOTE | 2021-04-05 06:25 | Electrocardiogram Report ---
Test Reason : Blood Pressure : / mmHG Vent. Rate : 068 BPM Atrial Rate : 068 BPM P-R Int : 188 ms QRS Dur : 120 ms QT Int : 428 ms P-R-T Axes : 017 -41 091 degrees QTc Int : 455 ms Sinus rhythm with occasional Premature ventricular complexes Left axis deviation Nonspecific T wave abnormality Abnormal ECG When compared with ECG of 03-APR-2021 14:35, Premature ventricular complexes are now Present T wave inversion less evident in Anterior leads Confirmed by Huey Santamaria ([id number]) on 04/05/2021 6:24:51 AM Referred By: REFERRED SELF Confirmed By:Huey Santamaria
== END 2021-04-04 12:28 | disposition home or self-care (01) | DRG 246 ==
LOC: ED 11:32 → 1E 13:19 → SUATTDRO 13:19 → 1E 14:45
PROC: CLB.CCO (2021-04-02 17:05)

== ENCOUNTER 2021-07-21 20:33 | Observation (INO) ==
[2021-07-21] MEDS ORDERED: ADENOSINE IV SOLN 3 MG/ML 2 ML VIAL IV ONE (20:47)
[2021-07-21] MEDS ORDERED: SODIUM CHLORIDE 0.9% 1000ML 1,000 ML IV STA (20:48)
[2021-07-21] MEDS ORDERED: ASPIRIN CHEW 324 MG PO STA (20:48)
[2021-07-21] MEDS ORDERED: LORazepam 2 MG/4 ML VIAL ONE (20:50)
[2021-07-21] MEDS ORDERED: LORazepam 2 MG/4 ML VIAL IV STA (21:08)
[2021-07-21] MEDS ORDERED: CALCIUM GLUCONATE 10% 1,000 MG in SODIUM CHLORIDE 0.9% 50 ML IV STA (21:08)
[2021-07-21 21:10] LABS: Basophils # (auto) 0.02 K/uL (0-0.2); Basophils % (auto) 0.2 %; Eosinophils # (auto) 0.18 K/uL (0-0.5); Eosinophils % (auto) 2.2 %; Hemoglobin 16.3 g/dL (14.0-18.0); Immature Granulocytes # (auto) 0.02 K/uL (0.00-0.02); Immature Granulocytes % (auto) 0.2 %; Lymphocytes # (auto) 2.99 K/uL (1.2-3.4); Lymphocytes % (auto) 36.5 %; Mean Corpuscular Hemoglobin 28.2 pg (25-34); Mean Corpuscular Hgb Conc 33.3 g/dL (32-36); Mean Corpuscular Volume 84.8 fL (80-100); Mean Platelet Volume 9.5 fL (7.4-10.4); Monocytes # (auto) 0.63 K/uL (0.11-0.59); Monocytes % (auto) 7.7 %; Neutrophils # (auto) 4.35 K/uL (1.4-6.5); Neutrophils % (auto) 53.2 %; Platelet Count 231 K/uL (130-400); RDW Coefficient of Variation 16.5 % (11.5-14.5); RDW Standard Deviation 51.2 fL (36.4-46.3); Red Blood Count 5.78 M/uL (4.7-6.1); White Blood Count 8.19 K/uL (4.8-10.8)
[2021-07-21] MEDS ORDERED: CALCIUM GLUCONATE 1000 MG/60 ML NSS IV ONE (21:13)
[2021-07-21 21:21] LABS: Partial Thromboplastin Ratio 1.1; Partial Thromboplastin Time 27.9 Seconds (21.0-31.0); Prothrombin Time 9.7 Seconds (9.0-12.0)
--- NOTE | 2021-07-21 21:21 | Emergency Department Note ---
History of Present Illness General Chief Complaint: Chest Pain Stated Complaint: CHEST PAIN, SOB, SHOULDER PAIN, SWEATING Time Seen by Provider: 07/21/21 20:46 History of Present Illness Provider Complaint: chest pain Onset (ago): hour(s) less than 1 Duration: constant and progressively worsening Onset: during rest Pain Location: substernal Severity: moderate Maximum Pain Intensity: 6 Current Pain Intensity: 6 Quality: + tightness and + other (burning) Relieved By: + nothing Exacerbated By: + nothing Context: no recent illness, no recent surgery, no recent immobilization, no recent travel, no trauma/injury, no new medications or no history of DVT/PE Associated symptoms: + nausea, + diaphoresis, + dyspnea and + palpitations; no syncope, no fever, no cough or no leg swelling Treatments prior to arrival: none Home Medications Medication Instructions Recorded Confirmed Type atorvastatin 40 mg tablet 40 mg PO QAM #30 tab 04/08/19 07/21/21 History glipizide 5 mg tablet 5 mg PO BID tab 04/08/19 07/21/21 History latanoprost 0.005 % eye drops 1 drops OP HS ml 04/08/19 07/21/21 History lisinopril 5 mg tablet 5 mg PO QAM #30 tab 04/08/19 07/21/21 History metformin 500 mg tablet See Rx Instructions .ROUTE 07/07/19 07/21/21 History .COMPLEX tab empagliflozin 10 mg tablet 10 mg PO QAM 04/02/21 07/21/21 History (Jardiance) aspirin 81 mg tablet,delayed 81 mg PO DAILY #0 tab 04/04/21 07/21/21 Rx release nitroglycerin 0.4 mg sublingual 0.4 mg SUBLINGUAL PRN PRN #30 tab 04/04/21 07/21/21 Rx tablet (Nitrostat) clopidogrel 75 mg tablet 75 mg PO QAM #90 tab 04/05/21 07/21/21 Rx metoprolol succinate 50 mg 50 mg PO QAM #90 tab 04/05/21 07/21/21 Rx tablet,extended release 24 hr Allergies Allergy/AdvReac Type Severity Reaction Status Date / Time pollen extracts Allergy Mild Sneezing Verified 07/21/21 21:06 Past Med/Surg History Medical History CAD (coronary artery disease) Cardiomyopathy Cardiomyopathy Cataract CKD (chronic kidney disease) Diabetes Diastolic dysfunction Diastolic dysfunction Hernia Hypercholesterolemia Hypercholesterolemia Hypertension Hypertension Kidney carcinoma Kidney carcinoma Lymphoma NSTEMI (non-ST elevated myocardial infarction) LAD Prostate CA Surgical History H/O prostatectomy History of kidney surgery Stented coronary artery Family History Father Cardiac disorder Mother Brain cancer Social History Smoking Status: Former smoker Tobacco Type: Cigarettes Hx Alcohol Use: Yes Alcohol type: wine Hx Substance Use: No Preferred Language: Mauritian Communication Ability: Effective [employer] Agent Required: No Beliefs That Will Affect Care: None marital status: Current Living Situation: Spouse current occupational status: retired current occupation: Retired Feels Safe at Home: Yes Assistive Devices: None Review of Systems A total of 10 systems reviewed and were otherwise negative Physical Exam Vital Signs Vital Signs - 24 hr 07/21/21 20:35 07/21/21 20:49 07/21/21 20:54 Temperature 36.4 C L Temperature Source Temporal Artery Scan Pulse Rate 205 H 195 H 88 Pulse Rate from SpO2 Sensor Respiratory Rate 24 26 H 32 H Blood Pressure 106/57 L 92/77 L 150/80 H Blood Pressure Mean 73 82 103 Pulse Oximetry 99 92 93 Oxygen Delivery Method Room Air Room Air Room Air Sepsis New/Unexplained Change in Mental Status N/A Sepsis Action Taken by Nursing No Action Required 07/21/21 21:01 07/21/21 21:16 07/21/21 21:20 Temperature Temperature Source Pulse Rate 92 H 102 H 96 H Pulse Rate from SpO2 Sensor Respiratory Rate 25 H 18 20 Blood Pressure 110/69 95/60 L 98/60 L Blood Pressure Mean 82 71 72 Pulse Oximetry 94 92 93 Oxygen Delivery Method Room Air Room Air Room Air Sepsis New/Unexplained Change in Mental Status Sepsis Action Taken by Nursing 07/21/21 21:30 07/21/21 21:45 07/21/21 22:00 Temperature Temperature Source Pulse Rate 97 H 97 H 100 H Pulse Rate from SpO2 Sensor 97 H 97 H 101 H Respiratory Rate 23 20 20 Blood Pressure 92/63 L 97/57 L 100/59 L Blood Pressure Mean 72 70 72 Pulse Oximetry 92 93 94 Oxygen Delivery Method Room Air Room Air Room Air Sepsis New/Unexplained Change in Mental Status Sepsis Action Taken by Nursing 07/21/21 22:15 07/21/21 22:30 Temperature Temperature Source Pulse Rate 95 H 93 H Pulse Rate from SpO2 Sensor 95 H 93 H Respiratory Rate 22 21 Blood Pressure 100/57 L 109/61 Blood Pressure Mean 71 77 Pulse Oximetry 93 93 Oxygen Delivery Method Room Air Room Air Sepsis New/Unexplained Change in Mental Status Sepsis Action Taken by Nursing Physical Exam GENERAL: Diaphoretic. Ill-appearing. EYES: Conjunctivae and EOM are normal. Pupils are equal, round, and reactive to light. Right eye exhibits no discharge. Left eye exhibits no discharge. No scleral icterus. NECK: Normal range of motion. Neck supple. No JVD present. CV: Tachycardic rate, regular rhythm, normal heart sounds and intact distal pulses. There is no peripheral edema. Palpable radial pulses bue. PULM/CHEST: Effort normal and breath sounds normal. No respiratory distress. No stridor. He has no wheezes. He has no rales. - Chest Wall: He exhibits no tenderness. ABD: The abdomen is soft. There is no tenderness. MUSC/SKEL: Normal range of motion. There is no peripheral edema, tenderness or deformity. NEURO: He is alert and oriented to person, place, and time. He has normal strength. No cranial nerve deficit or sensory deficit. GCS eye subscore is 4. GCS verbal subscore is 5. GCS motor subscore is 6. Cerebellar tests wnl. SKIN:Diaphoretic. Procedures Free Text Procedures Indication: Unstable SVT with chest pain Oral consent was obtained after the risks and benefits were explained, including but not limited to pain, thermal burn, allergic reaction, aspiration, airway obstruction, laryngospasm, infection, hypotension, and cardiorespiratory arrest. At this time, the risks of the procedure are less than the risks of NOT performing the procedure. A time out was taken and the correct patient and procedure identified. ACLS cart, and appropriate personnel were prepared prior to the initiation of the procedure. Ativan 2mg IVP given to patient. The biphasic defibrillator was set to 50 joules of energy and synched. After confirmation of sedation and "all clear" safety check the synchronized shock was delivered. This resulted in successful conversion of the dysrhythmia back into sinus rhythm. Course Course 2045: The patient was evaluated in room B1. A complete history and physical exam was performed Cardiac monitoring: An order was placed for continuous cardiac monitoring. The monitor shows a rate of 200 with SVT rhythm Patient diaphoretic hypotensive at 92/77 reporting chest pain. Decision was made to cardiovert the patient given he is hypotensive and still reporting chest pain while in SVT. 2 of Ativan was ordered for the patient. Patient was cardioverted with 50 J see procedure note. Status post cardioversion the patient blood pressure was 150/80 pulse of 86 and he stated his chest pain resolved. 2116: Eikyg-bt-nhmn labs show potassium of 5.4. Calcium gluconate 1 g ordered for the patient. EMR reviewed. Patient has a history of coronary artery disease, diabetes, hyperlipidemia, CKD, ischemic cardiomyopathy, and was seen in March 2021 for ventricular tachycardia requiring cardioversion. 2331: Vital signs stable. Labs within normal limits. Chest x-ray within normal limits. Patient reporting no chest pain. Patient will be admitted to the medicine and the hospitalist team for evaluation by cardiology tomorrow. Discussed with Dr. Toscano will evaluate patient for admission. Administered Medications Discontinued Medications Adenosine (Adenosine Iv Soln 3 Mg/Ml 2 Ml Vial) Confirm Administered Dose 6 mg IV .STK-MED ONE Stop: 07/21/21 20:48 Last Admin: 07/21/21 21:06 Dose: Not Given Documented by: [id number] Aspirin (Aspirin Chew 324 Mg) 324 mg PO NOW STA Stop: 07/21/21 20:49 Last Admin: 07/21/21 21:05 Dose: 324 mg Documented by: [id number] Calcium Gluconate (Calcium Gluconate 1000 Mg/60 Ml Nss) Confirm Administered Dose 1,000 mg IV .STK-MED ONE Stop: 07/21/21 21:14 Last Admin: 07/21/21 21:15 Dose: Not Given Documented by: [id number] Sodium Chloride (Nss 1000ml) 1,000 mls @ 999 mls/hr IV .Q1H1M STA Stop: 07/21/21 21:48 Last Infusion: 07/21/21 23:13 Dose: 0 mls/hr Documented by: [id number] Admin: 07/21/21 20:51 Dose: 999 mls/hr Documented by: [id number] Lorazepam (Ativan) 2 mg in 4 mls @ 4 mls/min IV NOW STA Stop: 07/21/21 21:09 Last Admin: 07/21/21 21:15 Dose: Not Given Documented by: [id number] Calcium Gluconate 1,000 mg/ (Sodium Chloride) 60 mls @ 240 mls/hr IV NOW STA Stop: 07/21/21 21:22 Last Infusion: 07/21/21 21:35 Dose: 0 mls/hr Documented by: [id number] Admin: 07/21/21 21:15 Dose: 240 mls/hr Documented by: [id number] Lorazepam (Lorazepam 2 Mg/4 Ml Vial) Confirm Administered Dose 2 mg .ROUTE .STK- MED ONE Stop: 07/21/21 20:51 Last Admin: 07/21/21 20:52 Dose: 2 mg Documented by: [id number] Medical Decision Making Laboratory Data Result diagrams: 07/21/21 20:45 07/21/21 22:12 Labs: Lab Results 07/21/21 07/21/21 07/21/21 Range/Units 20:45 20:45 20:45 WBC 8.19 (4.8-10.8) K/uL RBC 5.78 (4.7-6.1) M/uL Hgb 16.3 (14.0-18.0) g/dL Hct 49.0 (42-52) % MCV 84.8 (80-100) fL MCH 28.2 (25-34) pg MCHC 33.3 (32-36) g/dL RDW Std Deviation 51.2 H (36.4-46.3) fL RDW Coeff of Marcello 16.5 H (11.5-14.5) % Plt Count 231 (130-400) K/uL MPV 9.5 (7.4-10.4) fL Immature Gran % (Auto) 0.2 % Neut % (Auto) 53.2 % Lymph % (Auto) 36.5 % [place] % (Auto) 7.7 % Eos % (Auto) 2.2 % Baso % (Auto) 0.2 % Neut # (Auto) 4.35 (1.4-6.5) K/uL Lymph # (Auto) 2.99 (1.2-3.4) K/uL [place] # (Auto) 0.63 H (0.11-0.59) K/uL Eos # (Auto) 0.18 (0-0.5) K/uL Baso # (Auto) 0.02 (0-0.2) K/uL Immature Gran # (Auto) 0.02 (0.00-0.02) K/uL PT 9.7 (9.0-12.0) Seconds INR 1.0 (0.9-1.1) APTT 27.9 (21.0-31.0) Seconds PTT Ratio 1.1 Sodium 135 L (136-145) mmol/L Potassium (3.5-5.1) mmol/L Chloride 102 (98-107) mmol/L Carbon Dioxide 21 (21-32) mmol/L Anion Gap 12 H (3-11) BUN 26 H (6-23) mg/dl Creatinine 1.61 H (0.6-1.4) mg/dl Est Cr Clr Drug Dosing 40.1 ml/min Est GFR ( Amer) 45.2 ml/min Est GFR (Non-Af Amer) 39.0 ml/min BUN/Creatinine Ratio 16.1 (10-20) Glucose 120 H (70-99) mg/dl Calcium 9.4 (8.5-10.1) mg/dl Troponin I < 0.03 (0-0.04) ng/ml Lipase 61 (11-82) U/L SARS-CoV-2, RNA, NAAT (NEGATIVE) 07/21/21 07/21/21 Range/Units 20:55 22:12 WBC (4.8-10.8) K/uL RBC (4.7-6.1) M/uL Hgb (14.0-18.0) g/dL Hct (42-52) % MCV (80-100) fL MCH (25-34) pg MCHC (32-36) g/dL RDW Std Deviation (36.4-46.3) fL RDW Coeff of Marcello (11.5-14.5) % Plt Count (130-400) K/uL MPV (7.4-10.4) fL Immature Gran % (Auto) % Neut % (Auto) % Lymph % (Auto) % [place] % (Auto) % Eos % (Auto) % Baso % (Auto) % Neut # (Auto) (1.4-6.5) K/uL Lymph # (Auto) (1.2-3.4) K/uL [place] # (Auto) (0.11-0.59) K/uL Eos # (Auto) (0-0.5) K/uL Baso # (Auto) (0-0.2) K/uL Immature Gran # (Auto) (0.00-0.02) K/uL PT (9.0-12.0) Seconds INR (0.9-1.1) APTT (21.0-31.0) Seconds PTT Ratio Sodium (136-145) mmol/L Potassium 3.8 (3.5-5.1) mmol/L Chloride (98-107) mmol/L Carbon Dioxide (21-32) mmol/L Anion Gap (3-11) BUN (6-23) mg/dl Creatinine (0.6-1.4) mg/dl Est Cr Clr Drug Dosing ml/min Est GFR ( Amer) ml/min Est GFR (Non-Af Amer) ml/min BUN/Creatinine Ratio (10-20) Glucose (70-99) mg/dl Calcium (8.5-10.1) mg/dl Troponin I (0-0.04) ng/ml Lipase (11-82) U/L SARS-CoV-2, RNA, NAAT NEGATIVE (NEGATIVE) Imaging Data Chest x-ray: My impression: No significant change from the chest x-ray it March 2021. ECG Data Additional Comments: EKG #1 at 2042: SVT with a rate of 194. QRS and QTc intervals within normal limits. No ST elevation or ST depression. EKG #2 at 2053 status post cardioversion: Sinus rhythm with a rate of 89. TN QRS and QTc intervals are within normal limits. No ST elevation or ST depression. T wave inversion in lead aVL. [facility] Narrative 2045: The patient was evaluated in room B1. A complete history and physical exam was performed Cardiac monitoring: An order was placed for continuous cardiac monitoring. The monitor shows a rate of 200 with SVT rhythm Patient diaphoretic hypotensive at 92/77 reporting chest pain. Decision was made to cardiovert the patient given he is hypotensive and still reporting chest pain while in SVT. 2 of Ativan was ordered for the patient. Patient was cardioverted with 50 J see procedure note. Status post cardioversion the patient blood pressure was 150/80 pulse of 86 and he stated his chest pain resolved. 2116: Atnke-sc-pgka labs show potassium of 5.4. Calcium gluconate 1 g ordered for the patient. EMR reviewed. Patient has a history of coronary artery disease, diabetes, hyperlipidemia, CKD, ischemic cardiomyopathy, and was seen in March 2021 for ventricular tachycardia requiring cardioversion. 2331: Vital signs stable. Labs within normal limits. Chest x-ray within normal limits. Patient reporting no chest pain. Patient will be admitted to the medicine and the hospitalist team for evaluation by cardiology tomorrow. Discussed with Dr. Toscano will evaluate patient for admission. Impression & Plan SVT (supraventricular tachycardia) Critical Care Time Critical Care Time: Yes Total Critical Care Time: 38 I have personally spent greater than 38 minutes of critical care time in the direct management of this patient. This includes bedside care, interpretation of diagnostic studies, and testing, discussion with consultants, patient, and family members, and other required patient management activities. This 38 minutes is in excess of all separately billable procedures. Discharge Plan Visit Data Chief Complaint: Chest Pain Stated Complaint: CHEST PAIN, SOB, SHOULDER PAIN, SWEATING ED Provider: Angelo Kaplan Discharge Problem: SVT (supraventricular tachycardia) Patient Disposition: Admitted As Inpatient Forms Stand Alone Forms: My [facility] [employer] Prescriptions Prescriptions: No Action metoprolol succinate 50 mg tablet extended release 24 hr 50 mg PO QAM Qty: 90 RF: 3 clopidogrel 75 mg tablet 75 mg PO QAM Qty: 90 RF: 3 glipizide 5 mg tablet 5 mg PO BID RF: 0 lisinopril 5 mg tablet 5 mg PO QAM Qty: 30 RF: 0 atorvastatin 40 mg tablet 40 mg PO QAM Qty: 30 RF: 0 latanoprost 0.005 % drops 1 drops OP HS RF: 0 metformin 500 mg tablet See Rx Instructions .ROUTE .COMPLEX RF: 0 Jardiance 10 mg tablet 10 mg PO QAM RF: 0 nitroglycerin [Nitrostat] 0.4 mg Tablet, Sublingual 0.4 mg sublingual PRN PRN (Reason: chest pain) Qty: 30 RF: 0 aspirin 81 mg Tablet,Delayed Release (Dr/Ec) 81 mg PO DAILY Qty: 0 RF: 0 Referrals Referrals: [facility] [Primary Care Provider] -
[2021-07-21 21:32] LABS: Troponin I < 0.03 ng/ml (0-0.04)
[2021-07-21 21:43] LABS: Anion Gap 12 (3-11); BUN Creatinine Ratio 16.1 (10-20); Blood Urea Nitrogen 26 mg/dl (6-23); Calcium 9.4 mg/dl (8.5-10.1); Carbon Dioxide 21 mmol/L (21-32); Chloride 102 mmol/L (98-107); Creatinine Clr Calc Pharmacy 40.1 ml/min; Est GFR (African American) 45.2 ml/min; Glucose 120 mg/dl (70-99); Lipase 61 U/L (11-82); Sodium 135 mmol/L (136-145)
--- NOTE | 2021-07-21 22:59 | History & Physical Report ---
Date of Service July 21, 2021 Assessment & Plan (1) SVT (supraventricular tachycardia): Plan: 81yo male with history of CAD s/p NSTEMI in 03/2021 with MILKA placed to ostial LAD, cardiomyopathy with improved EF now 45-50% per echo in 06/2021, DM, HTN, HLP presenting with SVT - unstable in ER s/p synchronized cardioversion with 50J - return to NSR and resolution of hypotension and chest discomfort. Patient now in NSR, no complaints -Observation to medical with tele -Continue home medications -Repeat troponin x 1 in AM (2) CKD (chronic kidney disease): Plan: Near baseline -Monitor (3) CAD (coronary artery disease): Plan: Chronic -Continue ASA, Atorvastatin, Plavix, Lisinopril and Metoprolol (4) Hypercholesterolemia: Plan: Chronic -Continue Atorvastatin (5) Hypertension: Plan: Chronic. Well controlled -Continue Metoprolol, Lisinopril (6) Diabetes: Plan: Chronic. Well controlled. Expect patient to be discharged home tomorrow -Continue home agents, Glipizide, Jardiance and Metformin -Monitor History of Present Illness Chief Complaint: SVT Primary Care Provider: [facility] Doroteo Arteaga is an 81yo male with history of CAD s/p NSTEMI with MILKA placement to ostial LAD in March 2021, cardiomyopathy with normalization of EF on most recent echocardiogram. Patient was at a [employer] basketball game when he developed symptoms of chest dis comfort and heartburn around 20:10. He was [place] by paramedics at the stadium and instructed to come to the ER. Upon arrival patient found to be in narrow complex tachycardia with rate of 200. He was diaphoretic, blood pressure borderline low at 92/77, complaining of chest discomfort. He underwent synchronized cardioversion with 50J with return to NSR. Blood pressure improved to 150/80, chest pain resolved. Patient has taken his medications today - no missed doses. Patient presently with no complaints. He is sleepy and resting comfortably. EF 06/09/21 - borderline LV systolic function with EF 45-50%. No WMA. Mild LVH. No valvular pathology Patient follows with Dr. Irene of Cardiology - last seen 06/27/21 ER Course: Calcium gluconate 1gm, Ativan 2mg, ASA 325mg, NSS x 1L Allergies Allergy/AdvReac Type Severity Reaction Status Date / Time pollen extracts Allergy Mild Sneezing Verified 07/21/21 21:06 Home Medications Medication Instructions Recorded Confirmed Type atorvastatin 40 mg tablet 40 mg PO QAM #30 tab 04/08/19 07/21/21 History glipizide 5 mg tablet 5 mg PO BID tab 04/08/19 07/21/21 History latanoprost 0.005 % eye drops 1 drops OP HS ml 04/08/19 07/21/21 History lisinopril 5 mg tablet 5 mg PO QAM #30 tab 04/08/19 07/21/21 History metformin 500 mg tablet See Rx Instructions .ROUTE 07/07/19 07/21/21 History .COMPLEX tab empagliflozin 10 mg tablet 10 mg PO QAM 04/02/21 07/21/21 History (Jardiance) aspirin 81 mg tablet,delayed 81 mg PO DAILY #0 tab 04/04/21 07/21/21 Rx release nitroglycerin 0.4 mg sublingual 0.4 mg SUBLINGUAL PRN PRN #30 tab 04/04/21 07/21/21 Rx tablet (Nitrostat) clopidogrel 75 mg tablet 75 mg PO QAM #90 tab 04/05/21 07/21/21 Rx metoprolol succinate 50 mg 50 mg PO QAM #90 tab 04/05/21 07/21/21 Rx tablet,extended release 24 hr Past Med/Surg History Medical History (Updated 07/22/21 @ 00:44 by Nola Toscano DO) CAD (coronary artery disease) Cardiomyopathy Cataract CKD (chronic kidney disease) Diabetes Diastolic dysfunction Hernia Hypercholesterolemia Hypertension Kidney carcinoma Lymphoma NSTEMI (non-ST elevated myocardial infarction) LAD Prostate CA Surgical History H/O prostatectomy History of kidney surgery Stented coronary artery Family History Father Cardiac disorder Mother Brain cancer Social History Smoking Status: Former smoker Tobacco Type: Cigarettes Hx Alcohol Use: Yes Alcohol type: wine Hx Substance Use: No Preferred Language: Korean Communication Ability: Effective Assistant Professor Of Chemistry Required: No Beliefs That Will Affect Care: None marital status: Current Living Situation: Spouse current occupational status: retired current occupation: Retired Feels Safe at Home: Yes Assistive Devices: None Review of Systems Review of Systems: All systems reviewed & are unremarkable except as noted in HPI & below Physical Exam Physical Exam: General: patient resting comfortably, NAD, non-toxic in appearance, AA&O x 4 Skin: warm, dry, intact, no rashes HEENT: NC/AT, PERRL, EOMI, anicteric sclera, conjunctiva without injection, external ear normal to inspection and nontender, nares patent, moist mucus membranes, dentition intact, no oropharyngeal lesions, neck supple, trachea midline, no LAD, no thyromegaly, no JVD Heart: +S1/S2, regular, no m/r/g Lungs: equal air entry bilaterally, no rales/rhonchi/wheezes Abd: +BS, soft, NT/ND, no masses/organomegaly/ascites Ext: warm, 2+ pulses in UE/LE bilaterally, no clubbing/cyanosis. 1+ pitting edema of bilateral LE Neuro: nonfocal, patient AA&O x 4, speech intact, no facial droop, moving all extremities on command with equal strength 5/5 Results & Data Results & Data ([facility]) Vital Signs (Past 12 Hours) Vital Signs Temp Pulse Resp BP Pulse Ox 07/21/21 22:30 93 H 21 109/61 93 07/21/21 22:15 95 H 22 100/57 L 93 07/21/21 22:00 100 H 20 100/59 L 94 07/21/21 21:45 97 H 20 97/57 L 93 07/21/21 21:30 97 H 23 92/63 L 92 07/21/21 21:20 96 H 20 98/60 L 93 07/21/21 21:16 102 H 18 95/60 L 92 07/21/21 21:01 92 H 25 H 110/69 94 07/21/21 20:54 88 32 H 150/80 H 93 07/21/21 20:49 195 H 26 H 92/77 L 92 07/21/21 20:35 36.4 C L 205 H 24 106/57 L 99 Laboratory Results Laboratory Results WBC 8.19 K/uL (4.8-10.8) 07/21/21 20:45 RBC 5.78 M/uL (4.7-6.1) 07/21/21 20:45 Hgb 16.3 g/dL (14.0-18.0) 07/21/21 20:45 Hct 49.0 % (42-52) 07/21/21 20:45 MCV 84.8 fL (80-100) 07/21/21 20:45 MCH 28.2 pg (25-34) 07/21/21 20:45 MCHC 33.3 g/dL (32-36) 07/21/21 20:45 RDW Std Deviation 51.2 fL (36.4-46.3) H 07/21/21 20:45 RDW Coeff of Marcello 16.5 % (11.5-14.5) H 07/21/21 20:45 Plt Count 231 K/uL (130-400) 07/21/21 20:45 MPV 9.5 fL (7.4-10.4) 07/21/21 20:45 Immature Gran % (Auto) 0.2 % 07/21/21 20:45 Neut % (Auto) 53.2 % 07/21/21 20:45 Lymph % (Auto) 36.5 % 07/21/21 20:45 [place] % (Auto) 7.7 % 07/21/21 20:45 Eos % (Auto) 2.2 % 07/21/21 20:45 Baso % (Auto) 0.2 % 07/21/21 20:45 Neut # (Auto) 4.35 K/uL (1.4-6.5) 07/21/21 20:45 Lymph # (Auto) 2.99 K/uL (1.2-3.4) 07/21/21 20:45 [place] # (Auto) 0.63 K/uL (0.11-0.59) H 07/21/21 20:45 Eos # (Auto) 0.18 K/uL (0-0.5) 07/21/21 20:45 Baso # (Auto) 0.02 K/uL (0-0.2) 07/21/21 20:45 Immature Gran # (Auto) 0.02 K/uL (0.00-0.02) 07/21/21 20:45 PT 9.7 Seconds (9.0-12.0) 07/21/21 20:45 INR 1.0 (0.9-1.1) 07/21/21 20:45 APTT 27.9 Seconds (21.0-31.0) 07/21/21 20:45 PTT Ratio 1.1 07/21/21 20:45 Sodium 135 mmol/L (136-145) L 07/21/21 20:45 Potassium 3.8 mmol/L (3.5-5.1) 07/21/21 22:12 Chloride 102 mmol/L (98-107) 07/21/21 20:45 Carbon Dioxide 21 mmol/L (21-32) 07/21/21 20:45 Anion Gap 12 (3-11) H 07/21/21 20:45 BUN 26 mg/dl (6-23) H 07/21/21 20:45 Creatinine 1.61 mg/dl (0.6-1.4) H 07/21/21 20:45 Est Cr Clr Drug Dosing 40.1 ml/min 07/21/21 20:45 Est GFR ( Amer) 45.2 ml/min 07/21/21 20:45 Est GFR (Non-Af Amer) 39.0 ml/min 07/21/21 20:45 BUN/Creatinine Ratio 16.1 (10-20) 07/21/21 20:45 Glucose 120 mg/dl (70-99) H 07/21/21 20:45 Calcium 9.4 mg/dl (8.5-10.1) 07/21/21 20:45 Troponin I < 0.03 ng/ml (0-0.04) 07/21/21 20:45 Lipase 61 U/L (11-82) 07/21/21 20:45 SARS-CoV-2, RNA, NAAT NEGATIVE (NEGATIVE) 07/21/21 20:55 Code Status & VTE Plan VTE Prophylaxis Plan VTE Prophylaxis will be ordered: Yes PG Care Time/CCT Total # of Minutes Spent Total Time Spent with Patient: Total time spent is greater than 50% in coordination of care (as documented) at patient's floor/unit and/or counseling patient: Coding Level of Care Code INT OBSERVATION CARE 50M LVL 2 Diagnoses SVT (supraventricular tachycardia) I47.1 CKD (chronic kidney disease) N18.9 Chronic kidney disease stage: unspecified stage CAD (coronary artery disease) I25.10 Hypercholesterolemia E78.00 Hypertension I10 Diabetes E11.9 (1) CKD (chronic kidney disease) Chronic kidney disease stage: unspecified stage Qualified Code(s): N18.9 - Chronic kidney disease, unspecified
[2021-07-22] MEDS ORDERED: ACETAMINOPHEN 325 MG TAB PO PRN (01:19)
[2021-07-22] MEDS ORDERED: ONDANSETRON INJ 2 MG/ML 2 ML VIAL IV PRN (01:19)
[2021-07-22 02:10] LABS: Magnesium 1.6 mg/dl (1.7-2.4)
[2021-07-22 04:28] LABS: Hematocrit (blood only) 38.8 % (42-52); Hemoglobin 12.7 g/dL (14.0-18.0); Mean Corpuscular Hemoglobin 27.9 pg (25-34); Mean Corpuscular Hgb Conc 32.7 g/dL (32-36); Mean Corpuscular Volume 85.1 fL (80-100); Mean Platelet Volume 9.1 fL (7.4-10.4); Platelet Count 119 K/uL (130-400); RDW Coefficient of Variation 16.4 % (11.5-14.5); RDW Standard Deviation 51.6 fL (36.4-46.3); Red Blood Count 4.56 M/uL (4.7-6.1); White Blood Count 3.76 K/uL (4.8-10.8)
[2021-07-22 04:34] LABS: Basophils # (auto) 0.01 K/uL (0-0.2); Basophils % (auto) 0.3 %; Eosinophils # (auto) 0.08 K/uL (0-0.5); Eosinophils % (auto) 2.1 %; Lymphocytes # (auto) 1.12 K/uL (1.2-3.4); Lymphocytes % (auto) 29.8 %; Monocytes # (auto) 0.35 K/uL (0.11-0.59); Monocytes % (auto) 9.3 %; Neutrophils % (auto) 58.5 %; Ovalocytes 1+
[2021-07-22 04:43] LABS: Troponin I 0.15 ng/ml (0-0.04)
[2021-07-22 04:50] LABS: Calcium 8.8 mg/dl (8.5-10.1); Creatinine Clr Calc Pharmacy 45.4 ml/min; Est GFR (African American) 52.6 ml/min; Est GFR (Non-African American) 45.4 ml/min; Potassium 4.4 mmol/L (3.5-5.1)
[2021-07-22] MEDS ORDERED: ENOXAPARIN INJ 40 MG/0.4 ML SYR SQ SCH (06:00)
--- NOTE | 2021-07-22 06:45 | XRay Report ---
XR chest 1V portable HISTORY: 81 years-old Male Chest Pain . Acute atypical chest pain COMPARISON: Chest radiograph 04/02/2021 TECHNIQUE: Portable AP view of the chest FINDINGS: Cardiomegaly. Mild chronic interstitial coarsening. No pneumothorax, large pleural effusion or overt pulmonary edema. Degenerative changes of the shoulders and spine. Findings are suggestive of chronic left glenohumeral dislocation. IMPRESSION: Cardiomegaly without acute process. ACT 112: Negative or not required by law. The above report was generated using voice recognition software. It may contain grammatical, syntax o r spelling errors. Electronically signed by: Cruz Lebron M.D. 07/22/2021 6:43 AM
[2021-07-22] MEDS ORDERED: glipiZIDE 5 MG TAB PO SCH (08:00)
[2021-07-22] MEDS ORDERED: metFORMIN HCL 500 MG TAB PO SCH ×2 (08:00→17:00)
[2021-07-22] MEDS ORDERED: CLOPIDOGREL BISULFATE 75 MG TAB PO SCH (09:00)
[2021-07-22] MEDS ORDERED: ATORVASTATIN 40 MG TAB PO SCH (09:00)
[2021-07-22] MEDS ORDERED: lisinopril 5 MG TAB PO SCH (09:00)
[2021-07-22] MEDS ORDERED: ASPIRIN 81 MG ECTAB PO SCH (09:00)
[2021-07-22] MEDS ORDERED: METOPROLOL SUCC 50MG EXT REL TAB PO SCH (09:00)
[2021-07-22 13:04] LABS: iSTAT Creatinine 1.4 mg/dl (0.6-1.3); iSTAT Ionized Calcium 1.08 mmol/l (1.12-1.32); iSTAT Potassium 5.6 mmol/L (3.3-5.0)
--- NOTE | 2021-07-22 18:51 | Electrocardiogram Report ---
Test Reason : Blood Pressure : / mmHG Vent. Rate : 194 BPM Atrial Rate : 214 BPM P-R Int : 000 ms QRS Dur : 108 ms QT Int : 264 ms P-R-T Axes : 000 -66 103 degrees QTc Int : 474 ms Poor data quality, interpretation may be adversely affected Supraventricular tachycardia Left anterior fascicular block Marked ST abnormality, possible lateral subendocardial injury Abnormal ECG When compared with ECG of 04-APR-2021 05:00, Supraventricular tachycardia is now Present Confirmed by Nito Ennis ([id number]) on 07/22/2021 6:50:29 PM Referred By: REFERRED SELF Confirmed By:Nito Ennis
--- NOTE | 2021-07-22 18:54 | Electrocardiogram Report ---
Test Reason : Blood Pressure : / mmHG Vent. Rate : 089 BPM Atrial Rate : 089 BPM P-R Int : 148 ms QRS Dur : 120 ms QT Int : 356 ms P-R-T Axes : 036 -53 072 degrees QTc Int : 433 ms Sinus rhythm with Premature atrial complexes Left axis deviation Non-specific intra-ventricular conduction delay Nonspecific ST abnormality Abnormal ECG When compared with ECG of 21-JUL-2021 20:43, (unconfirmed) Premature atrial complexes are now Present Vent. rate has decreased BY 105 BPM Confirmed by Nito Ennis ([id number]) on 07/22/2021 6:53:49 PM Referred By: REFERRED SELF Confirmed By:Nito Ennis
[2021-07-22] MEDS ORDERED: LATANOPROST 0.005% OP SOLN 2.5 ML BTL OP SCH (21:00)
--- NOTE | 2021-07-22 21:33 | Discharge Summary ---
Date of Service July 22, 2021 Admission HPI Per Admitting Provider Doroteo Arteaga is an 81yo male with history of CAD s/p NSTEMI with MILKA placement to ostial LAD in March 2021, cardiomyopathy with normalization of EF on most recent echocardiogram. Patient was at a [employer] basketball game when he developed symptoms of chest discomfort and heartburn around 20:10. He was [place] by [place]edics at the stadium and instructed to come to the ER. Upon arrival patient found to be in narrow c omplex tachycardia with rate of 200. He was diaphoretic, blood pressure borderline low at 92/77, complaining of chest discomfort. He underwent synchronized cardioversion with 50J with return to NSR. Blood pressure improved to 150/80, chest pain resolved. Patient has taken his medications today - no missed doses. Patient presently with no complaints. He is sleepy and resting comfortably. EF 06/09/21 - borderline LV systolic function with EF 45-50%. No WMA. Mild LVH. No valvular pathology Patient follows with Dr. Irene of Cardiology - last seen 06/27/21 ER Course: Calcium gluconate 1gm, Ativan 2mg, ASA 325mg, NSS x 1L Principal Diagnosis SVT Discharge Exam General: patient resting comfortably, NAD, non-toxic in appearance, AA&O x 4 Skin: warm, dry, intact, no rashes HEENT: NC/AT, PERRL, EOMI, anicteric sclera, conjunctiva without injection, external ear normal to inspection and nontender, nares patent, moist mucus membranes, dentition intact, no oropharyngeal lesions, neck supple, trachea midline, no LAD, no thyromegaly, no JVD Heart: +S1/S2, regular, no m/r/g Lungs: equal air entry bilaterally, no rales/rhonchi/wheezes Abd: +BS, soft, NT/ND, no masses/organomegaly/ascites Ext: warm, 2+ pulses in UE/LE bilaterally, no clubbing/cyanosis. 1+ pitting edema of bilateral LE Neuro: nonfocal, patient AA&O x 4, speech intact, no facial droop, moving all extremities on command with equal strength 5/5 Discharge Data Allergies Allergy/AdvReac Type Severity Reaction Status Date / Time pollen extracts Allergy Mild Sneezing Verified 07/21/21 21:06 Consultations 07/21/21 22:06 ED Decision to Admit Stat Hospital Course (1) SVT (supraventricular tachycardia): 81yo male with history of CAD s/p NSTEMI in 03/2021 with MILKA placed to ostial LAD, cardiomyopathy with improved EF now 45-50% per echo in 06/2021, DM, HTN, HLP presenting with SVT - unstable in ER s/p synchronized cardioversion with 50J - return to NSR and resolution of hypotension and chest discomfort. Patient now in NSR, no complaints -Observation to medical with tele -Continue home medications -Repeat troponin x 1 in AM On 07/22/21 Patient was found to be in normal sinus rhythm. Trop peaked at 0.15 and is now downtrending. LIKELY DEMAND ISCHEMIA D/W cardio, no further intervention is required. This however, is the second episode that has occured in the last 6 months. First episode occured in March. Patient may benefit from seeing an Donor Relations Associate. Will defer to Dr. Irene. will resume home meds (2) CKD (chronic kidney disease): Near baseline -Monitor (3) CAD (coronary artery disease): Chronic -Continue ASA, Atorvastatin, Plavix, Lisinopril and Metoprolol (4) Hypercholesterolemia: Chronic -Continue Atorvastatin (5) Hypertension: Chronic. Well controlled -Continue Metoprolol, Lisinopril (6) Diabetes: Chronic. Well controlled. Expect patient to be discharged home tomorrow -Continue home agents, Glipizide, Jardiance and Metformin -Monitor Total Time Total Time Spent Total Time Spent (In Minutes): 32 Discharge Plan Discharge Items Patient Disposition: Home - Self-Care Reason For Visit: SVT, CHEST PAIN Discharge Diagnosis: SVT , chest pain Activity: Resume your previous activity Non-emergency contact: Primary Care Provider Call non-emergency contact if: you have any medication questions Follow-up/Referrals: [facility] [Primary Care Provider] - Diet: Regular Addtl Attending Provider Instructions: Recommend close followup with Dr. Irene next week or the following at the latest. If unavaiable, will need to see anyone from his office. Pending Studies at Discharge: No Stand-Alone Forms: My [employer], Smoking Cessation Medications and DC Order Prescriptions: Continued metoprolol succinate 50 mg tablet extended release 24 hr 50 mg PO QAM Qty: 90 RF: 3 clopidogrel 75 mg tablet 75 mg PO QAM Qty: 90 RF: 3 glipizide 5 mg tablet 5 mg PO BID RF: 0 lisinopril 5 mg tablet 5 mg PO QAM Qty: 30 RF: 0 atorvastatin 40 mg tablet 40 mg PO QAM Qty: 30 RF: 0 latanoprost 0.005 % drops 1 drops OP HS RF: 0 metformin 500 mg tablet See Rx Instructions .ROUTE .COMPLEX RF: 0 Jardiance 10 mg tablet 10 mg PO QAM RF: 0 nitroglycerin [Nitrostat] 0.4 mg Tablet, Sublingual 0.4 mg sublingual PRN PRN (Reason: chest pain) Qty: 30 RF: 0 aspirin 81 mg Tablet,Delayed Release (Dr/Ec) 81 mg PO DAILY Qty: 0 RF: 0 Discharge Orders: Discharge Order (Routine); Ordered 07/22/21 Ordered By: Bridger Bolaños Admission Data Admit Date/Time: 07/21/21 22:58 Attending Provider: Gregory Waddell Admit Provider: Nola Toscano Primary Care Provider: [facility] Other Providers: Nola Toscano Other Interventions: Discharge Summary Assessment (RN) Last Done: 07/22/21 13:16 Coding Level of Care Code 61635 OBS Care - Discharge Diagnoses SVT (supraventricular tachycardia) I47.1 CKD (chronic kidney disease) N18.9 Chronic kidney disease stage: unspecified stage CAD (coronary artery disease) I25.10 Hypercholesterolemia E78.00 Hypertension I10 Diabetes E11.9
== END 2021-07-22 14:00 | disposition home or self-care (01) ==
LOC: EDINP 20:33 → ED 20:33 → SUATTDRO 22:58 → EDINP 07-22 01:23 → UNDODISOB 07-23 07:23

== ENCOUNTER 2023-11-22 05:14 | Observation (INO) ==
--- NOTE | 2023-11-19 16:17 | PAT Medication Instructions ---
Medication Instructions Date of Service November 19, 2023 Home Medications Medication Instructions Recorded aspirin 81 mg tablet,delayed 81 mg PO DAILY #0 tabs 04/04/21 release nitroglycerin 0.4 mg sublingual 0.4 mg sublingual PRN PRN chest 04/04/21 tablet (Nitrostat) pain #30 tabs clopidogrel 75 mg tablet 75 mg PO QAM #90 tabs 03/07/23 oxycodone 5 mg capsule 5 mg PO Q6H PRN pain #10 caps 11/18/23 atorvastatin 40 mg tablet 40 mg PO QAM glipizide 5 mg tablet 5 mg PO BID latanoprost 0.005 % eye drops 1 drops ophthalmic (eye) HS lisinopril 5 mg tablet 5 mg PO QAM metformin 500 mg tablet See Rx Instructions .Route .COMPLEX empagliflozin 10 mg tablet (Jardiance) 10 mg PO QAM aspirin 81 mg tablet,delayed release 81 mg PO DAILY nitroglycerin 0.4 mg sublingual tablet (Nitrostat) 0.4 mg sublingual PRN PRN chest pain clopidogrel 75 mg tablet 75 mg PO QAM oxycodone 5 mg capsule 5 mg PO Q6H PRN pain metoprolol succinate 50 mg tablet,extended release 24 hr 50 mg PO QAM Continue as directed nitroglycerin 0.4 mg sublingual tablet (Nitrostat) 0.4 mg sublingual PRN PRN chest pain (if needed) ASK your prescriber and surgeon aspirin 81 mg tablet,delayed release 81 mg PO DAILY clopidogrel 75 mg tablet 75 mg PO QAM STOP taking 3 days before surgery empagliflozin 10 mg tablet (Jardiance) 10 mg PO QAM DO NOT take the morning of surgery glipizide 5 mg tablet 5 mg PO BID lisinopril 5 mg tablet 5 mg PO QAM metformin 500 mg tablet See Rx Instructions .Route .COMPLEX Take morning of surgery With a small sip of water, OTHERWISE NOTHING TO EAT OR DRINK AFTER MIDNIGHT: atorvastatin 40 mg tablet 40 mg PO QAM oxycodone 5 mg capsule 5 mg PO Q6H PRN pain (if needed) metoprolol succinate 50 mg tablet,extended release 24 hr 50 mg PO QAM Take evening before surgery glipizide 5 mg tablet 5 mg PO BID latanoprost 0.005 % eye drops 1 drops ophthalmic (eye) HS metformin 500 mg tablet See Rx Instructions .Route .COMPLEX oxycodone 5 mg capsule 5 mg PO Q6H PRN pain (if needed) Other Notes If you have any questions please call us at [phone] or [phone] or [phone] or [phone]
--- NOTE | 2023-11-20 14:09 | Anesthesiology Consultation ---
Date of Service November 20, 2023 Assessment & Plan (1) Encounter for pre-operative examination: Chart Review Chart Review: Acceptable Risk for Surgery and Patient NOT seen in Pre Admission Testing - Check BSG AM DOS - Chlorhexidine wipes not given due to shoulder being in in cast Hx of PONV - Plavix/ASA instructions per surgeon's discretion- patient educated to check with cardio regarding ASA/Plavix instructions - Last dose of Jardiance was 11/20/23 (DOS 11/22/23- discussed with Dr. Lazar)- patient can proceed as scheduled due to nature of procedure - Patient is NOT an OPJ candidate (currently 23 hour obs) Per PAT appt on 11/20/23, no recent illness/disease exposures, illness related symptoms, or recent illness/disease positive tests. Will leave to surgeon's discretion if preop Covid testing needed Patient last seen by cardio 11/06/23= seen for follow up on hypertension, hypercholesterolemia, borderline LVH, diastolic dysfunction, transient cardiomyopathy (urosepsis, October 2016), paroxysmal supraventricular tachycardia (RFA, January 2022), and his coronary artery disease (NSTEMI, LAD [place], March 2021). The patient is stable from cardiovascular standpoint. He demonstrates excellent control of his blood pressure and LDL cholesterol. His HDL cholesterol remains low. He was commended on his active lifestyle and walking program. There has been no recurrence of his SVT since his ablation in 2021. Fortunately, his coronary artery disease remains quiescent his current medical regimen. Highly complex medical issues were managed and discussed today. Addendum 11/19/23= "The patient is an acceptable cardiac risk for shoulder surgery without further testing." Teaching & Discussion Pre-Anesthesia Teaching/Discussion Notes: Instructed NPO after midnight before surgery,except medications with 15 cc of water. Medication instructions provided according to the PAT guidelines. History Surgery Operation Date: 11/22/23 07:00 Proposed Procedures p Right Reverse Total Shoulder Arthroplasty - Nicola Mena M.D. Height/Weight Height: 5 ft 8 in Weight: 101.8 kg Allergies Allergy/AdvReac Type Severity Reaction Status Date / Time pollen extracts Allergy Mild Sneezing Verified 11/19/23 14:43 Medications Home Medications Medication Instructions Recorded Confirmed Last Taken atorvastatin 40 mg tablet 40 mg PO PM #30 tabs 04/08/19 11/20/23 07/21/21 glipizide 5 mg tablet 5 mg PO BID 04/08/19 11/19/23 07/21/21 latanoprost 0.005 % eye drops 1 drops ophthalmic (eye) HS 04/08/19 11/19/23 07/20/21 lisinopril 5 mg tablet 5 mg PO QAM #30 tabs 04/08/19 11/19/23 07/21/21 metformin 500 mg tablet See Rx Instructions .Route .COMPLEX 07/07/19 11/19/23 07/21/21 empagliflozin 10 mg tablet 10 mg PO QAM 04/02/21 11/19/23 07/21/21 (Jardiance) aspirin 81 mg tablet,delayed 81 mg PO DAILY #0 tabs 04/04/21 11/19/23 07/21/21 release nitroglycerin 0.4 mg sublingual 0.4 mg sublingual PRN PRN chest 04/04/21 11/19/23 Unknown tablet (Nitrostat) pain #30 tabs clopidogrel 75 mg tablet 75 mg PO QAM #90 tabs 03/07/23 11/19/23 Unknown oxycodone 5 mg capsule 5 mg PO Q6H PRN pain #10 caps 11/18/23 11/19/23 Unknown metoprolol succinate 50 mg 50 mg PO QAM 11/19/23 11/19/23 Unknown tablet,extended release 24 hr Past Medical History Medical History CAD (coronary artery disease) NSTEMI, LAD [place], March 2021 Cardiomyopathy Transient per cardio records (2017 with urosepsis) EF 45-50% on 2020 ECHO EF 35% on limited, not well visualized 2021 ECHO CKD (chronic kidney disease) Comminuted right humeral fracture (~11/18/23) due to fall Diabetes Diastolic dysfunction Glaucoma History of benign schwannoma s/p removal () History of kidney cancer s/p right nephrectomy- no chemo or XRT History of kidney stones no recent issues History of postoperative nausea and vomiting History of prostate cancer late - s/p prostatectomy - no chemo or XRT Hx of fall (~11/18/23) Seen in ED at [facility] - injured right shoulder - reason for current surgery Hx of lymphoma 2003- chemo, Rituxan Hx of non-ST elevation myocardial infarction (NSTEMI) (~2020) [place] - stent - Dr. Sanz - [facility] - follows with Dr. Irene Hypercholesterolemia Hypertension Patient denies Sleep apnea mild - no cpap SVT (supraventricular tachycardia) Paroxysmal SVT (RFA January 2022) Urinary incontinence Usually wears pad Exercise / Class Metabolic Activity III < 4 Walking/Shop/Light housework (one flight of stairs - no chest pain, mild SOB ) Past Family History Family History Father Cardiac disorder Mother Brain cancer Past Surgical History Surgical History H/O prostatectomy History of cardiac radiofrequency ablation [facility] - Dr. Scar Armijo History of right nephrectomy (~1995) kidney CA History of surgery Schwannoma removal Hx of bilateral cataract extraction Hx of cardiac catheterization (~03/2021) [place] - stent - Dr. Sanz - [facility] - follows with Dr. Irene Hx of colonoscopy with polypectomy Hx of cystoscopy 2-3 Hx of heart artery stent (~2020) [facility] - follows with Dr. Irene Hx of nephrolithotomy with removal of calculi Hx of umbilical hernia repair Past Anesthesia History No Hx of Anesthesia Complications (with exception to remote hx of PONV ) and No Family Hx of Anesthesia Complications History of PONV No Hx of Motion Sickness and History of PONV (remote hx in - no issues with perioperative anti-nausea medications ) Social History Smoking Status: Former smoker tobacco type: cigarettes Do You Dip or Chew Tobacco: No Smoking End Date: quit 1984 (< 1ppd) Hx Alcohol Use: Yes Alcohol type: wine alcohol intake frequency: holidays/special occasions only Hx Substance Use: No substance use type: does not use Review of Systems - Occ reflux- relieved with OTC antacids - Hx of blood clots during lymphoma treatment 2003 Patient denies chest pain, shortness of breath at rest, cough, wheezing, palpitations. No hx of seizures, stroke. No hx of blood clots or blood transfusions Physical Exam Vital Signs VITALS BP 106/64 (manually) P 84 TEMP 97.7 SP02 97% RESP 16 Constitutional no acute distress ENMT Mouth: no TMJ clicking Thyromental Distance: > or= 3.5 Finger Breadths (3.5) Mallampati Class: II Permanent implant bottom left tooth Crowns to side teeth Neck + limited neck extension Respiratory normal respiratory effort; no respiratory distress Auscultation: lungs clear to auscultation bilaterally; no wheezes Cardiovascular Rate/Rhythm: regular rate and regular rhythm Heart Sounds: no murmur Vessels: no carotid bruit Heart sounds mildly diminished throughout Musculoskeletal Spine: no pain with cervical ROM Extremities: extremities normal to inspection Psychiatric Orientation: alert Lab Results Anesthesia Preop Results Results Anesthesia Widget: WBC 8.71 K/ul (4.8-10.8) 11/20/23 Hgb 12.9 g/dl (14.0-18.0) L 11/20/23 Hct 39.7 % (42.0-52.0) L 11/20/23 Plt 218 K/uL (130-400) 11/20/23 Na 136 mmol/L (136-145) 11/20/23 K 4.5 mmol/L (3.5-5.1) 11/20/23 Cl 104 mmol/L (98-107) 11/20/23 CO2 20 mmol/L (21-32) L 11/20/23 BUN 35 mg/dl (6-23) H 11/20/23 Creat 1.72 mg/dl (0.6-1.4) H 11/20/23 Glucose Level 130 mg/dl (70-99(Fasting)) H 11/20/23 PT 10.5 Seconds (9.0-12.0) 11/20/23 PTT 25 Seconds (21-31) 11/20/23 INR 1.0 (0.9-1.1) 11/20/23 HA1c 7.1 % (4.5-5.6) H 11/20/23 Blood Type A Positive 11/20/23 Antibody Screen NEGATIVE 11/20/23 Testing Laboratory Results Elevated creatinine- chronic- fluctuates 1.4-1.7 since 2017 Electrocardiogram Date: 11/20/23 Findings: + NSR @ (78bpm) LAD. Nonspecific intraventricular conduction delay Minimal voltage criteria for LVH, may be normal variant When compared to EKG from Jul 21, 2021- PACs are no longer present, T wave amplitude has decreased in inferior and anterolateral leads per cardio Chest X-Ray Date: 11/20/23 FINDINGS: Lung volumes are normal. Lungs are clear. There is no pneumothorax or pleural effusion. Mild cardiomegaly is unchanged. Mediastinal contours are normal. There is no evidence for pulmonary edema. A proximal right humeral fracture is better depicted on right shoulder radiographs and CT of November 18, 2023. IMPRESSION: No acute cardiopulmonary findings. No change in appearance of the chest. Echocardiogram Date: 02/02/22 EF: 35% LV Function: dysfunctional Other Findings: no LVH Limited TTE s/p ablation, r/o effusion Poor image quality, limited acoustic windows RV dilation with reduced systolic function No significant pericardial effusion No prior study for comparison. Recommend use of LV contrast for better visualization on future studies Cardiac Catheterization Date: 04/02/21 Findings: LM - Calcified, 40% distal stenosis (MLA 8.5 by IVUS LAD - Calcified, 98% ostial stenosis, diffuse mild disease in remainder of vessel which wraps around apex. Large D1 with mild diffuse disease. Circumflex - Large caliber vessel, calcified/eccentric ostial stenosis (40% by IVUS), remainder of vessel without significant disease. RCA - Dominant, calcified, 50-60% proximal stenosis, 50% distal stenosis prior to take-off of PDA. Summary: 1. Severe, 98% ostial LAD stenosis (acute culprit). 2. Moderate to severe non-culprit multivessel disease. - 40% distal left main. - 50-60% proximal RCA, 50% distal RCA 3. Successful PCI of ostial LAD with single drug-eluting stents (2.5 x 12 mm Xience; post-dilated 3.0 NC).
--- NOTE | 2023-11-20 15:02 | History & Physical Report ---
Date of Service November 20, 2023 Assessment & Plan (1) Closed fracture of right proximal humerus: Plan: He has a moderately displaced and significantly comminuted right proximal humerus fracture. Treatment options, including nonoperative management versus surgical intervention with reverse total shoulder arthroplasty, were discussed in detail with the patient and his . We extensively discussed the pros and cons of each approach. Reverse total shoulder arthroplasty would likely give him more reliable outcome in motion, strength, and function of that shoulder, but this is a large surgery for an older patient with numerous medical issues. He is counseled that reverse total shoulder arthroplasty for fracture may not give as successful outcomes as reverse total shoulder arthroplasty for arthritis. Nonoperative management may lead to acceptable functional outcome in the future. After extensive discussion of the pros and cons of each approach, he elected for reverse total shoulder arthroplasty. Risks, benefits, and alternatives of surgery were explained in detail. The surgical procedure, as well as postoperative recovery and rehabilitation, was also explained in detail. Risks include bleeding; infection; damage to surrounding structures such as ner ves, blood vessels, and tendons that run in the area; persistent pain or stiffness; hardware failure; dislocation; brachial plexus palsy; blood clots; or need for further surgery. The patient understands all of this and wishes to proceed with surgery. Risks will be reviewed on the day of surgery and informed consent obtained. Encounter type: initial encounter Fracture morphology: other fracture Fracture alignment: displaced Qualified Code(s): S42.291A - Other displaced fracture of upper end of right humerus, initial encounter for closed fracture History of Present Illness Chief Complaint: Right shoulder injury Primary Care Provider: Bakari Maki MD Mr. Arteaga is an 83-year-old [id number] male who injured his right shoulder during a ground-level fall at home on 11/18/23. He stood up from his chair when his foot felt funny, causing him to stumble and fall and landed on his right shoulder. He went to the emergency room, where x-rays and CT scan showed a fracture in his right shoulder. Allergies Allergy/AdvReac Type Severity Reaction Status Date / Time pollen extracts Allergy Mild Sneezing Verified 11/19/23 14:43 Home Medications Medication Instructions Recorded Confirmed Type atorvastatin 40 mg tablet 40 mg PO PM #30 tabs 04/08/19 11/20/23 History glipizide 5 mg tablet 5 mg PO BID 04/08/19 11/19/23 History latanoprost 0.005 % eye drops 1 drops ophthalmic (eye) HS 04/08/19 11/19/23 History lisinopril 5 mg tablet 5 mg PO QAM #30 tabs 04/08/19 11/19/23 History metformin 500 mg tablet See Rx Instructions .Route .COMPLEX 07/07/19 11/19/23 History empagliflozin 10 mg tablet 10 mg PO QAM 04/02/21 11/19/23 History (Jardiance) aspirin 81 mg tablet,delayed 81 mg PO DAILY #0 tabs 04/04/21 11/19/23 Rx release nitroglycerin 0.4 mg sublingual 0.4 mg sublingual PRN PRN chest 04/04/21 11/19/23 Rx tablet (Nitrostat) pain #30 tabs clopidogrel 75 mg tablet 75 mg PO QAM #90 tabs 03/07/23 11/19/23 Rx oxycodone 5 mg capsule 5 mg PO Q6H PRN pain #10 caps 11/18/23 11/19/23 Rx metoprolol succinate 50 mg 50 mg PO QAM 11/19/23 11/19/23 History tablet,extended release 24 hr Past Med/Surg History Problem List (Updated 11/20/23 @ 15:02 by Nicola Mena M.D.) Closed fracture of right proximal humerus Encounter for pre-operative examination Comminuted right humeral fracture (Acute) Wide-complex tachycardia Ventricular tachycardia (Acute) LVH (left ventricular hypertrophy) Medical History (Updated 11/20/23 @ 15:02 by Nicola Mena M.D.) History of benign schwannoma s/p removal () Comminuted right humeral fracture (~11/18/23) due to fall SVT (supraventricular tachycardia) Paroxysmal SVT (RFA January 2022) Urinary incontinence Usually wears pad Diastolic dysfunction Hx of fall (~11/18/23) Seen in ED at [facility] - injured right shoulder - reason for current surgery History of postoperative nausea and vomiting Glaucoma Sleep apnea mild - no cpap History of kidney stones no recent issues Hx of non-ST elevation myocardial infarction (NSTEMI) (~2020) [place] - stent - Dr. Sanz - [facility] - follows with Dr. 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, Rituxan History of kidney cancer s/p right nephrectomy- no chemo or XRT CAD (coronary artery disease) NSTEMI, LAD [place], March 2021 Hypertension Patient denies Hypercholesterolemia Cardiomyopathy Transient per cardio records (2017 with urosepsis) EF 45-50% on 2020 ECHO CKD (chronic kidney disease) Diabetes Surgical History (Updated 11/20/23 @ 14:02 by Shauna Long PA-C) History of surgery Schwannoma removal Hx of nephrolithotomy with removal of calculi Hx of colonoscopy with polypectomy Hx of cystoscopy 2-3 Hx of umbilical hernia repair History of cardiac radiofrequency ablation [place] - Dr. Scar Armijo Hx of heart artery stent (~2020) [facility] - [place] - follows with Dr. Irene Hx of cardiac catheterization (~03/2021) [place] - stent - Dr. Sanz - [facility] - follows with Dr. Irene Hx of bilateral cataract extraction History of right nephrectomy (~1995) kidney CA H/O prostatectomy Family History Father Cardiac disorder Mother Brain cancer Social History Smoking Status: Former smoker Tobacco Type: Cigarettes Second Hand Exposure: No; Do You Dip or Chew Tobacco: No; Hx Alcohol Use: Yes Alcohol type: wine Hx Substance Use: No Preferred Language: Polish Communication Ability: Effective Skidder Operator Required: No Beliefs That Will Affect Care: None marital status: Current Living Situation: Spouse current occupational status: retired current occupation: Retired Feels Safe at Home: Yes Assistive Devices: Glasses Physical Exam Physical Exam: Examination of the right shoulder reveals no gross deformity of the shoulder. There is moderate swelling over the proximal humerus and shoulder area. Compartments are soft and compressible. Motor and sensory function is intact in the median, ulnar, radial, and axillary nerve distributions. Results & Data Diagnostic Findings X-rays and CT scan of the right shoulder show a moderately displaced and significantly comminuted proximal humerus fracture involving the tuberosities as well as the articular surface of the humeral head.
[2023-11-22] MEDS: LR 60ML/HR IV SCH (05:51)
[2023-11-22] MEDS: CeleBREX 200 MG CAP PO SCH (05:51)
[2023-11-22] MEDS: LR 15ML/HR IV SCH (05:51)
[2023-11-22] MEDS: GABAPENTIN 300 MG CAP PO SCH (05:51)
[2023-11-22] MEDS: FAMOTIDINE 20 MG TAB PO SCH (05:51)
[2023-11-22] MEDS: ACETAMINOPHEN 500 MG TAB PO SCH ×2 (05:51→12:50)
[2023-11-22] MEDS ORDERED: BUPIVACAINE 0.5 % 5 MG/1 ML PF 10ML VIAL ONE (06:20)
[2023-11-22] MEDS ORDERED: MIDAZOLAM HCL 1 MG/ML 2ML VIAL ONE (06:39)
[2023-11-22] MEDS ORDERED: ROCURONIUM BROMIDE 10 MG/ML 5 ML VIAL IV ONE (06:39)
[2023-11-22] MEDS ORDERED: PROPOFOL IV EMULSION 10 MG/ML 20 ML VIAL IV ONE (06:39)
[2023-11-22] MEDS ORDERED: ONDANSETRON INJ 2 MG/ML 2 ML VIAL ONE (06:39)
[2023-11-22] MEDS ORDERED: LIDOCAINE 2% 2 ML VIAL/AMP(20MG/ML) INFIL ONE (06:39)
[2023-11-22] MEDS ORDERED: DEXAMETHASONE SOD INJ 4 MG/ML VIAL ONE (06:39)
[2023-11-22] MEDS ORDERED: SUGAMMADEX SODIUM 200 MG/2 ML VIAL IV ONE (06:40)
[2023-11-22] MEDS ORDERED: fentaNYL citrate PF 100 MCG/2 ML VIAL ONE (06:40)
[2023-11-22] MEDS ORDERED: ATROPINE SULFATE 0.1 MG/ML 10ML SYR IV PRN (06:41)
[2023-11-22] MEDS ORDERED: fentaNYL citrate PF 100 MCG/2 ML VIAL IV PRN (06:41)
[2023-11-22] MEDS ORDERED: ePHEDrine sulfate 50 MG/ML AMP IV PRN (06:41)
--- NOTE | 2023-11-22 06:46 | History & Physical Bridge Note ---
Date of Service November 22, 2023 History & Physical Bridge Note I have examined the patient, reviewed the History & Physical and in the interval since the performance of the History & Physical I have noted the following changes of clinical significance: no changes noted
[2023-11-22] MEDS: TRANEXAMIC ACID 1,000 MG **IV Pre-op IV SCH (06:47)
[2023-11-22] MEDS: ceFAZolin 2000MG 2,000 MG/15 ML SYR IV SCH ×2 (07:00→16:50)
[2023-11-22] MEDS ORDERED: ePHEDrine sulfate 50 MG/ML AMP ONE (08:55)
[2023-11-22] MEDS ORDERED: PHENYLEPHRINE 100MCG/ML 10ML SYR IV ONE (08:55)
--- NOTE | 2023-11-22 09:42 | Operative Report ---
Post Operative Report Pre & Post Diagnosis Operation Date: 11/22/23 07:00 Pre-Op Diagnosis: Right shoulder comminuted, displaced proximal humerus fracture Post-Op Diagnosis: Right shoulder comminuted, displaced proximal humerus fracture I identified the patient and participated in the time-out.: Yes Procedure Operation Date: 11/22/23 07:00 Actual Procedures Right press-fit reverse total shoulder arthroplasty for comminuted proximal humerus fracture (89540 - 22) Open biceps tenodesis (99287) - Nicola Mena M.D. Surgeon Nicola Mena MD Race Relations Adviser Michael Hall PA-C Estimated Blood Loss 100 Findings Consistent with Post-Op Diagnosis Specimens None Drains None Anesthesia Type General Regional Complications none Disposition Disposition: Recovery Room Indications Mr. Arteaga is an 83-year-old male who injured his right shoulder during a ground-level fall on 11/18/23. History, clinical exam, and imaging were consistent with the above diagnosis. Risks, benefits, and alternatives of surgery were explained in detail. The patient understood all this and wished to proceed. Description of Procedure Components Implanted: Tornier Reverse Total Shoulder implants Perform glenoid baseplate: 29mm, 15 degree full wedge with 6.5mm central screw and 5.0mm peripheral screws x 4 Glenosphere: 39mm standard Perform Fracture humeral stem: [id number] with 2 distal cross-locking screws Polyethylene insert: 39mm, +6mm thickness Patient was identified in the preoperative holding area. Operative extremity was marked. Regional blockade was given by the Anesthesia Staff. Patient was then brought back to the operating room, and general anesthesia was induced without complication. Appropriate weight-based dose of Ancef was infused intravenously for antibiotic prophylaxis. The patient was then placed in the beachchair position. Right arm was then prepped and draped in a standard sterile fashion using Chlorhexidine prep. A standard deltopectoral incision was made through the skin and subcutaneous tissue. The cephalic vein was identified and retracted medially. Small branches to the deltoid were coagulated as necessary. The biceps tendon was identified within the bicipital groove and tenodesed at the superior border of the pectoralis tendon with #2 FiberWire suture. The biceps tendon was then divided proximal to the tenodesis site and the rotator interval was opened. The proximal portion of the biceps tendon was excised. The comminuted proximal humerus fracture was then inspected. The infraspinatus tendon attached to the greater tuberosity fragment, as well as the subscapularis tendon attached to the lesser tuberosity fragment were identified and mobilized. The remnants of the supraspinatus were excised back to the level of the glenoid rim. The humeral head articular fragments were excised. Bone graft was obtained from the humeral head fragment for later placement into the humeral stem to aid with healing of the tuberosity fracture fragments. I then placed two #5 FiberWire sutures into each of the greater and lesser tuberosity fracture fragments for mobilization, retraction, and later fixation back to the humeral stem. I then turned my attention to the glenoid. The proximal stump of the biceps tendon was excised, along with the labrum circumferentially around the glenoid. Small anterior glenoid fracture was noted, but this was not large enough to compromise the fixation of the glenoid baseplate. The glenoid drill guide was then positioned on the glenoid, and the guidepin was then inserted in an appropriate position. The reamer was then inserted over the guidepin and the glenoid was reamed to an appropriate depth. The central screw hole was drilled, and appropriate length 6.5mm central screw was selected and assembled into the baseplate. The baseplate was then implanted into place by tightening down the central screw. Peripheral 5mm nonlocking screws were placed for additional compression of the baseplate, and then additional locking 5 mm peripheral screws were placed to complete fixation of the baseplate. Glenosphere was then impacted and secured to the baseplate. After the glenoid component was complete, I then passed the deep limbs of the FiberWire sutures from the lesser tuberosity and subscapularis through the infraspinatus and around the greater tuberosity. I then opened the humeral canal and sequentially broached to an appropriate size. I set the rotation at 20-25 degrees of retroversion and I used the greater and lesser tuberosity frac ture fragments as a guide to the appropriate height for the stem. Trial reduction was carried out to ensure proper soft tissue tension with the selected humeral height. Height alignment guide was then set and saved for final implant positioning. The humeral canal was irrigated and suctioned. A drill hole was then placed into the lateral cortex of the humeral shaft, and a #2 FiberWire suture was placed through this hole for vertical fixation of the tuberosity fragments. Two drill holes were then placed into the lateral cortex of the humeral shaft, and an additional #5 FiberWire suture was placed through these holes for fixation of the tuberosity fragments. Final humeral implant was opened, and the previously obtained bone graft was inserted into the metaphyseal bone graft window in the proximal aspect of the humeral stem. I then impacted the humeral stem in appropriate height and rotation corresponding to the previously set height and alignment guides. Targeting arm was used to drill and insert 2 distal locking screws for additional rotational control of the stem. The deep limbs of the greater tuberosity FiberWire sutures were then passed around the medial aspect of the stem. I then trialed humeral polyethylene inserts to achieve proper stability of the shoulder. Trial spacer was then removed and the final spacer and polyethylene insert were implanted and secured to the humeral stem. I then reduced the shoulder and took it through full range of motion to ensure good stability and acceptable motion. I then proceeded with fixation of the tuberosity fracture fragments. The greater tuberosity was reduced and secured first, followed by the lesser tuberosity cerclage sutures. I then used the suture in the lateral humeral shaft and passed it through the subscapularis and infraspinatus tendons to provide vertical stability of the tuberosity fragments. I then took the shoulder through range of motion to ensure that the tuberosity fragments moved as a unit with the humeral stem with good fracture reduction and good stability and motion of the shoulder. Wound was then copiously irrigated with sterile saline. Deep fascia was closed with 0 V-lock suture. Subcutaneous tissue was closed with 2-0 V-lock, and skin was closed with 3-0 V-lock. Skin was then sealed with Dermabond. Sterile dressings were then applied with a waterproof silver-impregnated dressing, and the arm was placed into a sling. The patient was awakened from anesthesia and taken to the Post Anesthesia Care Unit in stable condition. There were no immediate complications from the procedure. I was present and scrubbed for the entire procedure, with the exception of final skin closure and dressing application. This was a reverse total shoulder arthroplasty for a severely comminuted and displaced proximal humerus fracture. This was a much more difficult total shoulder replacement than a standard reverse total shoulder arthroplasty. This required removal numerous comminuted fracture fragments, fixation of greater and lesser tuberosity fragments, bone grafting, and cross-locking of the humeral stem. This required an approximately 30% longer incision than a standard should er replacement, and about 100% longer time to complete. This procedure therefore qualifies for 22 modifier. Due to the complex nature of the procedure, the entire surgery was performed with the operational assistance of Michael Hall PA-C. The retail assistant store manager, under direct supervision, was involved in the performance of all aspects of the surgical procedure including hemostasis, tissue incision and retraction, instrument management, patient positioning, and wound closure. I attest to the content of the Intraoperative Record and any orders documented therein. Any exceptions are noted below.
[2023-11-22] MEDS: ONDANSETRON INJ 2 MG/ML 2 ML VIAL IV PRN (10:21)
[2023-11-22] MEDS ORDERED: ONDANSETRON INJ 2 MG/ML 2 ML VIAL IV PRN (11:46)
[2023-11-22] MEDS ORDERED: NITROGLYCERIN SL 0.4 MG/TAB TAB SL PRN (11:46)
[2023-11-22] MEDS ORDERED: NALOXONE HCL 0.4 MG/1 ML VIAL/CARP IV PRN (11:46)
[2023-11-22] MEDS ORDERED: PHARMACY GLYCEMIC MGMT CONSULT PRN (11:46)
[2023-11-22] MEDS ORDERED: oxyCODONE HCL IR 5 MG TAB (IMMEDIATE RELEASE) PO PRN (11:46)
[2023-11-22] MEDS ORDERED: METOCLOPRAMIDE HCL INJ 5 MG/ML 2 ML VIAL IV PRN (11:46)
[2023-11-22] MEDS ORDERED: bisacodyL 10 MG SUPP PR PRN (11:46)
[2023-11-22] MEDS ORDERED: MAGNESIUM HYDROXIDE SUSP 30 ML UDC PO PRN (11:46)
--- NOTE | 2023-11-22 12:17 | Pharmacy Report ---
Pharmacy Glycemic Short Note 2 - Date of Service November 22, 2023 - Glycemic Short BSG Results (Last 24 hours): 11/22/23 11/22/23 11/22/23 05:52 09:50 11:29 POC Glucose 152 H 207 H 198 H OUTPATIENT ANTIDIABETIC REGIMEN: * Glipizide 5 mg PO BID * Jardiance 10 mg PO daily * Metformin 1 gm PO BID HbA1c: 7.1% on 11/20/23 ASSESSMENT: 11/22/23: * 83 y/o M admitted for shoulder arthroplasty today. Patient has history of Type 2 diabetes managed on 3 separate oral meds. Also with history of chronic kidney disease. * Fasting BSG today was 152 mg/dl, pre-lunch = 198 mg/dl. * Patient received IV Dexamethasone 8 mg x 1 dose in OR today AM. Anticipate BSGs to trend up due to steroid effects. * Lantus 18 units x1 (stress of 2 dose) ordered with lunch. Will re-assess basal dosing tomorrow. * Novolog started using stress between 1 and 2 parameters. PLAN FOR INPATIENT GLYCEMIC CONTROL: * Hold outpatient oral diabetes medications * Basal insulin * Lantus 18 units SQ x1 with lunch * Bolus insulin * NovoLog per scale ACHS or Q6hrs while NPO. Added 00 and 04 checks * Goal Range: Low 120 mg/dL - High 150 mg/dL * Correction Factor: 25 mg/dL/unit * Nutritional / Prandial insulin per carb ratio of 1 unit per 10 grams CHO consumed
--- NOTE | 2023-11-22 12:42 | Anesthesiology Progress Note ---
Date of Service November 22, 2023 Anesthesia Post Procedure Vital Signs Vital Signs: Temp Pulse Pulse Resp BP Pulse Ox O2 Del Method 11/22/23 12:34 36.3 C L 67 16 111/70 99 Room Air 11/22/23 11:58 36.4 C L 67 16 114/70 98 Nasal Cannula 11/22/23 11:25 Nasal Cannula 11/22/23 11:25 36.2 C L 70 16 126/72 96 Nasal Cannula 11/22/23 11:05 69 15 107/59 L 96 Nasal Cannula 11/22/23 10:50 69 16 114/63 94 Nasal Cannula 11/22/23 10:35 36.6 C 68 16 116/63 96 Nasal Cannula 11/22/23 10:25 71 18 117/65 91 Room Air 11/22/23 10:15 74 22 102/60 97 Oxymask 11/22/23 10:05 76 16 113/61 96 Oxymask 11/22/23 09:55 75 14 110/59 L 98 Oxymask 11/22/23 09:45 36.3 C L 75 10 L 110/60 95 Oxymask 11/22/23 05:52 36.5 C 86 18 125/71 93 Room Air O2 Flow Rate 11/22/23 12:34 11/22/23 11:58 2 11/22/23 11:25 2 11/22/23 11:25 2 11/22/23 11:05 2 11/22/23 10:50 2 11/22/23 10:35 2 11/22/23 10:25 11/22/23 10:15 4 11/22/23 10:05 4 11/22/23 09:55 6 11/22/23 09:45 6 11/22/23 05:52 Transfer of Care Handoff Completed per policy Notes Mental Status: alert / awake / arousable and participated in evaluation Patient Amnestic to Procedure: Yes Nausea / Vomiting: adequately controlled Pain: adequately controlled Airway Patency, RR, SpO2: stable & adequate BP & HR: stable & adequate Hydration State: stable & adequate Anesthetic Complications: no major complications apparent and Pt Satisfied with anesthetic care
[2023-11-22] MEDS: LANTUS PER UNIT CHARGE SC SCH (12:49)
[2023-11-22] MEDS: INSULIN ASPART PER UNIT CHARGE SC SCH ×2 (12:49→23:52)
--- NOTE | 2023-11-22 12:51 | XRay Report ---
XR shoulder RT min 2V routine CLINICAL HISTORY: Post shoulder surgery COMPARISON STUDY: None. FINDINGS: Status post reverse right total shoulder arthroplasty. The hardware appears intact. No acut e fracture or dislocation. IMPRESSION: Status post reverse right total shoulder arthroplasty. No evidence for hardware complica tion. ACT 112: Negative or not required by law. Electronically signed by: Skip Huber M.D. 11/22/2023 12:49 PM
[2023-11-22] MEDS: SODIUM CHLORIDE 0.9% 1,000 ML IV SCH (16:49)
[2023-11-22] MEDS: SENNA 8.6 MG TAB PO SCH (19:59)
[2023-11-22] MEDS: DOCUSATE SODIUM 100 MG CAP PO SCH (19:59)
[2023-11-22] MEDS: ATORVASTATIN 40 MG TAB PO SCH (19:59)
[2023-11-22] MEDS: LATANOPROST 0.005% OP SOLN 2.5 ML BTL OP SCH (21:54)
[2023-11-22] MEDS: IBUPROFEN 600 MG TAB PO SCH (23:02)
[2023-11-23 06:41] LABS: Eosinophils # (auto) 0.02 K/uL (0.00-0.50); Eosinophils % (auto) 0.3 %; Hematocrit (blood only) 32.7 % (42.0-52.0); Hemoglobin 10.6 g/dl (14.0-18.0); Immature Granulocytes # (auto) 0.03 K/uL (0.01-0.20); Immature Granulocytes % (auto) 0.5 %; Lymphocytes # (auto) 0.47 K/uL (1.20-3.40); Lymphocytes % (auto) 8.2 %; Mean Corpuscular Hemoglobin 26.4 pg (25.0-34.0); Mean Corpuscular Hgb Conc 32.4 g/dL (32.0-36.0); Mean Corpuscular Volume 81.3 fL (80.0-100.0); Mean Platelet Volume 9.8 fL (9.4-12.4); Monocytes # (auto) 0.43 K/uL (0.11-0.59); Monocytes % (auto) 7.5 %; Neutrophils # (auto) 4.81 K/uL (1.40-6.50); Neutrophils % (auto) 83.5 %; Platelet Count 151 K/uL (130-400); RDW Coefficient of Variation 15.6 % (11.5-14.5); RDW Standard Deviation 46.3 fL (36.4-46.3); Red Blood Count 4.02 M/uL (4.70-6.10); White Blood Count 5.76 K/ul (4.8-10.8)
[2023-11-23 06:58] LABS: BUN Creatinine Ratio 23.8 (10-20); Calcium 8.7 mg/dl (8.6-10.3); Creatinine Clr Calc Pharmacy 42.1 ml/min; Est GFR (African American) 49.7 ml/min; Est GFR (Non-African American) 42.9 ml/min; Potassium 4.7 mmol/L (3.5-5.1)
[2023-11-23] MEDS: ASPIRIN 81 MG ECTAB PO SCH (07:27)
[2023-11-23] MEDS: CLOPIDOGREL BISULFATE 75 MG TAB PO SCH (07:28)
[2023-11-23] MEDS: METOPROLOL SUCC 50MG EXT REL TAB PO SCH (07:28)
[2023-11-23] MEDS: lisinopril 5 MG TAB PO SCH (07:28)
[2023-11-23] MEDS: MULTIVITAMIN TAB PO SCH (07:28)
[2023-11-23] MEDS: LANTUS PER UNIT CHARGE SC SCH (08:02)
--- NOTE | 2023-11-23 08:19 | Orthopedic Progress Note ---
Date of Service November 23, 2023 Assessment & Plan (1) Closed fracture of right proximal humerus: Plan: Postop day 1 status post right reverse total shoulder arthroplasty with biceps tenodesis. PT OT protocols. DVT prophylaxis-SCDs, aspirin p.o. daily pain management as written. hyponatremia-sodium down to 131 this morning. Patient ranging the low normal on a regular basis. I discussed this with Dr. Mena this AM. Plan for f/u with PCP DC planning-patient is planning for DC to home with outpatient therapy Admission and Anticipated Discharge Date Admission Date: November 22, 2023 Subjective Postop day 1 patient sitting up in chair at the bedside. No complaints this morning. Feels good. Pain is controlled. Physical Exam Physical Exam: Silverlon dressing is intact. Sling is in place. Patient has good range of motion of his right wrist and fingers. Neurovascular appears intact. Results & Data Vital Signs (Past 12 Hours) Vital Signs Temp Pulse Resp BP Pulse Ox O2 Del Method 11/23/23 07:35 36.5 C 76 16 121/67 95 Room Air 11/23/23 03:08 36.6 C 64 16 112/65 94 Room Air 11/22/23 22:59 36.4 C L 68 16 125/75 96 Room Air Laboratory Results Laboratory Results WBC 5.76 K/ul (4.8-10.8) 11/23/23 05:45 RBC 4.02 M/uL (4.70-6.10) L 11/23/23 05:45 Hgb 10.6 g/dl (14.0-18.0) L 11/23/23 05:45 Hct 32.7 % (42.0-52.0) L 11/23/23 05:45 MCV 81.3 fL (80.0-100.0) 11/23/23 05:45 MCH 26.4 pg (25.0-34.0) 11/23/23 05:45 MCHC 32.4 g/dL (32.0-36.0) 11/23/23 05:45 RDW Std Deviation 46.3 fL (36.4-46.3) 11/23/23 05:45 RDW Coeff of Marcello 15.6 % (11.5-14.5) H 11/23/23 05:45 Plt Count 151 K/uL (130-400) 11/23/23 05:45 MPV 9.8 fL (9.4-12.4) 11/23/23 05:45 Immature Gran % (Auto) 0.5 % 11/23/23 05:45 Neut % (Auto) 83.5 % 11/23/23 05:45 Lymph % (Auto) 8.2 % 11/23/23 05:45 [place] % (Auto) 7.5 % 11/23/23 05:45 Eos % (Auto) 0.3 % 11/23/23 05:45 Baso % (Auto) 0.0 % 11/23/23 05:45 Neut # (Auto) 4.81 K/uL (1.40-6.50) 11/23/23 05:45 Lymph # (Auto) 0.47 K/uL (1.20-3.40) L 11/23/23 05:45 [place] # (Auto) 0.43 K/uL (0.11-0.59) 11/23/23 05:45 Eos # (Auto) 0.02 K/uL (0.00-0.50) 11/23/23 05:45 Baso # (Auto) 0.00 K/uL (0.00-0.20) 11/23/23 05:45 Immature Gran # (Auto) 0.03 K/uL (0.01-0.20) 11/23/23 05:45 Sodium 131 mmol/L (136-145) L 11/23/23 05:45 Potassium 4.7 mmol/L (3.5-5.1) 11/23/23 05:45 Chloride 102 mmol/L (98-107) 11/23/23 05:45 Carbon Dioxide 21 mmol/L (21-32) 11/23/23 05:45 Anion Gap 8 (3-11) 11/23/23 05:45 BUN 35 mg/dl (6-23) H 11/23/23 05:45 Creatinine 1.47 mg/dl (0.6-1.4) H 11/23/23 05:45 Est Cr Clr Drug Dosing 42.1 ml/min 11/23/23 05:45 Est GFR ( Amer) 49.7 ml/min 11/23/23 05:45 Est GFR (Non-Af Amer) 42.9 ml/min 11/23/23 05:45 BUN/Creatinine Ratio 23.8 (10-20) H 11/23/23 05:45 Glucose 149 mg/dl (70-99(Fasting)) H 11/23/23 05:45 POC Glucose 158 mg/dl (70-99) H 11/23/23 07:36 Calcium 8.7 mg/dl (8.6-10.3) 11/23/23 05:45 Impressions Shoulder X-Ray 11/22/23 09:58 XR shoulder RT min 2V routine CLINICAL HISTORY: Post shoulder surgery COMPARISON STUDY: None. FINDINGS: Status post reverse right total shoulder arthroplasty. The hardware appears intact. No acute fracture or dislocation. IMPRESSION: Status post reverse right total shoulder arthroplasty. No evidence for hardware complication. ACT 112: Negative or not required by law. Electronically signed by: Skip Huber M.D. 11/22/2023 12:49 PM (1) Closed fracture of right proximal humerus Encounter type: initial encounter Fracture alignment: displaced Fracture morphology: other fracture Qualified Code(s): S42.291A - Other displaced fracture of upper end of right humerus, initial encounter for closed fracture
--- NOTE | 2023-11-23 08:45 | Discharge Summary ---
Date of Service November 23, 2023 Admission HPI Per Admitting Provider Mr. Arteaga is an 83-year-old [id number] male who injured his right shoulder during a ground-level fall at home on 11/18/23. He stood up from his chair when his foot felt funny, causing him to stumble and fall and landed on his right shoulder. He went to the emergency room, where x-rays and CT scan showed a fracture in his right shoulder. Principal Diagnosis Right proximal humerus fracture Discharge Data Allergies Allergy/AdvReac Type Severity Reaction Status Date / Time pollen extracts Allergy Mild Sneezing Verified 11/22/23 05:35 Procedures Performed Operation Date: 11/22/23 07:00 Actual Procedures p Right Reverse Total Shoulder Arthroplasty(Right) - Nicola Mena M.D. Ordered Studies 11/22/23 05:00 US - OR guided needle placemen Routine Hospital Course (1) Closed fracture of right proximal humerus: Patient underwent a right reverse total shoulder arthroplasty on the date of admission for his comminuted proximal humerus fracture. Patient tolerated the procedure well and was transferred up to the general orthopedic surgery floor in stable condition. Perioperative antibiotic coverage was initiated, and continued for 24 hours postoperatively. His previous anticoagulant regimen consisting of aspirin 81 mg daily and Plavix was restarted after surgery for DVT prophylaxis. Perioperative pain control regimen was transitioned to strictly oral pain medications by postoperative day 1. On postoperative day 1 the patient was doing very well. Pain was well controlled, and patient was mobilizing well with therapy. Patient was determined be safe and ready for discharge to home. Total Time Total Time Spent Total Time Spent (In Minutes): 15 Discharge Plan Discharge Items Patient Disposition: Home - Self-Care Reason For Visit: Right Shoulder Proximal Humerus Fracture Discharge Diagnosis: Right shoulder proximal humerus fracture Activity: Per Instructions section Non-emergency contact: Surgeon Call non-emergency contact if: your pain is not controlled, your temperature is above 101.5, your wound has increased redness and your wound has increased drainage Follow-up/Referrals: Bakari Maki MD [Primary Care Provider] - Nicola Mena M.D. [Physician] - (Follow up with Dr. Mena or his PA in 2 weeks from the day of your surgery. An appointment should already be scheduled for you. Please call the office to check on the time. ) Diet: Regular Addtl Attending Provider Instructions: Things to Watch Out For -Go to the Emergency Room if you have sudden onset of nausea, vomiting, chest pain, shortness of breath, or uncontrollable pain. -Call the clinic or go to the Emergency Room if you have a sudden increase in the amount of wound drainage or the drainage becomes thick, yellow or green, or foul-smelling. -For routine questions, call the clinic at [phone] during regular business hours (8am-5pm). For urgent issues after regular business hours, you may call the clinic to be connected to the on-call physician. Dressings -A special waterproof, silver-impregnated dressing was placed on your shoulder. Keep this dressing in place for 1 week after surgery. You may shower with the waterproof dressing in place, but do not soak the dressing in the bathtub or pool. -One week after surgery, you may remove the waterproof dressing. You may continue to shower, and let water run BRIEFLY over the incision, but do not soak the incision in the bathtub or pool for 2 weeks. You may also gently clean the incision with mild soap and water; pat the incision dry after cleaning-do not rub the incision. Apply a new dressing daily thereafter. Shoulder Exercises -Keep your operative shoulder in the sling for comfort, except as detailed below. -You should come out of the sling 4-5 times a day for passive pendulum exercises: lean over and swing your arm in a circular pattern. -You should also do active-assisted forward flexion exercises: use your opposite hand to lift your operative arm forward to 90 degrees. -Do not use your arm to push yourself up out of bed or up from a seated position. -Do not flex your elbow (curl motion) or supinate your forearm (rotating palm up) against resistance. -Subscapularis repair: Do not externally rotate your arm past neutral rotation (forearm pointed straight out from your body) or internally rotate your arm (pull your forearm towards your body) against resistance. Do not abduct your shoulder past 90 degrees (bring your arm out to the side past shoulder level). Ice Pack -You may use an ice pack for pain relief. You should use it 20-30 minutes at a time. Place a towel between the ice pack and your skin to prevent frostbite. -You should use the ice pack fairly regularly for the first 1-2 weeks after surgery to help reduce pain and inflammation. -About 2 weeks after your surgery, you should start using heat to loosen up your shoulder prior to doing your stretching exercises, then use the cooling sleeve after your exercises are complete to reduce swelling and pain. Pain Medicines -Your prescriptions for pain medications have already been sent to the pharmacy on file at [facility]. -You have been prescribed an anti-inflammatory (Motrin/ibuprofen) and a non- narcotic pain medicine (Tylenol/acetaminophen). These are your primary pain medications. Take them each every 6 hours as instructed. It is recommended that you stagger these medicines every 3 hours (i.e. take ibuprofen at 8:00 am, then acetaminophen at 11:00 am, then ibuprofen at 2:00 pm, etc) -DO NOT take any additional anti-inflammatories (Advil, Aleve/naproxen, Mobic/meloxicam, Celebrex) or any additional Tylenol/acetaminophen products with these prescribed medications. -You have also been prescribed an additional narcotic pain medication (oxycodone). Take this medicine ONLY for breakthrough pain not controlled by the ibuprofen and acetaminophen. -Do not drive or operate heavy machinery while taking the narcotic medication. -Common side effects of narcotic pain medicines include itching, nausea, constipation, and feeling "loopy". However, if you develop a rash or hives, stop taking the medicine and call the clinic. If you develop swelling in your throat or difficulty breathing, go to the Emergency Room or call 911 IMMEDIATELY. -You may take over the counter stool softeners if needed for constipation. Pending Studies at Discharge: No Stand-Alone Forms: My [facility] Medications and DC Order Prescriptions: Continued clopidogrel 75 mg tablet 75 mg PO QAM Qty: 90 3RF glipizide 5 mg tablet 5 mg PO BID lisinopril 5 mg tablet 5 mg PO QAM Qty: 30 atorvastatin 40 mg tablet 40 mg PO PM Qty: 30 latanoprost 0.005 % drops 1 drops OP HS metformin 500 mg tablet See Rx Instructions .ROUTE .COMPLEX Rx Instructions: 500 mg orally; TAKES 1,000 mg PO QAM, 500mg QPM; Jardiance 10 mg tablet 10 mg PO QAM nitroglycerin [Nitrostat] 0.4 mg Tablet, Sublingual 0.4 mg sublingual PRN PRN (Reason: chest pain) Qty: 30 0RF Rx Instructions: Take up to 3 doses five minutes apart. If chest pain has not resolved, call 03-09-. Sit down and elevate feet before taking. aspirin 81 mg Tablet,Delayed Release (Dr/Ec) 81 mg PO DAILY Qty: 0 0RF oxycodone 5 mg capsule 5 mg PO Q6H PRN (Reason: pain) Qty: 10 0RF metoprolol succinate 50 mg tablet extended release 24 hr 50 mg PO QAM Discharge Orders: Discharge Order (Routine); Ordered 11/23/23 Ordered By: Krzysztof Murillo Admission Data Admit Date/Time: 11/22/23 09:58 Attending Provider: Nicola Mena Admit Provider: Nicola Mena Primary Care Provider: Bakari Maki
== END 2023-11-23 11:25 | disposition home or self-care (01) ==
LOC: ASU 05:14 → 3E 05:14

== ENCOUNTER 2023-12-23 10:33 | Inpatient (IN) ==
--- OUTSIDE RECORDS SUMMARY | 2023-12-23 10:37 | External Medical Summary | Continuity of Care Document ---
Author Name Unknown Organization [address] Address [address] [place], [place] [id number] Care Team Providers Care Forge Helper Name Role Phone Edmar Maki Primary Care Physician [phone] Encounter [facility] [id number] Date(s): 12/20/23 - 12/20/23 [facility] [address], [address] [place] [phone] Discharge Disposition: Home or Self Care Attending Physician: Mayo Rodgers DO, Mariana Annette Referring Physician: Mayo Rodgers DO, Mariana Annette Allergies, Adverse Reactions, Alerts No Known Medication Allergies Substance Criticality Severity Reaction Reaction Severity Status Pollen runny nose sneezing Active Immunizations Given and Recorded Vaccine Date Status Refusal Reason SARS COVID Vaccine Unspecified 04/22/23 Recorded influenza virus vaccine, inactivated 04/28/22 Dave rded influenza virus vaccine, inactivated 03/09/21 Dave rded influenza virus vaccine, inactivated 03/18/20 Dave rded influenza virus vaccine, inactivated 04/17/19 Give n influenza virus vaccine, inactivated 04/15/18 Give n influenza virus vaccine, inactivated 04/04/17 Give n influenza virus vaccine, inactivated 04/06/16 Give n SARS-CoV-2 mRNA (Pfizer 12+) bivalent 1 04/11/22 R ecorded SARS-CoV-2 (COVID-19) mRNA-1273 vaccine 2 05/02/21 Recorded SARS-CoV-2 (COVID-19) mRNA-1273 vaccine 3 09/06/20 Recorded SARS-CoV-2 (COVID-19) mRNA-1273 vaccine 4 08/09/20 Recorded zoster vaccine, inactivated 12/06/18 Recorded zoster vaccine, inactivated 08/21/18 Recorded pneumococcal 13-valent vaccine 09/05/14 Recorded zoster vaccine live 04/12/12 Recorded tetanus/diphtheria/pertuss, acel (Tdap) 08/09/08 R ecorded tetanus/diphtheria/pertuss, acel (Tdap) 5 08/09/08 Recorded pneumococcal 23-valent vaccine 04/08/05 Recorded pneumococcal 23-valent vaccine 6 04/08/05 Recorded 1Result Comment: 2022-05-01: Historical information-source unspecified 2Result Comment: 2021-09-05: Historical information-source unspecified 3Result Comment: 2021-02-28: Historical information-source unspecified 4Result Comment: 2021-02-28: Historical information-source unspecified 5Result Comment: 2021-02-28: Historical information-source unspecified 6Result Comment: 2021-02-28: Historical information-source unspecified Medications acetaminophen Start: 11/26/23 2:18:00 PM EDT Start Date: 11/26/23 Status: Ordered Albuterol (Eqv-ProAir HFA) 90 mcg/inh inhalation aerosol Start: 12/17/23 3:22:00 PM EDT Start Date: 12/17/23 Status: Ordered aspirin 81 mg oral delayed release tablet Start: 04/19/21 3:55:00 PM EDT, 1 tab, PO, Daily Start Date: 04/19/21 Status: Ordered atorvastatin 40 mg oral tablet Start: 12/12/23 9:09:00 AM EDT, 1 tab, PO, Daily, Disp# 90 tab, Refills: 3, Pharmacy: [facility] Start Date: 12/12/23 Status: Ordered clopidogrel 75 mg oral tablet Start: 04/19/21 3:55:00 PM EDT, 1 tab, PO, Daily Start Date: 04/19/21 Status: Ordered glipiZIDE 5 mg oral tablet Start: 05/07/23 1:52:00 PM EDT, 1 tab, PO, bid, Disp# 180 tab, Refills: 3, Pharmacy: [facility] Start Date: 05/07/23 Status: Ordered Jardiance 10 mg oral tablet Start: 03/05/23 8:03:00 AM EDT, See Instructions, Disp# 90 tab, Refills: 3, TAKE 1 TABLET BY MOUTH IN THE MORNING, Pharmacy: [facility] ([facility]) Start Date: 03/05/23 Status: Ordered latanoprost 0.005% ophthalmic solution Start: 01/03/17 4:24:00 PM EDT, 1 drop, both eyes, qhs Start Date: 01/03/17 Status: Ordered lisinopril 5 mg oral tablet Start: 03/05/23 8:03:00 AM EDT, See Instructions, Disp# 90 tab, Refills: 3, TAKE 1 TABLET BY MOUTH DAILY, Pharmacy: [facility] ([facility]) Start Date: 03/05/23 Status: Ordered metFORMIN 1000 mg oral tablet Start: 10/31/23 10:53:00 AM EDT, See Instructions, 1 tablet by mouth in the morning, and a 1/2 a tablet in the afternoon Start Date: 10/31/23 Status: Ordered metoprolol succinate 50 mg oral tablet, extended release Start: 04/19/21 3:55:00 PM EDT, 1 tab, PO, Daily Start Date: 04/19/21 Status: Ordered nitroglycerin Start: 04/19/21 3:55:00 PM EDT, 5 mg =, PO, PRN: as needed for chest pain Start Date: 04/19/21 Status: Ordered One Touch Ultra Blue Test Strips Start: 09/25/16 8:29:00 AM EDT, See Instructions, Disp# 1 box, tests 1 time daily diagnosis: E11.9 Start Date: 09/25/16 Status: Ordered One Touch Ultrasoft (28G) Lancets Start: 09/25/16 8:30:00 AM EDT, See Instructions, Disp# 1 box Start Date: 09/25/16 Status: Ordered oxyCODONE 5 mg oral tablet Start: 11/26/23 2:18:00 PM EDT, 1 tab, PO, q4h, Refills: 0, PRN: as needed for pain Start Date: 11/26/23 Status: Ordered triamcinolone 0.1% topical cream Start: 08/14/23 10:23:00 AM EST, 1 appl, topical, bid, Disp# 80 g, Refills: 3, apply to arms or legs,Pharmacy: [facility] Start Date: 08/14/23 Status: Ordered Problem List Condition Confirmation Course Effective Dates Status H ealth Status Informant Solitary kidney Confirmed Active Eczema Confirmed Active Ureterolithiasis Confirmed Active Chronic kidney disease, stage 2 (mild) Confirmed Active Coronary artery disease Confirmed Active Excessive cerumen in both ear canals Confirmed Active Low HDL (under 40) Confirmed Active Glaucoma Confirmed Active History of B-cell lymphoma Confirmed 2003 Active History of renal cell cancer Confirmed 1991 Active History of prostate cancer Confirmed 1997 Active Impacted cerumen Confirmed Active Male urinary stress incontinence Confirmed Active Hyperlipidemia Confirmed Active Myocardial infarction Confirmed Active Obstructive sleep apnea Confirmed Active Skin lesion Confirmed Active Stented coronary artery Confirmed Active 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 12/14/16 Completed KUB X-ray 10 11/20/16 Completed Ultrasound of kidney and bladder 11 11/20/16 Completed Cardiac echo 11/06/16 Completed Chest x-ray 12 11/04/[address] of abdomen and pelvis 13 11/04/16 Completed KUB X-ray 14 11/04/16 Completed Stent placement ureteral 11/04/16 Completed PFT 15 09/27/15 Completed Myocardial imaging, positron emission tomography (PET), perfusion; single study at rest or stress 16 09/22/15 Compl eted Exercise electrocardiogram 17 12/03/14 Completed Cardiac echo 18 09/09/14 Completed Duplex ultrasound 19 08/31/14 Comp leted Chest x-ray 20 10/16/12 Completed X-ray of lumbar spine and pelvis 21 10/16/12 Completed Colonoscopy 22 12/19/11 Completed Cataract surgery 02/27/11 Complete d Excision of hydrocele 01/03/[address] 23 07/14/09 Completed Upper GI endoscopy 12/18/04 Comple aydee Bone marrow biopsy 08/09/04 Comple aydee Upper GI endoscopy 07/26/04 [facility] Sigmoidoscopy 07/21/98 Completed Excision of lymph node 03/26/98 Co mpleted Prostatectomy 03/26/98 Completed Nephrectomy 1991 Completed Tonsillectomy Completed Ultrasound of kidney 25 C ompleted 1impression: - Z-line regular, 41 cm from the incisors - normal esoophagus - normal stomach - normal examined duodenum - no specimens collected 2tublar adenoma 3Repeat in 5 years. 4impression: -a 6mm polyp was found in the hepatic flexure. The polyp was sessile. The polyp was removed with a hot snare. resection and retrieval were complete, estimated blood loss: none. a few small-mouthed diverticula were found in the sigmoid colon. 5IMPRESSION 1) Interval removal of the left-sided nephroureteral stend 2) No renal calculi are visualized on conventional radiographic imaging 6IMPRESSION: No acute cardiopulmonary findings. No change in appearance of the chest 7No diabetic retinopathy right eye. Very minimal background diabetic retinopathy left eye. 83 tubular adenomas. Repeat screening colonoscopy in 3 years. 9Impression: A left ureteral stent is unchanged in position. No renal calculi are identified. 10Impression: a left ureteral stent is new from previous. No stones are identified along the course of the stent. No renal calculi are seen on today's examination. 11Impression: The right kidney is surgically absent The left kidney demonstrate cortical atrophy and is without hydronephrosis A left ureteral stent is in place A nonobstructing calculus is seen in the left lower pole The bladder is partially decompressed and grossly unremarkable. 12Impression: no acute process 13Impression: An obstructing 6 mm stone within the distal left ureter resulting in moderate severe left sided hydronephrosis. There is associated left perinephric fat stranding. Mesenteric and distal thoracic periaortic lymphadenopathy. This could represent a neoplastic process Absent right kidney Additional findings as described above. 14Impression: Fluorocaopy provided for left ureteral stent placement 15Normal 161. LV perfusion is normal. 2. Quantification of myocardial perfusion was normal: global flow at stress 3.06 ml/min/g, at rest to 1.09ml/min/g, myocardial perfusion reserves 2.82. There was very little variation between myocardial territories. Scan significance was abnormal (mild LV dysfunction) and indicates a low risk for hard cardiac events. 17Large sized mild to moderate severity apical and distal anterior, anteroseptal and septal fixed defect suggestive of artifact i.e., fixed defect without associated regional wall motion abnormality. QA of the stress and rest raw data appear to be of good quality but the tomographic reconstructions are of relatively poor quality. Although the study is probably normal perfusion, it is generally nondiagnostic. A stress PET myocardial perfusion scan would likely resolve the issue. Scan significance was abnormal and indicates a low risk for hard cardiac events. 18Very poor echo windows. Left ventricular funtion lower limits of normal. Normal overall right ventricular systolic function. 19lower extremity Duplex evaluation in the imaged veins of the bilateral lower extremities reveals NO EVIDENCE of deep vein thrombosis. 201 stable appearance with no appreciable interval changes or acute cardiopulmonary abnormality. 211. Diffuse osteopenia. No localized sclerothic or lytic lesion to suggest metastatsis. 2. Mild multilevel degenerative chages lower thoracic and lumbar spine, prominent at L5-S1. Moderate lower lumbar facet joint osteoarthrosis. 3. Mild bilateral hip osteoarthrosis. 22Due in December 2016 23Lower lobe predominant subpleural septal thickening and ground glass opacity most consistent with nonspecific interstitial pneumonia like lung disease. 24left 25Renal US. left uteral jet was visualized. No bladdermasseswere demonstrated. Results Radiology Reports * Exam Date Time Procedure Performing Provider Status 12/20/23 8:39 AM Echo TransTHORacic TTE Complete w/ Con t Sunday, Estrellita; Final Notes: (Echo TransTHORacic TTE Complete w/ Cont) Reason For Exam: SOB Echo TransTHORacic TTE Complete w/ Cont Report Signatures Finalized by Dr. Gianni Raines MD on 12/20/2023 04:59 PM [place] Act 112: Yes - Discussed with patient Summary 1. Technically difficult study due to patient body habitus; Successfully enhanced with Definity contrast per lab protocol for better endocardial definition. 2. Mildly dilated left ventricular size. 3. Moderately reduced systolic function, ejection fraction calculated by Biplane Villegas's method is 40% although visually looks worse. 4. Global hypokinesis of the left ventricle. 5. No left ventricular hypertrophy. 6. Grade I diastolic dysfunction of the left ventricle (impaired relaxation pattern) with elevated left atrial pressure. 7. Normal right ventricular size and function. 8. Normal size aortic root (4.0 cm) and ascending aorta (3.8 cm) for BSA. 9. Normal biatrial size. 10. No significant valvular abnormalities. 11. Unable to estimate the pulmonary artery systolic pressure due to insufficient TR. 12. Difficult to compare to the prior study, as it was of poor image quality with limited acoustic windows. 13. Calcified sinotubular junction, aortic arch and proximal descending thoracic aorta. Patient Info Name: DANYELL CARTER Age: 83 years : 1940 Gender: Male Ht: 175 cm Wt: 100 kg BSA: 2.24 m2 HR: 73 bpm BP: 130 / 70 mmHg Heart Rhythm: Sinus Rhythm Technical Quality: Technically difficult study Exam Date: 12/20/2023 7:31 AM Exam Location: [facility] Patient Status: Outpatient Staff Ordering Physician: Sheridan Hurd Chainman: Estrellita Muir RDCS, RVT Attending Physician: Sheridan Hurd Study Info [facility] [id number] - [id number] - Indications R0602 - Shortness of breath Procedure(s) * A complete two-dimensional, color flow and Doppler transthoracic echocardiogram was performed. * Chainman, Estrellita Muir RDCS, RVT, provided education about ultrasound enhancing agent to the patient. * Failed 2D images were enhanced with Definity per lab protocol. Exam Type: Cardiac Basic Left Ventricle Mildly dilated left ventricular size. Global hypokinesis of the left ventricle. Moderately reduced systolic function, ejection fraction calculated by Biplane Villegas's method is 40% although visually looks worse. No left ventricular hypertrophy. Grade I diastolic dysfunction of the left ventricle (impaired relaxation pattern) with elevated left atrial pressure. Right Ventricle Normal right ventricular size and function. TAPSE is normal, 2.2 cm. Left Atrium Normal left atrial size. Right Atrium Normal right atrial size. Aortic Valve Calcified, tricuspid aortic valve without stenosis. Trivial aortic valve insufficiency. Pulmonic Valve Unremarkable pulmonic valve. Mitral Valve Moderately calcified mitral valve annulus without stenosis. Trace mitral valve regurgitation. Tricuspid Valve Normal tricuspid valve. Unable to estimate the pulmonary artery systolic pressure due to insufficient TR. Pericardium/Pleural No pericardial effusion. Inferior Vena Cava Unable to visualize the IVC due to acoustic shadowing from overlying bowel gas. Assumed right atrial pressure is 3 mmHg. Aorta Calcified sinotubular junction, aortic arch and proximal descending thoracic aorta. Normal size aortic root (4.0 cm) and ascending aorta (3.8 cm) for BSA. Normal size aortic arch. Unable to visualize the abdominal aorta. Left Ventricular Outflow Tract Name Value Normal LVOT 2D LVOT Diameter 2.7 cm LVOT Doppler LVOT Peak Velocity 0.78 m/s LVOT Peak Gradient 2 mmHg LVOT Mean Gradient 1 mmHg LVOT VTI 15.99 cm LVOT Stroke Volume 88.43 ml LVOT Stroke Volume Index 0.04 l/m2 LVOT Cardiac Output 6.46 l/min LVOT Cardiac Index 2.89 L/min/m2 Pulmonic Valve Name Value Normal PV 2D RVOT Diameter (2D) 2.5 cm 1.7-2.7 RVOT Doppler RVOT Peak Velocity 0.58 m/s PV Doppler PV Peak Velocity 1.01 m/s Mitral Valve Name Value Normal MV Doppler MV PHT 45 ms MV Diastolic Function MV E Peak Velocity 0.86 m/s <=0.50 MV A Peak Velocity 1.05 m/s MV E/A 0.82 <=0.80 MV Decel Time 155 ms MV Annular TDI MV Septal s' Velocity 5.70 cm/s MV Septal e' Velocity 5.33 cm/s >=7.00 MV E/e' (Septal) 16.2 <=8.0 MV Lateral s' Velocity 8.94 cm/s MV Lateral e' Velocity 7.01 cm/s >=10.00 MV E/e' (Lateral) 12.29 <=8.00 MV e' Average 6.17 MV E/e' (Average) 14.22 <=14.00 Tricuspid Valve Name Value Normal Estimated PAP/RSVP RA Pressure 3 mmHg <=5 TV Diastolic Function TV E Peak Velocity 0.53 m/s TV A Peak Velocity 0.61 m/s TV E/A 0.87 0.80-2.00 TV Decel Time 364 ms >=120 TV Annular TDI TV Lateral Loli s' Velocity 12.3 cm/s 9.5-18.7 TV Lateral Loli e' Velocity 10.8 cm/s <7.8 TV E/e' 4.88 2.00-6.00 Aorta Name Value Normal Ascending Aorta Sinus of Valsalva Diameter 4.0 cm 3.1-3.7 Sinus of Valsalva Index 1.80 cm/m2 1.50-1.90 Prox Asc Ao Diameter 3.8 cm 2.6-3.4 Prox Asc Ao Diameter Index 1.68 cm/m2 1.30-1.70 Thoracic Aorta Ao Arch Diameter 3.0 cm Desc Ao Peak Velocity 0.76 m/s Desc Ao Peak Gradient 2 mmHg Aortic Valve Name Value Normal AV Doppler AV Peak Velocity 1.40 m/s <2.00 AV Peak Gradient 7 mmHg AV Area (Cont Eq George) 3.1 cm2 AV Area Index (Cont Eq George) 1.38 cm2/m2 AV V1/V2 Ratio 0.56 AV Regurgitation 2D LVOT Area 5.5 cm2 Ventricles Name Value Normal LV Dimensions 2D/MM IVS Diastolic Thickness (2D) 0.8 cm 0.6-1.0 LVID Diastole (2D) 5.8 cm 3.6-5.6 LVIW Diastolic Thickness (2D) 0.9 cm 0.6-1.0 LVID Systole (2D) 4.9 cm 2.5-4.0 LVOT Diameter 2.7 cm LV Mass (2D Cubed) 194.32 g 88.00-224.00 Relative Wall Thickness (2D) 0.33 LV Fractional Shortening/Ejection Fraction 2D/MM LV Fractional Shortening (2D) 15 % 25-43 LV Diastolic Volume (4C MOD) 205 ml LV Diastolic Volume (2C MOD) 195 ml LV Diastolic Volume (BP MOD) 200 ml 62-150 LV Diastolic Volume Index (BP MOD) 89.52 ml/m2 34.00-74.00 LV Systolic Volume (BP MOD) 113 ml 21-61 LV Systolic Volume Index (BP MOD) 50.40 ml/m2 11.00-31.00 LV EF (BP MOD) 44 % 57-68 LV SV (BP MOD) 87.48 ml RV Dimensions 2D/MM RV Basal Diastolic Dimension 3.8 cm 2.5-4.1 TAPSE 2.2 cm >=1.7 Atria Name Value Normal LA Dimensions LA Area (4C) 15.2 cm2 LA Length (4C) 4.5 cm LA Area (2C) 15.7 cm2 LA Length (2C) 4.7 cm LA Volume (4C A-L) 43.56 ml LA Volume (2C A-L) 44.65 ml LA Volume (BP A-L) 45 ml 18-58 LA Volume Index (BP A-L) 20.06 ml/m2 <=34.00 RA Dimensions RA Area (4C) 12.4 cm2 <=18.0 Final Signed by:DO Raines Jason D Signed (Electronic Signature):12/20/2023 7:31 a Social History Social History Type Response Tobacco Former smoker, Cigar ettes 1 Smoking Status Former Smoker, quit > 1 yr Sex Male 1quit in 1984 Patient Care team information Care Team Personnel Name: MD Glynn, Edmar Goodwin Position: Physician Member Role: Primary Care Provider Address: Address: [address] [place] [id number] Care Team Related Persons Name: LUCI CARTER Address: home [address] [place] [id number]
--- OUTSIDE RECORDS SUMMARY | 2023-12-23 10:37 | External Medical Summary | Continuity of Care Document ---
Author Name Unknown Organization [address] Address [address] [place] [address] [phone] Care Team Providers Care Seam Finisher Name Role Phone Edmar Maki Primary Care Physician [phone] [id number] Date(s): 12/17/23 - 12/17/[address] [place] [id number] [facility] [address] [place] [address] [phone] Encounter Diagnosis Reactive airway disease(Discharge Diagnosis) - 12/17/23 Insomnia(Discharge Diagnosis) - 12/17/23 Discharge Disposition: Home or Self Care Attending Physician: Mayo Rodgers DO, Mariana Annette Referring Physician: Mayo Rodgers DO, Mariana Annette Allergies, Adverse Reactions, Alerts No Known Medication Allergies Substance Criticality Severity Reaction Reaction Severity Status Pollen runny nose sneezing Active Assessment and Plan Extracted from: Title:Office Visit Note Author:DO Petersen Ravin Date:12/17/23 1.Reactive airway disease Okay to continue albuterol EKG in the emergency department was negative, CTAalso negative in the emergency department Explained that he shouldfollow-up with his manager of regulatory affairs Will obtain pulmonary function testing Will order 2D echoto evaluate heart function ED precautions discussed 2.Insomnia Discussed sleep hygiene Will trial melatonin 5 mg nightly Immunizations Given and Recorded Vaccine Date Status [...] vaccine, inactivated 04/06/16 Give n SARS-CoV-2 mRNA (ipsy 12+) bivalent 1 04/11/22 R ecorded SARS-CoV-2 [...] IN THE MORNING, Pharmacy: [facility] ([facility]) Start Date: 03/05/23 Status: Ordered latanoprost 0.005% ophthalmic solution Start: 01/03/17 4:24:00 PM EDT, 1 drop, both eyes, qhs Start Date: 01/03/17 Status: Ordered lisinopril 5 mg oral tablet Start: 03/05/23 8:03:00 AM EDT, See Instructions, Disp# 90 tab, Refills: 3, TAKE 1 TABLET BY MOUTH DAILY, Pharmacy: [facility] ([facility]) Start Date: 03/05/23 Status: Ordered [...] Home Delivery Start Date: 08/14/23 Status: Ordered Mental Status 12/17/23 Barriers to Learning one year None evide nt Mandatory Health Literacy Documentation Yes Health Literacy Communication Barriers N ever Primary Language Sami Problem List Condition Confirmation Course Effective Dates [...] 2 diabetes mellitus with microalbuminuria Confirmed Active Diagnosis Diagnosis Type Effective Dates Health Status Cl inical Service Informant Insomnia Discharge Diagnosis 12/17/23 Non-Specified Reactive airway disease Discharge Diagnosis 12/17/23 Non-Specified Procedures Procedure Date Related Diagnosis Body Site [...] 08/09/04 Comple aydee Upper GI endoscopy 07/26/04 Comple aydee Sigmoidoscopy 07/21/98 Completed Excision of lymph node 03/26/98 Co mpleted Prostatectomy 03/26/98 Completed Nephrectomy 1991 Completed Tonsillectomy Completed Ultrasound of kidney C ompleted 1impression: - Z-line regular, 41 [...] uteral jet was visualized. No bladdermasseswere demonstrated. Vital Signs Most recent to oldest [Reference Range]: 1 Patient Weight 97 kg (12/17/23 3:24 PM) Heart Rate 87 bpm (12/17/23 3:24 PM) Respiratory Rate 18 br/min (12/17/23 3:24 PM) Blood Pressure 110/68mmHg (12/17/23 3:24 PM) Social History Social History Type Response Tobacco Former smoker, Cigar ettes 1 Smoking Status Former Smoker, quit > 1 yr Sex Male 1quit in 1984 FCM Outpt Note * Mayo Rodgers DO, Mariana Annette: MODIFY Mayo Rodgers DO, Mariana Annette: MODIFY Event Display: FCM Outpt Note Authored Date: [id number] Chief Complaint ER f/u - breathing difficulty/SOB - was given neb, using albuterol q 4 at home History of Present Illness Doroteo is apleasant 83-year-old malewith a past medical history of CKD CAD OSAtype 2 diabetes who is coming infor evaluation ofdyspneaafter being discharged from the emergency department. He was discharged withsteroids. He had aCTAof the chestdone which was negativefor acute pulmonary embolism. He states that for months now he has hadissues with taking deep breaths. No exertionaldyspneaor chest pain. Does have history of prior myocardial infarction. With cardiology is in June. He states thathisbreathing issues seems to bewhen he is just sitting therehe will complain of not able to take a deep breath he is onlyinspiring about 80% he feels like Complaining of trouble sleepingever since her shoulder surgery a few weeks ago. Has not tried anything forsleep at this point Physical Exam Vitals & Measurements HR:87(Monitored) RR:18 BP:110/68 SpO2:98% WT:97.000kg(Dosing) WT:97kg PHQ2 Data(Data Documented on:12/17/2023 15:20) Emotional health assessment NEGATIVE GENERAL APPEARANCE: The patient is alert, oriented and in no acute distress. VITALS: As above. HEENT: Head is normocephalic/atraumatic. PERRL, EOM-I. Oropharynx clear without lesions. NECK: Supple without lymphadenopathy. Thyroid wnl. CARDIOVASCULAR: Regular rate and rhythm, no m/r/g. LUNGS: Clear to auscultation bilaterally. No wheezes/rales/rhonchi. ABDOMEN: Soft, nontender, nondistended with normal bowel sounds. No rebound/guarding. EXTREMITIES:+1 pitting edema bilaterally NEUROLOGICAL: Grossly non-focal exam. SKIN: Warm and dry without any rash Assessment/Plan 1.Reactive airway disease Okay to continue albuterol EKG in the emergency department was negative, CTAalso negative in the emergency department Explained that he shouldfollow-up with his manager of regulatory affairs Will obtain pulmonary function testing Will order 2D echoto evaluate heart function ED precautions discussed 2.Insomnia Discussed sleep hygiene Will trial melatonin 5 mg nightly Attestation Pt seen and examined in concert with Dr. Petersen, agree with history and physical as documented above. Plan reviewed in detail. Problem List/Past Medical History Ongoing Chronic kidney disease, stage 2 (mild) Coronary artery disease Eczema Excessive cerumen in both ear canals Glaucoma History of B-cell lymphoma History of prostate cancer History of renal cell cancer Hyperlipidemia Impacted cerumen Low HDL (under 40) Male urinary stress incontinence Myocardial infarction Obstructive sleep apnea Skin lesion Solitary kidney Stented coronary artery Type 2 diabetes mellitus with microalbuminuria Ureterolithiasis Resolved Acute systolic CHF (congestive heart failure) Diabetes History of CHF (congestive heart failure) Pyelonephritis Sepsis Procedure/Surgical History Arthroplasty of right shoulder| Service Date: 11/21/2023Upper GI endoscopy| Service Date: 06/28/2020Colonoscopy| Service Date: 05/19/2020Colonoscopy| Service Date: 05/19/2020KUB X-ray|Service Date: 01/28/2018Chest x-ray| Service Date: 12/19/2017Diabetic retinal eye exam| Service Date: 06/22/2017Colonoscopy| Service Date: 05/14/2017KUB X-ray| Service Date: 12/26/2016Cystoscopy, Left ureteral stent exchange, left retrograde pyelography with semirigid ureteroscopy, laser lithotripsy and stone extraction.| Service Date: 12/14/2016KUB X-ray| Service Date: 7Ultrasound of kidney and bladder| Service Date: 11/20/2016Cardiac echo| Service Date: 11/06/2016CT of abdomen and pelvis| Service Date: 11/04/2016Chest x-ray| Service Date: 11/04/2016Stent placement ureteral| Service Date: 11/04/2016KUB X-ray| Service Date: 11/04/2016PFT| Service Date: 09/27/2015Myocardial imaging, positron emission tomography (PET), perfusion; single study at rest or stress| Service Date: 09/22/2015Exercise electrocardiogram| Service Date: 12/03/2014Cardiac echo| Service Date: 09/09/2014Duplex ultrasound| Service Date: 08/31/2014Chest x-ray| Service Date: 10/16/2012X-ray of lumbar spine and pelvis| Service Date: 10/16/2012Colonoscopy| Service Date: 12/19/2011Cataract surgery| Service Date: 02/27/2011Excision of hydrocele| Service Date: 01/03/2011Chest CT| Service Date: 07/14/2009Upper GI endoscopy| Service Date: 12/18/2004Bone marrow biopsy| Service Date: 08/09/2004Upper GI endoscopy| Service Date: 07/26/2004Sigmoidoscopy| Service Date: 07/21/1998Excision of lymph node| Service Date: 03/26/1998Prostatectomy| Service Date: 03/26/1998Nephrectomy| Service Date: 1991Ultrasound of kidneyTons illectomy Medications acetaminophen albuterol(Albuterol (Eqv-ProAir HFA) 90 mcg/inh inhalation aerosol) aspirin(aspirin 81 mg oral delayed release tablet), 81 mg= 1 tab, PO, Daily atorvastatin(atorvastatin 40 mg oral tablet), 1 tab, PO, Daily clopidogrel(clopidogrel 75 mg oral tablet), 75 mg= 1 tab, PO, Daily diabetic supplies(One Touch Ultra Blue Test Strips), See Instructions diabetic supplies(One Touch Ultrasoft (28G) Lancets), See Instructions empagliflozin(Jardiance 10 mg oral tablet), See Instructions, 3 refills glipiZIDE(glipiZIDE 5 mg oral tablet), 1 tab, PO, bid latanoprost ophthalmic(latanoprost 0.005% ophthalmic solution), 1 drop, both eyes, qhs lisinopril(lisinopril 5 mg oral tablet), See Instructions, 3 refills metFORMIN(metFORMIN 1000 mg oral tablet), See Instructions metoprolol(metoprolol succinate 50 mg oral tablet, extended release), 50 mg= 1 tab, PO, Daily nitroglycerin, 5 mg, PO, PRN oxyCODONE(oxyCODONE 5 mg oral tablet), 5 mg= 1 tab, PO, q4h, PRN triamcinolone topical(triamcinolone 0.1% topical cream), 1 appl, topical, bid, 3 refills Allergies No Known Medication Allergies Pollenrunny nose, sneezing Social History Smoking Status Former Smoker, quit > 1 yr Alcohol Use:Current Type:Beer Frequency:1-2 times per year Employment/School Status: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 He recently started exercising this past week. Home/Environment Lives with:Spouse Home equipment:Glucose monitoring - Comments: Lives in an apartment at [place] [facility]. Tobacco - Denies Tobacco Use Use:Former smoker Type:Cigarettes - Comments: quit in 1984 Family History Brain cancer....: Mother. Cancer of colon: MGM and PGM. Glaucoma: Father. Heart attack: Father, MGF and PGF. Stroke: Father. Health Status Family Member(s) Immunizations Vaccine Date Status SARS COVID Vaccine Unspecified 04/22/2023 Recorded influenza virus vaccine, inactivated 04/28/2022 Recorded SARS-CoV-2 mRNA (Pfizer 12+) bivalent 04/11/2022 Recorded Comments : 2022-05-01: Historical information-source unspecified SARS-CoV-2 (COVID-19) mRNA-1273 vaccine 05/02/2021 Recorded Comments : 2021-09-05: Historical information-source unspecified influenza virus vaccine, inactivated 03/09/2021 Recorded SARS-CoV-2 (COVID-19) mRNA-1273 vaccine 09/06/2020 Recorded Comments : 2021-02-28: Historical information-source unspecified SARS-CoV-2 (COVID-19) mRNA-1273 vaccine 08/09/2020 Recorded Comments : 2021-02-28: Historical information-source unspecified influenza virus vaccine, inactivated 03/18/2020 Recorded influenza virus vaccine, inactivated 04/17/2019 Given zoster vaccine, inactivated 12/06/2018 Recorded zoster vaccine, inactivated 08/21/2018 Recorded influenza virus vaccine, inactivated 04/15/2018 Given influenza virus vaccine, inactivated 04/04/2017 Given influenza virus vaccine, inactivated 04/06/2016 Given pneumococcal 13-valent vaccine 09/05/2014 Recorded zoster vaccine live 04/12/2012 Recorded tetanus/diphtheria/pertuss, acel (Tdap) 08/2008 Recorded tetanus/diphtheria/pertuss, acel (Tdap) 08/09/2008 Recorded Comments : 2021-02-28: Historical information-source unspecified pneumococcal 23-valent vaccine 04/2005 Recorded pneumococcal 23-valent vaccine 04/08/2005 Recorded Comments : 2021-02-28: Historical information-source unspecified Recommendations Health Maintenance Pending(in the next year) OverDue Medicare Annual Wellness Visit due02/28/22and every 1year Adult Influenza Vaccine due01/05/23and every 1year Due Adult Social Determinants of Health Screening due12/17/23Unknown Frequency Adult Tdap/Td Vaccine due12/17/23Unknown Frequency Due In Future Diabetes Management A1c not due until08/28/24and every day Satisfied(in the past 1 year) Satisfied Body Mass Index on10/31/23.Satisfied by DAVIN Pedro Sara Diabetes Management A1c on08/28/23.Satisfied by Contributor_system, [id number] Diabetes Nephropathy Management on08/28/23.Satisfied by Contributor_system, [id number] Diabetic Eye Exam on06/22/23.Satisfied by NABIL Massey Gillian Lipid Screening on08/28/23.Satisfied by Contributor_system, [id number] Electronic Signature on File Electronically Reviewed/Signed by: Gibson Petersen DO Author Signature Dt/Tm:12/17/2023 04:15 PM Resident Division of Sports Medicine Electronically Reviewed/Signed by: Sheridan Rodgers DO Cosigner Signature Dt/Tm: 12/17/2023 04:24 PM Department of Family Medicine RP Patient Care team information Care Team Personnel Name: MD Glynn, Edmar Goodwin Position: Physician Member Role: Primary Care Provider Address: Address: [address] [place] [address] Team Related Persons Name: LUCI CARTER Address: home [address] [place] [address]"
--- NOTE | 2023-12-23 10:48 | Emergency Department Note ---
Impression & Plan Acute upper GI bleed, Syncope ED Provider Note Name: DANYELL CARTER Age: 83 Sex: Male Arrives Via: Ambulance Informant: Patient & ED Provider: Huang Chávez MD Chief Complaint: Syncope Impression: As per impressions above Medical Decision Makin-year-old male arrives for evaluation following a syncopal episode. Witnessed by . Did vomit coffee-ground emesis after this. Noted emesis in naris and oropharynx. On arrival patient is mildly soft blood pressure and still a bit diaphoretic. He was given 1 L normal saline bolus with improvement. Given story concern is for upper GI bleed secondary to gastritis/ulcer. He did just finish some steroids. He has no abdominal pain tenderness palpation. Does have bruising over the upper abdomen but this is been there for several weeks. He also just had a CTA of his chest a few days ago which is negative. I think repeat CT PE would be minimally beneficial. I did get a CT of the head though to given his syncope. Fortunately this is benign. Chest x-ray EKG and labs are somewhat reassuring. Does have mildly elevated BUN which may go along with the upper GI bleed versus dehydration. He was given IV Protonix. At this point no indication for transfusion. Triage/Nursing Notes reviewed by Me Differential:Vasovagal event, dehydration, infection, hypoglycemia, electrolyte abnormalities, cardiac sources, intracerebral event, pulmonary embolism, seizure, toxicologic, neurologic, as well as other pathologies. Vital Signs: reviewed and remarkable for no significant abnormalities Interventions: nss bolus 1 L IV, protonix 80mg IV Labs:ED labs Reviewed by me and remarkable for mildly elevated BUN Imaging:CT head without contrast as per my informal interpretation reveals no intracranial hemorrhage or mass effect. Confirmed by radiologist. 1 view chest x-ray as per my interpretation no infiltrate or effusion appreciated. EKG:As per my interpretation. Indication syncope. Normal sinus rhythm at 92 bpm no ectopy no ischemia. QTc 463. Compared to December 15, 2023 EKG no significant change. Cardiac/Tele Monitoring: Cardiac Monitoring: An Order was placed for continuous cardiac monitoring. The monitor shows a rate of 90 with a normal sinus rhythm. Consults:Dr Socorro HOLLY Hospitalist discussed case and will bring in for further management. Plan: Disposition:Hospitalization. Condition: Good History of Present Illness: 83-year-old gentleman arrives for evaluation of syncope. Patient lives in assisted living and staff noted him to be confused laying on the floor after collapsing off the toilet. There was a going back on the toilet. EMS arrived. Patient diaphoretic confused. He was vomiting up black/blood. Gradually came back to. Patient states he just feels very tired now. No interventions prior to arrival. Patient denies any history of GI bleeding. Does have a history of reflux though notes he also had had an NV around that time. He had a fall about a month and a half ago resulting in right shoulder fracture and abdominal injury. He has since had his right shoulder replaced and has been doing better. He did have an episode of acute bronchitis last week for which she had been on steroids. He has not been on NSAIDs. Patient denies any specific pain at the moment. He is not having headache, neck pain. Denies any neurologic deficits. Patient denies any difficulty breathing or shortness of breath or chest pains. Has not had any recent fevers. He does note that he has some bruising on his abdomen which is ongoing since his injury about a month and a half ago. Patient is on Plavix and aspirin daily. Past Medical History: Type 2 diabetes, hypertension, CAD, V. tach, asthma/COPD Home Medications:See Below Allergies: Pollen extracts Vitals:Blood Pressure: 100/60, Pulse 88, RR 20, T 37.3C, O2 97% on RA Physical Exam: GENERAL: Patient is diaphoretic, pale, tired appearing and in mild distress. EENT: Dark blood in nares. HEAD: AT/NC NECK: AT without TTP RESPIRATORY: No dyspnea. Clear to auscultation and equal bilaterally. CARDIOVASCULAR: Regular rate and rhythm.No murmur appreciated. GASTROINTESTINAL: Abdomen soft, non-tender, no peritonitis. EXTREMITIES: Healing scar right anterior shoulder. Normal motion all extremities, no cyanosis, no edema. NEUROLOGIC: Alert and oriented. No focal neurologic deficits appreciated SKIN: Large yellowing bruise upper abdomen. No rash, no jaundice, ++ diaphoresis. PSYCH: Appropriate GCS: 15 ED Course: Times/Reassessments: Patient feeling much better after IV fluids. He and are agreeable to plan for hospitalization Huang Chávez MD Past Med/Surg History Problem List (Updated 12/23/23 @ 18:23 by Huang Chávez MD) Syncope (Acute) Acute upper GI bleed (Acute) Hypomagnesemia Vasovagal near syncope Coffee ground emesis History of partial replacement of right shoulder (Acute) Reactive airway disease with acute exacerbation (Acute) Wide-complex tachycardia Ventricular tachycardia (Acute) LVH (left ventricular hypertrophy) Medical History Closed fracture of right proximal humerus History of benign schwannoma s/p removal () Comminuted right humeral fracture (~11/18/23) due to fall SVT (supraventricular tachycardia) Paroxysmal SVT (RFA January 2022) Urinary incontinence Usually wears pad Diastolic dysfunction Hx of fall (~11/18/23) Seen in ED at [facility] - injured right shoulder - reason for current surgery History of postoperative nausea and vomiting Glaucoma Sleep apnea mild - no cpap History of kidney stones no recent issues Hx of non-ST elevation myocardial infarction (NSTEMI) (~2020) NV - stent - Dr. Sanz - [facility] - follows with Dr. 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 Scar Armijo Hx of heart artery stent (~2020) [facility] - NV - follows with Dr. Irene Hx of cardiac catheterization (~03/2021) NV - stent - Dr. Sanz - [facility] - follows with Dr. Irene Hx of bilateral cataract extraction History of right nephrectomy (~1995) kidney CA H/O prostatectomy Family History Father Cardiac disorder Mother Brain cancer Social History Smoking Status: Unknown if ever smoked Tobacco Type: Cigarettes Second Hand Exposure: No; Do You Dip or Chew Tobacco: No; Hx Alcohol Use: Yes Alcohol type: wine Hx Substance Use: No Preferred Language: Kazakh Communication Ability: Effective Live Games Dealer Required: No Beliefs That Will Affect Care: None marital status: Current Living Situation: Spouse current occupational status: retired current occupation: Retired Feels Safe at Home: Yes Assistive Devices: None Allergies Allergies Allergy/AdvReac Type Severity Reaction Status Date / Time pollen extracts Allergy Mild Sneezing Verified 12/23/23 12:32 Home Meds Home Medications Medication Instructions Recorded Confirmed atorvastatin 40 mg tablet 40 mg PO PM #30 tabs 04/08/19 12/23/23 glipizide 5 mg tablet 5 mg PO BID 04/08/19 12/23/23 latanoprost 0.005 % eye drops 1 drops OPB HS 04/08/19 12/23/23 lisinopril 5 mg tablet 5 mg PO QAM #30 tabs 04/08/19 12/23/23 metformin 500 mg tablet See Rx Instructions .Route .COMPLEX 07/07/19 12/23/23 empagliflozin 10 mg tablet 10 mg PO QAM 04/02/21 12/23/23 (Jardiance) metoprolol succinate 50 mg 50 mg PO QAM 11/19/23 12/23/23 tablet,extended release 24 hr aspirin 81 mg tablet,delayed 81 mg PO QAM 12/23/23 12/23/23 release triamcinolone acetonide 0.1 % 1 applic topical DAILY PRN Skin 12/23/23 12/23/23 topical cream Irritation Previous Rx's Medication Instructions Recorded nitroglycerin 0.4 mg sublingual 0.4 mg sublingual PRN PRN chest 04/04/21 tablet (Nitrostat) pain #30 tabs clopidogrel 75 mg tablet 75 mg PO QAM #90 tabs 03/07/23 Results & Data (ED) Vital Signs Vital Signs - 24 hr 12/23/23 10:29 12/23/23 10:40 12/23/23 10:57 Temperature 37.3 C Temperature Source Oral Pulse Rate 90 86 Pulse Rate from SpO2 Sensor 88 Pulse Rhythm Regular Pulse Strength Normal Respiratory Rate 20 23 Respiratory Effort / Characteristics Non-Labored Spontaneous Respiratory Depth Normal Respiratory Pattern Regular Blood Pressure Blood Pressure Mean Pulse Oximetry 96 96 96 Oxygen Delivery Method Room Air Room Air Sepsis Recent Fever Within 48 Hours No Sepsis New/Unexplained Change in Mental Status No Sepsis Action Taken by Nursing No Action Required 12/23/23 10:58 12/23/23 11:00 12/23/23 11:18 Temperature Temperature Source Pulse Rate 89 88 85 Pulse Rate from SpO2 Sensor 85 Pulse Rhythm Pulse Strength Respiratory Rate 25 H 26 H Respiratory Effort / Characteristics Respiratory Depth Respiratory Pattern Blood Pressure Blood Pressure Mean Pulse Oximetry 97 Oxygen Delivery Method Sepsis Recent Fever Within 48 Hours Sepsis New/Unexplained Change in Mental Status Sepsis Action Taken by Nursing 12/23/23 11:32 12/23/23 11:39 12/23/23 11:51 Temperature Temperature Source Pulse Rate 83 82 Pulse Rate from SpO2 Sensor 84 76 Pulse Rhythm Pulse Strength Respiratory Rate 12 26 H Respiratory Effort / Characteristics Respiratory Depth Respiratory Pattern Blood Pressure 78/47 L Blood Pressure Mean 61 Pulse Oximetry 99 99 Oxygen Delivery Method Sepsis Recent Fever Within 48 Hours Sepsis New/Unexplained Change in Mental Status Sepsis Action Taken by Nursing 12/23/23 11:54 12/23/23 11:57 12/23/23 12:00 Temperature Temperature Source Pulse Rate 80 Pulse Rate from SpO2 Sensor 80 Pulse Rhythm Pulse Strength Respiratory Rate 21 Respiratory Effort / Characteristics Respiratory Depth Respiratory Pattern Blood Pressure 110/60 97/61 L Blood Pressure Mean 77 72 Pulse Oximetry 97 Oxygen Delivery Method Sepsis Recent Fever Within 48 Hours Sepsis New/Unexplained Change in Mental Status Sepsis Action Taken by Nursing 12/23/23 12:21 12/23/23 12:27 12/23/23 12:30 Temperature Temperature Source Pulse Rate 84 83 Pulse Rate from SpO2 Sensor 84 83 Pulse Rhythm Pulse Strength Respiratory Rate 23 28 H Respiratory Effort / Characteristics Respiratory Depth Respiratory Pattern Blood Pressure 112/66 Blood Pressure Mean 77 Pulse Oximetry 98 97 Oxygen Delivery Method Sepsis Recent Fever Within 48 Hours Sepsis New/Unexplained Change in Mental Status Sepsis Action Taken by Nursing 12/23/23 12:36 Temperature Temperature Source Pulse Rate 86 Pulse Rate from SpO2 Sensor 86 Pulse Rhythm Pulse Strength Respiratory Rate 22 Respiratory Effort / Characteristics Respiratory Depth Respiratory Pattern Blood Pressure Blood Pressure Mean Pulse Oximetry 96 Oxygen Delivery Method Sepsis Recent Fever Within 48 Hours Sepsis New/Unexplained Change in Mental Status Sepsis Action Taken by Nursing Laboratory Data 12/23/23 17:01 12/23/23 10:48 Lab Results 12/23/23 12/23/23 Range/Units 10:48 10:50 WBC 9.81 (4.8-10.8) K/ul RBC 4.23 L (4.70-6.10) M/uL Hgb 11.2 L (14.0-18.0) g/dl Hct 35.6 L (42.0-52.0) % MCV 84.2 (80.0-100.0) fL MCH 26.5 (25.0-34.0) pg MCHC 31.5 L (32.0-36.0) g/dL RDW Std Deviation 50.7 H (36.4-46.3) fL RDW Coeff of Marcello 17.1 H (11.5-14.5) % Plt Count 277 (130-400) K/uL MPV 9.8 (9.4-12.4) fL Immature Gran % (Auto) 0.5 % Neut % (Auto) 70.0 % Lymph % (Auto) 19.2 % [place] % (Auto) 8.4 % Eos % (Auto) 1.6 % Baso % (Auto) 0.3 % Neut # (Auto) 6.87 H (1.40-6.50) K/uL Lymph # (Auto) 1.88 (1.20-3.40) K/uL [place] # (Auto) 0.82 H (0.11-0.59) K/uL Eos # (Auto) 0.16 (0.00-0.50) K/uL Baso # (Auto) 0.03 (0.00-0.20) K/uL Immature Gran # (Auto) 0.05 (0.01-0.20) K/uL PT 11.3 (9.0-12.0) Seconds INR 1.0 (0.9-1.1) APTT 23 (21-31) Seconds PTT Ratio 0.9 Sodium 137 (136-145) mmol/L Potassium 4.2 (3.5-5.1) mmol/L Chloride 107 (98-107) mmol/L Carbon Dioxide 19 L (21-32) mmol/L Anion Gap 11 (3-11) BUN 35 H (6-23) mg/dl Creatinine 1.31 (0.6-1.4) mg/dl Est Cr Clr Drug Dosing 46.3 ml/min Est GFR ( Amer) 57.1 ml/min Est GFR (Non-Af Amer) 49.3 ml/min BUN/Creatinine Ratio 26.7 H (10-20) Glucose 223 H (70-99(Fasting)) mg/dl POC Glucose 218 H (70-99) mg/dl Calcium 9.1 (8.6-10.3) mg/dl Magnesium 1.6 L (1.7-2.4) mg/dl Total Bilirubin 0.7 (0.2-1.0) mg/dl Direct Bilirubin 0.1 (0-0.2) mg/dl AST 10 L (13-39) U/L ALT 15 (7-52) U/L Alkaline Phosphatase 95 (34-104) U/L Troponin I High Sens 5.3 (0-20) pg/ml Total Protein 6.1 (6.0-8.3) gm/dl Albumin 3.5 (3.4-5.0) gm/dl Lipase 45 (11-82) U/L Blood Type A Positive Antibody Screen NEGATIVE Administered Medications Lactated Ringer's (Lr) 1,000 mls @ 80 mls/hr IV .[id number] [facility] Stop: 12/24/23 01:59 Last Admin: 12/23/23 13:39 Dose: 80 mls/hr Documented By: ERWIN Magnesium Sulfate/Dextrose (Magnesium Sulfate / D5w) 1 gm in 100 mls @ 50 mls/hr IV Q2H [facility] Stop: 12/23/23 19:29 Last Admin: 12/23/23 17:48 Dose: 50 mls/hr Documented By: Infusion: 12/23/23 17:35 Dose: Infused Documented By: Admin: 12/23/23 15:35 Dose: 50 mls/hr Documented By: Infusion: 12/23/23 15:35 Dose: Infused Documented By: Admin: 12/23/23 13:40 Dose: 50 mls/hr Documented By: ERWIN Insulin Aspart (Insulin Aspart Per Unit Charge) 0 units SC Q6H [facility] Stop: 01/22/24 13:29 Last Admin: 12/23/23 17:45 Dose: Not Given Documented By: BRUNILDA Discontinued Medications Sodium Chloride (Nss) 1,000 mls @ 999 mls/hr IV .Q1H1M [facility] Stop: 12/23/23 11:43 Last Infusion: 12/23/23 16:27 Dose: Infused Documented By: Admin: 12/23/23 11:05 Dose: 999 mls/hr Documented By: ERWIN Pantoprazole Sodium 80 mg/ (Dextrose) 120 mls @ 480 mls/hr IV ONE [facility] Stop: 12/23/23 10:57 Last Infusion: 12/23/23 16:26 Dose: Infused Documented By: Admin: 12/23/23 11:05 Dose: 480 mls/hr Documented By: ERWIN Imaging Data Radiologist's Impression: Chest X-Ray 12/23/23 10:43 XR chest 1V portable HISTORY: 83 years-old Male syncope COMPARISON: 12/25/2023 TECHNIQUE: AP view of the chest FINDINGS: Cardiac silhouette is enlarged. Right shoulder arthroplasty. Unchanged appearance of the left shoulder. No pneumothorax or pleural effusion. The lungs appear clear. IMPRESSION: No acute process. ACT 112: Negative or not required by law. The above report was generated using voice recognition software. It may contain grammatical, syntax or spelling errors. Electronically signed by: rCuz Lebron M.D. 12/23/2023 11:[address] 12/23/23 10:43 CT head/brain wo con CLINICAL HISTORY: 83 years-old Male with syncope. Acute syncope TECHNIQUE: Multiple axial CT images of the head were obtained without contrast. A dose lowering technique was utilized adhering to the principles of ALARA. CT DOSE: 625.8 mGy.cm COMPARISON: None. FINDINGS: No acute intracranial hemorrhage, midline shift, intracranial mass, hydrocephalus, territorial ischemia or abnormal extra-axial collection. Involutional changes with chronic microvascular ischemic disease. Cerebral vascular calcifications. The calvarium is intact. Complete opacification of the left maxillary sinus with volume loss and hyperdense secretions are likely chronic. Bilateral lens repair. Mastoid air cells are clear. Unremarkable soft tissues. IMPRESSION: No acute intracranial abnormality ACT 112: Negative or not required by law. The above report was generated using voice recognition software. It may contain grammatical, syntax or spelling errors. Electronically signed by: Cruz Lebron M.D. 12/23/2023 11:38 AM Discharge Plan Visit Data Chief Complaint: Syncope ED Provider: Huang Chávez Discharge Problem: Acute upper GI bleed, Syncope Discharge Instructions Interventions: ED Discharge Assessment Last Done: 12/23/23 16:35 Discharge Problem: Syncope Qualifiers: Syncope type: unspecified Qualified Code(s): R55 - Syncope and collapse
[2023-12-23] MEDS: SODIUM CHLORIDE 0.9% 1,000 ML IV ONE (11:05)
[2023-12-23] MEDS: PANTOprazole 80 MG in DEXTROSE 5% 100 ML IV STA (11:05)
[2023-12-23 11:17] LABS: Basophils # (auto) 0.03 K/uL (0.00-0.20); Basophils % (auto) 0.3 %; Eosinophils # (auto) 0.16 K/uL (0.00-0.50); Eosinophils % (auto) 1.6 %; Hematocrit (blood only) 35.6 % (42.0-52.0); Hemoglobin 11.2 g/dl (14.0-18.0); Immature Granulocytes # (auto) 0.05 K/uL (0.01-0.20); Immature Granulocytes % (auto) 0.5 %; Lymphocytes # (auto) 1.88 K/uL (1.20-3.40); Lymphocytes % (auto) 19.2 %; Mean Corpuscular Hemoglobin 26.5 pg (25.0-34.0); Mean Corpuscular Hgb Conc 31.5 g/dL (32.0-36.0); Mean Corpuscular Volume 84.2 fL (80.0-100.0); Mean Platelet Volume 9.8 fL (9.4-12.4); Monocytes # (auto) 0.82 K/uL (0.11-0.59); Monocytes % (auto) 8.4 %; Neutrophils # (auto) 6.87 K/uL (1.40-6.50); Platelet Count 277 K/uL (130-400); RDW Coefficient of Variation 17.1 % (11.5-14.5); RDW Standard Deviation 50.7 fL (36.4-46.3); Red Blood Count 4.23 M/uL (4.70-6.10); White Blood Count 9.81 K/ul (4.8-10.8)
[2023-12-23 11:19] LABS: Albumin Level 3.5 gm/dl (3.4-5.0); BUN Creatinine Ratio 26.7 (10-20); Bilirubin Direct 0.1 mg/dl (0-0.2); Bilirubin,Total 0.7 mg/dl (0.2-1.0); Calcium 9.1 mg/dl (8.6-10.3); Creatinine Clr Calc Pharmacy 46.3 ml/min; Est GFR (African American) 57.1 ml/min; Est GFR (Non-African American) 49.3 ml/min; Magnesium 1.6 mg/dl (1.7-2.4); Potassium 4.2 mmol/L (3.5-5.1); Total Protein 6.1 gm/dl (6.0-8.3)
[2023-12-23 11:25] LABS: Troponin I High Sensitivity 5.3 pg/ml (0-20)
[2023-12-23 11:29] LABS: Partial Thromboplastin Ratio 0.9; Partial Thromboplastin Time 23 Seconds (21-31); Prothrombin Time 11.3 Seconds (9.0-12.0)
--- NOTE | 2023-12-23 11:32 | XRay Report ---
XR chest 1V portable HISTORY: 83 years-old Male syncope COMPARISON: 12/25/2023 TECHNIQUE: AP view of the chest FINDINGS: Cardiac silhouette is enlarged. Right shoulder arthroplasty. Unchanged appearance of the left shoulde r. No pneumothorax or pleural effusion. The lungs appear clear. IMPRESSION: No acute process. ACT 112: Negative or not required by law. The above report was generated using voice recognition software. It may contain grammatical, syntax o r spelling errors. Electronically signed by: Cruz Lebron M.D. 12/23/2023 11:31 AM
--- NOTE | 2023-12-23 11:40 | CT Scan Report ---
CT head/brain wo con CLINICAL HISTORY: 83 years-old Male with syncope. Acute syncope TECHNIQUE: Multiple axial CT images of the head were obtained without contrast. A dose lowering tech nique was utilized adhering to the principles of ALARA. CT DOSE: 625.8 mGy.cm COMPARISON: None. FINDINGS: No acute intracranial hemorrhage, midline shift, intracranial mass, hydrocephalus, territorial ischem ia or abnormal extra-axial collection. Involutional changes with chronic microvascular ischemic disea se. Cerebral vascular calcifications. The calvarium is intact. Complete opacification of the left maxillary sinus with volume loss and hyp erdense secretions are likely chronic. Bilateral lens repair. Mastoid air cells are clear. Unremarkab le soft tissues. IMPRESSION: No acute intracranial abnormality ACT 112: Negative or not required by law. The above report was generated using voice recognition software. It may contain grammatical, syntax o r spelling errors. Electronically signed by: Cruz Lebron M.D. 12/23/2023 11:38 AM
--- NOTE | 2023-12-23 12:40 | History & Physical Report ---
Date of Service December 23, 2023 Assessment & Plan (1) Coffee ground emesis: Plan: Admit to med/surge with telemetry Currently stable and nontoxic-appearing Presented to the [facility] ED this afternoon after experiencing coffee-ground emesis and what sounds as though a vasovagal episode while on the toilet today Patient also reports he had melanotic stool yesterday High suspicion for upper GI bleed, patient is currently stable Hemoglobin is 11.2 today, down from 12.2 as of 12/15/2023 Suspect his upper GI bleed was caused by recent steroids after EGD visit on 12/16/2023 and patient being on aspirin/Plavix for history of CAD with MILKA pl acement in 2020. Chest x-ray and CT of the head/brain without contrast were negative for acute findings Patient is without chest or abdominal discomfort Continue pantoprazole drip for now Patient received 1 L normal saline in the ED, will start light maintenance fluid with LR at 80 mL/h on admission as he will be strict n.p.o. Ensure 2 large-bore IVs were placed Blood consent obtained at the time of admission, type and screen was obtained in the ED Will trend CBC every 6 hours, transfuse for hemoglobin less than 7, large hemoglobin drop, or if the patient becomes unstable GI has been consulted Strict n.p.o. Bilateral SCDs for DVT prophylaxis at this time A.m. CMP, mag, PT/INR (2) Vasovagal near syncope: Plan: Patient episode of near syncope while sitting on the toilet this morning Patient felt as though he was going to have a bowel movement shortly before this episode He had associated diaphoresis/lightheadedness and nausea prior Has been stable since arrival, nonfocal neurologic exam, no acute findings on CT of the head and brain without contrast History is consistent with vasovagal episode, will continue to monitor on telemetry for now EKG and high-sensitivity troponin within normal limits today Patient was able to ambulate to the restroom during my exam without issue with 1 person assist Fall precautions ordered (3) Hx of non-ST elevation myocardial infarction (NSTEMI): Plan: Will need to hold aspirin/Plavix at this time with likely upper GI bleed Will hold p.o. metoprolol for now as he is stable Continue to monitor on telemetry (4) History of partial replacement of right shoulder: Plan: Continue right shoulder in sling at this time Fall precautions have been ordered Will start as needed IV acetaminophen and morphine for pain as he will not be able to take his p.o. analgesics at this time (5) Diabetes: Plan: Monitor BSG every 6 hours while NPO, goal is 110-116 Hold metoprolol, Jardiance, glipizide from a Will start correction factor of 50 and carb ratio 15 every 6 hours for now Adjust regimen as needed (6) Wide-complex tachycardia: Plan: Currently in normal Hold p.o. metoprolol for now as he is strict n.p.o. Continue to monitor on telemetry (7) Hypomagnesemia: Plan: Mag 1.6 today Will order 3 bags of 1 g IV mag sulfate on admission monitor a.m. electrolytes Plan The patient was discussed with Dr. Quintanilla at the time of the admission History of Present Illness Chief Complaint: Coffee ground emesis, syncopal episode Primary Care Provider: Bakari Maki MD Doroteo is an 83-year-old male with a past medical history significant for recent right reverse total shoulder arthroplasty due to right proximal humerus fracture with Dr. Mena on 11/22/2023, coronary artery disease status post NSTEMI with LAD MILKA placement in March 2021, Renal cancer status post total right nephrectomy in 1991, prostate cancer status post radical prostatectomy, and lymphoma status postchemotherapy, hypertension, hyperlipidemia, ischemic cardiomyopathy, HFrEF (LVEF of 35%), diabetes mellitus type 2 who presented to the [facility] ED via EMS on 12/23/2023 after experiencing episodes of coffee-ground emesis and syncopal episode while on the toilet this morning. He remained stable in the ED. Labs were significant for hemoglobin of 11.2 (down from 12.2 as of 12/15/2023), bicarb of 19 with anion gap within normal limits, mag of 1.6. CT of the head and brain without contrast and chest x-ray were read as negative for acute findings. EKG showed normal sinus rhythm without acute ST segment or T wave changes. Prior to admission the patient was started on a pantoprazole drip and given 1 L normal saline. Patient was sitting in bed in no acute distress at the time exam, his is bedside, history was obtained from both. The patient was in his normal state of health this morning when he first woke. Later in the morning he had sudden onset of nausea, feeling flushed, and diaphoresis. He felt as though he needed to have a bowel movement so he went to the bathroom and sat on the toilet. Shortly after he felt as though he was going to lose consciousness so he called his who then found him half on the toilet and slightly confused. His pulled the alert cord in the [place] Shortly after the nurse arrived the patient felt nauseous and had what his says is approximately 2 cups of dark/black emesis. The patient also notes that he had dark/black bowel movements yesterday. He denies recent abdominal pain, fevers, chills, chest pain shortness of breath, dysuria/hematuria, bright red blood per the rectum, lower extremity swelling, and recent fall/trauma. He feels improved compared to arrival, and was able to ambulate to the bathroom with my assistance during the exam without issue. He did have all of his a.m. medications which include aspirin and Plavix. Of note, he was seen in the [facility] emergency department on 12/16/2023 with a chief complaint of shortness of breath. He was given 2 albuterol nebulizer treatments and a CTA of the chest with PE protocol which was read as mild prominent interstitial markings throughout both lungs suggesting underlying emphysema. Reticular densities in both lung bases are slightly blurred by motion. Probable subsegmental atelectasis although mild fibrosis cannot be excluded. The patient was discharged on a 4-day course of of 20 mg prednisone daily, they confirm that he completed this course. We discussed CODE STATUS, he wishes to be DNR/DNI and for his to make medical decisions for him if he cannot make them himself. Please refer to Dr. Quintanilla's attestation for any changes to the treatment plan Allergies Allergy/AdvReac Type Severity Reaction Status Date / Time pollen extracts Allergy Mild Sneezing Verified 12/23/23 12:32 Home Medications Medication Instructions Recorded Confirmed Type atorvastatin 40 mg tablet 40 mg PO PM #30 tabs 04/08/19 12/23/23 History glipizide 5 mg tablet 5 mg PO BID 04/08/19 12/23/23 History latanoprost 0.005 % eye drops 1 drops OPB HS 04/08/19 12/23/23 History lisinopril 5 mg tablet 5 mg PO QAM #30 tabs 04/08/19 12/23/23 History metformin 500 mg tablet See Rx Instructions .Route .COMPLEX 07/07/19 12/23/23 History empagliflozin 10 mg tablet 10 mg PO QAM 04/02/21 12/23/23 History (Jardiance) nitroglycerin 0.4 mg sublingual 0.4 mg sublingual PRN PRN chest 04/04/21 12/23/23 Rx tablet (Nitrostat) pain #30 tabs clopidogrel 75 mg tablet 75 mg PO QAM #90 tabs 03/07/23 12/23/23 Rx metoprolol succinate 50 mg 50 mg PO QAM 11/19/23 12/23/23 History tablet,extended release 24 hr aspirin 81 mg tablet,delayed 81 mg PO QAM 12/23/23 12/23/23 History release triamcinolone acetonide 0.1 % 1 applic topical DAILY PRN Skin 12/23/23 12/23/23 History topical cream Irritation Past Med/Surg History Problem List (Updated 12/24/23 @ 15:14 by Kiko Hartman MD) Syncope (Acute) Acute upper GI bleed (Acute) Hypomagnesemia Vasovagal near syncope Coffee ground emesis History of partial replacement of right shoulder (Acute) Reactive airway disease with acute exacerbation (Acute) Wide-complex tachycardia Ventricular tachycardia (Acute) LVH (left ventricular hypertrophy) Medical History (Updated 12/24/23 @ 15:14 by Kiko Hartman MD) Encounter for pre-operative examination Closed fracture of right proximal humerus History of benign schwannoma s/p removal () Comminuted right humeral fracture (~11/18/23) due to fall SVT (supraventricular tachycardia) Paroxysmal SVT (RFA January 2022) Urinary incontinence Usually wears pad Diastolic dysfunction Hx of fall (~11/18/23) Seen in ED at [facility] - injured right shoulder - reason for current surgery History of postoperative nausea and vomiting Glaucoma Sleep apnea mild - no cpap History of kidney stones no recent issues Hx of non-ST elevation myocardial infarction (NSTEMI) (~2020) [place] - stent - Dr. Sanz - [facility] - follows with Dr. 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, Rituxan History of kidney cancer s/p right nephrectomy- no chemo or XRT CAD (coronary artery disease) NSTEMI, LAD MILKA, March 2021 Hypertension Patient denies Hypercholesterolemia Cardiomyopathy Transient per cardio records (2017 with urosepsis) EF 45-50% on 2020 ECHO EF 35% on limited, not well visualized 2021 ECHO CKD (chronic kidney disease) Diabetes Surgical History History of surgery Schwannoma removal Hx of nephrolithotomy with removal of calculi Hx of colonoscopy with polypectomy Hx of cystoscopy 2-3 Hx of umbilical hernia repair History of cardiac radiofrequency ablation [facility] - Dr. Scar Armijo Hx of heart artery stent (~2020) [facility] - [place] - follows with Dr. Irene Hx of cardiac catheterization (~03/2021) [place] - stent - Dr. Sanz - [facility] - follows with Dr. Irene Hx of bilateral cataract extraction History of right nephrectomy (~1995) kidney CA H/O prostatectomy Family History Father Cardiac disorder Mother Brain cancer Social History Smoking Status: Former smoker Tobacco Type: Cigarettes Second Hand Exposure: No; Do You Dip or Chew Tobacco: No; Hx Alcohol Use: Yes Alcohol type: wine Hx Substance Use: No Preferred Language: Lithuanian Communication Ability: Effective Day Ha[employer] Youth Supervisor Required: No Beliefs That Will Affect Care: None marital status: Current Living Situation: Spouse current occupational status: retired current occupation: Retired Feels Safe at Home: Yes Assistive Devices: Other Physical Exam Physical Exam: Physical Exam: General: In no acute distress, stated age, well-nourished, non-toxic appearing HEENT: Normocephalic, atraumatic, no scleral icterus, pupils around round, symmetrical, and reactive to light, dry mucus membranes, trachea midline, no thyromegaly Chest/Pulm: No respiratory distress, symmetrical chest expansion, clear breath sounds throughout Cardiac: RRR, no murmurs noted Abdomen: Negative for ascites and bruising, normoactive bowel sounds, soft, non-tender to palpation throughout Musculoskeletal: Patient current with RUE in sling due to recent right shoulder arthroplasty, surgical site on the anterior right shoulder appears intact and without signs of infection, otherwise no acute signs of trauma on exam Extremities: Radial, dorsalis pedis, and posterior tibial pulses are intact and symmetrical, no edema noted in the BL LE's Skin: Warm, dry, no rashes , lesions, or scars noted Neuro: Alert and oriented to person, place, month, year, and president, no focal defects, no tremors noted Psych: No acute distress, calm and cooperative during the exam Results & Data Results & Data Vital Signs (Past 12 Hours) Vital Signs Temp Pulse Resp Pulse Ox O2 Del Method 12/23/23 10:58 89 12/23/23 10:40 96 Room Air 12/23/23 10:29 37.3 C 90 20 96 Room Air Laboratory Results Abnormal lab results 12/23/23 12/23/23 Range/Units 10:48 10:50 RBC 4.23 L (4.70-6.10) M/uL Hgb 11.2 L (14.0-18.0) g/dl Hct 35.6 L (42.0-52.0) % MCHC 31.5 L (32.0-36.0) g/dL RDW Std Deviation 50.7 H (36.4-46.3) fL RDW Coeff of Marcello 17.1 H (11.5-14.5) % Neut # (Auto) 6.87 H (1.40-6.50) K/uL Citrus # (Auto) 0.82 H (0.11-0.59) K/uL Carbon Dioxide 19 L (21-32) mmol/L BUN 35 H (6-23) mg/dl BUN/Creatinine Ratio 26.7 H (10-20) Glucose 223 H (70-99(Fasting)) mg/dl POC Glucose 218 H (70-99) mg/dl Magnesium 1.6 L (1.7-2.4) mg/dl AST 10 L (13-39) U/L Diagnostic Findings Chest X-Ray 12/23/23 10:43 XR chest 1V portable HISTORY: 83 years-old Male syncope COMPARISON: 12/25/2023 TECHNIQUE: AP view of the chest FINDINGS: Cardiac silhouette is enlarged. Right shoulder arthroplasty. Unchanged appearance of the left shoulder. No pneumothorax or pleural effusion. The lungs appear clear. IMPRESSION: No acute process. ACT 112: Negative or not required by law. The above report was generated using voice recognition software. It may contain grammatical, syntax or spelling errors. Electronically signed by: Cruz Lebron M.D. 12/23/2023 11:[address] 12/23/23 10:43 CT head/brain wo con CLINICAL HISTORY: 83 years-old Male with syncope. Acute syncope TECHNIQUE: Multiple axial CT images of the head were obtained without contrast. A dose lowering technique was utilized adhering to the principles of ALARA. CT DOSE: 625.8 mGy.cm COMPARISON: None. FINDINGS: No acute intracranial hemorrhage, midline shift, intracranial mass, hydrocephalus, territorial ischemia or abnormal extra-axial collection. Involutional changes with chronic microvascular ischemic disease. Cerebral vascular calcifications. The calvarium is intact. Complete opacification of the left maxillary sinus with volume loss and hyperdense secretions are likely chronic. Bilateral lens repair. Mastoid air cells are clear. Unremarkable soft tissues. IMPRESSION: No acute intracranial abnormality ACT 112: Negative or not required by law. The above report was generated using voice recognition software. It may contain grammatical, syntax or spelling errors. Electronically signed by: Cruz Lebron M.D. 12/23/2023 11:38 AM ECG Additional Comments: Normal sinus rhythm Left axis deviation Non-specific intra-ventricular conduction delay Minimal voltage criteria for LVH, may be normal variant ( Josue product ) Abnormal ECG When compared with ECG of 15-DEC-2023 21:30, No significant change was found Code Status & VTE Plan Code Status DNR/DNI VTE Prophylaxis Plan VTE Prophylaxis will be ordered: Yes Supervising Physician Co-Signing Physician Notes I personally saw and examined the patient. I verified all goetz points and agree with Obed Goff PA-C with the following exceptions and/or additions: 83 year old male presents to the ER with hematemesis. No further episodes since. Ongoing shortness of breath ?since his operation. Improved with recent prednisone that he has now finished. Planning on PFTs as an outpatient with emphysematous changes. O/E A&Ox3, HS RRR, no murmurs, arm in sling, Chest CTAB, Abdo SNT A/P Coffee ground emesis - hold steroids, antiplatelets, anticoagulation, Pantoprazole 40mg IV BID, consult gastroenterology PG Care Time/CCT Total # of Minutes Spent Total Time Spent with Patient: Total time spent is greater than 50% in coordination of care (as documented) at patient's floor/unit and/or counseling patient: Coding [place] [address] INT INP/OBS CARE 2/55MIN Patient Type Established Medical Decision Making High Complexity Diagnoses Coffee ground emesis K92.0 Vasovagal near syncope R55 Hx of non-ST elevation myocardial infarction (NSTEMI) I25.2 History of partial replacement of right shoulder Z96.611 Diabetes E11.9 Wide-complex tachycardia I47.2 Hypomagnesemia E83.42
[2023-12-23] MEDS ORDERED: ACETAMINOPHEN 1,000 MG/100 ML VIAL IV PRN (12:42)
[2023-12-23] MEDS ORDERED: MoRPHine SULFATE 2 MG/ML CARP IV PRN (13:14)
[2023-12-23] MEDS ORDERED: DEXTROSE 50% 50 ML SYRINGE IV PRN (13:29)
[2023-12-23] MEDS ORDERED: GLUCAGON FOR INJ 1 MG VIAL SQ PRN (13:29)
[2023-12-23] MEDS ORDERED: GLUCOSE 40% GEL 15 GM TUBE PO PRN (13:29)
[2023-12-23] MEDS ORDERED: GLUCOSE 10 TAB/TUBE PO PRN (13:29)
[2023-12-23] MEDS ORDERED: CARBOHYDRATES FOR HYPOGLYCEMIA PO PRN (13:29)
[2023-12-23] MEDS: LACTATED RINGER'S 1,000 ML IV SCH (13:39)
[2023-12-23] MEDS: MAGNESIUM SULFATE / D5W 1 GM/100 ML BAG IV SCH (13:40)
--- NOTE | 2023-12-23 14:48 | Electrocardiogram Report ---
Test Reason : Blood Pressure : / mmHG Vent. Rate : 092 BPM Atrial Rate : 092 BPM P-R Int : 170 ms QRS Dur : 120 ms QT Int : 378 ms P-R-T Axes : 038 -58 078 degrees QTc Int : 467 ms Normal sinus rhythm Left axis deviation Non-specific intra-ventricular conduction delay Minimal voltage criteria for LVH, may be normal variant Abnormal ECG When compared with ECG of 15-DEC-2023 21:30, No significant change was found Confirmed by Jason Irene ([id number]) on 12/23/2023 2:47:56 PM Referred By: REFERRED SELF Confirmed By:Jason Irene
[2023-12-23 15:28] LABS: Appearance Urine Clear (Clear); Bilirubin Urine Negative (Negative); Blood Urine Negative (Negative); Color Urine Yellow; Glucose Urine UA 3+ (Negative); Ketones Urine 1+ (Negative); Leukocyte Esterase Urine Negative (Negative); Nitrite Urine Negative (Negative); Protein Urine Negative (Negative); Specific Gravity Urine 1.027 (1.000-1.030); Urobilinogen Urine Negative (Negative); pH Urine 5.5 (4.5-7.5)
[2023-12-23 17:22] LABS: Hematocrit (blood only) 34.4 % (42.0-52.0); Hemoglobin 10.6 g/dl (14.0-18.0); Mean Corpuscular Hemoglobin 26.2 pg (25.0-34.0); Mean Corpuscular Hgb Conc 30.8 g/dL (32.0-36.0); Mean Corpuscular Volume 84.9 fL (80.0-100.0); Mean Platelet Volume 9.8 fL (9.4-12.4); Platelet Count 235 K/uL (130-400); RDW Coefficient of Variation 17.1 % (11.5-14.5); RDW Standard Deviation 51.8 fL (36.4-46.3); Red Blood Count 4.05 M/uL (4.70-6.10); White Blood Count 9.93 K/ul (4.8-10.8)
[2023-12-23] MEDS: INSULIN ASPART PER UNIT CHARGE SC SCH (17:45)
[2023-12-23] MEDS ORDERED: ALBUTEROL 0.083% NEBU SOLN 3 ML VIAL NEB PRN (17:49)
[2023-12-23] MEDS: PANTOprazole 40 MG in SYRINGE 0 ML IV SCH (21:05)
[2023-12-24 00:12] LABS: Hemoglobin 9.8 g/dl (14.0-18.0); Mean Corpuscular Hemoglobin 26.2 pg (25.0-34.0); Mean Corpuscular Hgb Conc 31.6 g/dL (32.0-36.0); Mean Corpuscular Volume 82.9 fL (80.0-100.0); Mean Platelet Volume 9.8 fL (9.4-12.4); Platelet Count 201 K/uL (130-400); RDW Coefficient of Variation 17.2 % (11.5-14.5); RDW Standard Deviation 50.3 fL (36.4-46.3); Red Blood Count 3.74 M/uL (4.70-6.10); White Blood Count 7.52 K/ul (4.8-10.8)
[2023-12-24 05:18] LABS: Albumin Level 3.3 gm/dl (3.4-5.0); Bilirubin,Total 0.6 mg/dl (0.2-1.0); Calcium 8.5 mg/dl (8.6-10.3); INR 1.7 (0.9-1.1); Magnesium 2.2 mg/dl (1.7-2.4); Potassium 4.2 mmol/L (3.5-5.1); Prothrombin Time 17.2 Seconds (9.0-12.0)
[2023-12-24 05:24] LABS: Albumin Globulin Ratio 1.5 (0.9-2); BUN Creatinine Ratio 38.5 (10-20); Creatinine Clr Calc Pharmacy 46.7 ml/min; Est GFR (African American) 57.7 ml/min; Est GFR (Non-African American) 49.8 ml/min; Globulin 2.2 gm/dl (2.5-4.0); Total Protein 5.5 gm/dl (6.0-8.3)
[2023-12-24 06:46] LABS: Basophils # (auto) 0.02 K/uL (0.00-0.20); Basophils % (auto) 0.3 %; Eosinophils % (auto) 1.6 %; Hematocrit (blood only) 30.4 % (42.0-52.0); Immature Granulocytes # (auto) 0.03 K/uL (0.01-0.20); Immature Granulocytes % (auto) 0.5 %; Lymphocytes # (auto) 1.27 K/uL (1.20-3.40); Lymphocytes % (auto) 20.7 %; Mean Corpuscular Hgb Conc 32.9 g/dL (32.0-36.0); Mean Corpuscular Volume 82.2 fL (80.0-100.0); Mean Platelet Volume 9.8 fL (9.4-12.4); Monocytes # (auto) 0.48 K/uL (0.11-0.59); Monocytes % (auto) 7.8 %; Neutrophils # (auto) 4.23 K/uL (1.40-6.50); Neutrophils % (auto) 69.1 %; Platelet Count 209 K/uL (130-400); RDW Standard Deviation 49.5 fL (36.4-46.3); White Blood Count 6.13 K/ul (4.8-10.8)
[2023-12-24] MEDS: PHYTONADIONE 10 MG in DEXTROSE 5% 50 ML IV ONE (09:49)
[2023-12-24] MEDS: SODIUM BICARBONATE 8.4% 150 MEQ in WATER, STERILE 1,000 ML IV SCH (10:27)
--- NOTE | 2023-12-24 10:46 | Gastrointestinal Consultation ---
Date of Consultation December 24, 2023 Assessment & Plan (1) Coffee ground emesis: -Keep NPO for EGD today. -Continue to monitor H/H. -Continue IV Protonix 40 mg BID as ordered by hospitalist at present. Can make further recommendations pending EGD result. Supervising Physician Co-Signing Physician Notes Coffee ground emesis, syncope, melena and worsening of anemia. EGD scheduled History of Present Illness Reason for Consultation: coffee ground emesis Attending Physician: Dereck Quintanilla MD History of Present Illness Mr. Arteaga is an 83 yo male with PMH of recent right shoulder arthroplasty in November, NSTEMI with MILKA in 2020, renal cell cancer, prostate cancer, lymphoma, HTN, HLD, ischemic cardiomyopathy, DM2 who presented to the ED on 12/23/23 after an episode of dark brown/black emesis. This led to a syncopal episode and he was transferred to the ED for evaluation. Baseline Hgb on 12/15/23 was 12.2 and his H/H is now 10/30.4. BUN bumped at 50. No EKG changes. He takes Aspirin and Plavix at home for the previous MILKA. He was recently started on Prednisone prior to the onset of this issue. He notes an episode of melena. He denies heartburn or reflux. He denies history of PUD. He notes having an EGD for dysphagia in the past (Dr. Lane, [facility]). He denies ongoing melena, hematemesis, or coffee ground emesis since presentation to the hospital. He has been NPO since 12/23/23. is at bedside with patient. No pertinent family history. No addition NSAID use outside of otherwise stated meds. Allergies Allergy/AdvReac Type Severity Reaction Status Date / Time pollen extracts Allergy Mild Sneezing Verified 12/23/23 12:32 Home Medications Medication Instructions Recorded Confirmed Type atorvastatin 40 mg tablet 40 mg PO PM #30 tabs 04/08/19 12/23/23 History glipizide 5 mg tablet 5 mg PO BID 04/08/19 12/23/23 History latanoprost 0.005 % eye drops 1 drops OPB HS 04/08/19 12/23/23 History lisinopril 5 mg tablet 5 mg PO QAM #30 tabs 04/08/19 12/23/23 History metformin 500 mg tablet See Rx Instructions .Route .COMPLEX 07/07/19 12/23/23 History empagliflozin 10 mg tablet 10 mg PO QAM 04/02/21 12/23/23 History (Jardiance) nitroglycerin 0.4 mg sublingual 0.4 mg sublingual PRN PRN chest 04/04/21 12/23/23 Rx tablet (Nitrostat) pain #30 tabs clopidogrel 75 mg tablet 75 mg PO QAM #90 tabs 03/07/23 12/23/23 Rx metoprolol succinate 50 mg 50 mg PO QAM 11/19/23 12/23/23 History tablet,extended release 24 hr aspirin 81 mg tablet,delayed 81 mg PO QAM 12/23/23 12/23/23 History release triamcinolone acetonide 0.1 % 1 applic topical DAILY PRN Skin 12/23/23 12/23/23 History topical cream Irritation Patient History Medical History (Updated 12/24/23 @ 15:14 by Kiko Hartman MD) Encounter for pre-operative examination Closed fracture of right proximal humerus History of benign schwannoma s/p removal () Comminuted right humeral fracture (~11/18/23) due to fall SVT (supraventricular tachycardia) Paroxysmal SVT (RFA January 2022) Urinary incontinence Usually wears pad Diastolic dysfunction Hx of fall (~11/18/23) Seen in ED at [facility] - injured right shoulder - reason for current surgery History of postoperative nausea and vomiting Glaucoma Sleep apnea mild - no cpap History of kidney stones no recent issues Hx of non-ST elevation myocardial infarction (NSTEMI) (~2020) [place] - stent - Dr. Sanz - [facility] - follows with Dr. 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, Rituxan History of kidney cancer s/p right nephrectomy- no chemo or XRT CAD (coronary artery disease) NSTEMI, LAD MILKA, March 2021 Hypertension Patient denies Hypercholesterolemia Cardiomyopathy Transient per cardio records (2016 with urosepsis) EF 45-50% on 2020 ECHO EF 35% on limited, not well visualized 2021 ECHO CKD (chronic kidney disease) Diabetes Surgical History History of surgery Schwannoma removal 1980s Hx of nephrolithotomy with removal of calculi Hx of colonoscopy with polypectomy Hx of cystoscopy 2-3 Hx of umbilical hernia repair History of cardiac radiofrequency ablation [facility] - Dr. Scar Armijo Hx of heart artery stent (~2020) [facility] - [place] - follows with Dr. Irene Hx of cardiac catheterization (~03/2021) [place] - stent - Dr. Sanz - [facility] - follows with Dr. Irene Hx of bilateral cataract extraction History of right nephrectomy (~1995) kidney CA H/O prostatectomy Family History Father Cardiac disorder Mother Brain cancer Social History Smoking Status: Former smoker Tobacco Type: Cigarettes Second Hand Exposure: No; Do You Dip or Chew Tobacco: No; Hx Alcohol Use: Yes Alcohol type: wine Hx Substance Use: No Preferred Language: Faroese Communication Ability: Effective Optometry Teacher Required: No Beliefs That Will Affect Care: None marital status: Current Living Situation: Spouse current occupational status: retired current occupation: Retired Feels Safe at Home: Yes Safety Concerns: Feels Safe At This Time Assistive Devices: Other Review of Systems Constitutional: no fever and no chills Respiratory: + dyspnea on exertion Cardiovascular: no chest pain Gastrointestinal: + coffee ground emesis and + melena; no abdominal pain Physical Exam Constitutional: well developed Respiratory: normal respiratory effort Cardiovascular: Rate/Rhythm: regular rate Gastrointestinal (Abdomen): Inspection/Auscultation: abdomen normal to inspection Percussion/Palpation: + abdomen tender and abdomen soft Psychiatric: Orientation: alert and oriented x 3 Results & Data Vital Signs (Past 12 Hours) Vital Signs Temp Pulse Pulse Resp BP Pulse Ox O2 Del Method 12/24/23 08:26 36.8 C 84 16 114/68 99 Room Air 12/24/23 07:05 85 12/24/23 03:22 84 18 106/60 96 Room Air 12/23/23 22:47 89 24 112/86 96 Room Air PG Care Time/CCT Total # of Minutes Spent Total Time Spent with Patient: Total time spent is greater than 50% in coordination of care (as documented) at patient's floor/unit and/or counseling patient: Coding Level of Care Code 31324 INT INP/OBS CARE MIN Diagnoses Coffee ground emesis K92.0
[2023-12-24 11:48] LABS: Hematocrit (blood only) 30.5 % (42.0-52.0); Hemoglobin 9.8 g/dl (14.0-18.0); Mean Corpuscular Hemoglobin 26.3 pg (25.0-34.0); Mean Corpuscular Hgb Conc 32.1 g/dL (32.0-36.0); Mean Platelet Volume 9.6 fL (9.4-12.4); Platelet Count 190 K/uL (130-400); RDW Coefficient of Variation 17.2 % (11.5-14.5); RDW Standard Deviation 49.6 fL (36.4-46.3); Red Blood Count 3.72 M/uL (4.70-6.10); White Blood Count 5.38 K/ul (4.8-10.8)
[2023-12-24 13:59] LABS: Prothrombin Time 10.8 Seconds (9.0-12.0)
--- NOTE | 2023-12-24 15:12 | Anesthesiology Consultation ---
Date of Service December 24, 2023 Assessment & Plan (1) Encounter for pre-operative examination: Chart Review Chart Review: Acceptable Risk for Surgery and Patient NOT seen in Pre Admission Testing Patient last seen by cardio 11/06/23= seen for follow up on hypertension, hypercholesterolemia, borderline LVH, diastolic dysfunction, transient cardiomyopathy (urosepsis, October 2016), paroxysmal supraventricular tachycardia (RFA, January 2022), and his coronary artery disease (NSTEMI, LAD MILKA, March 2021). The patient is stable from cardiovascular standpoint. He demonstrates excellent control of his blood pressure and LDL cholesterol. His HDL cholesterol remains low. He was commended on his active lifestyle and walking program. There has been no recurrence of his SVT since his ablation in 2021. Fortunately, his coronary artery disease remains quiescent his current medical regimen. Highly complex medical issues were managed and discussed today. Addendum 11/19/23= "The patient is an acceptable cardiac risk for shoulder surgery without further testing." Consults Requested none History Surgery Operation Date: 12/24/23 17:25 Proposed Procedures p Esophagogastroduodenoscopy Radha Garcia MD Height/Weight Height: 5 ft 8 in Weight: 96 kg Allergies Allergy/AdvReac Type Severity Reaction Status Date / Time pollen extracts Allergy Mild Sneezing Verified 12/23/23 12:32 Medications Home Medications Medication Instructions Recorded Confirmed Last Taken atorvastatin 40 mg tablet 40 mg PO PM #30 tabs 04/08/19 12/23/23 12/23/23 glipizide 5 mg tablet 5 mg PO BID 04/08/19 12/23/23 12/23/23 latanoprost 0.005 % eye drops 1 drops OPB HS 04/08/19 12/23/23 12/22/23 lisinopril 5 mg tablet 5 mg PO QAM #30 tabs 04/08/19 12/23/23 12/23/23 metformin 500 mg tablet See Rx Instructions .Route .COMPLEX 07/07/19 12/23/23 12/23/23 empagliflozin 10 mg tablet 10 mg PO QAM 04/02/21 12/23/23 12/23/23 (Jardiance) nitroglycerin 0.4 mg sublingual 0.4 mg sublingual PRN PRN chest 04/04/21 12/23/23 Unknown tablet (Nitrostat) pain #30 tabs clopidogrel 75 mg tablet 75 mg PO QAM #90 tabs 03/07/23 12/23/23 12/23/23 metoprolol succinate 50 mg 50 mg PO QAM 11/19/23 12/23/23 12/23/23 tablet,extended release 24 hr aspirin 81 mg tablet,delayed 81 mg PO QAM 12/23/23 12/23/23 12/23/23 release triamcinolone acetonide 0.1 % 1 applic topical DAILY PRN Skin 12/23/23 12/23/23 Unknown topical cream Irritation Active Medications Generic Name Dose Route Start Last Admin Trade Name Harveyq PRN Reason Stop Dose Admin Pantoprazole Sodium 40 mg/ 10 mls @ 5 mls/min 12/23/23 21:00 12/24/23 09:46 Syringe IV 01/22/24 20:59 5 mls/min BID SAM Administration Sodium Bicarbonate 150 meq/ 1,150 mls @ 100 mls/hr 12/24/23 08:30 12/24/23 14:26 Sterile Water IV 12/24/23 19:59 0 mls/hr .[id number] SAM Infusion Insulin Aspart 0 units 12/23/23 13:30 12/24/23 12:49 Insulin Aspart Per Unit Charge SC 01/22/24 13:29 Not Given Q6H SAM NPO Date Last Intake of Fluids: 12/23/23 Time Last Intake of Fluids: 08:00 Date Last Intake of Solids: 12/23/23 Time Last Intake of Solids: 08:00 Past Medical History Medical History (Updated 12/24/23 @ 15:14 by Kiko Hartman MD) Encounter for pre-operative examination Closed fracture of right proximal humerus History of benign schwannoma s/p removal () Comminuted right humeral fracture (~11/18/23) due to fall SVT (supraventricular tachycardia) Paroxysmal SVT (RFA January 2022) Urinary incontinence Usually wears pad Diastolic dysfunction Hx of fall (~11/18/23) Seen in ED at [facility] - injured right shoulder - reason for current surgery History of postoperative nausea and vomiting Glaucoma Sleep apnea mild - no cpap History of kidney stones no recent issues Hx of non-ST elevation myocardial infarction (NSTEMI) (~2020) [place] - stent - Dr. Sanz - [facility] - follows with Dr. 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, Rituxan History of kidney cancer s/p right nephrectomy- no chemo or XRT CAD (coronary artery disease) NSTEMI, LAD MILKA, March 2021 Hypertension Patient denies Hypercholesterolemia Cardiomyopathy Transient per cardio records (2017 with urosepsis) EF 45-50% on 2020 ECHO EF 35% on limited, not well visualized 2021 ECHO CKD (chronic kidney disease) Diabetes Past Family History Family History Father Cardiac disorder Mother Brain cancer Past Surgical History Surgical History History of surgery Schwannoma removal Hx of nephrolithotomy with removal of calculi Hx of colonoscopy with polypectomy Hx of cystoscopy 2-3 Hx of umbilical hernia repair History of cardiac radiofrequency ablation PSH - Dr. Scar Armijo Hx of heart artery stent (~2020) [facility] - [place] - follows with Dr. Irene Hx of cardiac catheterization (~03/2021) [place] - stent - Dr. Sanz - [facility] - follows with Dr. Irene Hx of bilateral cataract extraction History of right nephrectomy (~1995) kidney CA H/O prostatectomy Social History Smoking Status: Former smoker tobacco type: cigarettes Do You Dip or Chew Tobacco: No Hx Alcohol Use: Yes Alcohol type: wine alcohol intake frequency: holidays/special occasions only Hx Substance Use: No substance use type: does not use Physical Exam Vital Signs Last Vital Signs Temp 36.8 C 12/24/23 14:59 Pulse 80 12/24/23 14:59 Resp 18 12/24/23 14:59 BP 105/75 12/24/23 14:59 Pulse Ox 99 12/24/23 14:59 O2 Del Method Room Air 12/24/23 14:59 Testing Laboratory Results 12/24/23 11:26 12/24/23 04:45 PT 10.8 Seconds (9.0-12.0) 12/24/23 12:50 INR 1.0 (0.9-1.1) 12/24/23 12:50 APTT 23 Seconds (21-31) 12/23/23 10:48 Urine Color Yellow 12/23/23 Unknown Urine Appearance Clear (Clear) 12/23/23 Unknown Urine pH 5.5 (4.5-7.5) 12/23/23 Unknown Ur Specific [place] 1.027 (1.000-1.030) 12/23/23 Unknown Urine Protein Negative (Negative) 12/23/23 Unknown Urine Glucose (UA) 3+ (Negative) H 12/23/23 Unknown Urine Ketones 1+ (Negative) H 12/23/23 Unknown Urine Nitrite Negative (Negative) 12/23/23 Unknown Ur Leukocyte Esterase Negative (Negative) 12/23/23 Unknown Blood Type A Positive 12/23/23 10:48 Antibody Screen NEGATIVE 12/23/23 10:48 12/24/23 12/24/23 12:17 08:28 POC Glucose 127 H 128 H Electrocardiogram Date: 12/23/23 DICTATED BY: Jason Irene MD Test Reason : Blood Pressure : / mmHG Vent. Rate : 092 BPM Atrial Rate : 092 BPM P-R Int : 170 ms QRS Dur : 120 ms QT Int : 378 ms P-R-T Axes : 038 -58 078 degrees QTc Int : 467 ms Normal sinus rhythm Left axis deviation Non-specific intra-ventricular conduction delay Minimal voltage criteria for LVH, may be normal variant Abnormal ECG When compared with ECG of 15-DEC-2023 21:30, No significant change was found Confirmed by Jason Irene ([id number]) on 12/23/2023 2:47:56 PM Chest X-Ray Date: 12/23/23 XR chest 1V portable HISTORY: 83 years-old Male syncope COMPARISON: 12/25/2023 TECHNIQUE: AP view of the chest FINDINGS: Cardiac silhouette is enlarged. Right shoulder arthroplasty. Unchanged appearance of the left shoulder. No pneumothorax or pleural effusion. The lungs appear clear. IMPRESSION: No acute process. ACT 112: Negative or not required by law. The above report was generated using voice recognition software. It may contain grammatical, syntax or spelling errors.
--- NOTE | 2023-12-24 16:22 | GI REPORT ---
[facility] Patient: DANYELL CARTER : 1940 Sex at : Male Age: 83 Years Procedure: Upper GI endoscopy Date: 12/24/2023 Attending Physician: Ezra Garcia MD Referring MD: Dereck Quintanilla MD; Edmar Maki M.d. Indications: - Abdominal bloating - Hematemesis Medications: - Monitored Anesthesia Care Complications: - No immediate complications. Estimated Blood Loss: - Estimated blood loss: none. Procedure: - The egd scope was introduced through the mouth and advanced to the second part of the duodenum. - The upper GI endoscopy was accomplished without difficulty. Findings: - The examined esophagus was normal. No evidence of varices or esophagitis - The Z-line was regular and was found 38 cm from the incisors. - A varix with no bleeding was found in the gastric fundus. It had no stigmata of recent bleeding. It was 15 mm in diameter. Otherwise the stomach was normal - The examined duodenum was normal. Impression: - Normal esophagus. - No evidence of varices or esophagitis - Z-line regular, 38 cm from the incisors. 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 - Otherwise the stomach was normal - Normal examined duodenum. - No specimens collected. Recommendation: - Advance diet - Discontinue plavix if ok with cardiology - Abdominal imaging with CT abdomen, can be done as outpt Procedure Code(s): - 40904, Esophagogastroduodenoscopy, flexible, transoral; diagnostic, including collection of specimen(s) by brushing or washing, when performed (separate procedure) Diagnosis Code(s): - R14.0, Abdominal distension (gaseous) - I86.4, Gastric varices CPT(R) - 2023 copyright [employer] [place] [employer]. All Rights Reserved. The CPT codes, CCI edits and ICD codes generated are intended as suggestions and were generated based on input data. These codes are preliminary and upon supervisor component assembler review may be revised to meet current compliance and payer requirements. The provider is responsible for the final determination of appropriate codes, and modifiers. Ezra Garcia M.D. This document has been electronically signed. Note Initiated:12/24/2023 Note Completed:12/24/2023 4:20 PM \\[id number]
--- NOTE | 2023-12-24 16:23 | Communication Note ---
Date of Service: December 24, 2023 EGD showed medium size fundic varix without bleeding stigmata. Rec do d/c plavix if ok with cardiology. Obtain US or CT abdomen as outpatient. Advance diet, Monitor CBC
--- NOTE | 2023-12-24 16:27 | Anesthesiology Progress Note ---
Date of Service December 24, 2023 Anesthesia Post Procedure Vital Signs Vital Signs: Temp Pulse Pulse Pulse Resp BP Pulse Ox 12/24/23 16:05 74 19 101/55 L 95 12/24/23 14:59 36.8 C 80 18 105/75 99 12/24/23 11:19 36.5 C 82 15 98/56 L 99 12/24/23 08:26 36.8 C 84 16 114/68 99 12/24/23 07:05 85 12/24/23 03:22 84 18 106/60 96 12/23/23 22:47 89 24 112/86 96 12/23/23 19:23 79 12/23/23 19:05 37.3 C 86 24 118/52 L 98 O2 Del Method 12/24/23 16:05 Room Air 12/24/23 14:59 Room Air 12/24/23 11:19 Room Air 12/24/23 08:26 Room Air 12/24/23 07:05 12/24/23 03:22 Room Air 12/23/23 22:47 Room Air 12/23/23 19:23 12/23/23 19:05 Room Air Transfer of Care Handoff Completed per policy Notes Mental Status: alert / awake / arousable and participated in evaluation Patient Amnestic to Procedure: Yes Nausea / Vomiting: adequately controlled Pain: adequately controlled Airway Patency, RR, SpO2: stable & adequate BP & HR: see Notes below Hydration State: stable & adequate Anesthetic Complications: no major complications apparent and Pt Satisfied with anesthetic care Notes: At the end of the procedure, patient briefly went into an SVT rhythm. SBP in 80's. BP responded to phenylephrine IV and HR converted back into NSR with HR in 70's. Patient has hx/o SVT s/p ablation in 2021. Primary team made aware and patient is already being admitted to med/tele. Pt made aware of situation and all questions answered. He is awake and conversant in NAD.
[2023-12-24] MEDS: PHENYLEPHRINE 100MCG/ML 10ML SYR IV ONE (17:14)
[2023-12-24] MEDS: PROPOFOL IV EMULSION 10 MG/ML 20 ML VIAL IV ONE (17:14)
[2023-12-24] MEDS: LIDOCAINE 2% 2 ML VIAL/AMP(20MG/ML) INFIL ONE ×2 (17:14)
[2023-12-24] MEDS: METOPROLOL SUCC 50MG EXT REL TAB PO SCH (18:00)
[2023-12-24] MEDS ORDERED: Nursing to Pharmacy Communication SCH (20:00)
[2023-12-24] MEDS: INSULIN ASPART PER UNIT CHARGE SC SCH (20:38)
[2023-12-24] MEDS: LATANOPROST 0.005% OP SOLN 2.5 ML BTL OPB SCH (20:39)
[2023-12-24] MEDS: ATORVASTATIN 40 MG TAB PO SCH (20:39)
[2023-12-25 07:39] LABS: Eosinophils % (auto) 2.5 %; Hematocrit (blood only) 28.5 % (42.0-52.0); Hemoglobin 9.1 g/dl (14.0-18.0); Immature Granulocytes # (auto) 0.03 K/uL (0.01-0.20); Immature Granulocytes % (auto) 0.8 %; Lymphocytes # (auto) 0.49 K/uL (1.20-3.40); Lymphocytes % (auto) 12.3 %; Mean Corpuscular Hemoglobin 26.4 pg (25.0-34.0); Mean Corpuscular Hgb Conc 31.9 g/dL (32.0-36.0); Mean Corpuscular Volume 82.6 fL (80.0-100.0); Mean Platelet Volume 9.6 fL (9.4-12.4); Monocytes # (auto) 0.31 K/uL (0.11-0.59); Monocytes % (auto) 7.8 %; Neutrophils # (auto) 3.04 K/uL (1.40-6.50); Neutrophils % (auto) 76.6 %; Platelet Count 153 K/uL (130-400); RDW Coefficient of Variation 17.2 % (11.5-14.5); RDW Standard Deviation 50.4 fL (36.4-46.3); Red Blood Count 3.45 M/uL (4.70-6.10); White Blood Count 3.97 K/ul (4.8-10.8)
--- NOTE | 2023-12-25 07:46 | Hospitalist Progress Note ---
Date of Service December 24, 2023 Assessment & Plan (1) Coffee ground emesis: Plan: Pantoprazole 40mg IV BID Consult gastroenterology, planning on EGD today Mild trend Hgb down but not nearing neading transfusion Steroids and antiplatelets discontinued IV fluids switched to sodium bicarb due to non anion gap metabolic acidosis Unable to explain rise in INR overnight but will give 10mg IV vitamin K and recheck (2) Vasovagal near syncope: Plan: Monitor on telemetry Suspect secondary to acute GI bleed as above (3) Hx of non-ST elevation myocardial infarction (NSTEMI): Plan: Will need to hold aspirin/Plavix at this time with likely upper GI bleed Will hold p.o. metoprolol for now as he is stable Continue to monitor on telemetry (4) History of partial replacement of right shoulder: Plan: Continue right shoulder in sling at this time Fall precautions have been ordered Will start as needed IV acetaminophen and morphine for pain as he will not be able to take his p.o. analgesics at this time (5) Diabetes: Plan: Monitor BSG every 6 hours while NPO, goal is 110-116 Hold Jardiance, glipizide Will start correction factor of 50 and carb ratio 15 every 6 hours for now Adjust regimen as needed (6) Wide-complex tachycardia: Plan: Currently in NSR Hold p.o. metoprolol for now as he is strict n.p.o. Continue to monitor on telemetry (7) Hypomagnesemia: Plan: Mag 2.2 follow IV replacement, monitor level in AM (8) Acute upper GI bleed: (9) Acute blood loss anemia: Plan VTE Prophylaxis - SCD, chemical contraindicated Diet - NPO pending EGD Disposition - remain on med/tele Admission and Anticipated Discharge Date Admission Date: December 23, 2023 Subjective No further coffee ground emesis No chest pain, shortness of breath or dizziness Review of Systems Review of Systems: All systems reviewed & are unremarkable except as noted in HPI & below Physical Exam Constitutional: WD/WN, vitals as above Respiratory: normal respiratory effort, lungs clear to auscultation Cardiovascular: RRR, no murmur, no edema Gastrointestinal (Abdomen): normal bowel sounds, soft, nontender, no hepatosplenomegaly Psychiatric: A+Ox3, euthymic affect Results & Data Results & Data Vital Signs (Past 12 Hours) Vital Signs Temp Pulse Pulse Resp BP Pulse Ox O2 Del Method 12/25/23 04:15 36.6 C 60 20 108/68 96 Room Air 12/24/23 23:14 36.5 C 69 16 99/51 L 95 Room Air 12/24/23 23:01 75 PG Care Time/CCT Total # of Minutes Spent Total Time Spent with Patient: Total time spent is greater than 50% in coordination of care (as documented) at patient's floor/unit and/or counseling patient: Coding Level of Care Code 91168 SUB INP/OBS CARE 2/35MIN Diagnoses Coffee ground emesis K92.0 Vasovagal near syncope R55 Hx of non-ST elevation myocardial infarction (NSTEMI) I25.2 History of partial replacement of right shoulder Z96.611 Diabetes E11.9 Wide-complex tachycardia I47.2 Hypomagnesemia E83.42 Acute upper GI bleed K92.2 Acute blood loss anemia D62
[2023-12-25 07:55] LABS: Albumin Globulin Ratio 1.4 (0.9-2); Albumin Level 3.4 gm/dl (3.4-5.0); BUN Creatinine Ratio 24.6 (10-20); Bilirubin,Total 0.8 mg/dl (0.2-1.0); Calcium 8.9 mg/dl (8.6-10.3); Creatinine Clr Calc Pharmacy 49.7 ml/min; Est GFR (African American) 62.3 ml/min; Est GFR (Non-African American) 53.7 ml/min; Globulin 2.5 gm/dl (2.5-4.0); Magnesium 1.9 mg/dl (1.7-2.4); Potassium 4.3 mmol/L (3.5-5.1); Total Protein 5.9 gm/dl (6.0-8.3)
[2023-12-25] MEDS: EMPAGLIFLOZIN 10 MG TAB PO SCH (08:57)
[2023-12-25 13:22] LABS: Hematocrit (blood only) 30.6 % (42.0-52.0); Hemoglobin 9.8 g/dl (14.0-18.0); Mean Corpuscular Hemoglobin 26.5 pg (25.0-34.0); Mean Corpuscular Volume 82.7 fL (80.0-100.0); Mean Platelet Volume 9.7 fL (9.4-12.4); Platelet Count 209 K/uL (130-400); RDW Coefficient of Variation 17.3 % (11.5-14.5); RDW Standard Deviation 50.6 fL (36.4-46.3); White Blood Count 5.49 K/ul (4.8-10.8)
--- NOTE | 2023-12-25 14:20 | Discharge Summary ---
Discharge Summary Date of Service December 25, 2023 Principal Dx & Hospital Course #1 = Principal Diagnosis (1) Coffee ground emesis: Pantoprazole 40mg IV BID Consult gastroenterology, planning on EGD today Mild trend Hgb down but not nearing neading transfusion Steroids and antiplatelets discontinued IV fluids switched to sodium bicarb due to non anion gap metabolic acidosis Unable to explain rise in INR overnight but will give 10mg IV vitamin K and recheck (2) Vasovagal near syncope: Monitor on telemetry Suspect secondary to acute GI bleed as above (3) Hx of non-ST elevation myocardial infarction (NSTEMI): Will need to hold aspirin/Plavix at this time with likely upper GI bleed Will hold p.o. metoprolol for now as he is stable Continue to monitor on telemetry (4) History of partial replacement of right shoulder: Continue right shoulder in sling at this time Fall precautions have been ordered Will start as needed IV acetaminophen and morphine for pain as he will not be able to take his p.o. analgesics at this time (5) Diabetes: Monitor BSG every 6 hours while NPO, goal is 110-116 Hold Jardiance, glipizide Will start correction factor of 50 and carb ratio 15 every 6 hours for now Adjust regimen as needed (6) Wide-complex tachycardia: Currently in NSR Hold p.o. metoprolol for now as he is strict n.p.o. Continue to monitor on telemetry (7) Hypomagnesemia: Mag 2.2 follow IV replacement, monitor level in AM (8) Acute upper GI bleed: (9) Acute blood loss anemia: Plan VTE Prophylaxis - SCD, chemical contraindicated Diet - NPO pending EGD Disposition - remain on med/tele Admission HPI Per Admitting Provider Doroteo is an 83-year-old male with a past medical history significant for recent right reverse total shoulder arthroplasty due to right proximal humerus fracture with Dr. Mena on 11/22/2023, coronary artery disease status post NSTEMI with LAD MILKA placement in March 2021, Renal cancer status post total right nephrectomy in 1991, prostate cancer status post radical prostatectomy, and lymphoma status postchemotherapy, hypertension, hyperlipidemia, ischemic cardiomyopathy, HFrEF (LVEF of 35%), diabetes mellitus type 2 who presented to the [facility] ED via EMS on 12/23/2023 after experiencing episodes of coffee-ground emesis and syncopal episode while on the toilet this morning. He remained stable in the ED. Labs were significant for hemoglobin of 11.2 (down from 12.2 as of 12/15/2023), bicarb of 19 with anion gap within normal limits, mag of 1.6. CT of the head and brain without contrast and chest x-ray were read as negative for acute findings. EKG showed normal sinus rhythm without acute ST segment or T wave changes. Prior to admission the patient was started on a pantoprazole drip and given 1 L normal saline. Patient was sitting in bed in no acute distress at the time exam, his is bedside, history was obtained from both. The patient was in his normal state of health this morning when he first woke. Later in the morning he had sudden onset of nausea, feeling flushed, and diaphoresis. He felt as though he needed to have a bowel movement so he went to the bathroom and sat on the toilet. Shortly after he felt as though he was going to lose consciousness so he called his who then found him half on the toilet and slightly confused. His pulled the alert cord in [place] Shortly after the nurse arrived the patient felt nauseous and had what his says is approximately 2 cups of dark/black emesis. The patient also notes that he had dark/black bowel movements yesterday. He denies recent abdominal pain, fevers, chills, chest pain shortness of breath, dysuria/hematuria, bright red blood per the rectum, lower extremity swelling, and recent fall/trauma. He feels improved compared to arrival, and was able to ambulate to the bathroom with my assistance during the exam without issue. He did have all of his a.m. medications which include aspirin and Plavix. Of note, he was seen in the [facility] emergency department on 12/16/2023 with a chief complaint of shortness of breath. He was given 2 albuterol nebulizer treatments and a CTA of the chest with PE protocol which was read as mild prominent interstitial markings throughout both lungs suggesting underlying emphysema. Reticular densities in both lung bases are slightly blurred by motion. Probable subsegmental atelectasis although mild fibrosis cannot be excluded. The patient was discharged on a 4-day course of of 20 mg prednisone daily, they confirm that he completed this course. We discussed CODE STATUS, he wishes to be DNR/DNI and for his to make medical decisions for him if he cannot make them himself. Please refer to Dr. Quintanilla's attestation for any changes to the treatment plan Updated Medication List Medication Instructions Recorded Confirmed Type atorvastatin 40 mg tablet 40 mg PO PM #30 tabs 04/08/19 12/23/23 History glipizide 5 mg tablet 5 mg PO BID 04/08/19 12/23/23 History latanoprost 0.005 % eye drops 1 drops OPB HS 04/08/19 12/23/23 History metformin 500 mg tablet See Rx Instructions .Route .COMPLEX 07/07/19 12/23/23 History empagliflozin 10 mg tablet 10 mg PO QAM 04/02/21 12/23/23 History (Jardiance) nitroglycerin 0.4 mg sublingual 0.4 mg sublingual PRN PRN chest 04/04/21 12/23/23 Rx tablet (Nitrostat) pain #30 tabs clopidogrel 75 mg tablet 75 mg PO QAM #90 tabs 03/07/23 12/23/23 Rx metoprolol succinate 50 mg 50 mg PO QAM 11/19/23 12/23/23 History tablet,extended release 24 hr aspirin 81 mg tablet,delayed 81 mg PO QAM 12/23/23 12/23/23 History release triamcinolone acetonide 0.1 % 1 applic topical DAILY PRN Skin 12/23/23 12/23/23 History topical cream Irritation pantoprazole 40 mg tablet,delayed 40 mg PO BID #60 tabs 12/25/23 Rx release Hospital Stay Data Consultations 12/23/23 12:33 ED Decision to Admit Stat 12/23/23 13:15 Consult Gastroenterology Routine Procedures Performed Operation Date: 12/24/23 17:25 Actual Procedures p Esophagogastroduodenoscopy - Ezra Garcia MD Diagnostic Imagining Performed 12/23/23 10:43 CT head/brain wo con Stat Pending Results Patient Have Any Pending Studies at Discharge: No Discharge Instructions Given to Patient (Per Discharging Provider) You were admitted to [facility] from December 22 - 2023 due to hematemesis (vomiting with blood). You were diagnosed with an upper gastrointestinal bleed likely precipitated by steroid use. You were treated with intravenous pantoprazole. EGD showed gastric varices with no stigmata of recent bleeding. Recommend continuing on pantoprazole 40mg twice a day until follow up with gastroenterology. Avoid non steroidal anti-inflammatory pain medications such as ibuprofen or naproxen. Aspirin can be restarted but clopidogrel has been held as your heart attack and stent placement has been over one year ago. Please follow up with your continuous improvement consultant non urgently to see if you can come off this permanently or if they want you to restart it. Please stop lisinopril due to low blood pressure - follow up with your primary care physician to see if this needs to be re-introduced. Coding Diagnoses Coffee ground emesis K92.0 Vasovagal near syncope R55 Hx of non-ST elevation myocardial infarction (NSTEMI) I25.2 History of partial replacement of right shoulder Z96.611 Diabetes E11.9 Wide-complex tachycardia I47.2 Hypomagnesemia E83.42 Acute upper GI bleed K92.2 Acute blood loss anemia D62
--- NOTE | 2023-12-25 14:36 | Gastroenterology Progress Note ---
Date of Service December 25, 2023 Assessment & Plan (1) Acute upper GI bleed: (2) Acute blood loss anemia: Plan S/p Hematemesis, Isolated gastric varix. D/c plavix if ok with cardiology. F/up as outpatient with CT abdomen, r/o underlying cirrhosis Admission and Anticipated Discharge Date Admission Date: December 23, 2023 Subjective No GI symptoms, no more melena, no N/V. Hg 9.8 Discharge anticipated later today or tomorrow Review of Systems Review of Systems: All systems reviewed & are unremarkable except as noted in HPI & below Physical Exam Constitutional: WD/WN, vitals as above Respiratory: normal respiratory effort, lungs clear to auscultation Cardiovascular: RRR, no murmur, no edema Gastrointestinal (Abdomen): normal bowel sounds, soft, nontender, no hepatosplenomegaly Results & Data Vital Signs (Past 12 Hours) Vital Signs Temp Pulse Resp BP Pulse Ox O2 Del Method 12/25/23 11:15 36.5 C 57 L 15 102/64 98 Room Air 12/25/23 10:20 Room Air 12/25/23 07:48 36.5 C 77 15 122/70 98 Room Air 12/25/23 04:15 36.6 C 60 20 108/68 96 Room Air
== END 2023-12-25 15:05 | disposition home or self-care (01) | DRG 378 ==
LOC: ED 10:33 → EDINP 12:42 → 2N 16:35